=== PATIENT | male | born 1940 | race Caucasian/White ===

== ENCOUNTER 2021-03-20 22:15 | Emergency (ER) | payer MEDICAID, SELFPAY ==
--- NOTE | ~2021-03-20 | CT_ITS ---
EXAMINATION: CT brain wo con INDICATION: Altered mental status COMPARISON: None TECHNIQUE: Standard unenhanced head CT. The dose-length product (DLP) was 275.83 mGy-cm. The mA was a djusted according to patient size. Iterative reconstruction technique was employed. FINDINGS: There is no acute intraparenchymal hemorrhage. No evidence of mass lesion. No evidence of a cute infarction. There is mild periventricular and subcortical hypodensity probably related to small vessel ischemic disease. There is mild prominence of the sulci and ventricles related to cerebral atr ophy. Intracranial calcified cerebral atherosclerosis is noted. There are no extra-axial collections. There is no mass effect or midline shift. The orbits and soft tissues are unremarkable. There is mil d mucosal thickening of the paranasal sinuses. IMPRESSION: 1. No acute intracranial abnormality. 2. Age related findings. Reviewed, dictated and finalized at location A.
--- NOTE | ~2021-03-20 | XR_ITS ---
EXAMINATION: XR chest 1V portable INDICATION: Altered mental status TECHNIQUE: Portable AP chest at 2252 hours. COMPARISON: None available FINDINGS: The lungs are free of acute opacities. There is no pleural effusion or pneumothorax. The he art size is normal. There appears to be a small sliding hiatal hernia. IMPRESSION: 1. No acute cardiopulmonary abnormality. Reviewed, dictated and finalized at location A.
[2021-03-20 22:11] VITALS: BP 110/56; PULSE 108; RESP 13; TEMP 37.2; O2SAT 95
--- NOTE | 2021-03-20 22:47 | ED.GENADULT ---
HPI - General Adult General Chief complaint: Psychiatric Symptoms Stated complaint: psych eval - combative Time Seen by Provider: 03/20/21 22:30 Source: RN notes reviewed History of Present Illness HPI narrative: Patient presents emergency department from [facility] via EMS for psychiatric evaluation. Per the staff the patient was being combative and was having hallucinations. Patient recently was at a geriatric psychiatric facility and had been discharged to the facility 2 days ago patient currently is awake and alert x1 he states that whatever they told you is not true . Patient denies having any pain at this time denies any chest pain shortness of breath abdominal pain nausea vomiting Related Data Home Medications Medication Instructions Recorded Confirmed furosemide [Lasix] 20 mg PO DAILY 03/20/21 lamotrigine [Lamictal] 03/20/21 03/20/21 memantine 10 mg PO QPM 03/20/21 tamsulosin 0.4 mg PO HS 03/20/21 Allergies Allergy/AdvReac Type Severity Reaction Status Date / Time No Known Allergies Allergy Unverified 03/20/21 22:19 Review of Systems Review of Systems: Gen.: Denies fevers or chills Eyes: Denies eye pain or visual change ENT: Denies congestion Respiratory: Denies shortness of breath or cough CV: Denies chest pain or palpitations GI: Denies abdominal pain nausea, emesis or diarrhea Musculoskeletal: Denies back pain or muscle pain Neuro: Denies numbness, tingling, weakness or focal weakness Skin: Denies rash Psych: HPI Except as documented, all other systems reviewed and negative PMFSH Past Medical History Medical History (Updated 03/20/21 @ 22:48 by Srikanth Venegas DO) Dementia Social History Social History (Updated 03/20/21 @ 22:48 by Srikanth Venegas DO) Smoking status: Never smoker Exam Narrative: APPEARANCE: No acute distress, nontoxic, resting in bed EYES: EOMI HEENT: Normocephalic, atraumatic, OMM RESPIRATORY: No respiratory distress Clear to auscultation bilaterally with no rhonchi wheezing or rales. CARDIOVASCULAR: Regular rate and rhythm without murmurs rubs or gallops. ABDOMINAL: Soft, nontender, nondistended, no rebound or guarding MUSCULOSKELETAl: Moves all extremities. No clubbing, cyanosis or edema. NEURO: Awake and alert x 1. Following commands, speech normal, no focal deficits SKIN:: Warm, dry. No rashes lesions or abrasions PSYCHIATRIC: Visual hallucinations in room stating he just saw them put a girl on ice , Course Course Emergency Course: Talk to assisted staff per staff the patient was chasing around staff swinging chairs of the staff the police had to be called out to the assisted to help subdue the patient At this time feel that the patient needs geriatric psych placement. Will have patient evaluated by case management for placement Discussed with Dr. Oseguera for hospitalist service this time would prefer the patient to remain in the emergency department await case management for placement Patient up out of bed numerous attempts to redirect the patient continues to get out of bed cannot be redirected will give Ativan at this time Will be turned over to Dr. Salmeron case management evaluation and placement Vital Signs Vital signs: Vital Signs Temperature 99.0 F 03/20/21 22:11 Pulse Rate 108 H 03/20/21 22:11 Respiratory Rate 13 03/20/21 22:11 Blood Pressure 110/56 L 03/20/21 22:11 Pulse Oximetry 95 03/20/21 22:11 Temperature 99.0 F 03/20/21 22:11 Pulse Rate 94 03/21/21 04:50 Respiratory Rate 16 03/21/21 04:50 Blood Pressure 114/63 03/21/21 04:50 Pulse Oximetry 99 03/21/21 04:50 Medical Decision Making Vital Signs Vital Signs: Vital Signs Temperature 99.0 F 03/20/21 22:11 Pulse Rate 108 H 03/20/21 22:11 Respiratory Rate 13 03/20/21 22:11 Blood Pressure 110/56 L 03/20/21 22:11 Pulse Oximetry 95 03/20/21 22:11 Temperature 99.0 F 03/20/21 22:11 Pulse Rate 94 03/21/21 04:50 Respirato
[2021-03-20 23:12] LABS: Basophils Percent Auto 0.4 % (0.2-1.2); Eosinophils Absolute Auto 0.2 K/mm3 (0-0.3); Eosinophils Percent Auto 2.3 % (0-4.4); Hematocrit 33.8 % (42.0-52.0); Hemoglobin 11.2 g/dL (14.0-18.0); Immature Granulocyte Absolute 0.02 K/mm3 (0.00-0.031); Immature Granulocyte Percent A 0.3 % (0-0.5); Lymphocytes Absolute Auto 0.88 K/mm3 (0.9-3.2); Lymphocytes Percent Auto 11.8 % (18.3-44.2); Mean Corpuscular HGB Conc 33.1 g/dl (32-36); Mean Corpuscular Volume 96.6 fl (80-100); Mean Platelet Volume 9.7 fl (7.4-10.4); Monocytes Absolute Auto 0.7 K/mm3 (0.1-0.6); Monocytes Percent Auto 9.8 % (2.6-8.5); Neutrophils Absolute Auto 5.6 K/mm3 (1.3-6.7); Neutrophils Percent Auto 75.4 % (45.5-73.1); Platelet Count Result 139 k/mm3 (150-375); Red Cell Distribution Width 13.2 % (11.5-14.5); White Blood Count 7.4 K/mm3 (4.5-10.0)
--- NOTE | 2021-03-20 23:13 | PC.NURSE ---
called lab talked to emilia to add Salic Acetamin
[2021-03-20 23:28] LABS: Ethanol < 10 mg/dL (<10)
[2021-03-20 23:32] LABS: Acetaminophen < 10 ug/mL (10-30); Salicylate < 1.0 mg/dL (2-20)
[2021-03-20 23:33] LABS: Alanine Aminotransferase 22 U/L (4-50); Albumin Level 4.5 g/dL (3.5-5.1); Alkaline Phosphatase 59 U/L (38-126); Anion Gap 7 mmol/L (8-16); Aspartate Amino Transferase 37 U/L (17-59); Bilirubin,Total 0.6 mg/dL (0.2-1.3); Blood Urea Nitrogen 26 mg/dL (9-20); Calcium 9.4 mg/dL (8.4-10.2); Carbon Dioxide 29 mmol/L (22-30); Chloride 102 mmol/L (98-107); Estimated CRCL calculation 45 ml/min; Estimated Glomerular Filt Rate 58; Glucose 97 mg/dL (65-110); Potassium 3.8 mmol/L (3.4-5.0); Sodium 138 mmol/L (137-145)
[2021-03-20 23:35] LABS: Prothrombin Time 13.1 Seconds (11.1-14.7)
[2021-03-21 00:33] LABS: Add Urine Microscopic? YES; Appearance Urine Cloudy (Clear); Bilirubin Urine Negative (Negative); Blood Urine Negative (Negative); Color Urine Yellow (Yellow); Glucose Urine UA Negative (Negative); Ketones Urine Negative (Negative); Leukocyte Esterase Ur Negative LEU/UL (Negative); Mucus Urine Few /lpf; Nitrate Urine Negative (Negative); Protein Urine Negative (Negative); RBC Urine 0-2 /hpf (0-2); Specific Grav Ur 1.024 (1.001-1.035); Squamous Epithelial Cell Urine Rare /hpf (Few); Urobilinogen Urine Negative mg/dL (<2.0); WBC Urine 0-3 /hpf
[2021-03-21 00:42] LABS: Barbiturate Screen Urine Negative (Negative); Benzodiazepines Screen Urine Negative (Negative)
[2021-03-21 00:45] LABS: Cannabinoid Screen Urine Negative (Negative); Methadone Screen Urine Negative (Negative); Opiate Screen Urine Negative (Negative); Phencyclidine Screen Urine Negative (Negative)
[2021-03-21 01:01] LABS: Amphetamine Screen Urine Negative (Negative)
--- NOTE | 2021-03-21 01:23 | ECG_ITS ---
Measurements Intervals [place] Rate: 95 P: 54 [place]: 124 QRS: 1 QRSD: 90 T: 46 QT: 347 QTc: 436 Interpretive Statements SINUS RHYTHM BASELINE ARTIFACT- I, II, III, AVR, AVL, AVF, V1-V6 NORMAL ECG Electronically Signed On 03-21-2021 6:07:03 CDT by Jerson Priest D.O.
[2021-03-21 03:18] VITALS: BP 108/55; PULSE 84; RESP 17; O2SAT 98
--- NOTE | 2021-03-21 04:49 | PC.NURSE ---
pt refusing to wear heart monitor leads. pt states STOP THEY ARE GOING TO SHOCK ME! 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
[2021-03-21 04:50] VITALS: BP 114/63; PULSE 94; RESP 16; O2SAT 99
[2021-03-21] MEDS: LORazepam INJ (*CRX) 2 MG/ML VIAL 1 MG IM ×2 (05:22→12:04)
--- NOTE | 2021-03-21 05:26 | PC.NURSE ---
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 redirected pt multiple times and pt refusing to listen. pt threatening to beat up staff and stating to get the hell away from him.
--- NOTE | 2021-03-21 07:15 | PC.NURSE ---
REPORT RECEIVED FROM NELY Hagan RN. CARE ASSUMED. SITTER REMAINS AT BEDSIDE. ROOM DARKENED AND PT IS SLEEPING AT THIS TIME. WILL CONTINUE TO MONITOR.
--- NOTE | 2021-03-21 10:34 | PC.NURSE ---
PT AWAKE AND GETTING OUT OF BED. HAS BEEN WALKED AROUND THE DEPARTMENT TWICE BY THIS RN AND ASSISTED BACK INTO THE BED. PT STATES YOU SOUND LIKE THOSE PUNK ASS KIDS TO THIS RN. PT REDIRECTED TO FACT HE IS IN HOSPITAL AND WE ARE ATTEMPTED TO HELP HIM GET BETTER. SITTER REMAINS AT BEDSIDE FOR PT SAFETY.
--- NOTE | 2021-03-21 11:55 | PCCCNOTE ---
Spoke with Intake at [facility] (patient was discharged from there to days ago). no bed availability at this time but possibly in 24 hrs. Placed patient on the wait list. Involuntary Petition initiated and given to financial compliance officer for completion
[2021-03-21 15:00] VITALS: BP 108/62; PULSE 76; RESP 16; O2SAT 100
--- NOTE | 2021-03-21 15:00 | PC.NURSE ---
PT AWAKE AGAIN AND GETTING OUT OF BED. PT WAS ASSISTED AROUND THE DEPARTMENT WITH THIS RN ACCOMPANYING HIM. PLACED BACK INTO BED, LIGHTS DIMMED AND SITTER REMAINS AT BESIDE FOR PT SAFETY
--- NOTE | 2021-03-21 19:22 | PC.NURSE ---
Assumed care of pt. at this time. Report from Cat. Fabrizio RN
[2021-03-21 22:08] LABS: Cocaine Screen Urine Negative (Negative)
[2021-03-21 22:32] VITALS: BP 126/60; PULSE 75; RESP 14; O2SAT 97
[2021-03-22 01:00] VITALS: BP 116/58; PULSE 92; RESP 14; TEMP 36.4; O2SAT 100
--- NOTE | 2021-03-22 07:27 | PC.NURSE ---
Pt sleeping at this time. Sitter is a bedside.
[2021-03-22 08:08] LABS: EDCOVIDSCREEN Negative (Negative)
[2021-03-22 08:30] VITALS: BP 117/61; PULSE 73; RESP 18; O2SAT 98
--- NOTE | 2021-03-22 08:44 | PC.NURSE ---
Meal tray ordered for pt
--- NOTE | 2021-03-22 09:06 | PCCCNOTE ---
[id number] Spoke with Betty at [facility], no beds available for today and unsure of discharges for tomorrow. Spoke with Maureen at [facility], per Maureen will look at referral for geriatric psych bed. Referral faxed as requested at [phone].- arf
--- NOTE | 2021-03-22 09:33 | PCCCNOTE ---
Phone call received from Maureen that needs confirmation from care home that they will accept back or they provided patient with 30 day notification, requesting rn acute care to contact [facility] and call back to [phone].
--- NOTE | 2021-03-22 09:35 | PCCCNOTE ---
Addendum entered by Deepali Fu RN 03/22/21 11:09: 1109 Director from [facility] came and saw the patient and confirmed acceptance after placement/treatment at geriatric psychiatry facility. Original Note: [id number] Phone call to [facility] at [phone] spoke with Javi Ramirez states that they will accept back after placement/treatment at geriatric psychiatry facility. [facility] notified by phone and fax.
--- NOTE | 2021-03-22 10:38 | PC.NURSE ---
Pt is requesting to talk to his daughter, Trish. There is no contacts in pts chart.
--- NOTE | 2021-03-22 10:38 | PC.NURSE ---
Beth is here to elevate the pt. Informed charged nurse Yola of this. Yola states it is ok to have them come down but to call home care manager rn. admission nurse coordinator here to speak with Beth.
--- NOTE | 2021-03-22 12:20 | PCCCNOTE ---
Inpatient Certificate completed by physician at 1210, Petition for Involuntary Admission completed at 1215. Faxed all to [facility] at [phone] at 1217. Additional Fax to [facility] with rapid covid results, and medicare insurance number.
--- NOTE | 2021-03-22 12:42 | PCCCNOTE ---
Late entry: 03/22/21 at 1111 attempted to reach pt's daughter Trish at [phone], phone number [place] gave [facility] as contact. Machine identified as Yvan who is the pt's nephew, left brief message to return call to care coordination and that the message was for Trish. As 1244 no return call received.
--- NOTE | 2021-03-22 14:22 | PC.NURSE ---
Called to give report on pt. Spoke with Karen and she will have receiving nurse call me back
[2021-03-22 16:42] VITALS: BP 115/65; PULSE 90; RESP 18; O2SAT 100
== END 2021-03-22 16:44 ==
PROVIDERS: Emergency Medicine; General Practice; Emergency Provider Emergency Medicine; PCP Internal Medicine
DX: R44.1 Visual hallucinations (principal); R45.6 Violent behavior; F03.90 Unspecified dementia, unspecified severity, without behavioral disturbance, psychotic disturbance, mood disturbance, and anxiety; Z20.822 Contact with and (suspected) exposure to COVID-19
CPT/HCPCS: 36415; 51701; 70450; 71045; 80053; 80307; 81001; 84443; 85025; 85610; 85730; 87426; 93005; 96372; 99285; C9803; J2060

== ENCOUNTER 2021-04-23 12:19 | Inpatient (IN) | payer MEDICARE, MEDICAID, SELFPAY ==
[2021-04-23] VITALS (8 sets, daily range): BP systolic 95–132; BP diastolic 48–61; PULSE 62–75; RESP 15–22; TEMP 36.5–36.8; O2SAT 96–100
--- NOTE | ~2021-04-23 | XR_ITS ---
EXAMINATION: XR hip LT 1V DATE: 04/25/2021 15:31 INDICATION: Bipolar left hip hemiarthroplasty. Postop. TECHNIQUE: A single view of left hip was obtained. COMPARISON: Left hip radiographs 04/23/2021 FINDINGS: There is a bipolar left hip hemiarthroplasty in near-anatomic alignment. No fracture. Left hip joint space is normal. There is gas in the soft tissues, consistent with recent surgery. Skin sta ples are noted. IMPRESSION: 1. Bipolar left hip hemiarthroplasty in near-anatomic alignment. Reviewed, dictated and finalized at location B. COLORIST
--- NOTE | ~2021-04-23 | CT_ITS ---
EXAMINATION: CT brain wo con DATE: 04/23/2021 17:31 INDICATION: Dementia oriented only to person who presents with fall from bed. Unable to provide relia ble history. TECHNIQUE: Computed tomography (CT) of the head was performed without intravenous contrast. Sagittal and coronal reconstructions were performed. The mA was adjusted according to patient size. Iterative reconstruction technique was employed. The dose-length product was 315.48 mGy-cm. COMPARISON: head CT dated 03/20/2021 FINDINGS: No fracture. No acute intracranial hemorrhage, acute infarction or abnormal extra axial fluid collect ion. There is mild scattered white matter hypoattenuation consistent with chronic small vessel ischem ic disease. Symmetric prominence of the sulci and ventricles consistent with mild age-appropriate dif fuse cerebral volume loss. No mass/mass effect. Mild mucosal thickening in the anterior bilateral eth moid sinuses. The orbits and mastoid air cells are normal. IMPRESSION: 1. No fracture or acute intracranial process. 2. Age-related changes including mild diffuse volume loss and mild scattered white matter hypoattenua tion consistent with chronic small vessel ischemic disease. Reviewed, dictated and finalized at location A. UTIVE VP IMPRESSION: 1. No fracture or acute intracranial process. 2. Age-related changes including mild diffuse volume loss and mild scattered wh ite matter hypoattenuation consistent with chronic small vessel ischemic diseas e.
--- NOTE | ~2021-04-23 | XR_ITS ---
EXAMINATION: XR hip LT 2V w AP pelvis EXAM DATE: 04/23/2021 12:59 INDICATION: Fall, deformity. TECHNIQUE: Left hip frontal, 'frog leg' projections for interpretation. Frontal projection pelvis. There is no prior study for comparison. FINDINGS: There is acute closed posttraumatic left subcapital femoral neck fracture with medial angul ation. There is mild to moderate symmetric bilateral hip primary osteoarthritis. Pelvic ring is intac t. IMPRESSION: 1. Acute left subcapital femoral neck fracture, medial angulation. Reviewed, dictated and finalized at location A. INUING EDUCATION DIRECTOR
--- NOTE | ~2021-04-23 | XR_ITS ---
EXAMINATION: XR chest 1V portable EXAM DATE: 04/23/2021 12:59 INDICATION: Hip fracture, fall. Weakness. TECHNIQUE: Portable AP frontal chest x-ray was obtained. Comparison is made to prior examination from 03/20/2021. FINDINGS: Left lower rib fractures posterolaterally which appear chronic. The lungs are clear. There are no pleural effusions. The cardiomediastinal silhouette is within normal limits. There is no pn eumothorax suspected. There is small to moderate sliding gastroesophageal hiatal hernia. IMPRESSION: 1. No acute cardiopulmonary findings. 2. Small to moderate hiatal hernia. Reviewed, dictated and finalized at location A. IT RISK ANALYTICS MANAGER
--- NOTE | 2021-04-23 12:38 | ECG_ITS ---
Measurements Intervals [place] Rate: 67 P: 66 [place]: 140 QRS: 18 QRSD: 93 T: 52 QT: 414 QTc: 438 Interpretive Statements SINUS RHYTHM BASELINE ARTIFACT- II, III, AVR, AVL, AVF, V2-V3, V5-V6 NORMAL ECG Electronically Signed On 04-23-2021 17:32:37 RAIL CAR DRIVER by Jerson Priest D.O.
--- NOTE | 2021-04-23 13:06 | ED.FALL ---
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 Patient currently with no complaints, alert, ignoring most questions, NAD; states pain in L hip worse with movement, improves with rest. No previous history of L hip fracture or injury per medical record. Related Data Home Medications Medication Instructions Recorded Confirmed benztropine 1 mg PO DAILY 04/23/21 05/02/21 cholecalciferol (vitamin D3) 10 mcg PO DAILY 04/23/21 05/02/21 [Vitamin D3] haloperidol 2 mg PO Q6H PRN 04/23/21 05/02/21 haloperidol 5 mg PO DAILY 04/23/21 05/02/21 lamotrigine 25 mg PO DAILY 04/23/21 05/02/21 lorazepam 1 mg PO Q6H PRN 04/23/21 05/02/21 memantine 5 mg PO Q12H 04/23/21 05/02/21 rivastigmine 9.5 mg TRANSDERMAL DAILY 04/23/21 05/02/21 sertraline 50 mg PO DAILY 04/23/21 05/02/21 tamsulosin 0.4 mg PO HS 04/23/21 05/02/21 Ativan 1 mg PO QID PRN 05/02/21 05/02/21 Allergies Allergy/AdvReac Type Severity Reaction Status Date / Time No Known Allergies Allergy Verified 05/01/21 20:05 Review of Systems Review of Systems: ROS unobtainable: Yes unobtainable due to mental status PMFSH Past Medical History Medical History BPH (benign prostatic hyperplasia) Dementia Depression with anxiety Prostate cancer per daughter Surgical History Surgical History History of appendectomy per daughter History of left hip hemiarthroplasty Family History Family History Unknown Unknown family medical history Social History Social History Social History: Daughter: Trish is Next of Kin , per Trish PPW is pending patient signature. Nephew: Srikanth Ellison (2nd contact per Trish/[facility]) Remaining social history obtained from Trish. 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 Gender identity (if verbalized by the patient): Male Spiritual care concerns: No Exam Narrative: General: alert, afebrile, answering all questions slowly Head: normocephalic, atraumatic Eyes: EOMI bilaterally, anicteric, no injection ENT: moist mucous membranes, oropharynx patent, no rhinorrhea Neck: supple, trachea midline, no JVD Back: no lumbar bony tenderness. paraspinal muscles without spasm EXT: LLE: skin intact, no swelling, tender to L hip; L internal rotaation, decreased ROM; DP 2+moving all other extremities equally Skin: warm, dry, no pallor Neuro: alert, oriented x 1; CN 2-12 grossly intact, no dysarthria Psych: affect appropriate, though content normal Course Course Emergency Course: Spoke with orthopedist, will admit for surgery tomorrow or next day. Medical clearance labs pending; hospitalist informed. Vital Signs Vital signs: Vital Signs Temperature 36.8 C 04/23/21 12:18 Pulse Rate 75 04/23/21 12:18 Respiratory Rate 18 04/23/21 12:18 Pulse Oximetry 99 04/23/21 12:18 Temperature 37.1 C 04/26/21 14:30 Pulse Rate 84 04/26/21 14:30 Respiratory Rate 18 04/26/21 14:30 Blood Pressure 105/53 L 04/26/21 14:30 Pulse Oximetry 97 04/26/21 14:30 MDM - Fall MDM Narrative Medical decision making narrative: L femoral head frac
[2021-04-23] MEDS: fentaNYL CITRATE INJ (*CRX) 100 MCG/2 ML VIAL 25 MCG IV PUSH (13:19)
[2021-04-23 13:30] LABS: Basophils Percent Auto 0.5 % (0.2-1.2); Eosinophils Absolute Auto 0.3 K/mm3 (0-0.3); Eosinophils Percent Auto 4.6 % (0-4.4); Hematocrit 35.8 % (42.0-52.0); Hemoglobin 11.7 g/dL (14.0-18.0); Immature Granulocyte Absolute 0.03 K/mm3 (0.00-0.031); Immature Granulocyte Percent A 0.5 % (0-0.5); Immature Platelet Fraction Pct 3.4 % (0.9-11.2); Mean Corpuscular HGB Conc 32.7 g/dl (32-36); Mean Corpuscular Hemoglobin 31.4 pg (26-34); Mean Platelet Volume 10.7 fl (7.4-10.4); Monocytes Absolute Auto 0.6 K/mm3 (0.1-0.6); Neutrophils Absolute Auto 3.8 K/mm3 (1.3-6.7); Neutrophils Percent Auto 68.4 % (45.5-73.1); Platelet Count Result 137 k/mm3 (150-375); Red Blood Count 3.73 M/mm3 (4.6-6.20); Red Cell Distribution Width 12.8 % (11.5-14.5); White Blood Count 5.6 K/mm3 (4.5-10.0)
[2021-04-23 13:38] LABS: Alanine Aminotransferase 18 U/L (4-50); Albumin Level 4.4 g/dL (3.5-5.1); Alkaline Phosphatase 70 U/L (38-126); Anion Gap 7 mmol/L (8-16); Aspartate Amino Transferase 27 U/L (17-59); Bilirubin,Total 0.6 mg/dL (0.2-1.3); Blood Urea Nitrogen 31 mg/dL (9-20); Calcium 9.5 mg/dL (8.4-10.2); Carbon Dioxide 27 mmol/L (22-30); Chloride 104 mmol/L (98-107); Estimated CRCL calculation 36 ml/min; Estimated Glomerular Filt Rate 49; Glucose 96 mg/dL (65-110); Magnesium 2.2 mg/dL (1.6-2.3); Potassium 4.1 mmol/L (3.4-5.0); Sodium 138 mmol/L (137-145)
[2021-04-23 13:50] LABS: Troponin I < 0.012 ng/mL (0.000-0.034)
[2021-04-23 14:53] LABS: Add Urine Microscopic? YES; Appearance Urine Cloudy (Clear); Bilirubin Urine Negative (Negative); Blood Urine Negative (Negative); Color Urine Yellow (Yellow); Glucose Urine UA Negative (Negative); Ketones Urine Negative (Negative); Leukocyte Esterase Ur Negative LEU/UL (Negative); Nitrate Urine Negative (Negative); Protein Urine Negative (Negative); RBC Urine 0-2 /hpf (0-2); Specific Grav Ur 1.023 (1.001-1.035); Squamous Epithelial Cell Urine Rare /hpf (Few); Urobilinogen Urine Negative mg/dL (<2.0); WBC Urine 0-3 /hpf
--- NOTE | 2021-04-23 15:15 | ADMGEN ---
This patient, Sid Ellison, was admitted to Medical Room 242-01. Patient/family oriented to hospital policies and general routines including ID bracelet, bed and alarms, visiting hours, pain management, procedures, bathroom and other care routines, personal items, smoking policy, room service/diet, and visiting hours. Information on how to activate the Rapid Response Team has been discussed. Patient/Family are encouraged to report perceived risks to care and to ask questions if they do not understand what they are told or what they should do.
--- NOTE | 2021-04-23 15:35 | PM.IMHP ---
H&P: HPI History of Present Illness Date/Time: 04/23/21 15:35 this is an 81-year-old male patient who has a history of dementia with behavioral disturbances who comes from a senior care. Apparently the patient fell from bed to the floor prior to arrival. The patient was unable to bear weight to the left leg. The patient is complaining of some left hip pain. He states that his pain is improved with rest. I do not see any deformities at this time. Hip and pelvis x-ray was read as acute left subcapital femoral neck fracture medial angulation. Chest x-ray was read as no acute cardiopulmonary findings. Small to moderate hiatal hernia. Dr. Chakraborty has been consulted. H&H is 11.7 and 35.8. Platelet count is 137. MPV is 10.7. Creatinine is 1.4. BUN is 31. A Segundo catheter was placed and urine was negative for UTI. The patient was given fentanyl and IV fluids in the emergency room. The patient is being admitted to observation status on 04/23/2021. Chief Complaint: Fall with left hip pain Review of Systems Review of Systems: All systems reviewed & are unremarkable except as noted in HPI and below Constitutional: Constitutional: Reports as per HPI and Reports no additional constitutional complaints Eyes: Eyes: Reports as per HPI and Reports no additional eye complaints ENT: Reports system reviewed and no additional complaints, except as documented and Reports Normal hearing present Cardiovascular: Cardiovascular: Reports no additional cardiovascular complaints Respiratory: Respiratory: Reports no additional respiratory complaints and Reports no additional respiratory complaints Gastrointestinal: Gastrointestinal: Reports as per HPI and Reports no additional gastrointestinal complaints Musculoskeletal: Musculoskeletal: Reports no additional musculoskeletal complaints Integumentary/Breasts: Skin/Breast: Reports system reviewed and no additional complaints, except as docu and Reports as per HPI Neurologic: Reports system reviewed and no additional complaints, except as documented, Reports as per HPI and Reports Normal hearing present Psychiatric: Psychiatric: Reports no additional psychiatric complaints and Reports as per HPI Endocrine: Endocrine: Reports no additional endocrine complaints Hematologic/Lymphatic: Hematologic/Lymphatic: Reports no additional hematologic/lymphatic complaints Allergic/Immunologic: Allergic/Immunologic: Reports no additional allergic/immunologic complaints [facility] Past Medical History Medical History (Updated 04/23/21 @ 15:40 by Angela Ibarra NP) BPH (benign prostatic hyperplasia) Dementia Depression with anxiety Surgical History Surgical History (Updated 04/23/21 @ 15:40 by Angela Ibarra NP) H/O abdominal surgery The patient tells me that he has a history of abdominal surgery however I did not see any scarring. Family History Family History (Updated 04/23/21 @ 15:49 by Angela Ibarra NP) Unknown Unknown family medical history Social History Social History (Updated 04/23/21 @ 15:55 by Angela Ibarra NP) Social History: amado mccormack the nephew is listed as emergency personnel worker, I did attempt to call him at [phone] and was unavailable per phone. The patient told me that he used to smoke however is listed as chart as a nonsmoker. He has a very poor historian. 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 He tells me that he has 1 daughter. He stated he was not aware that his nephew was the durable power offbearer sewer pipe for healthcare. The patient denies any alcohol or illicit drugs. Patient resides in a senior care. The patient is listed as a full code. However I will review his senior care papers and speak with his power offbearer sewer pipe when able. Code status full code Smoking status: Never smoker Spiritual care concerns: No Meds Home Medications and Allergies Home Medications Medication Instructions Recorded Confirmed Type benztropine 11
[2021-04-23 16:30] LABS: Glucose Point of Care 96 mg/dl (65-105)
[2021-04-23] MEDS: SODIUM CHLORIDE 0.9% IV 1,000 ML 100 ML IV CONT (16:40)
[2021-04-23] MEDS: SODIUM CHLORIDE 0.9% IV 1,000 ML 999 ML IV CONT (16:40)
[2021-04-23] MEDS: TAMSULOSIN HCL 0.4 MG CAPSULE PO (20:57)
[2021-04-23] MEDS: MORPHINE SULFATE (*CRX) 2 MG/ML INJ IV PUSH (20:57)
[2021-04-23] MEDS: MEMANTINE 5 MG TABLET PO (20:57)
[2021-04-23] MEDS: LORazepam INJ (*CRX) 2 MG/ML VIAL 1 MG IV PUSH (23:01)
--- NOTE | 2021-04-24 | ECHO_ITS ---
Patient Info Name: Sid Ellison Age: 81 years : 1940 Gender: Male Ht: 73 in Wt: 149 lbs BSA: 1.85 m2 HR: 68 bpm BP: 139 / 52 mmHg Heart Rhythm: Sinus Rhythm Technical Quality: Fair Exam Date: 04/24/2021 11:26 AM Exam Location: [facility] Pulmonary Patient Status: Outpatient Admit Date: 04/23/2021 Staff Ordering Physician: David Vaca Precise Winder: Rowan Russell RDCS Attending Provider: Nara Marquez MD Referring Physician: Lio REYES; Exam Type: CA echo doppler color flow Study Info Indications - PRE SURGICAL - CARDIAC STATUS Complete two-dimensional, color flow and Doppler transthoracic echocardiogram is performed. Summary 1. Complete two-dimensional, color flow and Doppler transthoracic echocardiogram is performed. 2. Normal right and left ventricular systolic function. 3. Modest left atrial enlargement. 4. Mildly calcified mitral valve annulus. Left Ventricle Left ventricular chamber dimension is normal. Left ventricular systolic function is normal, estimated at 65-70%. There is mild concentric increased left ventricular wall thickness. The left ventricular diastolic function is normal. Right Ventricle Right ventricular chamber dimension is normal. Left Atria Left atrial chamber dimension is mildly enlarged. Right Atria Right atrial chamber dimension is normal. Aortic Valve The aortic valve is trileaflet. There is mild aortic valve sclerosis. Pulmonic Valve The pulmonic valve is not well visualized. Mitral Valve The mitral valve has normal leaflets. The mitral valve annulus is mildly calcified. Tricuspid Valve The tricuspid valve leaflets are normal. Pericardium/Pleural The pericardium appears normal. Aorta The aortic root size at the sinus of Valsalva is normal. Left Ventricular Outflow Tract Name Value Normal LVOT 2D LVOT Diameter 2.0 cm LVOT Doppler LVOT Peak Gradient 5 mmHg LVOT Mean Gradient 2 mmHg LVOT VTI 24 cm LVOT VTI/AV VTI Ratio 1.1 LVOT Stroke Volume 77 ml LVOT CO 4.4 l/min LVOT CI 2.4 l/min/m2 Pulmonic Valve Name Value Normal RVOT Doppler RVOT Peak Gradient 2 mmHg PV Doppler PV Peak Gradient 2 mmHg Mitral Valve Name Value Normal MV Doppler MV Decel Castro 331 cm/s2
[2021-04-24] MEDS: MORPHINE SULFATE (*CRX) 2 MG/ML INJ IV PUSH (04:39)
[2021-04-24] MEDS: SODIUM CHLORIDE 0.9% IV 1,000 ML 100 ML IV CONT ×3 (04:39→23:28)
[2021-04-24 05:15] LABS: Basophils Percent Auto 0.5 % (0.2-1.2); Eosinophils Absolute Auto 0.3 K/mm3 (0-0.3); Eosinophils Percent Auto 2.9 % (0-4.4); Hematocrit 34.6 % (42.0-52.0); Hemoglobin 11.3 g/dL (14.0-18.0); Immature Granulocyte Absolute 0.03 K/mm3 (0.00-0.031); Immature Granulocyte Percent A 0.3 % (0-0.5); Immature Platelet Fraction Pct 3.4 % (0.9-11.2); Lymphocytes Absolute Auto 0.75 K/mm3 (0.9-3.2); Lymphocytes Percent Auto 8.7 % (18.3-44.2); Mean Corpuscular HGB Conc 32.7 g/dl (32-36); Mean Corpuscular Hemoglobin 31.3 pg (26-34); Mean Corpuscular Volume 95.8 fl (80-100); Mean Platelet Volume 10.5 fl (7.4-10.4); Monocytes Absolute Auto 0.8 K/mm3 (0.1-0.6); Monocytes Percent Auto 9.4 % (2.6-8.5); Neutrophils Absolute Auto 6.7 K/mm3 (1.3-6.7); Neutrophils Percent Auto 78.2 % (45.5-73.1); Platelet Count Result 118 k/mm3 (150-375); Red Blood Count 3.61 M/mm3 (4.6-6.20); Red Cell Distribution Width 12.6 % (11.5-14.5); White Blood Count 8.6 K/mm3 (4.5-10.0)
[2021-04-24 05:27] LABS: Lactic Acid Reflex 1.1 mmol/L (0.7-2.1)
[2021-04-24 05:31] LABS: Alanine Aminotransferase 16 U/L (4-50); Albumin Level 4.1 g/dL (3.5-5.1); Alkaline Phosphatase 68 U/L (38-126); Anion Gap 4 mmol/L (8-16); Aspartate Amino Transferase 26 U/L (17-59); Blood Urea Nitrogen 23 mg/dL (9-20); CRP 1.7 mg/dL (<1.0); Calcium 9.1 mg/dL (8.4-10.2); Carbon Dioxide 29 mmol/L (22-30); Chloride 102 mmol/L (98-107); Estimated CRCL calculation 46 ml/min; Estimated Glomerular Filt Rate > 60; Glucose 103 mg/dL (65-110); Lactate Dehydrogenase 366 U/L (313-618); Magnesium 1.9 mg/dL (1.6-2.3); Potassium 4.4 mmol/L (3.4-5.0); Sodium 135 mmol/L (137-145)
[2021-04-24 06:00] VITALS: BP 139/52; PULSE 77; RESP 20; TEMP 36.6; O2SAT 99
--- NOTE | 2021-04-24 07:45 | P.PNIM_ITS ---
Progress Note: A&P Assessment and Plan (1) Fracture of femoral neck, left, closed: Qualifiers: Encounter type: initial encounter Qualified Code(s): S72.002A - Fracture of unspecified part of neck of left femur, initial encounter for closed fracture Code(s): S72.002A - Fracture of unspecified part of neck of left femur, initial encounter for closed fracture Status: Acute Assessment and Plan: * Reported fall from bed to floor * Hip xray found Acute left subcapital femoral neck fracture, medial angulation * Dr. Chakraborty was consulted * continue iv fluids * Continue with pain management * Tentatively scheduled for intervention tomorrow with ortho for surgical procedure * Will get echo normal systolic function with EF of 65-70% , EKG shows SR with no ST elevation, labs look good as well * Medically he seems to be stable enough for a surgical procedure, if family agrees * NPO after midnight * SCDs for now (2) Dementia: Code(s): F03.90 - Unspecified dementia without behavioral disturbance Status: Acute Assessment and Plan: * Continue home medications * Patient has behavioral disturbances * sertraline, Namenda, Lamictal, Haldol on normal basis will continue * continue with benztropine, and rivastigmine * Fall precautions, including alarms (3) Depression with anxiety: Code(s): F41.8 - Other specified anxiety disorders Status: Chronic Assessment and Plan: * IV Ativan and sertraline (4) BPH (benign prostatic hyperplasia): Code(s): N40.0 - Benign prostatic hyperplasia without lower urinary tract symptoms Status: Chronic Assessment and Plan: * Continue with tamsulosin * Urinary catheter * Trend output (5) Hypotension: Code(s): I95.9 - Hypotension, unspecified Status: Acute Assessment and Plan: * BP are labile * Lowest reported BP 76/32 * 250ml bolus given * Could be from a mix of pain medications and medications to control dementia * trend BP * No antihypertensives on board at this time Time Spent With Patient Time with patient: Greater than 35 minutes Subjective Date/time seen: 04/24/21 07:45 Interval history: Date/Time: 04/23/21 15:35 This is an 81-year-old male patient who has a history of dementia with behavioral disturbances who comes from a detention. Apparently the patient fell from bed to the floor prior to arrival. The patient was unable to bear weight to the left leg. The patient is complaining of some left hip pain. He states that his pain is improved with rest. I do not see any deformities at this time. Hip and pelvis x-ray was read as acute left subcapital femoral neck fracture medial angulation. Chest x-ray was read as no acute cardiopulmonary findings. Small to moderate hiatal hernia. Dr. Chakraborty has been consulted. H&H is 11.7 and 35.8. Platelet count is 137. MPV is 10.7. Creatinine is 1.4. BUN is 31. A Segundo catheter was placed and urine was negative for UTI. The patient was given fentanyl and IV fluids in the emergency room. Date/Time 04/24/21 9897 Patient stated that his legs hurt and he rates it a 9/10. He said that he is aware that he broke his left hip. He did say that it was weak and tired however he denies chest pain, shortness of breath, sweats, fevers, chills, nausea, vomiting. I did change his diet to NPO since Orthopedics as an outpatient yet. Patient does say that he walks normally. Patient also has sunglasses for visual cor
--- NOTE | 2021-04-24 07:45 | PM.IMPN ---
Progress Note: A&P Assessment and Plan (1) Fracture of femoral neck, left, closed: Qualifiers: Encounter type: initial encounter Qualified Code(s): S72.002A - Fracture of unspecified part of neck of left femur, initial encounter for closed fracture Code(s): S72.002A - Fracture of unspecified part of neck of left femur, initial encounter for closed fracture Status: Acute Assessment and Plan: Reported fall from bed to floor Hip xray found Acute left subcapital femoral neck fracture, medial angulation Dr. Chakraborty was consulted continue iv fluids Continue with pain management Tentatively scheduled for intervention tomorrow with ortho for surgical procedure Will get echo normal systolic function with EF of 65-70% , EKG shows SR with no ST elevation, labs look good as well Medically he seems to be stable enough for a surgical procedure, if family agrees NPO after midnight SCDs for now (2) Dementia: Code(s): F03.90 - Unspecified dementia without behavioral disturbance Status: Acute Assessment and Plan: Continue home medications Patient has behavioral disturbances sertraline, Namenda, Lamictal, Haldol on normal basis will continue continue with benztropine, and rivastigmine Fall precautions, including alarms (3) Depression with anxiety: Code(s): F41.8 - Other specified anxiety disorders Status: Chronic Assessment and Plan: IV Ativan and sertraline (4) BPH (benign prostatic hyperplasia): Code(s): N40.0 - Benign prostatic hyperplasia without lower urinary tract symptoms Status: Chronic Assessment and Plan: Continue with tamsulosin Urinary catheter Trend output (5) Hypotension: Code(s): I95.9 - Hypotension, unspecified Status: Acute Assessment and Plan: BP are labile Lowest reported BP 76/32 250ml bolus given Could be from a mix of pain medications and medications to control dementia trend BP No antihypertensives on board at this time Time Spent With Patient Time with patient: Greater than 35 minutes Subjective Date/time seen: 04/24/21 07:45 Interval history: Date/Time: 04/23/21 15:35 This is an 81-year-old male patient who has a history of dementia with behavioral disturbances who comes from a retirement. Apparently the patient fell from bed to the floor prior to arrival. The patient was unable to bear weight to the left leg. The patient is complaining of some left hip pain. He states that his pain is improved with rest. I do not see any deformities at this time. Hip and pelvis x-ray was read as acute left subcapital femoral neck fracture medial angulation. Chest x-ray was read as no acute cardiopulmonary findings. Small to moderate hiatal hernia. Dr. Chakraborty has been consulted. H&H is 11.7 and 35.8. Platelet count is 137. MPV is 10.7. Creatinine is 1.4. BUN is 31. A Segundo catheter was placed and urine was negative for UTI. The patient was given fentanyl and IV fluids in the emergency room. Date/Time 04/24/21 4018 Patient stated that his legs hurt and he rates it a 9/10. He said that he is aware that he broke his left hip. He did say that it was weak and tired however he denies chest pain, shortness of breath, sweats, fevers, chills, nausea, vomiting. I did change his diet to NPO since Orthopedics as an outpatient yet. Patient does say that he walks normally. Patient also has sunglasses for visual correction when asked patient about his other glasses he does not seem to know what happened to them. At 1st he told me they are broken that he told me something else. His left leg was at an angle under his right leg. I was able to move his leg and he did not show any signs of pain however he does seem a little stiff. His leg does have outter external rotation. Review of Systems Review of Systems: All systems reviewed & are unremarkable e
[2021-04-24] MEDS: MEMANTINE 5 MG TABLET PO ×2 (08:09→20:41)
[2021-04-24] MEDS: lamoTRIgine 25 MG TABLET PO (08:09)
[2021-04-24] MEDS: SERTRALINE HCL 50 MG TABLET PO (08:09)
[2021-04-24] MEDS: BENZTROPINE MESYLATE 1 MG TABLET PO (08:09)
[2021-04-24] MEDS: HALOPERIDOL 5 MG TABLET PO (08:09)
[2021-04-24] MEDS: CHOLECALCIFEROL 400 UNITS TABLET (VIT D) PO (08:09)
[2021-04-24] MEDS: RIVASTIGMINE TARTRATE 9.5 MG PATCH 1 PATCH TRANSDERM (08:10)
--- NOTE | 2021-04-24 09:22 | PM.CNOR ---
Assessment and Plan Assessment and plan (1) Fracture of femoral neck, left, closed: Qualifiers: Encounter type: initial encounter Qualified Code(s): S72.002A - Fracture of unspecified part of neck of left femur, initial encounter for closed fracture Code(s): S72.002A - Fracture of unspecified part of neck of left femur, initial encounter for closed fracture Status: Acute Assessment and Plan: Radiographs of the left hip from the emergency room revealed an acute left subcapital femoral neck fracture, medial angulation. unable to discuss fracture with patient given altered mental status. Contacted David who is his daughter and power of deputy prosecuting attorney. Fracture type, condition, nature, etiology and course of natural history reviewed. Conservative and operative treatment options discussed as well as risks and benefits each at length. Discussed Left Bipolar Hip replacement Risks of surgery including but not limited to neurovascular damage, wound complications, blood clot, pulmonary embolus, stroke, myocardial infarction, anesthetic risks up to and including were reviewed. Continued pain and possible dysfunction were explained. No guarantees were offered. The patient understands and wishes to proceed. The patient's daughter wishes to proceed with surgical intervention. Plan: Left Bipolar Hip Replacement by Dr. Chakraborty Bedmakayla in the interim. NPO at midnight. Obtain consent from POA. Pain control. Ice. Hold anticoagulation. Additional Plan Physical exam, radiographic interpretation and decision for surgical intervention discussed with the Dr. Chakraborty who agrees with plan of care. No further recommendations at this time. History of Present Illness HPI Consult date: 04/24/21 Consult reason: fracture (Left Hip Fracture ) Chief complaint: L Femoral neck fracture Narrative: 81-year-old male admitted status post fall at a detention facility due to inability to bear weight on the left lower extremity. The patient has a significant history of dementia and currently resides in a detention facility in [facility]. Patient is a poor historian. History of present illness obtained from medical record. Past medical and surgical history obtained from power of deputy prosecuting attorney/daughter, Trish. Review of Systems Review of Systems: ROS unobtainable: Yes unobtainable due to mental status (dementia) [facility] Past Medical History Medical History BPH (benign prostatic hyperplasia) Dementia Depression with anxiety Prostate cancer per daughter Surgical History Surgical History History of appendectomy per daughter Family History Family History Unknown Unknown family medical history Social History Social History Social History: Daughter: Trish is Next of Kin , per Trish PPW is pending patient signature. Nephew: Srikanth Ellison (2nd contact per Trish/[facility]) Remaining social history obtained from Trish. 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 Gender identity (if verbalized by the patient): Male Spiritual care concerns: No Meds Home Medications and Allergies Home Medications Medication Instructions Recorded Confirmed Type benztropine 1 mg PO DAILY 04/23/21 04/23/21 History cholecalciferol (vitamin D3) 10 mcg PO DAILY 04/23/21 04/23/21 History [Vitamin D3] haloperidol 2 mg PO Q6H PRN 04/23/21 04/23/21 History haloperidol 5 mg PO DAILY 04/23/21 04/23/21 History lamotrig
[2021-04-24 14:20] VITALS: BP 76/32; PULSE 68; RESP 14; TEMP 36.4; O2SAT 97
[2021-04-24] MEDS: SODIUM CHLORIDE 0.9% IV 250 ML IV CONT (14:38)
[2021-04-24 15:39] VITALS: BP 92/48
[2021-04-24] MEDS: TAMSULOSIN HCL 0.4 MG CAPSULE PO (20:41)
[2021-04-24 22:00] VITALS: BP 101/45; PULSE 74; RESP 18; TEMP 36.7; O2SAT 97
[2021-04-25] VITALS (17 sets, daily range): BP systolic 94–131; BP diastolic 40–54; PULSE 60–80; RESP 10–20; TEMP 36–37.2; O2SAT 95–100; BMI 23.8
[2021-04-25] MEDS: MORPHINE SULFATE (*CRX) 2 MG/ML INJ 1 MG IV PUSH (02:59)
[2021-04-25 05:46] LABS: Basophils Percent Auto 0.4 % (0.2-1.2); Eosinophils Absolute Auto 0.5 K/mm3 (0-0.3); Eosinophils Percent Auto 5.7 % (0-4.4); Hematocrit 31.7 % (42.0-52.0); Hemoglobin 10.5 g/dL (14.0-18.0); Immature Granulocyte Absolute 0.02 K/mm3 (0.00-0.031); Immature Granulocyte Percent A 0.2 % (0-0.5); Immature Platelet Fraction Pct 3.7 % (0.9-11.2); Lymphocytes Absolute Auto 1.02 K/mm3 (0.9-3.2); Lymphocytes Percent Auto 11.1 % (18.3-44.2); Mean Corpuscular HGB Conc 33.1 g/dl (32-36); Mean Corpuscular Hemoglobin 31.5 pg (26-34); Mean Corpuscular Volume 95.2 fl (80-100); Mean Platelet Volume 10.9 fl (7.4-10.4); Monocytes Percent Auto 10.8 % (2.6-8.5); Neutrophils Absolute Auto 6.6 K/mm3 (1.3-6.7); Neutrophils Percent Auto 71.8 % (45.5-73.1); Platelet Count Result 106 k/mm3 (150-375); Red Blood Count 3.33 M/mm3 (4.6-6.20); Red Cell Distribution Width 12.5 % (11.5-14.5); White Blood Count 9.2 K/mm3 (4.5-10.0)
[2021-04-25 06:12] LABS: Alanine Aminotransferase 14 U/L (4-50); Albumin Level 3.6 g/dL (3.5-5.1); Alkaline Phosphatase 61 U/L (38-126); Anion Gap 7 mmol/L (8-16); Aspartate Amino Transferase 28 U/L (17-59); Bilirubin,Total 0.6 mg/dL (0.2-1.3); Blood Urea Nitrogen 18 mg/dL (9-20); Calcium 8.9 mg/dL (8.4-10.2); Carbon Dioxide 25 mmol/L (22-30); Chloride 103 mmol/L (98-107); Estimated CRCL calculation 46 ml/min; Estimated Glomerular Filt Rate > 60; Glucose 96 mg/dL (65-110); Magnesium 1.9 mg/dL (1.6-2.3); Potassium 3.9 mmol/L (3.4-5.0); Sodium 135 mmol/L (137-145)
--- NOTE | 2021-04-25 07:20 | P.PNIM_ITS ---
Progress Note: A&P Assessment and Plan (1) Fracture of femoral neck, left, closed: Qualifiers: Encounter type: initial encounter Qualified Code(s): S72.002A - Fracture of unspecified part of neck of left femur, initial encounter for closed fracture Code(s): S72.002A - Fracture of unspecified part of neck of left femur, initial encounter for closed fracture Status: Acute Assessment and Plan: * Reported fall from bed to floor * Hip xray found Acute left subcapital femoral neck fracture, medial angulation * Dr. Chakraborty was consulted * continue iv fluids * Continue with pain management * Scheduled for intervention today at 1430 * echo normal systolic function with EF of 65-70% , EKG shows SR with no ST elevation, labs look good as well * Medically he seems to be stable enough for a surgical procedure, if family agrees * NPO after midnight * SCDs for now * Ortho to manage post op care (2) Dementia: Code(s): F03.90 - Unspecified dementia without behavioral disturbance Status: Acute Assessment and Plan: * Continue home medications * Patient has behavioral disturbances * No noted issues * sertraline, Namenda, Lamictal, Haldol on normal basis will continue * continue with benztropine, and rivastigmine * Fall precautions, including alarms (3) Depression with anxiety: Code(s): F41.8 - Other specified anxiety disorders Status: Chronic Assessment and Plan: * IV Ativan and sertraline (4) BPH (benign prostatic hyperplasia): Code(s): N40.0 - Benign prostatic hyperplasia without lower urinary tract symptoms Status: Chronic Assessment and Plan: * Continue with tamsulosin * Urinary catheter * Patient appears to be positive by 3L * Trend output (5) Hypotension: Code(s): I95.9 - Hypotension, unspecified Status: Acute Assessment and Plan: * BP 101/45, stable at this time * BP are labile * Lowest reported BP 76/32 * 250ml bolus given * Could be from a mix of pain medications and medications to control dementia * trend BP * No antihypertensives on board at this time Time Spent With Patient Time with patient: Greater than 35 minutes Subjective Date/time seen: 04/25/21 07:20 Interval history: Date/Time: 04/23/21 15:35 This is an 81-year-old male patient who has a history of dementia with behavioral disturbances who comes from a [facility]. Apparently the patient fell from bed to the floor prior to arrival. The patient was unable to bear weight to the left leg. The patient is complaining of some left hip pain. He states that his pain is improved with rest. I do not see any deformities at this time. Hip and pelvis x-ray was read as acute left subcapital femoral neck fracture medial angulation. Chest x-ray was read as no acute cardiopulmonary findings. Small to moderate hiatal hernia. Dr. Chakraborty has been consulted. H&H is 11.7 and 35.8. Platelet count is 137. MPV is 10.7. Creatinine is 1.4. BUN is 31. A Segundo catheter was placed and urine was negative for UTI. The patient was given fentanyl and IV fluids in the emergency room. Date/Time 04/24/21 7986 Patient stated that his legs hurt and he rates it a 9/10. He said that he is aware that he broke his left hip. He did say that it was weak and tired however he denies chest pain, shortness of breath, sweats, fevers, chills, nausea, vomiting. I did change his diet to NPO since Orthopedics as an outpatient yet. Patient
--- NOTE | 2021-04-25 07:20 | PM.IMPN ---
Progress Note: A&P Assessment and Plan (1) Fracture of femoral neck, left, closed: Qualifiers: Encounter type: initial encounter Qualified Code(s): S72.002A - Fracture of unspecified part of neck of left femur, initial encounter for closed fracture Code(s): S72.002A - Fracture of unspecified part of neck of left femur, initial encounter for closed fracture Status: Acute Assessment and Plan: Reported fall from bed to floor Hip xray found Acute left subcapital femoral neck fracture, medial angulation Dr. Chakraborty was consulted continue iv fluids Continue with pain management Scheduled for intervention today at 1430 echo normal systolic function with EF of 65-70% , EKG shows SR with no ST elevation, labs look good as well Medically he seems to be stable enough for a surgical procedure, if family agrees NPO after midnight SCDs for now Ortho to manage post op care (2) Dementia: Code(s): F03.90 - Unspecified dementia without behavioral disturbance Status: Acute Assessment and Plan: Continue home medications Patient has behavioral disturbances No noted issues sertraline, Namenda, Lamictal, Haldol on normal basis will continue continue with benztropine, and rivastigmine Fall precautions, including alarms (3) Depression with anxiety: Code(s): F41.8 - Other specified anxiety disorders Status: Chronic Assessment and Plan: IV Ativan and sertraline (4) BPH (benign prostatic hyperplasia): Code(s): N40.0 - Benign prostatic hyperplasia without lower urinary tract symptoms Status: Chronic Assessment and Plan: Continue with tamsulosin Urinary catheter Patient appears to be positive by 3L Trend output (5) Hypotension: Code(s): I95.9 - Hypotension, unspecified Status: Acute Assessment and Plan: BP 101/45, stable at this time BP are labile Lowest reported BP 76/32 250ml bolus given Could be from a mix of pain medications and medications to control dementia trend BP No antihypertensives on board at this time Time Spent With Patient Time with patient: Greater than 35 minutes Subjective Date/time seen: 04/25/21 07:20 Interval history: Date/Time: 04/23/21 15:35 This is an 81-year-old male patient who has a history of dementia with behavioral disturbances who comes from a assisted. Apparently the patient fell from bed to the floor prior to arrival. The patient was unable to bear weight to the left leg. The patient is complaining of some left hip pain. He states that his pain is improved with rest. I do not see any deformities at this time. Hip and pelvis x-ray was read as acute left subcapital femoral neck fracture medial angulation. Chest x-ray was read as no acute cardiopulmonary findings. Small to moderate hiatal hernia. Dr. Chakraborty has been consulted. H&H is 11.7 and 35.8. Platelet count is 137. MPV is 10.7. Creatinine is 1.4. BUN is 31. A Segundo catheter was placed and urine was negative for UTI. The patient was given fentanyl and IV fluids in the emergency room. Date/Time 04/24/21 2945 Patient stated that his legs hurt and he rates it a 9/10. He said that he is aware that he broke his left hip. He did say that it was weak and tired however he denies chest pain, shortness of breath, sweats, fevers, chills, nausea, vomiting. I did change his diet to NPO since Orthopedics as an outpatient yet. Patient does say that he walks normally. Patient also has sunglasses for visual correction when asked patient about his other glasses he does not seem to know what happened to them. At 1st he told me they are broken that he told me something else. His left leg was at an angle under his right leg. I was able to move his leg and he did not show any signs of pain however he does seem a little stiff. His leg does have outter external rotation. Date/Time se
--- NOTE | 2021-04-25 07:24 | WPDHPUPDATE1 ---
History and Physical Update Update Date/Time: 04/25/21 07:24 History and Physical has been reviewed, including an updated exam of the patient. There are NO changes in the patient's condition. Risks, benefits, and alternatives have been discussed and questions answered. Patient agrees to proceed with procedure.
[2021-04-25] MEDS: SODIUM CHLORIDE 0.9% IV 1,000 ML 100 ML IV CONT (08:35)
[2021-04-25] MEDS: BENZTROPINE MESYLATE 1 MG TABLET PO (08:37)
[2021-04-25] MEDS: MEMANTINE 5 MG TABLET PO (08:37)
[2021-04-25] MEDS: SERTRALINE HCL 50 MG TABLET PO (08:37)
[2021-04-25] MEDS: RIVASTIGMINE TARTRATE 9.5 MG PATCH 1 PATCH TRANSDERM (08:37)
[2021-04-25] MEDS: lamoTRIgine 25 MG TABLET PO (08:37)
[2021-04-25] MEDS: CHOLECALCIFEROL 400 UNITS TABLET (VIT D) PO (08:37)
[2021-04-25] MEDS: HALOPERIDOL 5 MG TABLET PO (08:37)
[2021-04-25] MEDS: LACTATED RINGERS 1,000 ML 30 ML IV CONT ×2 (10:26→13:04)
[2021-04-25] MEDS: TRANEXAMIC ACID 1,000MG/ISO100 1,000 MG/100 ML BAG 200 MG IVPB (10:34)
--- NOTE | 2021-04-25 10:37 | WPDANESEPPF ---
Anes - Initial Pre Proc Eval Procedure: Operation Date: 04/25/21 14:30 Proposed Procedures p Left Bipolar Hip Replacement - Per Chakraborty MD Date/Time: 04/25/21 10:37 Surgeon: Nara Marquez MD Pre Op Diagnosis: L Femoral neck fracture Patient Data Age: 81 Gender: M Height: 1.83 m Weight: 79.8 kg Last Vital Signs Temp 36.6 C 04/25/21 06:00 Pulse 80 04/25/21 06:00 Resp 20 04/25/21 06:00 BP 131/51 L 04/25/21 06:00 Pulse Ox 99 04/25/21 06:00 Allergies Allergy/AdvReac Type Severity Reaction Status Date / Time No Known Allergies Allergy Unverified 03/20/21 22:19 Home Medications Medication Instructions Recorded Confirmed Type benztropine 1 mg PO DAILY 04/23/21 04/23/21 History cholecalciferol (vitamin D3) 10 mcg PO DAILY 04/23/21 04/23/21 History [Vitamin D3] haloperidol 2 mg PO Q6H PRN 04/23/21 04/23/21 History haloperidol 5 mg PO DAILY 04/23/21 04/23/21 History lamotrigine 25 mg PO DAILY 04/23/21 04/23/21 History lorazepam 1 mg PO Q6H PRN 04/23/21 04/23/21 History memantine 5 mg PO Q12H 04/23/21 04/23/21 History rivastigmine 9.5 mg TRANSDERMAL DAILY 04/23/21 04/23/21 History sertraline 50 mg PO DAILY 04/23/21 04/23/21 History tamsulosin 0.4 mg PO HS 04/23/21 04/23/21 History Laboratory Tests 04/25/21 04/25/21 05:16 05:16 WBC 9.2 K/mm3 K/mm3 (4.5-10.0) RBC 3.33 M/mm3 L M/mm3 (4.6-6.20) Hgb 10.5 g/dL L g/dL (14.0-18.0) Hct 31.7 % L % (42.0-52.0) MCV 95.2 fl fl (80-100) MCH 31.5 pg pg (26-34) MCHC 33.1 g/dl g/dl (32-36) RDW 12.5 % % (11.5-14.5) Plt Count 106 k/mm3 L k/mm3 (150-375) MPV 10.9 fl H fl (7.4-10.4) Immature Gran % (Auto) 0.2 % % (0-0.5) Neut % (Auto) 71.8 % % (45.5-73.1) Lymph % (Auto) 11.1 % L % (18.3-44.2) [place] % (Auto) 10.8 % H % (2.6-8.5) Eos % (Auto) 5.7 % H % (0-4.4) Baso % (Auto) 0.4 % % (0.2-1.2) Lymph # (Auto) 1.02 K/mm3 K/mm3 (0.9-3.2) [place] # (Auto) 1.0 K/mm3 H K/mm3 (0.1-0.6) Eos # (Auto) 0.5 K/mm3 H K/mm3 (0-0.3) Baso # (Auto) 0.0 K/mm3 K/mm3 (0.0-0.1) Abs Immat Gran (auto) 0.02 K/mm3 K/mm3 (0.00-0.031) Absolute Neuts (auto) 6.6 K/mm3 K/mm3 (1.3-6.7) Absolute Nucleated RBC 0.0 K/mm3 K/mm3 (0.0-0.012) Nucleated RBC % 0.0 % % (0.0-0.2) % Immature Plt Fraction 3.7 % % (0.9-11.2) Sodium 135 mmol/L L mmol/L (137-145) Potassium 3.9 mmol/L mmol/L (3.4-5.0) Chloride 103 mmol/L mmol/L (98-107) Carbon Dioxide 25 mmol/L mmol/L (22-30) Anion Gap 7 mmol/L L mmol/L (8-16) BUN 18 mg/dL mg/dL (9-20) Creatinine 1.10 mg/dL mg/dL (0.7-1.3) Estim Creat Clear Calc 46 ml/min ml/min Estimated GFR > 60 (59 - ) Glucose 96 mg/dL mg/dL (65-110) Calcium 8.9 mg/dL mg/dL (8.4-10.2) Magnesium 1.9 mg/dL mg/dL (1.6-2.3) Total Bilirubin 0.6 mg/dL mg/dL (0.2-1.3) AST 28 U/L U/L (17-59) ALT 14 U/L U/L (4-50) Alkaline Phosphatase 61 U/L U/L (38-126) Total Protein 6.0 g/dL L g/dL (6.3-8.2) Albumin 3.6 g/dL g/dL (3.5-5.1) Patient hx anesthesia problems: none Family hx anesthesia problems: none Results Review: All pre-operative results and documents have been reviewed as part of the pre-operative evaluation. [facility] Past Medical History Medical History BPH (benign prostatic hyperplasia) Dementia Depression with anxiety Prostate cancer per daughter Surgical History Surgical History History of appendectomy per daughter Family History Family History Unknown Unknown family medical history Social History Social History (Revi
--- NOTE | 2021-04-25 10:38 | PC.NURSE ---
To OR per bed , IV LFA. Report given to Morena .
[2021-04-25] MEDS: fentaNYL CITRATE INJ (*CRX) 100 MCG/2 ML VIAL 25 MCG IV PUSH (10:40)
[2021-04-25] MEDS: ceFAZolin 2 GM/D5W 50 ML 2 GM/50 ML BAG IVPB ×2 (11:17→18:33)
--- NOTE | 2021-04-25 13:45 | W.PM.PROC2 ---
Procedure Note - Detailed Date of Procedure 04/25/21 Pre-op Diagnosis L Femoral neck fracture Post-op Diagnosis same Procedure Performed LEFT HIP HEMIARTHROPLASTY WITH BIPOLAR PROSTHESIS Surgeon Per Chakraborty MD Anesthesia general Description of Procedure THE PATIENT WAS TAKEN TO THE OPERATING ROOM IN STABLE CONDITION. HE WAS PLACED IN THE LATERAL DECUBITUS AND THE LEFT LOWER EXTREMITY WAS PREPPED AND DRAPED IN THE STERILE FASHION. INCISION WAS MADE IN THE POSTERIOR LATERAL SIDE OF THE HIP, DOWN TO THE FASCIA LAYER. THE FASCIA WAS INCISED. THE HIP WAS EXPOSED. THE SHORT EXTERNAL ROTATORS WERE EXPOSED AND THERE WAS A LARGE HEMATOMA. THE CAPSULE WAS INCISED EXPOSING THE FRACTURE. THE FEMORAL HEAD WAS REMOVED. IT MEASURED 54 MM. AN OSTEOTOMY WAS MADE TO THE FEMORAL NECK ABOUT 1 CM PROXIMAL TO THE LESSER TROCHANTER. NEXT A 54 MM ACETABULAR TRIAL WAS PLACED AND IT FIT WELL WITHIN THE ACETABULUM. NEXT THE FEMUR WAS PREPARED WITH INITIAL CANAL FINDER THEN SEQUENTIAL REAMING UNTIL A #9 REAMER AND BROACHING TILL A #9 BROACH FIT WELL IN 15 OF ANTE VERSION. A +0 STANDARD OFFSET NECK BIPOLAR TRIAL IN A 54 MM SHELL WAS PLACED. THE SHUCK TEST WAS EXCELLENT AND THE STABILITY IN FLEXION AND ROTATION WAS EXCELLENT. LEG LENGTHS WERE GROSSLY EQUAL. TRIALS WERE REMOVED. AN ECHO FRACTURE STEM #9 PRESS FIT STEM WAS PLACED WITH A STANDARD OFFSET IN 15 DEG OF ANTEVERSION. A +0 BIPOLAR HEAD NECK TRIAL WAS PLACED AGAIN. THE HIP WAS TRIALED AND THE STABILITY WAS EXCELLENT WERE THE LEG LENGTHS AND THE SHUCK TEST. NEXT A BIPOLAR HEAD NECK +0 IMPLANT WITH A 54 MM COBALT CHROME SHELL WAS PLACED AND TRIALED ONCE AGAIN SHOWING EXCELLENT STABILITY AND GROSSLY EQUAL LEG LENGTHS. THE WOUND WAS IRRIGATED WITH STERILE BETADINE AND WATER FOR 3 MIN. THEN WASHED AGAIN. THE CAPSULE AND THE EXTERNAL ROTATORS WERE APPROXIMATED WITH NUMBER 1 VICRYL. THE FASCIA WITH No 2 QUIL AND THE SUB CUTANEOUS LAYER WITH 2-0 QUIL. REYES WERE PLACED AND STERILE DRESSING WAS APPLIED. PATIENT WAS PLACED BACK ON TO THE SUPINE POSITION AND WAS EXTUBATED. Estimated Blood Loss -200.0 Drains No Pathology none sent Complications No immediate complications Condition stable Disposition PACU
--- NOTE | 2021-04-25 14:38 | PC.NURSE ---
Returned from OR per Bed. Report received from García.
[2021-04-25] MEDS: SODIUM CHLORIDE 0.9% IV 1,000 ML 125 ML IV CONT ×2 (14:43→22:30)
[2021-04-25] MEDS: SENNA/DOCUSATE SODIUM TABLET 2 TAB PO (17:48)
[2021-04-25] MEDS: HEPARIN SODIUM 5,000 UNITS/ML VIAL 5000 UNITS SUB-Q (20:54)
[2021-04-26] MEDS: ceFAZolin 2 GM/D5W 50 ML 2 GM/50 ML BAG IVPB ×2 (03:03→11:37)
[2021-04-26] MEDS: HYDROcodone/acetaminophen (*CRX) 7.5-325 MG TABLET 1 TAB PO (03:04)
[2021-04-26 04:55] VITALS: BP 98/48; PULSE 80; RESP 20; TEMP 37; O2SAT 97
[2021-04-26 05:58] LABS: Basophils Percent Auto 0.2 % (0.2-1.2); Eosinophils Absolute Auto 0.2 K/mm3 (0-0.3); Eosinophils Percent Auto 1.8 % (0-4.4); Hematocrit 27.9 % (42.0-52.0); Hemoglobin 9.2 g/dL (14.0-18.0); Immature Granulocyte Absolute 0.03 K/mm3 (0.00-0.031); Immature Granulocyte Percent A 0.4 % (0-0.5); Immature Platelet Fraction Pct 4.6 % (0.9-11.2); Lymphocytes Absolute Auto 0.74 K/mm3 (0.9-3.2); Lymphocytes Percent Auto 8.9 % (18.3-44.2); Mean Corpuscular Hemoglobin 31.3 pg (26-34); Mean Corpuscular Volume 94.9 fl (80-100); Mean Platelet Volume 11.1 fl (7.4-10.4); Monocytes Absolute Auto 0.9 K/mm3 (0.1-0.6); Monocytes Percent Auto 10.8 % (2.6-8.5); Neutrophils Absolute Auto 6.5 K/mm3 (1.3-6.7); Neutrophils Percent Auto 77.9 % (45.5-73.1); Platelet Count Result 96 k/mm3 (150-375); Red Blood Count 2.94 M/mm3 (4.6-6.20); Red Cell Distribution Width 12.6 % (11.5-14.5); White Blood Count 8.3 K/mm3 (4.5-10.0)
[2021-04-26 06:05] LABS: Alanine Aminotransferase 13 U/L (4-50); Alkaline Phosphatase 53 U/L (38-126); Anion Gap 6 mmol/L (8-16); Aspartate Amino Transferase 30 U/L (17-59); Bilirubin,Total 0.3 mg/dL (0.2-1.3); Blood Urea Nitrogen 17 mg/dL (9-20); Calcium 8.2 mg/dL (8.4-10.2); Carbon Dioxide 23 mmol/L (22-30); Chloride 106 mmol/L (98-107); Estimated CRCL calculation 63 ml/min; Estimated Glomerular Filt Rate > 60; Glucose 105 mg/dL (65-110); Magnesium 1.8 mg/dL (1.6-2.3); Potassium 3.8 mmol/L (3.4-5.0); Sodium 135 mmol/L (137-145)
--- NOTE | 2021-04-26 07:31 | P.PNIM_ITS ---
Progress Note: A&P Assessment and Plan (1) Fracture of femoral neck, left, closed: Qualifiers: Encounter type: initial encounter Qualified Code(s): S72.002A - Fracture of unspecified part of neck of left femur, initial encounter for closed fracture Code(s): S72.002A - Fracture of unspecified part of neck of left femur, initial encounter for closed fracture Status: Acute Assessment and Plan: * Reported fall from bed to floor * Hip xray found Acute left subcapital femoral neck fracture, medial angulation * Dr. Chakraborty was consulted * continue iv fluids, DC'D * Continue with pain management * Intervention performed on 04/25/2021 * echo normal systolic function with EF of 65-70% , EKG shows SR with no ST elevation, labs look good as well * regular diet * SCDs and heparin subQ, changed to eliquis since platelets are low * Ancef x3 bags * bowel maintenance senna, MiraLax scheduled, Mylanta p.r.n. * antiemetic Zofran * Ortho to manage post op care (2) Dementia: Code(s): F03.90 - Unspecified dementia without behavioral disturbance Status: Acute Assessment and Plan: * Continue home medications * Patient has behavioral disturbances * No noted issues * sertraline, Namenda, Lamictal, Haldol on normal basis will continue * continue with benztropine, and rivastigmine * Fall precautions, including alarms (3) Depression with anxiety: Code(s): F41.8 - Other specified anxiety disorders Status: Chronic Assessment and Plan: * IV Ativan and sertraline (4) BPH (benign prostatic hyperplasia): Code(s): N40.0 - Benign prostatic hyperplasia without lower urinary tract symptoms Status: Chronic Assessment and Plan: * Continue with tamsulosin * Urinary catheter * Patient appears to be positive by 3L * Trend output (5) Hypotension: Code(s): I95.9 - Hypotension, unspecified Status: Acute Assessment and Plan: * BP 107/45, stable at this time * BP are labile * Lowest reported BP 76/32 * 250ml bolus given 04/24/2021 * Could be from a mix of pain medications and medications to control dementia * trend BP * No antihypertensives on board at this time Time Spent With Patient Time with patient: Greater than 35 minutes Subjective Date/time seen: 04/26/21 07:31 Interval history: Date/Time: 04/23/21 15:35 This is an 81-year-old male patient who has a history of dementia with behavioral disturbances who comes from a senior living. Apparently the patient fell from bed to the floor prior to arrival. The patient was unable to bear weight to the left leg. The patient is complaining of some left hip pain. He states that his pain is improved with rest. I do not see any deformities at this time. Hip and pelvis x-ray was read as acute left subcapital femoral neck fracture medial angulation. Chest x-ray was read as no acute cardiopulmonary findings. Small to moderate hiatal hernia. Dr. Chakraborty has been consulted. H&H is 11.7 and 35.8. Platelet count is 137. MPV is 10.7. Creatinine is 1.4. BUN is 31. A Segundo catheter was placed and urine was negative for UTI. The patient was given fentanyl and IV fluids in the emergency room. Date/Time 04/24/21 0745 Patient stated that his legs hurt and he rates it a 9/10. He said that he is aware that he broke his left hip. He did say that it was weak and tired however he denies chest pain, shortness of breath, sweats, fevers, chills, nausea, vomiting.
--- NOTE | 2021-04-26 07:31 | PM.IMPN ---
Progress Note: A&P Assessment and Plan (1) Fracture of femoral neck, left, closed: Qualifiers: Encounter type: initial encounter Qualified Code(s): S72.002A - Fracture of unspecified part of neck of left femur, initial encounter for closed fracture Code(s): S72.002A - Fracture of unspecified part of neck of left femur, initial encounter for closed fracture Status: Acute Assessment and Plan: Reported fall from bed to floor Hip xray found Acute left subcapital femoral neck fracture, medial angulation Dr. Chakraborty was consulted continue iv fluids, DC'D Continue with pain management Intervention performed on 04/25/2021 echo normal systolic function with EF of 65-70% , EKG shows SR with no ST elevation, labs look good as well regular diet SCDs and heparin subQ, changed to eliquis since platelets are low Ancef x3 bags bowel maintenance senna, MiraLax scheduled, Mylanta p.r.n. antiemetic Zofran Ortho to manage post op care (2) Dementia: Code(s): F03.90 - Unspecified dementia without behavioral disturbance Status: Acute Assessment and Plan: Continue home medications Patient has behavioral disturbances No noted issues sertraline, Namenda, Lamictal, Haldol on normal basis will continue continue with benztropine, and rivastigmine Fall precautions, including alarms (3) Depression with anxiety: Code(s): F41.8 - Other specified anxiety disorders Status: Chronic Assessment and Plan: IV Ativan and sertraline (4) BPH (benign prostatic hyperplasia): Code(s): N40.0 - Benign prostatic hyperplasia without lower urinary tract symptoms Status: Chronic Assessment and Plan: Continue with tamsulosin Urinary catheter Patient appears to be positive by 3L Trend output (5) Hypotension: Code(s): I95.9 - Hypotension, unspecified Status: Acute Assessment and Plan: BP 107/45, stable at this time BP are labile Lowest reported BP 76/32 250ml bolus given 04/24/2021 Could be from a mix of pain medications and medications to control dementia trend BP No antihypertensives on board at this time Time Spent With Patient Time with patient: Greater than 35 minutes Subjective Date/time seen: 04/26/21 07:31 Interval history: Date/Time: 04/23/21 15:35 This is an 81-year-old male patient who has a history of dementia with behavioral disturbances who comes from a senior living. Apparently the patient fell from bed to the floor prior to arrival. The patient was unable to bear weight to the left leg. The patient is complaining of some left hip pain. He states that his pain is improved with rest. I do not see any deformities at this time. Hip and pelvis x-ray was read as acute left subcapital femoral neck fracture medial angulation. Chest x-ray was read as no acute cardiopulmonary findings. Small to moderate hiatal hernia. Dr. Chakraborty has been consulted. H&H is 11.7 and 35.8. Platelet count is 137. MPV is 10.7. Creatinine is 1.4. BUN is 31. A Segundo catheter was placed and urine was negative for UTI. The patient was given fentanyl and IV fluids in the emergency room. Date/Time 04/24/21 9774 Patient stated that his legs hurt and he rates it a 9/10. He said that he is aware that he broke his left hip. He did say that it was weak and tired however he denies chest pain, shortness of breath, sweats, fevers, chills, nausea, vomiting. I did change his diet to NPO since Orthopedics as an outpatient yet. Patient does say that he walks normally. Patient also has sunglasses for visual correction when asked patient about his other glasses he does not seem to know what happened to them. At 1st he told me they are broken that he told me something else. His left leg was at an angle under his right leg. I was able to move his leg and he did not show any signs of pain however he does seem
[2021-04-26] MEDS: SENNA/DOCUSATE SODIUM TABLET 2 TAB PO ×2 (08:01→16:59)
[2021-04-26] MEDS: polyethylene glycoL 3350 17 GM POWD.PACK PO (08:01)
--- NOTE | 2021-04-26 08:02 | P.PNAN_ITS ---
Anes - Prog Note Post-Op Date/Time: 04/26/21 08:02 Cardiovascular status: normal Respiratory status: normal Airway patency: baseline Mental status: baseline Post-Op hydration status: normal Vital Signs: Last Vital Signs Temp 37.0 C 04/26/21 04:55 Pulse 80 04/26/21 04:55 Resp 20 04/26/21 04:55 BP 98/48 L 04/26/21 04:55 Pulse Ox 97 04/26/21 04:55 Pain Score (VAS): 3 I/O: Intake & Output 04/25/21 04/26/21 04/26/21 23:59 07:59 15:59 Intake Total 1050 240 Output Total 1550 400 Balance -500 -160 Laboratory Tests 04/26/21 05:19 04/26/21 05:19 04/26/21 04/26/21 05:19 05:19 WBC 8.3 RBC 2.94 L Hgb 9.2 L Hct 27.9 L MCV 94.9 MCH 31.3 MCHC 33.0 RDW 12.6 Plt Count 96 L MPV 11.1 H Immature Gran % (Auto) 0.4 Neut % (Auto) 77.9 H Lymph % (Auto) 8.9 L Esmeralda % (Auto) 10.8 H Eos % (Auto) 1.8 Baso % (Auto) 0.2 Lymph # (Auto) 0.74 L Esmeralda # (Auto) 0.9 H Eos # (Auto) 0.2 Baso # (Auto) 0.0 Abs Immat Gran (auto) 0.03 Absolute Neuts (auto) 6.5 Absolute Nucleated RBC 0.0 Nucleated RBC % 0.0 % Immature Plt Fraction 4.6 Sodium 135 L Potassium 3.8 Chloride 106 Carbon Dioxide 23 Anion Gap 6 L BUN 17 Creatinine 0.90 Estim Creat Clear Calc 63 Estimated GFR > 60 Glucose 105 Calcium 8.2 L Magnesium 1.8 Total Bilirubin 0.3 AST 30 ALT 13 Alkaline Phosphatase 53 Total Protein 5.0 L Albumin 3.0 L Post-procedural complaints: none Patient Feedback: Patient satisfied with anesthetic care.
[2021-04-26 10:00] VITALS: BP 107/45; PULSE 87; RESP 16; TEMP 37.2; O2SAT 100
--- NOTE | 2021-04-26 10:00 | P.DS_ITS ---
DS: Admitting Diagnosis Discharge Date Date of service 04/26/2021 at 10:00 a.m. Admitting Diagnosis left fracture of the femoral neck DS: Discharge Diagnosis Discharge Diagnosis (1) Fracture of femoral neck, left, closed: Qualifiers: Encounter type: initial encounter Qualified Code(s): S72.002A - Fracture of unspecified part of neck of left femur, initial encounter for closed fracture Code(s): S72.002A - Fracture of unspecified part of neck of left femur, initial encounter for closed fracture Status: Acute Assessment and Plan: * Reported fall from bed to floor * Hip xray found Acute left subcapital femoral neck fracture, medial angulation * Dr. Chakraborty was consulted * continue iv fluids, DC'D * Continue with pain management * Intervention performed on 04/25/2021 * echo normal systolic function with EF of 65-70% , EKG shows SR with no ST elevation, labs look good as well * regular diet * SCDs and heparin subQ, changed to eliquis since platelets are low * Ancef x3 bags * bowel maintenance senna, MiraLax scheduled, Mylanta p.r.n. * antiemetic Zofran * Ortho to manage post op care (2) Dementia: Code(s): F03.90 - Unspecified dementia without behavioral disturbance Status: Acute Assessment and Plan: * Continue home medications * Patient has behavioral disturbances * No noted issues * sertraline, Namenda, Lamictal, Haldol on normal basis will continue * continue with benztropine, and rivastigmine * Fall precautions, including alarms (3) Depression with anxiety: Code(s): F41.8 - Other specified anxiety disorders Status: Chronic Assessment and Plan: * IV Ativan and sertraline (4) BPH (benign prostatic hyperplasia): Code(s): N40.0 - Benign prostatic hyperplasia without lower urinary tract symptoms Status: Chronic Assessment and Plan: * Continue with tamsulosin * Urinary catheter * Patient appears to be positive by 3L * Trend output (5) Hypotension: Code(s): I95.9 - Hypotension, unspecified Status: Acute Assessment and Plan: * BP 107/45, stable at this time * BP are labile * Lowest reported BP 76/32 * 250ml bolus given 04/24/2021 * Could be from a mix of pain medications and medications to control dementia * trend BP * No antihypertensives on board at this time DS: Summary Hospital Course Hospital Course: patient is an 81-year-old male with a past medical history of dementia and anxiety who comes from detention after falling out of his bed and onto the floor suffering a Left-sided femur fracture. orthopedics was consulted and patient was cleared for surgery. Surgical intervention was performed on 04/25/2021 and patient has been working with PT and OT. Today patient was sitting in the chair eating breakfast and felt great. He does still continues to have pain however it seems well controlled at this time. Patient had an echocardiogram that showed an EF of 60 65%. Blood pressure has been a little labile through admission with the lowest blood pressure reading being 76/32 to 150 mL bolus was given and patient's blood pressure has been stable. Current blood pressure is 101/45. Patient denies chest pain, shortness of breath, nausea, vomiting, diarrhea, constipation, fevers, sweats, chills. Status at Discharge Functional status at discharge: uses cane/walker Overall status at discharge: patient is progressing back to baseline Time Spent with Patient Time att
--- NOTE | 2021-04-26 10:00 | PM.DS ---
DS: Admitting Diagnosis Discharge Date Date of service 04/26/2021 at 10:00 a.m. Admitting Diagnosis left fracture of the femoral neck DS: Discharge Diagnosis Discharge Diagnosis (1) Fracture of femoral neck, left, closed: Qualifiers: Encounter type: initial encounter Qualified Code(s): S72.002A - Fracture of unspecified part of neck of left femur, initial encounter for closed fracture Code(s): S72.002A - Fracture of unspecified part of neck of left femur, initial encounter for closed fracture Status: Acute Assessment and Plan: Reported fall from bed to floor Hip xray found Acute left subcapital femoral neck fracture, medial angulation Dr. Chakraborty was consulted continue iv fluids, DC'D Continue with pain management Intervention performed on 04/25/2021 echo normal systolic function with EF of 65-70% , EKG shows SR with no ST elevation, labs look good as well regular diet SCDs and heparin subQ, changed to eliquis since platelets are low Ancef x3 bags bowel maintenance senna, MiraLax scheduled, Mylanta p.r.n. antiemetic Zofran Ortho to manage post op care (2) Dementia: Code(s): F03.90 - Unspecified dementia without behavioral disturbance Status: Acute Assessment and Plan: Continue home medications Patient has behavioral disturbances No noted issues sertraline, Namenda, Lamictal, Haldol on normal basis will continue continue with benztropine, and rivastigmine Fall precautions, including alarms (3) Depression with anxiety: Code(s): F41.8 - Other specified anxiety disorders Status: Chronic Assessment and Plan: IV Ativan and sertraline (4) BPH (benign prostatic hyperplasia): Code(s): N40.0 - Benign prostatic hyperplasia without lower urinary tract symptoms Status: Chronic Assessment and Plan: Continue with tamsulosin Urinary catheter Patient appears to be positive by 3L Trend output (5) Hypotension: Code(s): I95.9 - Hypotension, unspecified Status: Acute Assessment and Plan: BP 107/45, stable at this time BP are labile Lowest reported BP 76/32 250ml bolus given 04/24/2021 Could be from a mix of pain medications and medications to control dementia trend BP No antihypertensives on board at this time DS: Summary Hospital Course Hospital Course: patient is an 81-year-old male with a past medical history of dementia and anxiety who comes from [facility]-term after falling out of his bed and onto the floor suffering a Left-sided femur fracture. orthopedics was consulted and patient was cleared for surgery. Surgical intervention was performed on 04/25/2021 and patient has been working with PT and OT. Today patient was sitting in the chair eating breakfast and felt great. He does still continues to have pain however it seems well controlled at this time. Patient had an echocardiogram that showed an EF of 60 65%. Blood pressure has been a little labile through admission with the lowest blood pressure reading being 76/32 to 150 mL bolus was given and patient's blood pressure has been stable. Current blood pressure is 101/45. Patient denies chest pain, shortness of breath, nausea, vomiting, diarrhea, constipation, fevers, sweats, chills. Status at Discharge Functional status at discharge: uses cane/walker Overall status at discharge: patient is progressing back to baseline Time Spent with Patient Time attestation: Total time spent providing and/or coordinating discharge services: 48 minutes Time spent: Greater than 30 minutes Exam Const: General: cooperative, no acute distress, well developed, alert, awake and Physically active Nutritional Appearance: thin Orientation/consciousness: oriented to person Limitations: physical limitations (fractured left hip) Other: poor historian HENMT: Head: normal to inspection, No palpable skull fracture pres
--- NOTE | 2021-04-26 12:57 | PM.PNORT ---
Progress Note: A&P Additional Plan POD 1 DOING WELL. PATIENT IS STABLE FROM ORTHO STANDPOINT TO GO TO SNF WHEN STABLE PER MEDICINE. HE WILL F/U IN 2 MONTHS IN ORTHO OFFICE. Subjective Subjective Date/Time Seen: 04/26/21 12:57 POD 1 DOING WELL. HE HAS MINIMAL PAIN. SITTING UP FOR MEALS WITH MINIMAL PAIN. Exam Extrem: Other: VSS AFEBRILE DRESSING DRY NV INTACT NEG HOMANS SIGN CALF SOFT NON TENDER Objective Data Vital Signs Vital Signs: Vital Signs - 24 hr 04/25/21 13:04 04/25/21 13:15 04/25/21 13:30 Temperature 36.4 C L Pulse Rate 79 75 72 Respiratory Rate 10 L 13 12 Blood Pressure 108/47 L 105/47 L 113/48 L Pulse Oximetry 100 100 100 04/25/21 13:45 04/25/21 14:00 04/25/21 14:15 Temperature Pulse Rate 70 72 71 Respiratory Rate 13 12 13 Blood Pressure 114/48 L 114/50 L 107/48 L Pulse Oximetry 100 100 99 04/25/21 14:27 04/25/21 14:40 04/25/21 14:55 Temperature 36.0 C L 36.2 C L Pulse Rate 68 76 74 Respiratory Rate 13 16 16 Blood Pressure 104/49 L 114/48 L 106/49 L Pulse Oximetry 98 96 96 04/25/21 15:20 04/25/21 16:20 04/25/21 20:40 Temperature 36.6 C 36.3 C L 36.6 C Pulse Rate 60 66 78 Respiratory Rate 14 14 18 Blood Pressure 102/46 L 109/47 L Pulse Oximetry 96 96 100 04/25/21 20:54 04/25/21 23:18 04/25/21 23:53 Temperature 36.8 C Pulse Rate 71 Respiratory Rate 18 Blood Pressure 94/40 L 102/52 L Pulse Oximetry 95 100 04/26/21 04:55 04/26/21 10:00 Temperature 37.0 C 37.2 C Pulse Rate 80 87 Respiratory Rate 20 16 Blood Pressure 98/48 L 107/45 L Pulse Oximetry 97 100 Intake/Output Intake/Output: Intake & Output 04/23/21 04/24/21 04/25/21 04/26/21 23:59 23:59 23:59 23:59 Intake Total 1240 4670 2500 290 Output Total 400 1650 2550 400 Balance 840 3020 -50 -110 Meds/Results Medications: Active Medications Generic Name Dose Route Start Last Admin Trade Name Freq PRN Reason Stop Dose Admin Acetaminophen 650 mg 04/25/21 14:29 Acetaminophen 325 Mg Tablet PO Q6H PRN Mild Pain (1-3) or Fever Hydrocodone Bitart/Acetaminophen 1 tab 04/25/21 14:29 04/26/21 03:04 Hydrocodone/Acetaminophen (*Crx) 7.5-325 Mg Tablet PO 1 tab Q3H PRN Administration Pain Rated 4-6 Al Hydrox/Mg Hydrox/Simethicone 30 ml 04/25/21 14:29 Mag Hydrox/Al Hydrox/Simeth 30 Ml Udc PO Q6H PRN Indigestion Benztropine Mesylate 1 mg 04/26/21 12:25 Benztropine Mesylate 1 Mg Tablet PO QAM MARGARET Diazepam 5 mg 04/25/21 14:29 Diazepam (*Crx) 5 Mg Tablet PO Q8H PRN Muscle Spasm Haloperidol 2 mg 04/26/21 12:20 Haloperidol 1 Mg Tablet PO Q6H PRN Agitation Haloperidol 5 mg 04/26/21 12:20 Haloperidol 5 Mg Tablet PO DAILY [facility] Heparin Sodium (Porcine) 5,000 units 04/25/21 21:00 04/26/21 07:25 Heparin Sodium 5,000 Units/Ml Vial SUB-Q Not Given Q12HR [facility] Hydroxyzine Pamoate 50 mg 04/25/21 14:29 Hydroxyzine Pamoate 25 Mg Capsule PO Q4H PRN Itching Lamotrigine 25 mg 04/26/21 12:25 Lamotrigine 25 Mg Tablet PO DAILY [facility] Lorazepam 1 mg 04/25/21 14:29 Lorazepam (*Crx) 1 Mg Tablet PO Q6H PRN Anxiety Memantine 5 mg 04/26/21 12:25 Memantine 5 Mg Tablet PO Q12HR [facility] Morphine Sulfate 3 mg 04/25/21 14:29 Morphine Sulfate (*Crx) 4 Mg/Ml Inj IV PUSH Q3H PRN Pain Rated 7-10 Naloxone HCl 0.1 mg 04/25/21 14:29 Naloxone Hcl 0.4 Mg/Ml Vial IV PUSH Q2M PRN Opiate Reversal Ondansetron HCl 4 mg 04/25/21 14:29 Ondansetron Inj 4 Mg/2 Ml Vial IV PUSH Q4H PRN Nausea And Vomiting Polyethylene Glycol 17 gm 04/26/21 09:00 04/26/21 08:01 Polyethylene Glycol 3350 17 Gm Powd.Pack PO 17 gm QAM MARGARET Administration Rivastigmine 1 patch 04/26/21 12:25 Rivastigmine Tartrate 9.5 Mg Patch TRANSDERM DAILY MARGARET Senna/Docusate Sodium 2 tab 04/25/21 17:00 04/26/21 08:01 Senna/Docusate Sodium Tablet
[2021-04-26] MEDS: ACETAMINOPHEN 325 MG TABLET 650 MG PO (14:17)
[2021-04-26] MEDS: TAMSULOSIN HCL 0.4 MG CAPSULE PO (14:22)
[2021-04-26] MEDS: lamoTRIgine 25 MG TABLET PO (14:22)
[2021-04-26] MEDS: MEMANTINE 5 MG TABLET PO (14:22)
[2021-04-26] MEDS: SERTRALINE HCL 50 MG TABLET PO (14:22)
[2021-04-26] MEDS: BENZTROPINE MESYLATE 1 MG TABLET PO (14:23)
[2021-04-26] MEDS: RIVASTIGMINE TARTRATE 9.5 MG PATCH 1 PATCH TRANSDERM (14:23)
[2021-04-26] MEDS: HALOPERIDOL 5 MG TABLET PO (14:23)
[2021-04-26 14:30] VITALS: BP 105/53; PULSE 84; RESP 18; TEMP 37.1; O2SAT 97
[2021-04-26 14:38] LABS: EDCOVIDSCREEN Negative (Negative)
== END 2021-04-26 17:18 | DRG 522 ==
LOC: ANHED 13:51 → ANH2MED 15:12
PROVIDERS: Nurse Practitioner; Orthopaedic Surgery; Admitting Provider Internal Medicine; Emergency Provider Emergency Medicine; PCP Internal Medicine; Visit Provider Nurse Practitioner
PROC: 0SRS01Z Replacement of Left Hip Joint, Femoral Surface with Metal Synthetic Substitute, Open Approach (ICD-10-PCS; CPT 27125; principal; 2021-04-25 14:30)
DX: S72.012A Unspecified intracapsular fracture of left femur, initial encounter for closed fracture (principal); F03.91 Unspecified dementia, unspecified severity, with behavioral disturbance; Z20.822 Contact with and (suspected) exposure to COVID-19; F41.8 Other specified anxiety disorders; N40.0 Benign prostatic hyperplasia without lower urinary tract symptoms; W06.XXXA Fall from bed, initial encounter; I95.2 Hypotension due to drugs; T40.605A Adverse effect of unspecified narcotics, initial encounter; T50.995A Adverse effect of other drugs, medicaments and biological substances, initial encounter
CPT/HCPCS: 36415; 70450; 71045; 73501; 73502; 80053; 81001; 82728; 82948; 83605; 83615; 83735; 84443; 84484; 85025; 85055; 85730; 86140; 87426; 93005; 93306; 96361; 96365; 96374; 96375; 96376; 97110; 97161; 97166; 99285; A9270; C1776; C9803; G0378; J0131; J0690; J1100; J1644; J2060; J2270; J2405; J2704; J3010; J7030; J7050; J7120

== ENCOUNTER 2021-05-01 19:28 | Inpatient (IN) | payer MEDICARE, MEDICAID, SELFPAY ==
[2021-05-01] VITALS (18 sets, daily range): BP systolic 114–138; BP diastolic 57–69; PULSE 76–94; RESP 13–20; TEMP 36.7; O2SAT 95–100
--- NOTE | ~2021-05-01 | XR_ITS ---
EXAMINATION: XR hip LT 1V DATE: 05/03/2021 09:47 INDICATION: Revision of left hip arthroplasty. TECHNIQUE: AP view of left hip FINDINGS: There is a revision of left bipolar hip arthroplasty in expected position. Subcutaneous ga s with soft tissue swelling are consistent with recent surgery. IMPRESSION: 1. Recent left bipolar hip arthroplasty. Reviewed, dictated and finalized at location B. CTURAL DESIGNER
--- NOTE | ~2021-05-01 | XR_ITS ---
EXAMINATION: XR hip BI 2V w AP pelvis DATE: 05/01/2021 21:19 INDICATION: Left hip pain. TECHNIQUE: An anteroposterior view of the pelvis and 2 views of each hip were obtained. COMPARISON: Pelvis radiograph 04/23/2021, left hip radiograph 04/25/21 FINDINGS: There is a dislocated bipolar left hip hemiarthroplasty with separation of the arthroplasty components. There is a bone fragment overlying left hip joint. There is mild right hip osteoarthriti s. There is mild lumbar spondylosis. The skin julius lateral to left hip. IMPRESSION: 1. Dislocated bipolar left hip hemiarthroplasty with separation of the arthroplasty components. 2. Bone fragment overlying the left hip joint of uncertain origin. 3. Mild right hip osteoarthritis. Reviewed, dictated and finalized at location A. SCHOOL SPORTS COACH IMPRESSION: 1. Dislocated bipolar left hip hemiarthroplasty with separation of the arthropl asty components. 2. Bone fragment overlying the left hip joint of uncertain origin. 3. Mild right hip osteoarthritis.
--- NOTE | ~2021-05-01 | CT_ITS ---
EXAMINATION: CT cervical spine wo con DATE: 05/01/2021 20:18 INDICATION: Neck injury. TECHNIQUE: Computed tomography (CT) of the cervical spine was performed without intravenous contrast. Automated exposure control and iterative reconstruction technique were employed. The dose-length pro duct was 343.30 mGy-cm. COMPARISON: None FINDINGS: There is 2 mm anterolisthesis of C7 on T1. Vertebral body heights are normal. There is cornelius rely decreased disc height at C5-C6 and C6-C7 and mildly decreased disc height at C7-T1 with endplate remodeling. The following disc levels are specifically discussed: C2-C3: There is mild bilateral uncovertebral joint osteoarthritis. There is severe bilateral facet louisa int osteoarthritis. There is mild bilateral neural foraminal stenosis. There is no central canal sten osis. C3-C4: There is severe right and mild left uncovertebral joint osteoarthritis. There is severe right and moderate left facet joint osteoarthritis. There is moderate right and mild left neural foraminal stenosis. There is mild central canal stenosis. C4-C5: There is mild right uncovertebral joint osteoarthritis. There is ankylosis of left uncovertebr al joint with moderate hypertrophy. There is ankylosis of the facet joints with mild right and severe left hypertrophy. There is moderate left neural foraminal stenosis. There is no central canal stenos is. C5-C6: There is severe bilateral uncovertebral joint osteoarthritis. There is moderate right and mild left facet joint osteoarthritis. There is mild bilateral neural foraminal stenosis. There is mild ce ntral canal stenosis. C6-C7: There is severe bilateral uncovertebral joint osteoarthritis. There is severe right and modera te left facet joint osteoarthritis. There is mild bilateral neural foraminal stenosis. There is mild central canal stenosis. C7-T1: There is no uncovertebral joint osteoarthritis. There is severe bilateral facet joint osteoart hritis. There is mild bilateral neural foraminal stenosis. There is no central canal stenosis. IMPRESSION: 1. No fracture. 2. Severe cervical spondylosis. Reviewed, dictated and finalized at location A. ANALYST
--- NOTE | ~2021-05-01 | CT_ITS ---
EXAMINATION: CT brain wo con DATE: 05/01/2021 20:18 INDICATION: Head injury. TECHNIQUE: Computed tomography (CT) of the head was performed without intravenous contrast. The mA wa s adjusted according to patient size. Iterative reconstruction technique was employed. The dose-lengt h product was 315.48 mGy-cm. COMPARISON: Head CT 04/23/2021, 03/20/21 FINDINGS: Increased density in the cerebral spinal fluid anterior to the frontal lobes is likely beam hardening artifact from the skull. There are scattered areas of low attenuation in the cerebral whit e matter, which is within normal limits for the patient's age. There is no intracranial hemorrhage, a cute infarction, or abnormal intracranial mass lesion. The ventricles are normal in size. The orbits are normal. There is mild mucosal thickening in the paranasal sinuses. The mastoid air cells are norm al. IMPRESSION: 1. Normal aging brain. Reviewed, dictated and finalized at location A. GE PUMP OPERATOR IMPRESSION: 1. Normal aging brain.
--- NOTE | ~2021-05-01 | XR_ITS ---
EXAMINATION: XR chest 1V portable DATE: 05/06/2021 14:07 INDICATION: Fever. TECHNIQUE: A single frontal view of the chest was obtained. COMPARISON: Chest single view 04/23/2021 FINDINGS: There are airspace opacities in the mid and lower lung zones with a basilar predominance. N o pleural effusion or pneumothorax. The heart size is normal. IMPRESSION: 1. Airspace opacities in the mid and lower lung zones, consistent with atelectasis versus pneumonia. Reviewed, dictated and finalized at location A. CITING FREIGHT AGENT IMPRESSION: 1. Airspace opacities in the mid and lower lung zones, consistent with atelecta sis versus pneumonia.
--- NOTE | 2021-05-01 19:54 | ECG_ITS ---
Measurements Intervals [employer] Rate: 75 P: 48 LA: 115 QRS: 40 QRSD: 85 T: 31 QT: 407 QTc: 455 Interpretive Statements SINUS RHYTHM WITH SHORT LA INTERVAL BASELINE ARTIFACT- I, II, III, AVR, AVL, AVF, V1-V6 BORDERLINE ECG Electronically Signed On 05-01-2021 20:38:05 [employer] MARK[employer] by Jerson Priest D.O.
[2021-05-01 20:49] LABS: Basophils Percent Auto 0.2 % (0.2-1.2); Eosinophils Absolute Auto 0.1 K/mm3 (0-0.3); Hematocrit 32.2 % (42.0-52.0); Hemoglobin 10.5 g/dL (14.0-18.0); Immature Granulocyte Absolute 0.04 K/mm3 (0.00-0.031); Immature Granulocyte Percent A 0.6 % (0-0.5); Lymphocytes Absolute Auto 0.67 K/mm3 (0.9-3.2); Lymphocytes Percent Auto 10.7 % (18.3-44.2); Mean Corpuscular HGB Conc 32.6 g/dl (32-36); Mean Corpuscular Hemoglobin 30.6 pg (26-34); Mean Corpuscular Volume 93.9 fl (80-100); Mean Platelet Volume 10.2 fl (7.4-10.4); Monocytes Absolute Auto 0.8 K/mm3 (0.1-0.6); Monocytes Percent Auto 12.3 % (2.6-8.5); Neutrophils Absolute Auto 4.7 K/mm3 (1.3-6.7); Neutrophils Percent Auto 75.2 % (45.5-73.1); Platelet Count Result 138 k/mm3 (150-375); Red Blood Count 3.43 M/mm3 (4.6-6.20); White Blood Count 6.2 K/mm3 (4.5-10.0)
[2021-05-01 20:59] LABS: Lactic Acid Reflex 1.5 mmol/L (0.7-2.1)
[2021-05-01 21:01] LABS: Alanine Aminotransferase 74 U/L (4-50); Albumin Level 3.9 g/dL (3.5-5.1); Alkaline Phosphatase 76 U/L (38-126); Anion Gap 10 mmol/L (8-16); Aspartate Amino Transferase 208 U/L (17-59); Bilirubin,Total 0.4 mg/dL (0.2-1.3); Blood Urea Nitrogen 49 mg/dL (9-20); Calcium 9.5 mg/dL (8.4-10.2); Carbon Dioxide 25 mmol/L (22-30); Chloride 99 mmol/L (98-107); Estimated CRCL calculation 26 ml/min; Estimated Glomerular Filt Rate 32; Glucose 107 mg/dL (65-110); Magnesium 2.2 mg/dL (1.6-2.3); Potassium 4.1 mmol/L (3.4-5.0); Sodium 134 mmol/L (137-145)
[2021-05-01 21:12] LABS: Troponin I 0.018 ng/mL (0.000-0.034)
--- NOTE | 2021-05-01 21:41 | ED.GENADULT ---
HPI - General Adult General Chief complaint: Fall Stated complaint: unwitnessed fall Time Seen by Provider: 05/01/21 19:32 History of Present Illness HPI narrative: Patient is a 81-year-old gentleman who presents the emergency department with chief complaint of fall. Patient was just in the hospital after having a left hip fracture and had a repair with hardware placement. Patient had a ground-level fall this evening may have struck his head the patient is unable to provide a good history the patient reports that he has pain in his lower extremities. Related Data Home Medications Medication Instructions Recorded Confirmed benztropine 1 mg PO DAILY 04/23/21 04/23/21 cholecalciferol (vitamin D3) 10 mcg PO DAILY 04/23/21 04/23/21 [Vitamin D3] haloperidol 2 mg PO Q6H PRN 04/23/21 04/23/21 haloperidol 5 mg PO DAILY 04/23/21 04/23/21 lamotrigine 25 mg PO DAILY 04/23/21 04/23/21 lorazepam 1 mg PO Q6H PRN 04/23/21 04/23/21 memantine 5 mg PO Q12H 04/23/21 04/23/21 rivastigmine 9.5 mg TRANSDERMAL DAILY 04/23/21 04/23/21 sertraline 50 mg PO DAILY 04/23/21 04/23/21 tamsulosin 0.4 mg PO HS 04/23/21 04/23/21 Allergies Allergy/AdvReac Type Severity Reaction Status Date / Time No Known Allergies Allergy Verified 05/01/21 20:05 Review of Systems Review of Systems: A 10 system review of systems was completed on the patient and is negative except for what is stated in the HPI. Nursing and ancillary documentation was reviewed. [facility] Past Medical History Medical History BPH (benign prostatic hyperplasia) Dementia Depression with anxiety Prostate cancer per daughter Surgical History Surgical History History of appendectomy per daughter Family History Family History Unknown Unknown family medical history Social History Social History Social History: Daughter: Trish is Next of Kin , per Trish PPW is pending patient signature. Nephew: Srikanth Ellison (2nd contact per Trish/[facility]) Remaining social history obtained from Trish. 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 Gender identity (if verbalized by the patient): Male Spiritual care concerns: No Exam Narrative: GENERAL: Well-appearing, well-nourished, and in no acute distress. HEAD: Normocephalic, atraumatic. EYES: PERRLA and EOMI. ENT: Nares clear, no rhinorrhea or epistaxis. Mucous membranes moist. NECK: Supple. CHEST: Clear to auscultation. No respiratory distress. HEART: Regular rate and rhythm. No murmur heard. Normal peripheral pulses. ABDOMEN: Soft, nontender, nondistended, normal active bowel sounds. EXTREMITIES: Limited range of motion of left hip mild tenderness to palpation in the left hip area. No edema. SKIN: Warm, dry, no rash. NEURO: No focal deficits. Alert and oriented x3. PSYCH: Normal mood and affect. Course Vital Signs Vital signs: Vital Signs Temperature 36.7 C 05/01/21 19:29 Pulse Rate 81 05/01/21 19:29 Respiratory Rate 16 05/01/21 19:29 Blood Pressure 114/57 L 05/01/21 19:29 Pulse Oximetry 99 05/01/21 19:29 Temperature 36.7 C 05/01/21 19:29 Pulse Rate 81 05/01/21 19:29 Respiratory Rate 16 05/01/21 19:29 Blood Pressure 114/57 L 05/01/21 19:29 Pulse Oximetry 99 05/01/21 19:29 Medical Decision Making Vital Signs Vital Signs: Vital Signs Temperature 36.7 C 05/01/21 19:29 Pulse Rate 81 05/01/21 19:29 Respiratory Rate 16 05/01/21 19:29 Blood Pressure 114/57 L 05/01/21 19:29 Pulse Oximetry 99 05/01/21
--- NOTE | 2021-05-01 21:50 | PM.IMHP ---
H&P: HPI History of Present Illness Date/Time: 05/01/21 21:50 Chief Complaint: Left hip pain Narrative: This is an 81-year-old male with past medical history significant for dementia, senior care resident, benign prostatic hyperplasia, recent admission and discharged from the hospital where he was treated for left hip fracture with hardware placement however patient was brought in today from the senior care where he resides at due to fall and unable to bear weight on the left leg it was noted also some deformity on that side, however patient is unable to give any history due to his dementia. Preliminary workup was significant for x-ray of the left hip with dislocation bipolar left hip hemiarthroplasty with separation of the arthroplasty components, a BMP showed a creatinine of 2 BUN 49 AST 200. Patient has been admitted for further evaluation, management and treatment. Review of Systems Review of Systems: ROS unobtainable: Yes unobtainable due to medical condition (Dementia advanced) [facility] Past Medical History Medical History BPH (benign prostatic hyperplasia) Dementia Depression with anxiety Prostate cancer per daughter Surgical History Surgical History History of appendectomy per daughter Family History Family History Unknown Unknown family medical history Social History Social History Social History: Daughter: Trish is Next of Kin , per Trish PPW is pending patient signature. Nephew: Srikanth Ellison (2nd contact per Trish/[facility]) Remaining social history obtained from Trish. 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 Gender identity (if verbalized by the patient): Male Spiritual care concerns: No Meds Home Medications and Allergies Home Medications Medication Instructions Recorded Confirmed Type benztropine 1 mg PO DAILY 04/23/21 04/23/21 History cholecalciferol (vitamin D3) 10 mcg PO DAILY 04/23/21 04/23/21 History [Vitamin D3] haloperidol 2 mg PO Q6H PRN 04/23/21 04/23/21 History haloperidol 5 mg PO DAILY 04/23/21 04/23/21 History lamotrigine 25 mg PO DAILY 04/23/21 04/23/21 History lorazepam 1 mg PO Q6H PRN 04/23/21 04/23/21 History memantine 5 mg PO Q12H 04/23/21 04/23/21 History rivastigmine 9.5 mg TRANSDERMAL DAILY 04/23/21 04/23/21 History sertraline 50 mg PO DAILY 04/23/21 04/23/21 History tamsulosin 0.4 mg PO HS 04/23/21 04/23/21 History aspirin [Aspir-Zehra] 325 mg PO BID #42 tablet 04/26/21 Rx Allergies Allergy/AdvReac Type Severity Reaction Status Date / Time No Known Allergies Allergy Verified 05/01/21 20:05 Vital Signs Vital Signs - 24 hr 05/01/21 19:29 Temperature 98.1 F Pulse Rate 81 Respiratory Rate 16 Blood Pressure 114/57 L Pulse Oximetry 99 Exam Narrative: Patient is laying in [facility] Const: General: comfortable, no acute distress, well developed, alert, awake and other (Well-appearing); No in distress Nutritional Appearance: average body habitus Orientation/consciousness: oriented to person HENMT: Head: normal to inspection, normocephalic and atraumatic Ears: hearing grossly normal bilaterally General nose exam: Normal external nose present Face and sinus: normal facial exam Eyes: General: appearance normal, both eyes and all related structures Alignment and Position: alignment normal Sclera: sclerae normal Pupils: Equal, round and reactive pupils present EOM: EOMs intact bilaterally Neck: Neck: normal visual inspection, full ROM, no lymphadenopathy, supple and no JVD Thyroi
[2021-05-01 21:51] LABS: Add Urine Microscopic? YES; Appearance Urine Cloudy (Clear); Bacteria Urine Trace /hpf; Bilirubin Urine Negative (Negative); Blood Urine 3+ (Negative); Color Urine Amber (Yellow); Glucose Urine UA Negative (Negative); Hyaline Casts Urine 20-29 /lpf; Ketones Urine Negative (Negative); Leukocyte Esterase Ur Negative LEU/UL (Negative); Mucus Urine Moderate /lpf; Nitrate Urine Negative (Negative); Protein Urine 1+ mg/dL (Negative); Specific Grav Ur 1.023 (1.001-1.035); Squamous Epithelial Cell Urine Few /hpf (Few); Urobilinogen Urine Negative mg/dL (<2.0)
[2021-05-01] MEDS: ONDANSETRON INJ 4 MG/2 ML VIAL IV PUSH (22:41)
[2021-05-01] MEDS: SODIUM CHLORIDE 0.9% IV 1,000 ML 125 ML IV CONT (22:41)
[2021-05-01] MEDS: MORPHINE SULFATE (*CRX) 4 MG/ML INJ IV PUSH (22:41)
[2021-05-01 23:55] LABS: Prothrombin Time 13.3 Seconds (11.1-14.7)
[2021-05-02] VITALS: BP 117/52; PULSE 88; RESP 18; TEMP 36.9; O2SAT 100; BMI 24.4
[2021-05-02] MEDS: MORPHINE SULFATE (*CRX) 4 MG/ML INJ IV PUSH ×2 (00:43→06:15)
[2021-05-02 01:33] VITALS: BMI 24.4
--- NOTE | 2021-05-02 05:30 | ADMGEN ---
This patient, Sid Ellison, was admitted to [facility] Surg Room 330-02. Patient/family oriented to hospital policies and general routines including ID bracelet, bed and alarms, visiting hours, pain management, procedures, bathroom and other care routines, personal items, smoking policy, room service/diet, and visiting hours. Information on how to activate the Rapid Response Team has been discussed. Patient/Family are encouraged to report perceived risks to care and to ask questions if they do not understand what they are told or what they should do.
[2021-05-02 05:46] VITALS: BP 100/46; PULSE 96; RESP 20; TEMP 37.1; O2SAT 99
[2021-05-02] MEDS: SODIUM CHLORIDE 0.9% IV 1,000 ML 125 ML IV CONT ×2 (09:34→19:08)
[2021-05-02 10:52] LABS: Anion Gap 9 mmol/L (8-16); Blood Urea Nitrogen 42 mg/dL (9-20); Calcium 8.4 mg/dL (8.4-10.2); Carbon Dioxide 23 mmol/L (22-30); Chloride 108 mmol/L (98-107); Estimated CRCL calculation 39 ml/min; Estimated Glomerular Filt Rate 53; Glucose 99 mg/dL (65-110); Potassium 3.6 mmol/L (3.4-5.0); Sodium 140 mmol/L (137-145)
--- NOTE | 2021-05-02 11:57 | PM.CNOR ---
Assessment and Plan Assessment and plan (1) Dislocation of hip prosthesis: Qualifiers: Encounter type: initial encounter Qualified Code(s): T84.029A - Dislocation of unspecified internal joint prosthesis, initial encounter; Z96.649 - Presence of unspecified artificial hip joint Code(s): T84.029A - Dislocation of unspecified internal joint prosthesis, initial encounter; Z96.649 - Presence of unspecified artificial hip joint Status: Acute Assessment and Plan: History, exam and radiographs reviewed. Radiographs of the left hip reveal dislocated bipolar left hip hemiarthroplasty with separation of the arthroplasty components. patient with advanced dementia. Will discuss the case with patient's power of bundle breaker. If cleared by Medicine team, patient would benefit from revision of left hip and knee arthroplasty. Risks of surgery including but not limited to neurovascular damage, wound complications, blood clot, pulmonary embolus, stroke, myocardial infarction, anesthetic risks up to and including reviewed. Continued pain and possible dysfunction were explained. No guarantees were offered. Plan: Revision Left Hip Hemiarthroplasty pending medical clearance Bedrest in the interim. Pain control, limit narcotics with advanced dementia. Hold anticoagulation. (2) History of left hip hemiarthroplasty: Code(s): Z96.642 - Presence of left artificial hip joint Status: Acute Assessment and Plan: Patient is 1 week status post left hip hemiarthroplasty status post hip fracture. (3) JEANNE (acute kidney injury): Code(s): N17.9 - Acute kidney failure, unspecified Status: Acute Assessment and Plan: patient with acute kidney injury on admission. Creatinine was 2.0 on admission is now 1.3 with repeat BMP this morning. Plan to proceed with surgical intervention pending medical clearance. Additional Plan Case reviewed with attending MD and consulted physician, Dr. Chakraborty. Radiographs reviewed. Agrees with surgical intervention pending medical clearance. History of Present Illness HPI Consult date: 05/02/21 Requesting physician: Elizabeth Landin MD Consult reason: other Chief complaint: Left hip prosthesis dislocation Narrative: 81-year-old male returns [facility] from a halfway facility after a fall. He underwent a left hip hemiarthroplasty with bipolar prosthesis status post hip fracture by Dr. Chakraborty 1 week ago. Per the medical record, the patient had a [facility] at the [facility]. He was transported to the emergency room and radiographs of the left hip revealed a dislocated bipolar left hip hemiarthroplasty with separation of the arthroplasty components. orthopedic surgery consult requested by emergency room physician. Review of Systems Review of Systems: ROS unobtainable: Yes unobtainable due to mental status (dementia) [facility] Past Medical History Medical History BPH (benign prostatic hyperplasia) Dementia Depression with anxiety Prostate cancer per daughter Surgical History Surgical History History of appendectomy per daughter History of left hip hemiarthroplasty Family History Family History Unknown Unknown family medical history Social History Social History Social History: Daughter: Trish is Next of Kin , per Trish PPW is pending patient signature. Nephew: Srikanth Ellison (2nd contact per Trish/[facility]) Remaining social history obtained from Trish. Code status full code per Trish (daughter) Smoking status: Unknown if ever smoked Alcohol intake: unknown Substance use: unknown Substance use type: does not use and unknown Living arrangements: [facility]
--- NOTE | 2021-05-02 12:20 | PM.IMPN ---
Progress Note: A&P Assessment and Plan (1) Dislocation of hip prosthesis: Qualifiers: Encounter type: initial encounter Qualified Code(s): T84.029A - Dislocation of unspecified internal joint prosthesis, initial encounter; Z96.649 - Presence of unspecified artificial hip joint Code(s): T84.029A - Dislocation of unspecified internal joint prosthesis, initial encounter; Z96.649 - Presence of unspecified artificial hip joint Status: Acute Assessment and Plan: Orthopedic is consulted. (2) Fall from ground level: Code(s): W18.30XA - Fall on same level, unspecified, initial encounter Status: Acute Assessment and Plan: Fall precautions (3) BPH (benign prostatic hyperplasia): Code(s): N40.0 - Benign prostatic hyperplasia without lower urinary tract symptoms Status: Chronic Assessment and Plan: Continue tamsulosin (4) Depression with anxiety: Code(s): F41.8 - Other specified anxiety disorders Status: Chronic Assessment and Plan: Continue sertraline. (5) Dementia: Code(s): F03.90 - Unspecified dementia without behavioral disturbance Status: Acute Assessment and Plan: Continue Lamotrigine, rivastigmine, memantine, haloperidol. (6) JEANNE (acute kidney injury): Code(s): N17.9 - Acute kidney failure, unspecified Status: Acute Assessment and Plan: Continue to hydrate with fluids bmp ordered (7) Fracture of femoral neck, left, closed: Qualifiers: Encounter type: initial encounter Qualified Code(s): S72.002A - Fracture of unspecified part of neck of left femur, initial encounter for closed fracture Code(s): S72.002A - Fracture of unspecified part of neck of left femur, initial encounter for closed fracture Status: Acute Assessment and Plan: Patient is status post recent hemiarthroplasty due to fall has dislocated his hip again Subjective Date/time seen: 05/02/21 12:20 Interval history: 81-year-old male with past medical history significant for dementia, detention resident, benign prostatic hyperplasia, recent admission and discharged from the hospital where he was treated for left hip fracture with hardware placement however patient was brought in today from the detention where he resides at due to fall and unable to bear weight on the left leg it was noted also some deformity on that side, however patient is unable to give any history due to his dementia. Preliminary workup was significant for x-ray of the left hip with dislocation bipolar left hip hemiarthroplasty with separation of the arthroplasty components 05/02/2021 Interval history: Orthopedics planning revision of his left hip, for dislocation bipolar left hip hemiarthroplasty with separation of the arthroplasty components Review of Systems Review of Systems: ROS unobtainable: Yes unobtainable due to mental status Exam Const: General: other (elderly man with dementia resting in bed ) HENMT: Head: normal to inspection Resp: Effort & Inspection: no respiratory distress Auscultation: no rhonchi and no wheezes Cardio: Rate: regular rate Rhythm: regular rhythm GI: Inspection: normal to inspection GI Palp: No abdominal tenderness, No Guarding due to palpation present (GI) and No Hepatomegaly present Auscultation: normal bowel sounds Extrem: General: normal to inspection (Recent hip surgery with sutures in situ ) Objective Data Vital Signs Vital Signs: Vital Signs - 24 hr 05/01/21 19:29 05/01/21 19:36 05/01/21 19:45 Temperature 36.7 C Pulse Rate 81 76 77 Respiratory Rate 16 13 Blood Pressure 114/57 L Pulse Oximetry 99 100 05/01/21 19:46 05/01/21 20:00 05/01/21 20:01 Temperature Pulse Rate 79 78 77 Respiratory Rate 19 Blood Pressure 117/62 Pulse Oximetry 95 05/01/21 20:14 05/01/21 20:29 05/01/21 20:30 Temperature Pulse Rate 76 77 81 Respiratory Rate 20 Blood Pressur
[2021-05-02 14:00] VITALS: BP 103/41; PULSE 77; RESP 12; TEMP 37.6; O2SAT 94
--- NOTE | 2021-05-02 15:31 | PC.NURSE ---
On 05/02/21, the student, [ Adore Mayberry], provided care and completed [facility] documentation on this patient. I have reviewed the student's documentation and agree with the findings.
[2021-05-02 21:56] VITALS: BP 118/42; PULSE 75; RESP 16; TEMP 36.6; O2SAT 95
[2021-05-03] VITALS (13 sets, daily range): BP systolic 91–128; BP diastolic 30–54; PULSE 77–114; RESP 14–28; TEMP 36.2–37.3; O2SAT 92–100
[2021-05-03] MEDS: SODIUM CHLORIDE 0.9% IV 1,000 ML 125 ML IV CONT ×2 (04:00→16:45)
[2021-05-03] MEDS: MORPHINE SULFATE (*CRX) 4 MG/ML INJ IV PUSH (06:07)
--- NOTE | 2021-05-03 06:16 | PC.NURSE ---
TRansported to pre op by nurse staff. Rings at bedside.
[2021-05-03] MEDS: LACTATED RINGERS 1,000 ML 30 ML IV CONT ×2 (06:25→09:38)
--- NOTE | 2021-05-03 06:50 | WPDANESEPPF ---
Anes - Initial Pre Proc Eval Procedure: Operation Date: 05/03/21 07:30 Proposed Procedures p Revision Left Hemiarthroplasty - Per Chakraborty MD Date/Time: 05/03/21 06:50 Surgeon: Elizabeth Landin MD Pre Op Diagnosis: Left hip prosthesis dislocation Patient Data Age: 81 Gender: M Height: 1.73 m Weight: 72.9 kg Last Vital Signs Temp 37.3 C 05/03/21 06:21 Pulse 77 05/03/21 06:21 Resp 20 05/03/21 06:21 BP 108/45 L 05/03/21 06:21 Pulse Ox 99 05/03/21 06:21 Allergies Allergy/AdvReac Type Severity Reaction Status Date / Time No Known Allergies Allergy Verified 05/01/21 20:05 Home Medications Medication Instructions Recorded Confirmed Type benztropine 1 mg PO DAILY 04/23/21 05/02/21 History cholecalciferol (vitamin D3) 10 mcg PO DAILY 04/23/21 05/02/21 History [Vitamin D3] haloperidol 2 mg PO Q6H PRN 04/23/21 05/02/21 History haloperidol 5 mg PO DAILY 04/23/21 05/02/21 History lamotrigine 25 mg PO DAILY 04/23/21 05/02/21 History lorazepam 1 mg PO Q6H PRN 04/23/21 05/02/21 History memantine 5 mg PO Q12H 04/23/21 05/02/21 History rivastigmine 9.5 mg TRANSDERMAL DAILY 04/23/21 05/02/21 History sertraline 50 mg PO DAILY 04/23/21 05/02/21 History tamsulosin 0.4 mg PO HS 04/23/21 05/02/21 History aspirin [Aspir-Zehra] 325 mg PO BID #42 tablet 04/26/21 05/02/21 Rx Ativan 1 mg PO QID PRN 05/02/21 05/02/21 History Laboratory Tests 05/02/21 05/03/21 10:21 06:08 Sodium 140 mmol/L mmol/L Pending (137-145) Potassium 3.6 mmol/L mmol/L Pending (3.4-5.0) Chloride 108 mmol/L H mmol/L Pending (98-107) Carbon Dioxide 23 mmol/L mmol/L Pending (22-30) Anion Gap 9 mmol/L mmol/L Pending (8-16) BUN 42 mg/dL H mg/dL Pending (9-20) Creatinine 1.30 mg/dL mg/dL Pending (0.7-1.3) Estim Creat Clear Calc 39 ml/min ml/min Pending Estimated GFR 53 L Pending (59 - ) Glucose 99 mg/dL mg/dL Pending (65-110) Calcium 8.4 mg/dL mg/dL Pending (8.4-10.2) Patient hx anesthesia problems: none Family hx anesthesia problems: none Results Review: All pre-operative results and documents have been reviewed as part of the pre-operative evaluation. [facility] Past Medical History Medical History BPH (benign prostatic hyperplasia) Dementia Depression with anxiety Prostate cancer per daughter Surgical History Surgical History History of appendectomy per daughter History of left hip hemiarthroplasty Family History Family History Unknown Unknown family medical history Social History Social History Social History: Daughter: Trish is Next of Kin , per Trish PPW is pending patient signature. Nephew: Srikanth Ellison (2nd contact per Trish/[facility]) Remaining social history obtained from Trish. 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 Gender identity (if verbalized by the patient): Male Spiritual care concerns: No Anes - Eval Final PreProcedure Day of Procedure 05/03/21 06:50 Patient weight: normal Heart: regular rate and rhythm Lungs: decreased breath sounds Neurological: other (alert) Last oral intake: >/= 8 hours ASA classification: III Emergent: no Anesthetic plan: proceed Anesthesia type and monitoring: general ETT and standard monitoring Results Review: All pre-operative results and documents have been reviewed as part of the pre-operative evaluation. Informed Consent: The patient's an
[2021-05-03 06:57] LABS: Anion Gap 8 mmol/L (8-16); Blood Urea Nitrogen 28 mg/dL (9-20); Calcium 8.5 mg/dL (8.4-10.2); Carbon Dioxide 25 mmol/L (22-30); Chloride 107 mmol/L (98-107); Estimated CRCL calculation 56 ml/min; Estimated Glomerular Filt Rate > 60; Glucose 105 mg/dL (65-110); Potassium 3.5 mmol/L (3.4-5.0); Sodium 140 mmol/L (137-145)
--- NOTE | 2021-05-03 07:11 | WPDHPUPDATE1 ---
History and Physical Update Update Date/Time: 05/03/21 07:11 History and Physical has been reviewed, including an updated exam of the patient. There are NO changes in the patient's condition. Risks, benefits, and alternatives have been discussed and questions answered. Patient agrees to proceed with procedure.
[2021-05-03] MEDS: ceFAZolin 2 GM/D5W 50 ML 2 GM/50 ML BAG IVPB ×3 (07:33→22:55)
[2021-05-03] MEDS: TRANEXAMIC ACID 1,000 MG/10 ML AMPUL 1000 MG IV PUSH (08:42)
[2021-05-03] MEDS: HYDROcodone/acetaminophen (*CRX) 5-325 MG TABLET 1 TAB PO ×3 (11:43→22:52)
--- NOTE | 2021-05-03 12:38 | PM.IMPN ---
Progress Note: A&P Assessment and Plan (1) Dislocation of hip prosthesis: Qualifiers: Encounter type: initial encounter Qualified Code(s): T84.029A - Dislocation of unspecified internal joint prosthesis, initial encounter; Z96.649 - Presence of unspecified artificial hip joint Code(s): T84.029A - Dislocation of unspecified internal joint prosthesis, initial encounter; Z96.649 - Presence of unspecified artificial hip joint Status: Acute Assessment and Plan: Patient is postop day 0 of revision of left hip yoko arthroplasty. Monitor hemoglobin and hematocrit. Continue pain management. (2) Fall from ground level: Code(s): W18.30XA - Fall on same level, unspecified, initial encounter Status: Acute Assessment and Plan: Fall precautions (3) BPH (benign prostatic hyperplasia): Code(s): N40.0 - Benign prostatic hyperplasia without lower urinary tract symptoms Status: Chronic Assessment and Plan: No active obstructive symptoms. Renal function is stable. Creatinine has improved from 2 on admission to 0.9 today. Continue clinical monitoring. Continue tamsulosin (4) Depression with anxiety: Code(s): F41.8 - Other specified anxiety disorders Status: Chronic Assessment and Plan: Continue sertraline. (5) Dementia: Code(s): F03.90 - Unspecified dementia without behavioral disturbance Status: Acute Assessment and Plan: Continue Lamotrigine, rivastigmine, memantine, haloperidol. (6) JEANNE (acute kidney injury): Code(s): N17.9 - Acute kidney failure, unspecified Status: Acute Assessment and Plan: Acute nonoliguric kidney injury. Creatinine is improving from 2 on admission down to 0.9 today. Continue to hydrate with fluids bmp ordered (7) Fracture of femoral neck, left, closed: Qualifiers: Encounter type: initial encounter Qualified Code(s): S72.002A - Fracture of unspecified part of neck of left femur, initial encounter for closed fracture Code(s): S72.002A - Fracture of unspecified part of neck of left femur, initial encounter for closed fracture Status: Acute Assessment and Plan: Patient is status post recent hemiarthroplasty due to fall has dislocated his hip again. PT OT evaluation when deemed appropriate by Orthopedic surgery. Subjective Date/time seen: 05/03/21 12:38 81-year-old male with past medical history significant for dementia, assisted resident, benign prostatic hyperplasia, recent admission and discharged from the hospital where he was treated for left hip fracture with hardware placement however patient was brought in today from the assisted where he resides at due to fall and unable to bear weight on the left leg it was noted also some deformity on that side, however patient is unable to give any history due to his dementia. Preliminary workup was significant for x-ray of the left hip with dislocation bipolar left hip hemiarthroplasty with separation of the arthroplasty components Interval history. Orthopedics performed revision of his left hip, for dislocation bipolar left hip hemiarthroplasty with separation of the arthroplasty components. Operative notes for review. Hematoma was drained from the hip. There were no signs of infection, cloudy fluid, collection or abscess. The dissociated piece of implant was removed. The wound was irrigated multiple times. Estimated blood loss 200 cc. S: Patient is examined at the bedside. He remains lethargic postop. He awakes with verbal stimulation. Denies any active complaints. Interval history: 81-year-old male with past medical history significant for dementia, assisted resident, benign prostatic hyperplasia, recent admission and discharged from the hospital where he was treated for left hip fracture with hardware placement however patient was brought in today from the assisted where he resides at due to fall and unable t
--- NOTE | 2021-05-03 13:33 | W.PM.PROC2 ---
Procedure Note - Detailed Date of Procedure 05/03/21 Pre-op Diagnosis LEFT BIPOLAR ARTHROPLASTY MECHANICAL FAILURE WITH DISLOCATION Post-op Diagnosis same Procedure Performed REVISION OF HEMIARTHROPLASTY LEFT HIP Surgeon Per Chakraborty MD Anesthesia general Description of Procedure THE PATIENT WAS TAKEN TO THE OR IN STABLE CONDITION. GENERAL ANESTHESIA WAS INDUCED. AN INCISION WAS MADE OVER THE ORIGINAL INCISION ON THE LEFT HIP. THE INCISION CONTINUED THROUGH THE SUBCUTANEOUS TISSUES UNTIL THE FASCIA WAS INCISED. HEMATOMA WAS DRAINING FROM THE HIP JOINT. THERE WAS NO SIGN OF INFECTION. THERE WAS NO CLOUDY FLUID OR COLLECTION OF ABSCESS. NEXT THE DISSOCIATED PIECE OF BIPOLAR IMPLANT WAS REMOVED. THE STEM WAS IDENTIFIED AND IT WAS UIN GOOD POSITION. THE WOUND WAS IRRIGATED MULTIPLE TIMES. A 53 TRIAL HEAD AND +0 NECK WAS USED WHICH FIT WELL AND THE IMPLANT WAS VERY STABLE. THE LEG LENGTHS WERE GROSSLY EQUAL WELL. THE BIPOLAR HEAD AND SHELL WERE THEN ASSEMBLED ON THE BACK TABLE. ONCE THEY WERE ASSEMBLED THE IMPLANTS WERE PLACED ON THE TRUNION OF THE STEM AND AND TAPPED DOWN WELL. THE LEFT HIP WAS TAKEN FOR A ROM AND THE HIP WAS VERY STABLE. THE PATIENTS WOUNDS WERE WASHED. THE SHORT EXTERNAL ROTATORS WERE REPAIRED WITH N) 1 VICRYL. No 2 QUIL WAS USED TO APPROXIMATE THE FASCIA. THE SUBCUTANEOUS LAYER WAS APPROXIMATE WITH 2-0 VICRYL. A STERILE DRESSING WAS APPLIED. HE WAS EXTUBATED AND SENT TO RECOVERY ROOM Estimated Blood Loss -200.0 Urine Output 400 Drains Yes Pathology yes Complications No immediate complications Condition stable Disposition PACU
--- NOTE | 2021-05-03 15:24 | PC.NURSE ---
On 05/03/21, the student, Kate Jameson, provided care and completed [facility] documentation on this patient. I have reviewed the student's documentation and agree with the findings.
[2021-05-03] MEDS: ASPIRIN 325 MG ENTERIC TABLET PO (16:46)
[2021-05-03 20:45] LABS: Hematocrit 25.3 % (42.0-52.0); Hemoglobin 8.1 g/dL (14.0-18.0)
[2021-05-03 20:57] LABS: Anion Gap 5 mmol/L (8-16); Blood Urea Nitrogen 23 mg/dL (9-20); Calcium 7.7 mg/dL (8.4-10.2); Carbon Dioxide 22 mmol/L (22-30); Chloride 107 mmol/L (98-107); Estimated CRCL calculation 56 ml/min; Estimated Glomerular Filt Rate > 60; Glucose 143 mg/dL (65-110); Potassium 3.7 mmol/L (3.4-5.0); Sodium 134 mmol/L (137-145)
[2021-05-03] MEDS: FAMOTIDINE 20 MG TABLET PO (21:11)
[2021-05-03] MEDS: MEMANTINE 5 MG TABLET PO (21:11)
[2021-05-03] MEDS: TAMSULOSIN HCL 0.4 MG CAPSULE PO (21:11)
[2021-05-03] MEDS: LORazepam (*CRX) 1 MG TABLET PO (23:36)
[2021-05-04 00:31] VITALS: BP 102/43; PULSE 81; RESP 20; TEMP 36.5; O2SAT 98
[2021-05-04] MEDS: SODIUM CHLORIDE 0.9% IV 1,000 ML 125 ML IV CONT ×3 (02:00→20:48)
[2021-05-04 04:31] VITALS: BP 113/41; PULSE 84; RESP 18; TEMP 36.7; O2SAT 97
[2021-05-04] MEDS: HYDROcodone/acetaminophen (*CRX) 5-325 MG TABLET 1 TAB PO ×3 (05:58→20:56)
[2021-05-04 07:31] LABS: Basophils Percent Auto 0.3 % (0.2-1.2); Eosinophils Absolute Auto 0.1 K/mm3 (0-0.3); Eosinophils Percent Auto 0.9 % (0-4.4); Hemoglobin 7.9 g/dL (14.0-18.0); Immature Granulocyte Absolute 0.08 K/mm3 (0.00-0.031); Lymphocytes Absolute Auto 0.66 K/mm3 (0.9-3.2); Lymphocytes Percent Auto 8.5 % (18.3-44.2); Mean Corpuscular HGB Conc 31.6 g/dl (32-36); Mean Corpuscular Hemoglobin 30.7 pg (26-34); Mean Corpuscular Volume 97.3 fl (80-100); Mean Platelet Volume 10.3 fl (7.4-10.4); Monocytes Absolute Auto 0.6 K/mm3 (0.1-0.6); Monocytes Percent Auto 7.5 % (2.6-8.5); Neutrophils Absolute Auto 6.4 K/mm3 (1.3-6.7); Neutrophils Percent Auto 81.8 % (45.5-73.1); Platelet Count Result 126 k/mm3 (150-375); Red Blood Count 2.57 M/mm3 (4.6-6.20); Red Cell Distribution Width 13.2 % (11.5-14.5); White Blood Count 7.8 K/mm3 (4.5-10.0)
[2021-05-04 07:56] LABS: Anion Gap 5 mmol/L (8-16); Blood Urea Nitrogen 19 mg/dL (9-20); Calcium 7.7 mg/dL (8.4-10.2); Carbon Dioxide 23 mmol/L (22-30); Chloride 106 mmol/L (98-107); Estimated CRCL calculation 62 ml/min; Estimated Glomerular Filt Rate > 60; Glucose 103 mg/dL (65-110); Potassium 3.5 mmol/L (3.4-5.0); Sodium 134 mmol/L (137-145)
[2021-05-04] MEDS: ceFAZolin 2 GM/D5W 50 ML 2 GM/50 ML BAG IVPB (08:51)
[2021-05-04] MEDS: CHOLECALCIFEROL 400 UNITS TABLET (VIT D) PO (08:51)
[2021-05-04] MEDS: SERTRALINE HCL 50 MG TABLET PO (08:51)
[2021-05-04] MEDS: polyethylene glycoL 3350 17 GM POWD.PACK PO (08:51)
[2021-05-04] MEDS: lamoTRIgine 25 MG TABLET PO (08:51)
[2021-05-04] MEDS: HALOPERIDOL 5 MG TABLET PO (08:51)
[2021-05-04] MEDS: BENZTROPINE MESYLATE 1 MG TABLET PO (08:51)
[2021-05-04] MEDS: SENNA/DOCUSATE SODIUM TABLET 2 TAB PO ×2 (08:51→17:42)
[2021-05-04] MEDS: MEMANTINE 5 MG TABLET PO ×2 (08:51→20:56)
[2021-05-04] MEDS: FAMOTIDINE 20 MG TABLET PO ×2 (08:51→20:56)
[2021-05-04] MEDS: ASPIRIN 325 MG ENTERIC TABLET PO ×2 (08:51→17:42)
[2021-05-04] MEDS: RIVASTIGMINE TARTRATE 9.5 MG PATCH 1 PATCH TRANSDERM (08:52)
--- NOTE | 2021-05-04 09:39 | PM.IMPN ---
Progress Note: A&P Assessment and Plan (1) Dislocation of hip prosthesis: Qualifiers: Encounter type: initial encounter Qualified Code(s): T84.029A - Dislocation of unspecified internal joint prosthesis, initial encounter; Z96.649 - Presence of unspecified artificial hip joint Code(s): T84.029A - Dislocation of unspecified internal joint prosthesis, initial encounter; Z96.649 - Presence of unspecified artificial hip joint Status: Acute Assessment and Plan: Patient is postop day 1 of revision of left hip yoko arthroplasty. Monitor hemoglobin and hematocrit. Continue pain management. (2) Fall from ground level: Code(s): W18.30XA - Fall on same level, unspecified, initial encounter Status: Acute Assessment and Plan: Fall precautions (3) BPH (benign prostatic hyperplasia): Code(s): N40.0 - Benign prostatic hyperplasia without lower urinary tract symptoms Status: Chronic Assessment and Plan: No active obstructive symptoms. Renal function is stable. Creatinine has improved from 2 on admission to 0.8 today. Continue clinical monitoring. Continue tamsulosin (4) Depression with anxiety: Code(s): F41.8 - Other specified anxiety disorders Status: Chronic Assessment and Plan: Continue sertraline. (5) Dementia: Code(s): F03.90 - Unspecified dementia without behavioral disturbance Status: Acute Assessment and Plan: Continue Lamotrigine, rivastigmine, memantine, haloperidol. (6) JEANNE (acute kidney injury): Code(s): N17.9 - Acute kidney failure, unspecified Status: Acute Assessment and Plan: Acute nonoliguric kidney injury. Creatinine is improving from 2 on admission down to 0.9 today. Continue to hydrate with fluids bmp ordered (7) Fracture of femoral neck, left, closed: Qualifiers: Encounter type: initial encounter Qualified Code(s): S72.002A - Fracture of unspecified part of neck of left femur, initial encounter for closed fracture Code(s): S72.002A - Fracture of unspecified part of neck of left femur, initial encounter for closed fracture Status: Acute Assessment and Plan: Patient is status post recent hemiarthroplasty due to fall has dislocated his hip again. PT OT evaluation when deemed appropriate by Orthopedic surgery. Subjective Date/time seen: 05/04/21 09:39 S: Patient is examined at the bedside. He is awake, alert and only ureter few words. Did not have any specific complaint. He did not seem to be in any acute distress. Interval history: 81-year-old gentleman with past medical history significant for dementia, care home resident, benign prostatic hyperplasia, recent admission and discharged from the hospital where he was treated for left hip fracture with hardware placement admitted from the care home where he resides at due to fall and inability to bear weight on the left leg it was noted also some deformity on that side; patient is unable to give any history due to his dementia. Preliminary workup was significant for x-ray of the left hip with dislocation bipolar left hip hemiarthroplasty with separation of the arthroplasty components. on 05/03/2021, the patient underwent revision of his left hip, for dislocation bipolar left hip hemiarthroplasty with separation of the arthroplasty components Review of Systems Review of Systems: ROS unobtainable: Yes unobtainable due to medical condition (Dementia advanced) and unobtainable due to mental status Exam Narrative: Patient is laying in bed in no acute distress. Const: General: comfortable, no acute distress, well developed, alert, awake and other (elderly man with dementia resting in bed ) Nutritional Appearance: average body habitus Orientation/consciousness: oriented to person HENMT: Head: normal to inspection, normocephalic and atraumatic Ears: hearing grossly normal bilaterally General nose exam: Normal external
--- NOTE | 2021-05-04 13:06 | PM.PNORT ---
Progress Note: A&P Assessment and Plan (1) Dislocation of hip prosthesis: Qualifiers: Encounter type: initial encounter Qualified Code(s): T84.029A - Dislocation of unspecified internal joint prosthesis, initial encounter; Z96.649 - Presence of unspecified artificial hip joint Code(s): T84.029A - Dislocation of unspecified internal joint prosthesis, initial encounter; Z96.649 - Presence of unspecified artificial hip joint Status: Acute Assessment and Plan: POD #1: REVISION OF HEMIARTHROPLASTY LEFT HIP Continue PT/OT. WBAT. Walker. HIGH FALL RISK. Continue pain control. Ice Lateral Hip. Monitor dressing. Change prior to discharge. Resume DVT prophylaxis. SCDs. Incentive spirometry. Dispo: Return to SNF when medically cleared. (2) History of left hip hemiarthroplasty: Code(s): Z96.642 - Presence of left artificial hip joint Status: Acute (3) Fracture of femoral neck, left, closed: Qualifiers: Encounter type: initial encounter Qualified Code(s): S72.002A - Fracture of unspecified part of neck of left femur, initial encounter for closed fracture Code(s): S72.002A - Fracture of unspecified part of neck of left femur, initial encounter for closed fracture Status: Acute Subjective Subjective Date/Time Seen: 05/04/21 0900 Post Op day: 1 Interval history: POD #1: REVISION OF HEMIARTHROPLASTY LEFT HIP No new complaints today. Sitting up in bed eating breakfast assisted by clinical tech. Appears comfortable. Review of Systems Review of Systems: ROS unobtainable: Yes unobtainable due to mental status Exam Const: General: comfortable and no acute distress Resp: Effort & Inspection: normal respiratory effort Cardio: Rate: regular rate Rhythm: regular rhythm GI: Inspection: non-distended GI Palp: Yes Soft to palpation and No Tenderness to palpation present (GI) Skin: Wounds: wounds noted (Lateral Hip ) Neuro: General: No gait normal Cognition (Neuro): abnormal cognition (dementia ) Speech: normal speech Motor exam (neuro): strength not 5/5 throughout and Abnormal motor strength present (b/l LE ) Extrem: Left lower extremity: hip/thigh Details: tenderness Location: of the hip Location: laterally, swelling Location: of the hip, abnormal ROM (limited due to recent revision arthroplasty ) and ecchymosis (lateral hip ); no crepitus, knee Details: normal to inspection and normal ROM; no tenderness and no swelling, lower leg Details: normal to inspection; no tenderness, ankle Details: normal to inspection and normal ROM and foot Details: normal capillary refill and vascular exam Details: dorsalis pedis pulse present Objective Data Vital Signs Vital Signs: Vital Signs - 24 hr 05/03/21 14:27 05/03/21 20:31 05/04/21 00:31 Temperature 37.3 C 36.9 C 36.5 C Pulse Rate 95 99 81 Respiratory Rate 28 H 16 20 Blood Pressure 117/44 L 127/46 L 102/43 L Pulse Oximetry 97 96 98 05/04/21 04:31 Temperature 36.7 C Pulse Rate 84 Respiratory Rate 18 Blood Pressure 113/41 L Pulse Oximetry 97 Intake/Output Intake/Output: Intake & Output 05/01/21 05/02/21 05/03/21 05/04/21 23:59 23:59 23:59 23:59 Intake Total 1000 1290 3430 2700 Output Total 1750 1000 Balance 1000 1290 1680 1700 Meds/Results Medications: Active Medications Generic Name Dose Route Start Last Admin Trade Name Freq PRN Reason Stop Dose Admin Acetaminophen 650 mg 05/03/21 10:46 Acetaminophen 325 Mg Tablet PO Q6H PRN Mild Pain (1-3) or Fever Hydrocodone Bitart/Acetaminophen 1 tab 05/03/21 10:46 05/04/21 05:58 Hydrocodone/Acetaminophen (*Crx) 5-325 Mg Tablet PO 1 tab Q3H PRN Administration Pain Rated 4-6 Aspirin 325 mg 05/03/21 17:00 05/04/21 08:51 Aspirin 325 Mg Enteric Tablet PO 325 mg BID MARGARET Administration Benztropine Mesylate 1 mg 05/04/21 09:00 05/04/21 08:51 Benztropine Mesylate 1 Mg Tablet PO 1 mg DAILY MARGARET Admin
--- NOTE | 2021-05-04 13:46 | WPDANESPN ---
Anes - Prog Note Post-Op Date/Time: 05/04/21 13:46 Cardiovascular status: normal Respiratory status: normal Airway patency: baseline Mental status: baseline Post-Op hydration status: normal Vital Signs: Last Vital Signs Temp 98.0 F 05/04/21 04:31 Pulse 84 05/04/21 04:31 Resp 18 05/04/21 04:31 BP 113/41 L 05/04/21 04:31 Pulse Ox 97 05/04/21 04:31 Pain Score (VAS): 3 I/O: Intake & Output 05/03/21 05/04/21 05/04/21 23:59 07:59 15:59 Intake Total 720 1500 1250 Output Total 600 1000 Balance 966 920 7861 Laboratory Tests 05/04/21 06:34 05/04/21 06:34 05/03/21 05/03/21 05/04/21 20:37 20:37 06:34 WBC 7.8 RBC 2.57 L Hgb 8.1 L 7.9 L Hct 25.3 L 25.0 L MCV 97.3 MCH 30.7 MCHC 31.6 L RDW 13.2 Plt Count 126 L MPV 10.3 Immature Gran % (Auto) 1.0 H Neut % (Auto) 81.8 H Lymph % (Auto) 8.5 L [place] % (Auto) 7.5 Eos % (Auto) 0.9 Baso % (Auto) 0.3 Lymph # (Auto) 0.66 L [place] # (Auto) 0.6 Eos # (Auto) 0.1 Baso # (Auto) 0.0 Abs Immat Gran (auto) 0.08 H Absolute Neuts (auto) 6.4 Absolute Nucleated RBC 0.0 Nucleated RBC % 0.0 Sodium 134 L Potassium 3.7 Chloride 107 Carbon Dioxide 22 Anion Gap 5 L BUN 23 H Creatinine 0.90 Estim Creat Clear Calc 56 Estimated GFR > 60 Glucose 143 H Calcium 7.7 L 05/04/21 06:34 WBC RBC Hgb Hct MCV MCH MCHC RDW Plt Count MPV Immature Gran % (Auto) Neut % (Auto) Lymph % (Auto) [place] % (Auto) Eos % (Auto) Baso % (Auto) Lymph # (Auto) [place] # (Auto) Eos # (Auto) Baso # (Auto) Abs Immat Gran (auto) Absolute Neuts (auto) Absolute Nucleated RBC Nucleated RBC % Sodium 134 L Potassium 3.5 Chloride 106 Carbon Dioxide 23 Anion Gap 5 L BUN 19 Creatinine 0.80 Estim Creat Clear Calc 62 Estimated GFR > 60 Glucose 103 Calcium 7.7 L Post-procedural complaints: none Patient Feedback: Patient satisfied with anesthetic care.
[2021-05-04 14:00] VITALS: BP 116/68; PULSE 82; RESP 20; TEMP 37.2; O2SAT 97
[2021-05-04] MEDS: TAMSULOSIN HCL 0.4 MG CAPSULE PO (20:56)
[2021-05-04 22:00] VITALS: BP 112/63; PULSE 75; RESP 18; TEMP 36.2; O2SAT 96
[2021-05-05 02:00] VITALS: BP 108/62; PULSE 77; RESP 18; TEMP 36.6; O2SAT 96
[2021-05-05] MEDS: SODIUM CHLORIDE 0.9% IV 1,000 ML 125 ML IV CONT ×3 (05:03→20:44)
[2021-05-05] MEDS: HYDROcodone/acetaminophen (*CRX) 5-325 MG TABLET 1 TAB PO ×3 (05:04→20:40)
[2021-05-05 06:00] VITALS: BP 108/61; PULSE 74; RESP 18; TEMP 36.6; O2SAT 95
[2021-05-05] MEDS: ACETAMINOPHEN 325 MG TABLET 650 MG PO (07:58)
[2021-05-05] MEDS: polyethylene glycoL 3350 17 GM POWD.PACK PO (08:00)
[2021-05-05] MEDS: FAMOTIDINE 20 MG TABLET PO ×2 (08:00→20:43)
[2021-05-05] MEDS: HALOPERIDOL 5 MG TABLET PO (08:00)
[2021-05-05] MEDS: lamoTRIgine 25 MG TABLET PO (08:00)
[2021-05-05] MEDS: RIVASTIGMINE TARTRATE 9.5 MG PATCH 1 PATCH TRANSDERM (08:00)
[2021-05-05] MEDS: ASPIRIN 325 MG ENTERIC TABLET PO ×2 (08:00→15:57)
[2021-05-05] MEDS: SERTRALINE HCL 50 MG TABLET PO (08:00)
[2021-05-05] MEDS: BENZTROPINE MESYLATE 1 MG TABLET PO (08:00)
[2021-05-05] MEDS: SENNA/DOCUSATE SODIUM TABLET 2 TAB PO ×2 (08:00→15:57)
[2021-05-05] MEDS: MEMANTINE 5 MG TABLET PO ×2 (08:00→20:43)
[2021-05-05] MEDS: CHOLECALCIFEROL 400 UNITS TABLET (VIT D) PO (08:00)
[2021-05-05 08:19] VITALS: BP 113/44; PULSE 99; RESP 22; TEMP 37.6; O2SAT 94
[2021-05-05 14:00] VITALS: BP 97/41; PULSE 82; RESP 20; TEMP 36.4; O2SAT 97
--- NOTE | 2021-05-05 15:21 | PCOTNOTE ---
On 05/05/21, the student, [ Brii ALMONTE], provided care and completed [facility] documentation on this patient. I have reviewed the student's documentation and agree with the findings.
--- NOTE | 2021-05-05 17:41 | PM.IMPN ---
Progress Note: A&P Assessment and Plan (1) Dislocation of hip prosthesis: Qualifiers: Encounter type: initial encounter Qualified Code(s): T84.029A - Dislocation of unspecified internal joint prosthesis, initial encounter; Z96.649 - Presence of unspecified artificial hip joint Code(s): T84.029A - Dislocation of unspecified internal joint prosthesis, initial encounter; Z96.649 - Presence of unspecified artificial hip joint Status: Acute Assessment and Plan: Patient is postop day 2 of revision of left hip yoko arthroplasty. Monitor hemoglobin and hematocrit. Continue pain management. (2) Fall from ground level: Code(s): W18.30XA - Fall on same level, unspecified, initial encounter Status: Acute Assessment and Plan: Continue fall precautions. (3) BPH (benign prostatic hyperplasia): Code(s): N40.0 - Benign prostatic hyperplasia without lower urinary tract symptoms Status: Chronic Assessment and Plan: No active obstructive symptoms. Renal function is stable. Creatinine has improved from 2 on admission to 0.8 today. Continue clinical monitoring. Continue tamsulosin (4) Depression with anxiety: Code(s): F41.8 - Other specified anxiety disorders Status: Chronic Assessment and Plan: Continue sertraline. (5) Dementia: Code(s): F03.90 - Unspecified dementia without behavioral disturbance Status: Acute Assessment and Plan: Continue Lamotrigine, rivastigmine, memantine, haloperidol. (6) JEANNE (acute kidney injury): Code(s): N17.9 - Acute kidney failure, unspecified Status: Acute Assessment and Plan: Recovering acute nonoliguric kidney injury. Creatinine is improving from 2 on admission down to 0.9 today. Continue to hydrate with fluids bmp ordered (7) Fracture of femoral neck, left, closed: Qualifiers: Encounter type: initial encounter Qualified Code(s): S72.002A - Fracture of unspecified part of neck of left femur, initial encounter for closed fracture Code(s): S72.002A - Fracture of unspecified part of neck of left femur, initial encounter for closed fracture Status: Acute Assessment and Plan: Patient is status post recent hemiarthroplasty due to fall has dislocated his hip again. PT OT evaluation when deemed appropriate by Orthopedic surgery. Subjective Date/time seen: 05/05/21 11:41 S: Patient examined at the bedside. He is sleepy and comfortable. He denies any complaint. Today is postop day 2 revision of hemiarthroplasty left hip. Interval history: 81-year-old gentleman with past medical history significant for dementia, pen[facility]iary resident, benign prostatic hyperplasia, recent admission and discharged from the hospital where he was treated for left hip fracture with hardware placement; [facility] due to [facility] and inability to bear weight on the left leg it was noted also some deformity on that side; patient is unable to give any history due to his dementia. Preliminary workup was significant for x-ray of the left hip with dislocation bipolar left hip hemiarthroplasty with separation of the arthroplasty components. On 05/03/2021, the patient underwent revision of his left hip, for dislocation bipolar left hip hemiarthroplasty with separation of the arthroplasty components Review of Systems Review of Systems: ROS unobtainable: Yes unobtainable due to medical condition (Dementia advanced) and unobtainable due to mental status Exam Narrative: Patient is laying in bed in no acute distress. Const: General: comfortable, no acute distress, well developed, alert, awake and other (elderly man with dementia resting in bed ) Nutritional Appearance: average body habitus Orientation/consciousness: oriented to person HENMT: Head: normal to inspection, normocephalic and atraumatic Ears: hearing grossly normal bilaterally General nose exam: Normal e
--- NOTE | 2021-05-05 17:50 | PM.DS ---
DS: Admitting Diagnosis Discharge Date 05/06/2021 Admitting Diagnosis Fall. Dislocation of unspecified internal joint prosthesis, initial encounter. DS: Discharge Diagnosis Discharge Diagnosis (1) Dislocation of hip prosthesis: Qualifiers: Encounter type: initial encounter Qualified Code(s): T84.029A - Dislocation of unspecified internal joint prosthesis, initial encounter; Z96.649 - Presence of unspecified artificial hip joint Code(s): T84.029A - Dislocation of unspecified internal joint prosthesis, initial encounter; Z96.649 - Presence of unspecified artificial hip joint Status: Acute Assessment and Plan: Patient is postop day 2 of revision of left hip yoko arthroplasty. Monitor hemoglobin and hematocrit. Continue pain management. (2) Fall from ground level: Code(s): W18.30XA - Fall on same level, unspecified, initial encounter Status: Acute Assessment and Plan: Continue fall precautions. (3) BPH (benign prostatic hyperplasia): Code(s): N40.0 - Benign prostatic hyperplasia without lower urinary tract symptoms Status: Chronic Assessment and Plan: No active obstructive symptoms. Renal function is stable. Creatinine has improved from 2 on admission to 0.8 today. Continue clinical monitoring. Continue tamsulosin (4) Depression with anxiety: Code(s): F41.8 - Other specified anxiety disorders Status: Chronic Assessment and Plan: Continue sertraline. (5) Dementia: Code(s): F03.90 - Unspecified dementia without behavioral disturbance Status: Acute Assessment and Plan: Continue Lamotrigine, rivastigmine, memantine, haloperidol. (6) JEANNE (acute kidney injury): Code(s): N17.9 - Acute kidney failure, unspecified Status: Acute Assessment and Plan: Recovering acute nonoliguric kidney injury. Creatinine is improving from 2 on admission down to 0.9 today. Continue to hydrate with fluids bmp ordered (7) Fracture of femoral neck, left, closed: Qualifiers: Encounter type: initial encounter Qualified Code(s): S72.002A - Fracture of unspecified part of neck of left femur, initial encounter for closed fracture Code(s): S72.002A - Fracture of unspecified part of neck of left femur, initial encounter for closed fracture Status: Acute Assessment and Plan: Patient is status post recent hemiarthroplasty due to fall has dislocated his hip again. PT OT evaluation when deemed appropriate by Orthopedic surgery. (8) COVID: Code(s): U07.1 - COVID-19 Status: Acute DS: Summary Hospital Course Reason for hospitalization: Left hip pain. Hospital Course: Please refer to admission H&P. Briefly, this is an 81-year-old male with past medical history significant for dementia, [facility] resident, benign prostatic hyperplasia, recent admission and discharged from the hospital where he was treated for left hip fracture with hardware placement however patient [facility] due to fall and unable to bear weight on the left leg it was noted also some deformity on that side, however patient is unable to give any history due to his dementia. Preliminary workup was significant for x-ray of the left hip with dislocation bipolar left hip hemiarthroplasty with separation of the arthroplasty components, a BMP showed a creatinine of 2 BUN 49 AST 200. Patient has been admitted for further evaluation, management and treatment. Patient underwent left bipolar arthroplasty of the left hip on 05/03/2021. Procedure was uneventful. Patient was taken back to the floor in stable condition. He experience a drop of his hemoglobin from 10.5 on admission down to 7.9 than 6.9. There was documented estimated blood loss of 200 cc during the intervention. Patient was transfused with 2 units of blood with improvement of his hemoglobin 10 on May 07. He experienced a mild
[2021-05-05] MEDS: TAMSULOSIN HCL 0.4 MG CAPSULE PO (20:43)
[2021-05-05 22:00] VITALS: BP 113/49; PULSE 90; RESP 18; TEMP 37.8; O2SAT 95
[2021-05-06] VITALS (8 sets, daily range): BP systolic 95–119; BP diastolic 45–54; PULSE 68–88; RESP 16–20; TEMP 36.6–36.8; O2SAT 93–99
[2021-05-06] MEDS: LORazepam (*CRX) 1 MG TABLET PO ×3 (00:03→16:12)
[2021-05-06] MEDS: HYDROcodone/acetaminophen (*CRX) 5-325 MG TABLET 1 TAB PO ×2 (05:23→21:44)
[2021-05-06] MEDS: SODIUM CHLORIDE 0.9% IV 1,000 ML 125 ML IV CONT (05:25)
[2021-05-06] MEDS: SENNA/DOCUSATE SODIUM TABLET 2 TAB PO ×2 (09:01→17:49)
[2021-05-06] MEDS: MEMANTINE 5 MG TABLET PO ×2 (09:02→21:44)
[2021-05-06] MEDS: BENZTROPINE MESYLATE 1 MG TABLET PO (09:02)
[2021-05-06] MEDS: polyethylene glycoL 3350 17 GM POWD.PACK PO (09:02)
[2021-05-06] MEDS: ASPIRIN 325 MG ENTERIC TABLET PO ×2 (09:02→17:49)
[2021-05-06] MEDS: FAMOTIDINE 20 MG TABLET PO ×2 (09:02→21:44)
[2021-05-06] MEDS: lamoTRIgine 25 MG TABLET PO (09:02)
[2021-05-06] MEDS: CHOLECALCIFEROL 400 UNITS TABLET (VIT D) PO (09:02)
[2021-05-06] MEDS: SERTRALINE HCL 50 MG TABLET PO (09:02)
[2021-05-06] MEDS: HALOPERIDOL 5 MG TABLET PO (09:02)
[2021-05-06] MEDS: RIVASTIGMINE TARTRATE 9.5 MG PATCH 1 PATCH TRANSDERM (09:03)
--- NOTE | 2021-05-06 12:46 | PM.IMPN ---
Progress Note: A&P Assessment and Plan (1) Dislocation of hip prosthesis: Qualifiers: Encounter type: initial encounter Qualified Code(s): T84.029A - Dislocation of unspecified internal joint prosthesis, initial encounter; Z96.649 - Presence of unspecified artificial hip joint Code(s): T84.029A - Dislocation of unspecified internal joint prosthesis, initial encounter; Z96.649 - Presence of unspecified artificial hip joint Status: Acute Assessment and Plan: Patient is postop day 3 of revision of left hip yoko arthroplasty. Monitor hemoglobin and hematocrit. Continue pain management. (2) Fall from ground level: Code(s): W18.30XA - Fall on same level, unspecified, initial encounter Status: Acute Assessment and Plan: Continue fall precautions. (3) BPH (benign prostatic hyperplasia): Code(s): N40.0 - Benign prostatic hyperplasia without lower urinary tract symptoms Status: Chronic Assessment and Plan: No active obstructive symptoms. Renal function is stable. Creatinine has improved from 2 on admission to 0.8 with resolution Continue clinical monitoring. Continue tamsulosin (4) Depression with anxiety: Code(s): F41.8 - Other specified anxiety disorders Status: Chronic Assessment and Plan: Continue sertraline. (5) Dementia: Code(s): F03.90 - Unspecified dementia without behavioral disturbance Status: Acute Assessment and Plan: Continue Lamotrigine, rivastigmine, memantine, haloperidol. (6) JEANNE (acute kidney injury): Code(s): N17.9 - Acute kidney failure, unspecified Status: Acute Assessment and Plan: Recovering acute nonoliguric kidney injury. Creatinine is improving from 2 on admission down to 0.9 today. Continue to hydrate with fluids bmp ordered (7) Fracture of femoral neck, left, closed: Qualifiers: Encounter type: initial encounter Qualified Code(s): S72.002A - Fracture of unspecified part of neck of left femur, initial encounter for closed fracture Code(s): S72.002A - Fracture of unspecified part of neck of left femur, initial encounter for closed fracture Status: Acute Assessment and Plan: Patient is status post recent hemiarthroplasty due to fall has dislocated his hip again. PT OT evaluation when deemed appropriate by Orthopedic surgery. (8) Postoperative anemia: Code(s): D64.9 - Anemia, unspecified Status: Acute Assessment and Plan: H&H 6.9 today will transfuse 1 unit of PRBC (9) Elevated liver enzymes: Code(s): R74.8 - Abnormal levels of other serum enzymes Status: Acute Assessment and Plan: Unclear etiology will recheck and monitor (10) Altered mental status: Code(s): R41.82 - Altered mental status, unspecified Status: Acute Assessment and Plan: He is currently somnolent but follows some commands [place] know his baseline status will monitor for now Subjective Date/time seen: 05/06/21 12:46 Interval history: 81-year-old gentleman with past medical history significant for dementia, [facility] resident, benign prostatic hyperplasia, recent admission and discharged from the hospital where he was treated for left hip fracture with hardware placement; [facility] due to fall and inability to bear weight on the left leg it was noted also some deformity on that side; patient is unable to give any history due to his dementia. Preliminary workup was significant for x-ray of the left hip with dislocation bipolar left hip hemiarthroplasty with separation of the arthroplasty components. On 05/03/2021, the patient underwent revision of his left hip, for dislocation bipolar left hip hemiarthroplasty with separation of the arthroplasty components 05/06/2021: Noted to have a spike of fever of 100.1 last night. Afebrile this morning vital stable. Patient somnolent follow some comm
[2021-05-06 13:11] LABS: Hematocrit 21.1 % (42.0-52.0); Mean Corpuscular HGB Conc 32.7 g/dl (32-36); Mean Corpuscular Hemoglobin 30.8 pg (26-34); Mean Corpuscular Volume 94.2 fl (80-100); Platelet Count Result 188 k/mm3 (150-375); Red Blood Count 2.24 M/mm3 (4.6-6.20); Red Cell Distribution Width 13.2 % (11.5-14.5); White Blood Count 7.6 K/mm3 (4.5-10.0)
[2021-05-06 13:16] LABS: Hemoglobin 6.9 g/dL (14.0-18.0)
[2021-05-06 13:22] LABS: Alanine Aminotransferase 115 U/L (4-50); Albumin Level 2.2 g/dL (3.5-5.1); Alkaline Phosphatase 84 U/L (38-126); Anion Gap 5 mmol/L (8-16); Aspartate Amino Transferase 304 U/L (17-59); Bilirubin,Total 0.5 mg/dL (0.2-1.3); Blood Urea Nitrogen 18 mg/dL (9-20); Calcium 7.6 mg/dL (8.4-10.2); Carbon Dioxide 21 mmol/L (22-30); Chloride 111 mmol/L (98-107); Estimated CRCL calculation 70 ml/min; Estimated Glomerular Filt Rate > 60; Glucose 91 mg/dL (65-110); Potassium 2.9 mmol/L (3.4-5.0); Sodium 137 mmol/L (137-145)
--- NOTE | 2021-05-06 13:27 | PM.PNORT ---
Progress Note: A&P Additional Plan pod 3 with decreased hgb this am. TRANSFUSE 1 UNIT PRBCs. Subjective Subjective Date/Time Seen: 05/06/21 13:27 POD 3 WITH SOME IMPROVEMENT. PAIN WELL CONTROLLED. NO CALF PAIN. LOW HGB THIS AM Exam Extrem: Other: VSS STABLE AFEBRILE DRESSING DRY NV INTACT CALF SOF, THIGH SOFT NON TENDER NEG HOMANS SIGN Objective Data Vital Signs Vital Signs: Vital Signs - 24 hr 05/05/21 14:00 05/05/21 22:00 05/06/21 06:00 Temperature 36.4 C L 37.8 C H 36.6 C Pulse Rate 82 90 77 Respiratory Rate 20 18 18 Blood Pressure 97/41 L 113/49 L 114/48 L Pulse Oximetry 97 95 98 Intake/Output Intake/Output: Intake & Output 05/03/21 05/04/21 05/05/21 05/06/21 23:59 23:59 23:59 23:59 Intake Total 3430 4000 3830 1170 Output Total 1750 1600 1000 300 Balance 1680 2400 2830 870 Meds/Results Medications: Active Medications Generic Name Dose Route Start Last Admin Trade Name Freq PRN Reason Stop Dose Admin Acetaminophen 650 mg 05/03/21 10:46 05/05/21 07:58 Acetaminophen 325 Mg Tablet PO 650 mg Q6H PRN Administration Mild Pain (1-3) or Fever Hydrocodone Bitart/Acetaminophen 1 tab 05/03/21 10:46 05/06/21 05:23 Hydrocodone/Acetaminophen (*Crx) 5-325 Mg Tablet PO 1 tab Q3H PRN Administration Pain Rated 4-6 Aspirin 325 mg 05/03/21 17:00 05/06/21 09:02 Aspirin 325 Mg Enteric Tablet PO 325 mg BID MARGARET Administration Benztropine Mesylate 1 mg 05/04/21 09:00 05/06/21 09:02 Benztropine Mesylate 1 Mg Tablet PO 1 mg DAILY MARGARET Administration Famotidine 20 mg 05/03/21 21:00 05/06/21 09:02 Famotidine 20 Mg Tablet PO 20 mg Q12HR MARGARET Administration Haloperidol 2 mg 05/03/21 11:02 Haloperidol 1 Mg Tablet PO Q6H PRN Agitation Haloperidol 5 mg 05/04/21 09:00 05/06/21 09:02 Haloperidol 5 Mg Tablet PO 5 mg DAILY MARGARET Administration Sodium Chloride 1,000 mls @ 125 mls/hr 05/01/21 21:45 05/06/21 05:25 Normal Saline Iv IV CONT 125 mls/hr .Q8H MARGARET Administration Sodium Chloride 250 mls @ 30 mls/hr 05/06/21 13:21 Normal Saline Iv IV CONT 05/06/21 21:40 .Q8H20M STA Lamotrigine 25 mg 05/04/21 09:00 05/06/21 09:02 Lamotrigine 25 Mg Tablet PO 25 mg DAILY MARGARET Administration Lorazepam 1 mg 05/03/21 11:01 05/06/21 06:12 Lorazepam (*Crx) 1 Mg Tablet PO 1 mg QID PRN Administration Anxiety Magnesium Hydroxide 30 ml 05/03/21 10:46 Magnesium Hydroxide Susp 30 Ml Udc PO BID PRN Constipation Memantine 5 mg 05/03/21 21:00 05/06/21 09:02 Memantine 5 Mg Tablet PO 5 mg Q12HR MARGARET Administration Morphine Sulfate 3 mg 05/03/21 10:46 Morphine Sulfate (*Crx) 4 Mg/Ml Inj IV PUSH Q3H PRN Pain Rated 7-10 Naloxone HCl 0.1 mg 05/03/21 10:46 Naloxone Hcl 0.4 Mg/Ml Vial IV PUSH Q2M PRN Opiate Reversal Ondansetron HCl 4 mg 05/01/21 21:45 05/01/21 22:41 Ondansetron Inj 4 Mg/2 Ml Vial IV PUSH 4 mg Q4H PRN Administration Nausea Polyethylene Glycol 17 gm 05/04/21 09:00 05/06/21 09:02 Polyethylene Glycol 3350 17 Gm Powd.Pack PO 17 gm QAM MARGARET Administration Rivastigmine 1 patch 05/04/21 09:00 05/06/21 09:03 Rivastigmine Tartrate 9.5 Mg Patch TRANSDERM 1 patch DAILY MARGARET Administration Senna/Docusate Sodium 2 tab 05/03/21 17:00 05/06/21 09:01 Senna/Docusate Sodium Tablet PO 2 tab BID MARGARET Administration Sertraline HCl 50 mg 05/04/21 09:00 05/06/21 09:02 Sertraline Hcl 50 Mg Tablet PO 50 mg DAILY MARGARET Administration Tamsulosin HCl 0.4 mg 05/03/21 21:00 05/05/21 20:43 Tamsulosin Hcl 0.4 Mg Capsule PO 0.4 mg HS MARGARET Administration Vitamin D 400 units 05/04/21 09:00 05/06/21 09:02 Cholecalciferol 400 Units Tablet (Vit D) PO 400 units DAILY MARGARET Administration Radiology Results: ITS Impressions Head CT 05/01/21 20:20 IMPRESSION: 1. Normal aging brain. Cerv
--- NOTE | 2021-05-06 13:35 | PCOTNOTE ---
On 05/06/21, the student, Brii Carias, provided care and completed [facility] documentation on this patient. I have reviewed the student's documentation and agree with the findings.
--- NOTE | 2021-05-06 14:31 | PCPTNOTE ---
Attempted to see patient at 1420 for Physical Therapy session. Patient keeps his eyes closed and is yelling out and very confused. Patient agreed to LE exercises, however is unable to follow directions to participate at this time. RN notified.
[2021-05-06] MEDS: POTASSIUM CHLORIDE 20 MEQ TABLET 40 MEQ PO (16:12)
[2021-05-06] MEDS: SODIUM CHLORIDE 0.9% IV 250 ML 30 ML IV CONT (18:30)
[2021-05-06] MEDS: TAMSULOSIN HCL 0.4 MG CAPSULE PO (21:44)
[2021-05-06 23:53] LABS: Add Urine Microscopic? YES; Appearance Urine Clear (Clear); Bilirubin Urine Negative (Negative); Blood Urine 2+ (Negative); Color Urine Yellow (Yellow); Glucose Urine UA Negative (Negative); Ketones Urine Negative (Negative); Leukocyte Esterase Ur Negative LEU/UL (NEGATIVE); Mucus Urine Rare /lpf; Nitrate Urine Negative (Negative); Protein Urine 1+ mg/dL (Negative); Specific Grav Ur 1.024 (1.001-1.035); Urobilinogen Urine Negative mg/dL (<2.0); WBC Urine 0-3 /hpf (0-3)
[2021-05-07] VITALS (7 sets, daily range): BP systolic 117–135; BP diastolic 44–58; PULSE 64–90; RESP 14–18; TEMP 36.5–36.8; O2SAT 92–100
[2021-05-07] MEDS: LORazepam (*CRX) 1 MG TABLET PO ×2 (05:02→16:27)
[2021-05-07 07:27] LABS: Alanine Aminotransferase 142 U/L (4-50); Albumin Level 2.5 g/dL (3.5-5.1); Alkaline Phosphatase 97 U/L (38-126); Anion Gap 6 mmol/L (8-16); Aspartate Amino Transferase 318 U/L (17-59); Blood Urea Nitrogen 17 mg/dL (9-20); Calcium 7.9 mg/dL (8.4-10.2); Carbon Dioxide 23 mmol/L (22-30); Chloride 110 mmol/L (98-107); Estimated CRCL calculation 70 ml/min; Estimated Glomerular Filt Rate > 60; Glucose 90 mg/dL (65-110); Potassium 3.3 mmol/L (3.4-5.0); Sodium 139 mmol/L (137-145)
[2021-05-07 07:55] LABS: Basophils Percent Auto 0.4 % (0.2-1.2); Eosinophils Absolute Auto 0.3 K/mm3 (0-0.3); Eosinophils Percent Auto 3.1 % (0-4.4); Hematocrit 30.1 % (42.0-52.0); Immature Granulocyte Absolute 0.07 K/mm3 (0.00-0.031); Immature Granulocyte Percent A 0.8 % (0-0.5); Lymphocytes Percent Auto 9.6 % (18.3-44.2); Mean Corpuscular HGB Conc 33.2 g/dl (32-36); Mean Corpuscular Hemoglobin 30.3 pg (26-34); Mean Corpuscular Volume 91.2 fl (80-100); Mean Platelet Volume 9.8 fl (7.4-10.4); Monocytes Absolute Auto 0.6 K/mm3 (0.1-0.6); Neutrophils Absolute Auto 6.6 K/mm3 (1.3-6.7); Neutrophils Percent Auto 79.1 % (45.5-73.1); Platelet Count Result 244 k/mm3 (150-375); Red Cell Distribution Width 14.4 % (11.5-14.5); White Blood Count 8.3 K/mm3 (4.5-10.0)
[2021-05-07] MEDS: RIVASTIGMINE TARTRATE 9.5 MG PATCH 1 PATCH TRANSDERM (09:01)
[2021-05-07] MEDS: HALOPERIDOL 5 MG TABLET PO (09:02)
[2021-05-07] MEDS: SENNA/DOCUSATE SODIUM TABLET 2 TAB PO ×2 (09:02→16:28)
[2021-05-07] MEDS: CHOLECALCIFEROL 400 UNITS TABLET (VIT D) PO (09:02)
[2021-05-07] MEDS: SERTRALINE HCL 50 MG TABLET PO (09:02)
[2021-05-07] MEDS: MEMANTINE 5 MG TABLET PO ×2 (09:02→20:22)
[2021-05-07] MEDS: BENZTROPINE MESYLATE 1 MG TABLET PO (09:02)
[2021-05-07] MEDS: FAMOTIDINE 20 MG TABLET PO ×2 (09:02→20:24)
[2021-05-07] MEDS: polyethylene glycoL 3350 17 GM POWD.PACK PO (09:02)
[2021-05-07] MEDS: HALOPERIDOL 1 MG TABLET 2 MG PO (09:02)
[2021-05-07] MEDS: ASPIRIN 325 MG ENTERIC TABLET PO ×2 (09:02→16:28)
[2021-05-07] MEDS: lamoTRIgine 25 MG TABLET PO (09:02)
--- NOTE | 2021-05-07 11:00 | PM.IMPN ---
Progress Note: A&P Assessment and Plan (1) Dislocation of hip prosthesis: Qualifiers: Encounter type: initial encounter Qualified Code(s): T84.029A - Dislocation of unspecified internal joint prosthesis, initial encounter; Z96.649 - Presence of unspecified artificial hip joint Code(s): T84.029A - Dislocation of unspecified internal joint prosthesis, initial encounter; Z96.649 - Presence of unspecified artificial hip joint Status: Acute Assessment and Plan: Patient is postop day 4 of revision of left hip yoko arthroplasty. Monitor hemoglobin and hematocrit. Continue pain management. (2) Fall from ground level: Code(s): W18.30XA - Fall on same level, unspecified, initial encounter Status: Acute Assessment and Plan: Continue fall precautions. (3) BPH (benign prostatic hyperplasia): Code(s): N40.0 - Benign prostatic hyperplasia without lower urinary tract symptoms Status: Chronic Assessment and Plan: No active obstructive symptoms. Renal function is stable. Creatinine has improved from 2 on admission to 0.8 with resolution Continue clinical monitoring. Continue tamsulosin (4) Depression with anxiety: Code(s): F41.8 - Other specified anxiety disorders Status: Chronic Assessment and Plan: Continue sertraline. (5) Dementia: Code(s): F03.90 - Unspecified dementia without behavioral disturbance Status: Acute Assessment and Plan: Continue Lamotrigine, rivastigmine, memantine, haloperidol. (6) JEANNE (acute kidney injury): Code(s): N17.9 - Acute kidney failure, unspecified Status: Acute Assessment and Plan: Recovering acute nonoliguric kidney injury. Creatinine is improving from 2 on admission down to 0.8 today. Continue to hydrate with fluids bmp ordered (7) Fracture of femoral neck, left, closed: Qualifiers: Encounter type: initial encounter Qualified Code(s): S72.002A - Fracture of unspecified part of neck of left femur, initial encounter for closed fracture Code(s): S72.002A - Fracture of unspecified part of neck of left femur, initial encounter for closed fracture Status: Acute Assessment and Plan: Patient is status post recent hemiarthroplasty due to fall has dislocated his hip again. PT OT evaluation when deemed appropriate by Orthopedic surgery. (8) Postoperative anemia: Code(s): D64.9 - Anemia, unspecified Status: Acute Assessment and Plan: H&H 6.9 yesterday; improved after transfusion of 1 unit of PRBC to 10. (9) Elevated liver enzymes: Code(s): R74.8 - Abnormal levels of other serum enzymes Status: Acute Assessment and Plan: Unclear etiology will recheck and monitor (10) Altered mental status: Code(s): R41.82 - Altered mental status, unspecified Status: Acute Assessment and Plan: He is currently somnolent but follows some commands [place] know his baseline status will monitor for now. Maintain fall precautions. (11) Fever: Code(s): R50.9 - Fever, unspecified Status: Acute Assessment and Plan: Likely secondary to atelectasis. Encourage incentive spirometry. Urinalysis is did not reveal any pyuria. No recrudescence of fever overnight. Continue to monitor. Subjective Date/time seen: 05/07/21 11:00 S: Patient examined at the bedside he is stable and afebrile. No events overnight. Patient is confused. Interval history: 81-year-old gentleman with past medical history significant for dementia, [facility] resident, benign prostatic hyperplasia, recent admission and discharged from the hospital where he was treated for left hip fracture with hardware placement; [facility] from the [facility] where [facility] resides at due to fall and inability to bear weight on the left leg it was noted also some deformity on that side; patient is unable to give any history due to his dementia. Preliminary workup
--- NOTE | 2021-05-07 13:04 | PM.IMPN ---
Progress Note: A&P Assessment and Plan (1) Dislocation of hip prosthesis: Qualifiers: Encounter type: initial encounter Qualified Code(s): T84.029A - Dislocation of unspecified internal joint prosthesis, initial encounter; Z96.649 - Presence of unspecified artificial hip joint Code(s): T84.029A - Dislocation of unspecified internal joint prosthesis, initial encounter; Z96.649 - Presence of unspecified artificial hip joint Status: Acute Assessment and Plan: Patient is postop day 3 of revision of left hip yoko arthroplasty. Monitor hemoglobin and hematocrit. Continue pain management. (2) Fall from ground level: Code(s): W18.30XA - Fall on same level, unspecified, initial encounter Status: Acute Assessment and Plan: Continue fall precautions. (3) BPH (benign prostatic hyperplasia): Code(s): N40.0 - Benign prostatic hyperplasia without lower urinary tract symptoms Status: Chronic Assessment and Plan: No active obstructive symptoms. Renal function is stable. Creatinine has improved from 2 on admission to 0.8 with resolution Continue clinical monitoring. Continue tamsulosin (4) Depression with anxiety: Code(s): F41.8 - Other specified anxiety disorders Status: Chronic Assessment and Plan: Continue sertraline. (5) Dementia: Code(s): F03.90 - Unspecified dementia without behavioral disturbance Status: Acute Assessment and Plan: Continue Lamotrigine, rivastigmine, memantine, haloperidol. (6) JEANNE (acute kidney injury): Code(s): N17.9 - Acute kidney failure, unspecified Status: Acute Assessment and Plan: Recovering acute nonoliguric kidney injury. Creatinine is improving from 2 on admission down to 0.9 today. Continue to hydrate with fluids bmp ordered (7) Fracture of femoral neck, left, closed: Qualifiers: Encounter type: initial encounter Qualified Code(s): S72.002A - Fracture of unspecified part of neck of left femur, initial encounter for closed fracture Code(s): S72.002A - Fracture of unspecified part of neck of left femur, initial encounter for closed fracture Status: Acute Assessment and Plan: Patient is status post recent hemiarthroplasty due to fall has dislocated his hip again. PT OT evaluation when deemed appropriate by Orthopedic surgery. (8) Postoperative anemia: Code(s): D64.9 - Anemia, unspecified Status: Acute Assessment and Plan: H&H 6.9 today will transfuse 1 unit of PRBC (9) Elevated liver enzymes: Code(s): R74.8 - Abnormal levels of other serum enzymes Status: Acute Assessment and Plan: Unclear etiology will recheck and monitor (10) Altered mental status: Code(s): R41.82 - Altered mental status, unspecified Status: Acute Assessment and Plan: He is currently somnolent but follows some commands [place] know his baseline status will monitor for now (11) Fever: Code(s): R50.9 - Fever, unspecified Status: Acute Assessment and Plan: Likely secondary to atelectasis. Encourage incentive spirometry. Urinalysis is did not reveal any pyuria. No recrudescence of fever overnight. Continue to monitor. Subjective Date/time seen: 05/07/21 13:00 S: Patient examined at the bedside he is stable and afebrile. No events overnight. Patient is confused. Interval history: 81-year-old gentleman with past medical history significant for dementia, [facility] resident, benign prostatic hyperplasia, recent admission and discharged from the hospital where he was treated for left hip fracture with hardware placement; [facility] due to fall and inability to bear weight on the left leg it was noted also some deformity on that side; patient is unable to give any history due to his dementia. Preliminary workup was significant for x-ray of the left hip with dislocatio
[2021-05-07] MEDS: TAMSULOSIN HCL 0.4 MG CAPSULE PO (20:23)
[2021-05-08] MEDS: HALOPERIDOL 1 MG TABLET 2 MG PO (05:13)
[2021-05-08 06:34] VITALS: BP 111/55; PULSE 85; RESP 18; TEMP 36.3; O2SAT 98
[2021-05-08] MEDS: MEMANTINE 5 MG TABLET PO (08:20)
[2021-05-08] MEDS: ASPIRIN 325 MG ENTERIC TABLET PO (08:20)
[2021-05-08] MEDS: SERTRALINE HCL 50 MG TABLET PO (08:20)
[2021-05-08] MEDS: BENZTROPINE MESYLATE 1 MG TABLET PO (08:20)
[2021-05-08] MEDS: polyethylene glycoL 3350 17 GM POWD.PACK PO (08:20)
[2021-05-08] MEDS: SENNA/DOCUSATE SODIUM TABLET 2 TAB PO (08:20)
[2021-05-08] MEDS: CHOLECALCIFEROL 400 UNITS TABLET (VIT D) PO (08:20)
[2021-05-08] MEDS: FAMOTIDINE 20 MG TABLET PO (08:20)
[2021-05-08] MEDS: lamoTRIgine 25 MG TABLET PO (08:20)
[2021-05-08] MEDS: RIVASTIGMINE TARTRATE 9.5 MG PATCH 1 PATCH TRANSDERM (08:20)
[2021-05-08] MEDS: HALOPERIDOL 5 MG TABLET PO (08:21)
[2021-05-08] MEDS: HYDROcodone/acetaminophen (*CRX) 5-325 MG TABLET 1 TAB PO (08:23)
[2021-05-08 09:38] LABS: EDCOVIDSCREEN Positive (Negative)
--- NOTE | 2021-05-08 11:24 | P.CDI_ITS ---
CDI Query Clarification Request -On admission, H&H 10.5/32.2 12/2 H&H 7.9/25.0 12/4 H&H 6.9/21.1 -Documented EBL during OR was 200cc -Two units of blood were transfused. 12/5 H&H 10.0/30.1 -Postoperative anemia has been documented. Please further specify type/cause and acuity of anemia: * Acute blood loss anemia * Acute anemia of other cause * Acute on chronic blood loss anemia * Acute on chronic anemia of other cause * Chronic anemia of other cause * Unable to determine <Neena Wood RN - Last Filed: 05/08/21 11:29> Clarified Diagnosis (1) Postoperative anemia: Code(s): D64.9 - Anemia, unspecified <Neena Wood RN - Last Filed: 05/08/21 11:29> Status: Acute <Neena Wood RN - Last Filed: 05/08/21 11:29> Assessment and Plan: On admission moderate anemia with H and H 10.5/32.2. EBL in OR 200ccs H and H drop to 6.9/21.1; this is postoperative anemia, secondary to acute blood loss. Acute on chronic anemia. 2 units PRBC were administered. <Nara Marquez MD - Last Filed: 05/09/21 11:50>
[2021-05-08 12:27] VITALS: BP 114/55; PULSE 68; RESP 21; TEMP 36.4; O2SAT 100
--- NOTE | 2021-05-08 12:53 | PM.IMPN ---
Progress Note: A&P Assessment and Plan (1) Dislocation of hip prosthesis: Qualifiers: Encounter type: initial encounter Qualified Code(s): T84.029A - Dislocation of unspecified internal joint prosthesis, initial encounter; Z96.649 - Presence of unspecified artificial hip joint Code(s): T84.029A - Dislocation of unspecified internal joint prosthesis, initial encounter; Z96.649 - Presence of unspecified artificial hip joint Status: Acute Assessment and Plan: Patient is postop day 4 of revision of left hip yoko arthroplasty. Monitor hemoglobin and hematocrit. Continue pain management. (2) Fall from ground level: Code(s): W18.30XA - Fall on same level, unspecified, initial encounter Status: Acute Assessment and Plan: Continue fall precautions. (3) BPH (benign prostatic hyperplasia): Code(s): N40.0 - Benign prostatic hyperplasia without lower urinary tract symptoms Status: Chronic Assessment and Plan: No active obstructive symptoms. Renal function is stable. Creatinine has improved from 2 on admission to 0.8 with resolution Continue clinical monitoring. Continue tamsulosin (4) Depression with anxiety: Code(s): F41.8 - Other specified anxiety disorders Status: Chronic Assessment and Plan: Continue sertraline. (5) Dementia: Code(s): F03.90 - Unspecified dementia without behavioral disturbance Status: Acute Assessment and Plan: Continue Lamotrigine, rivastigmine, memantine, haloperidol. (6) JEANNE (acute kidney injury): Code(s): N17.9 - Acute kidney failure, unspecified Status: Acute Assessment and Plan: Recovering acute nonoliguric kidney injury. Creatinine is improving from 2 on admission down to 0.7 today. Continue to hydrate with fluids bmp ordered (7) Fracture of femoral neck, left, closed: Qualifiers: Encounter type: initial encounter Qualified Code(s): S72.002A - Fracture of unspecified part of neck of left femur, initial encounter for closed fracture Code(s): S72.002A - Fracture of unspecified part of neck of left femur, initial encounter for closed fracture Status: Acute Assessment and Plan: Patient is status post recent hemiarthroplasty due to fall has dislocated his hip again. PT OT evaluation when deemed appropriate by Orthopedic surgery. (8) Postoperative anemia: Code(s): D64.9 - Anemia, unspecified Status: Acute Assessment and Plan: H&H 6.9 on 05/06; improved after transfusion of 1 unit of PRBC to 10 on 05/07/2021. (9) Elevated liver enzymes: Code(s): R74.8 - Abnormal levels of other serum enzymes Status: Acute Assessment and Plan: Unclear etiology will recheck and monitor (10) Altered mental status: Code(s): R41.82 - Altered mental status, unspecified Status: Acute Assessment and Plan: He is currently somnolent but follows some commands [place] know his baseline status will monitor for now. Maintain fall precautions. (11) Fever: Code(s): R50.9 - Fever, unspecified Status: Acute Assessment and Plan: Likely secondary to atelectasis. Chest x-ray suggest addict atelectasis versus pneumonia. Patient was started on Zosyn. Encourage incentive spirometry. Urinalysis is did not reveal any pyuria. No recrudescence of fever overnight. Patient will be discharged on Augmentin 875 mg p.o. twice daily for 5 days. Subjective Date/time seen: 05/08/21 12:53 S:Patient was examined at the bedside. There were no events overnight. He stable and afebrile. He denies any complaints. Interval history: 81-year-old gentleman with past medical history significant for dementia, [facility] resident, benign prostatic hyperplasia, recent admission and discharged from the hospital where he was treated for left hip fracture with hardware placement; [facility] due to fall
== END 2021-05-08 15:00 | DRG 466 ==
LOC: ANHED 21:45 → ANH3MEDSUR 23:16
PROVIDERS: Family Medicine; Internal Medicine; Orthopaedic Surgery; Admitting Provider Internal Medicine; Emergency Provider Emergency Medicine; PCP Internal Medicine; Visit Provider Internal Medicine
PROC: 0SWB0JZ Revision of Synthetic Substitute in Left Hip Joint, Open Approach (ICD-10-PCS; CPT 27125; principal; 2021-05-03 07:30)
DX: T84.021A Dislocation of internal left hip prosthesis, initial encounter (principal); U07.1 COVID-19; N17.9 Acute kidney failure, unspecified; D62 Acute posthemorrhagic anemia; J98.11 Atelectasis; J95.89 Other postprocedural complications and disorders of respiratory system, not elsewhere classified; Z20.822 Contact with and (suspected) exposure to COVID-19; W18.30XA Fall on same level, unspecified, initial encounter; N40.0 Benign prostatic hyperplasia without lower urinary tract symptoms; F41.8 Other specified anxiety disorders; F03.90 Unspecified dementia, unspecified severity, without behavioral disturbance, psychotic disturbance, mood disturbance, and anxiety; R74.8 Abnormal levels of other serum enzymes; Z85.46 Personal history of malignant neoplasm of prostate; Z90.49 Acquired absence of other specified parts of digestive tract
CPT/HCPCS: 36415; 36430; 70450; 71045; 72125; 73501; 73521; 80048; 80053; 81001; 83605; 83735; 84484; 85014; 85018; 85025; 85027; 85610; 85730; 86850; 86900; 86901; 86920; 87426; 93005; 96361; 96374; 96375; 96376; 97110; 97161; 97165; 97530; 97535; 99285; A9270; C9803; G0378; J0131; J0330; J0690; J2270; J2405; J2543; J2704; J3370; J7030; J7050; J7120; P9016

== ENCOUNTER 2021-05-11 12:02 | Emergency (ER) | payer MEDICAID, SELFPAY ==
--- NOTE | ~2021-05-11 | XR_ITS ---
EXAMINATION: XR pelvis 1-2V, XR hip LT min 2V DATE: 05/11/2021 12:47 INDICATION: Follow-up left hip dislocation TECHNIQUE: 1. An anteroposterior view of the pelvis was obtained. 2. Anteroposterior and frog-leg lateral views of the left hip were obtained. COMPARISON: 05/01/2021 and 05/03/2021 FINDINGS: Again seen is a noncemented bipolar type left hip hemiarthroplasty which remains in near-anatomic ali gnment with the femoral head component is normally centered at the left acetabulum. There is been rex e resorption of a residual small bone fragment previously noted along the medial side of the calcar. No new fractures identified. Skin julius overlie the left hip. Mild osteoarthritis at the right hip. IMPRESSION: 1. Noncemented left total hip arthroplasty remains in expected position in near-anatomic alignment. N o acute osseous abnormality. Reviewed, dictated and finalized at location B. E SYRUP MAKER IMPRESSION: 1. Noncemented left total hip arthroplasty remains in expected position in near -anatomic alignment. No acute osseous abnormality.
--- NOTE | ~2021-05-11 | XR_ITS ---
EXAMINATION: XR femur LT min 2V DATE: 05/11/2021 13:32 INDICATION: Fall post recent revision of a previously dislocated left hip hemiarthroplasty. TECHNIQUE: AP and lateral views of the femur were obtained on overlapping proximal and distal images. COMPARISON: Radiograph dated 05/21/2021, 05/03/2021 and 05/01/2021 FINDINGS: Again seen is a noncemented left hip hemiarthroplasty which is in near-anatomic alignment with the fe moral head component centered within the left acetabulum. Normal alignment and joint space at the lef t knee. No fracture. No left knee joint effusion. Skin julius overlying the left hip. IMPRESSION: 1. Left hip hemiarthroplasty in near-anatomic alignment. No acute osseous abnormality. Reviewed, dictated and finalized at location B. UREMENT COORDINATOR IMPRESSION: 1. Left hip hemiarthroplasty in near-anatomic alignment. No acute osseous abnor mality.
[2021-05-11 12:02] VITALS: BP 114/51; PULSE 80; RESP 20; TEMP 36.3; O2SAT 97
--- NOTE | 2021-05-11 14:45 | ED.FALL ---
HPI - Fall General Chief Complaint: Fall Stated Complaint: fall Time Seen by Provider: 05/11/21 12:03 Source: EMS Mode of arrival: EMS Limitations: clinical condition and dementia History of Present Illness HPI Narrative: 81-year-old male Here recently with a hip replacement and then required reoperation for a dislocation of the prosthesis Fell out of his wheelchair at the SNF today with some hip pain No other injuries Patient is a poor historian, does not really remember what happened Related Data Home Medications Medication Instructions Recorded Confirmed benztropine 1 mg PO DAILY 04/23/21 05/02/21 cholecalciferol (vitamin D3) 10 mcg PO DAILY 04/23/21 05/02/21 [Vitamin D3] haloperidol 2 mg PO Q6H PRN 04/23/21 05/02/21 haloperidol 5 mg PO DAILY 04/23/21 05/02/21 lamotrigine 25 mg PO DAILY 04/23/21 05/02/21 lorazepam 1 mg PO Q6H PRN 04/23/21 05/02/21 memantine 5 mg PO Q12H 04/23/21 05/02/21 rivastigmine 9.5 mg TRANSDERMAL DAILY 04/23/21 05/02/21 sertraline 50 mg PO DAILY 04/23/21 05/02/21 tamsulosin 0.4 mg PO HS 04/23/21 05/02/21 Ativan 1 mg PO QID PRN 05/02/21 05/02/21 Allergies Allergy/AdvReac Type Severity Reaction Status Date / Time No Known Allergies Allergy Verified 05/01/21 20:05 Review of Systems Review of Systems: ROS unobtainable: Yes unobtainable due to medical condition and unobtainable due to mental status Cardiovascular: Cardiovascular: Denies chest pain Respiratory: Respiratory: Denies dyspnea Gastrointestinal: Gastrointestinal: Denies abdominal pain [facility] Past Medical History Medical History BPH (benign prostatic hyperplasia) Dementia Depression with anxiety Prostate cancer per daughter Surgical History Surgical History History of appendectomy per daughter History of left hip hemiarthroplasty Family History Family History Unknown Unknown family medical history Social History Social History Social History: Daughter: Trish is Next of Kin , per Trish PPW is pending patient signature. Nephew: Srikanth Ellison (2nd contact per Trish/[facility]) Remaining social history obtained from Trish. 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 Gender identity (if verbalized by the patient): Male Spiritual care concerns: No Exam Const: General: cooperative, no acute distress and ill appearing Other: Frail, elderly HENMT: Head: normal to inspection, normocephalic, atraumatic, no contusions, no hematomas and no lacerations Ears: external ears normal General nose exam: no epistaxis Eyes: Conjunctivae: conjunctivae normal EOM: EOMs intact bilaterally Neck: Neck: normal visual inspection, supple and no JVD Resp: Effort & Inspection: normal respiratory effort and not labored Auscultation: other (BS =) GI: GI Palp: Yes Soft to palpation, No Tenderness to palpation present (GI) and No Guarding due to palpation present (GI) Skin: General skin exam: normal color and no rashes or lesions noted Neuro: General: moves all extremities Speech: normal speech Extrem: Other: Left hip was being held and kind of an unusual position but easily able to replace it to neutral and there is no shortening or deformity Course Vital Signs Vital signs: Vital Signs Temperature 36.3 C L 05/11/21 12:02 Pulse Rate 80 05/11/21 12:02 Respiratory Rate 20 05/11/21 12:02 Blood Pressure 114/51 L 05/11/21 12:02 Pulse Oximetry 97 05/11/21 12:02 Temperature 36.3 C L 05/11/21 12:02 Pulse Rate 80 05/11/21 12:02 Respiratory R
--- NOTE | 2021-05-11 15:12 | PC.NURSE ---
attempted to call report to [facility] and was left on hold for 15 min. javier called for transport with 20 min eta
[2021-05-11 15:14] VITALS: BP 122/78; PULSE 78; RESP 18; O2SAT 99
--- NOTE | 2021-05-11 16:42 | PC.NURSE ---
report called to [facility]
[2021-05-11 17:25] VITALS: BP 118/60; PULSE 80; RESP 16; O2SAT 99
== END 2021-05-11 17:26 ==
PROVIDERS: Emergency Provider Emergency Medicine; PCP Internal Medicine
DX: S70.02XA Contusion of left hip, initial encounter (principal); Z85.46 Personal history of malignant neoplasm of prostate; F03.90 Unspecified dementia, unspecified severity, without behavioral disturbance, psychotic disturbance, mood disturbance, and anxiety; N40.0 Benign prostatic hyperplasia without lower urinary tract symptoms; F41.8 Other specified anxiety disorders; Z96.642 Presence of left artificial hip joint; W05.0XXA Fall from non-moving wheelchair, initial encounter
CPT/HCPCS: 72170; 73502; 73552; 99283

== ENCOUNTER 2021-05-15 11:11 | Inpatient (IN) | payer MEDICARE, MEDICAID, SELFPAY ==
[2021-05-15] VITALS (44 sets, daily range): BP systolic 86–127; BP diastolic 48–95; PULSE 87–118; RESP 16–32; TEMP 36.1–37.4; O2SAT 91–100; BMI 22.1
--- NOTE | ~2021-05-15 | XR_ITS ---
XR hip LT 2V w AP pelvis 05/25/2021 11:15 Indication: Deformity of the left hip Procedure: 2 views left hip Comparison: Comparison to multiple prior studies sequentially, with oldest reviewed study dated 02/2021. Findings: There is a left bipolar hemiarthroplasty with dislocation of the prosthetic device superior ly and posteriorly. There are small ossific densities adjacent to the acetabulum, consistent with sma ll fracture fragments. Pelvic rings are intact. Sacral foramen are symmetric. Mild osteoarthritis of the right hip. Impression: 1: Dislocated left hip hemiarthroplasty. Reviewed, dictated and finalized at location A. SAW MARKER Impression: 1: Dislocated left hip hemiarthroplasty.
--- NOTE | ~2021-05-15 | US_ITS ---
EXAMINATION: US abdomen limited DATE: 05/20/2021 10:08 INDICATION: Abnormal liver function tests. TECHNIQUE: Multiple grayscale and Doppler ultrasound images of the abdomen were obtained. COMPARISON: None FINDINGS: The pancreas is obscured by bowel gas. The liver is normal without focal lesion. No liver s urface nodularity. The gallbladder is normal in size and contains sludge. No visible gallstones. Gall bladder wall thickening is noted. There was no sonographic Lal sign. The common duct is normal and measures 3 mm. IMPRESSION: 1. Gallbladder sludge. Gallbladder wall thickening may be secondary to interstitial edema, chronic li alma disease, or chronic cholecystitis. Reviewed, dictated and finalized at location A. RAFT ASSEMBLER IMPRESSION: 1. Gallbladder sludge. Gallbladder wall thickening may be secondary to intersti tial edema, chronic liver disease, or chronic cholecystitis.
--- NOTE | ~2021-05-15 | XR_ITS ---
EXAMINATION: XR pelvis 1-2V DATE: 05/15/2021 12:42 INDICATION: Left hip pain. Fall. TECHNIQUE: An anteroposterior view of the pelvis was obtained. COMPARISON: Pelvis radiograph 05/11/2021 FINDINGS: There is lateral and proximal dislocation of the left hip hemiarthroplasty with respect to the acetabulum. There are small slivers of bone overlying the hip joint. There is mild osteoarthritis of right hip. There is mild lumbar spondylosis. The skin julius are noted. IMPRESSION: 1. Dislocated left hip hemiarthroplasty. 2. Small slivers of bone overlying the left hip joint, which may be fracture fragments. 3. Mild right hip osteoarthritis. Reviewed, dictated and finalized at location A. ING MATCHER AND ASSEMBLER IMPRESSION: 1. Dislocated left hip hemiarthroplasty. 2. Small slivers of bone overlying the left hip joint, which may be fracture fr agments. 3. Mild right hip osteoarthritis.
--- NOTE | ~2021-05-15 | XR_ITS ---
EXAMINATION: XR chest 1V portable EXAM DATE: 05/17/2021 11:26 INDICATION: Shortness of breath. COVID pneumonia. TECHNIQUE: Portable AP frontal chest x-ray was obtained. Comparison is made to prior examination from 05/15/2021, 05/06. FINDINGS: Small to moderate amount of bilateral ill-defined airspace disease, pneumonia and/or edema. No pneumothorax or pleural effusion. Cardiomediastinal silhouette is normal. Thoracic diffuse idiopa thic skeletal hyperostosis. Compared to yesterday, difficult to appreciate any significant change. Airspace disease does appear i mproved compared to 05/06. IMPRESSION: Small to moderate amount of acute airspace disease. Reviewed, dictated and finalized at location B. GN CENTER CONSULTANT
--- NOTE | ~2021-05-15 | XR_ITS ---
XR hip LT min 2V DATE: 05/25/2021 14:21 INDICATION: Dislocated left hip TECHNIQUE: AP and crosstable lateral views COMPARISON: 05/25/2021 pelvis and left hip FINDINGS: There is interval reduction of the posterolateral superior dislocation of the left bipolar hip prosthesis, which is now normally seated in the acetabular fossa. Small acetabular fracture fragments noted on the prereduction radiographic examination are obscured b y the reduced prosthesis. IMPRESSION: Reduction of posterior superior dislocation of left hip Reviewed, dictated and finalized at location B. IAL NEEDS LIBRARIAN
--- NOTE | ~2021-05-15 | CT_ITS ---
EXAMINATION: CT chest abdomen pelvis w con DATE: 05/20/2021 17:59 FAMILY DEVELOPMENT EXTENSION SPECIALIST INDICATION: TECHNIQUE: Computed tomography (CT) of the chest, abdomen, and pelvis was performed with 100 cc Omnip aque 350 intravenous contrast. The dose-length product was 1055.38 mGy-cm. Automated exposure control and iterative reconstruction technique were employed. COMPARISON: X-ray dated 05/17/2021 FINDINGS: CHEST CT: There is saddle pulmonary embolus of the pulmonary arteries with extension of pulmonary embolism into the lower lobe and upper lobe segmental and subsegmental pulmonary arteries. Small pleural effusions . Heart size normal. No thoracic lymphadenopathy. Moderate size hiatal hernia. No pneumothorax. There is dependent atelectasis. There is left lower lobe airspace consolidation peripherally which may rep resent superimposed pneumonia or pulmonary infarction. There is atherosclerosis of the aorta and natalee nary arteries. ABDOMEN/PELVIS CT: The liver, adrenal glands and kidneys are unremarkable. There are calcified granulomas in the spleen. There is a low-density lesion in the spleen superiorly, most likely benign cysts. Gallbladder is pre sent. There is atherosclerosis of the aorta without evidence for aneurysm. No lymphadenopathy. There is moderate fluid throughout the small bowel and colon which is mildly distended. No definite obstruc tion. There is a left hip arthroplasty which is dislocated superiorly. Mild thoracic and lumbar spond ylosis. There is perirectal fluid in the presacral space, nonspecific. IMPRESSION: 1. Pulmonary embolism of the main pulmonary artery, right and left pulmonary arteries and segmental a nd subsegmental pulmonary arteries bilaterally, large thrombus burden. 2: Left lower lobe airspace disease peripherally which may represent pneumonia or pulmonary infarctio n. 3: Small pleural effusions with dependent atelectasis. 4.: Superiorly dislocated left hip arthroplasty. Dr. Gonzalez discussed with the patient's nurse on third medical floor, [place], at 05/20/2021 18:01 FAMILY DEVELOPMENT EXTENSION SPECIALIST. Reviewed, dictated and finalized at location A. LY DEVELOPMENT EXTENSION SPECIALIST IMPRESSION: 1. Pulmonary embolism of the main pulmonary artery, right and left pulmonary ar teries and segmental and subsegmental pulmonary arteries bilaterally, large thr ombus burden. 2: Left lower lobe airspace disease peripherally which may represent pneumonia or pulmonary infarction. 3: Small pleural effusions with dependent atelectasis. 4.: Superiorly dislocated left hip arthroplasty. Dr. Gonzalez discussed with the patient's nurse on third medical floor, [place], at 05/20/2021 18:01 FAMILY DEVELOPMENT EXTENSION SPECIALIST.
--- NOTE | ~2021-05-15 | XR_ITS ---
EXAMINATION: XR chest 1V portable DATE: 05/25/2021 17:18 INDICATION: Hypoxia TECHNIQUE: frontal view of the chest was obtained. COMPARISON: Chest CT dated 05/20/2021 FINDINGS: Persistent opacities in the bilateral lower lung zones consistent with small bilateral posteriorly la yering pleural effusions with associated lung disease the appearance of which on prior CT suggesting comminution both atelectasis and pulmonary infarct although pneumonia not excludable. No pneumothorax . The cardiomediastinal silhouette is normal. IMPRESSION: 1. Small bilateral pleural effusions. 2. Persistent opacities in bilateral lower lung zones most likely combination of atelectasis and pulm onary infarcts as seen on prior CT although differential includes pneumonia. Reviewed, dictated and finalized at location . CTIVE CIGARETTE SLITTER IMPRESSION: 1. Small bilateral pleural effusions. 2. Persistent opacities in bilateral lower lung zones most likely combination o f atelectasis and pulmonary infarcts as seen on prior CT although differential includes pneumonia.
--- NOTE | ~2021-05-15 | XR_ITS ---
EXAMINATION: XR chest 1V portable DATE: 05/16/2021 07:21 INDICATION: COVID TECHNIQUE: frontal view of the chest was obtained. COMPARISON: Chest radiograph dated 05/06/2021 FINDINGS: Interval decrease in now mild opacities in the bilateral lower lung zones. No pulmonary edema, pleura l effusion or pneumothorax. Heart size is normal. Suggestion of a possible small hiatal hernia. IMPRESSION: 1. Decreased now mild opacities at the bilateral lower lung zones which could represent improving ate lectasis or pneumonia. 2. Possible small hiatal hernia. Reviewed, dictated and finalized at location A. YTICAL ENGINEER IMPRESSION: 1. Decreased now mild opacities at the bilateral lower lung zones which could r epresent improving atelectasis or pneumonia. 2. Possible small hiatal hernia.
--- NOTE | ~2021-05-15 | XR_ITS ---
EXAMINATION: XR hip LT 1V DATE: 05/15/2021 13:22 INDICATION: Postoperative evaluation following reduction of a previously dislocated left hip hemiarth roplasty. TECHNIQUE: Anteroposterior view of the left hip was obtained. COMPARISON: 05/15/2021 at 12:35 PM FINDINGS: The femoral head of a bipolar type left hip hemiarthroplasty appears appropriately centered over the left acetabulum suggesting successful reduction. Orthogonal crosstable lateral projection would be he lpful for definitive confirmation. No fracture. Skin julius lateral to the left hip. IMPRESSION: 1. Appearance consistent with successful reduction of a bipolar type left hip although an orthogonal lateral projection would be required for definitive determination. Reviewed, dictated and finalized at location [facility] IMPRESSION: 1. Appearance consistent with successful reduction of a bipolar type left hip a lthough an orthogonal lateral projection would be required for definitive deter mination.
[2021-05-15 11:52] LABS: Basophils Percent Auto 0.3 % (0.2-1.2); Eosinophils Absolute Auto 0.2 K/mm3 (0-0.3); Eosinophils Percent Auto 1.8 % (0-4.4); Hematocrit 28.9 % (42.0-52.0); Hemoglobin 9.2 g/dL (14.0-18.0); Lymphocytes Absolute Auto 0.98 K/mm3 (0.9-3.2); Lymphocytes Percent Auto 9.6 % (18.3-44.2); Mean Corpuscular HGB Conc 31.8 g/dl (32-36); Mean Corpuscular Hemoglobin 29.6 pg (26-34); Mean Corpuscular Volume 92.9 fl (80-100); Mean Platelet Volume 9.1 fl (7.4-10.4); Monocytes Absolute Auto 1.1 K/mm3 (0.1-0.6); Neutrophils Absolute Auto 7.8 K/mm3 (1.3-6.7); Neutrophils Percent Auto 76.3 % (45.5-73.1); Platelet Count Result 293 k/mm3 (150-375); Red Blood Count 3.11 M/mm3 (4.6-6.20); Red Cell Distribution Width 13.5 % (11.5-14.5); White Blood Count 10.2 K/mm3 (4.5-10.0)
[2021-05-15 12:15] LABS: INR 1.3; Prothrombin Time 16.2 Seconds (11.1-14.7)
--- NOTE | 2021-05-15 12:57 | PC.NURSE ---
Moved pt to room 8, no acute distress at this time, Fidelina Saldana no further questions or concerns
[2021-05-15] MEDS: KETAMINE HCL (*CRX) 500 MG/10 ML VIAL (13:06)
[2021-05-15] MEDS: SODIUM CHLORIDE 0.9% IV 1,000 ML 999 ML (13:06)
[2021-05-15] MEDS: PROPOFOL IV EMULSION 200 MG/20 ML VIAL (13:07)
--- NOTE | 2021-05-15 13:35 | PC.NURSE ---
1306: Dr. Cuellar admin 37.5 mg of Ketamine 1307: Dr. Cuellar admin [address] Cheema in room as well
--- NOTE | 2021-05-15 13:36 | PC.NURSE ---
1309: Pt becoming restless, Dr. Cuellar admin 12.5 mg of ketamine and 10 mg of Propofol
--- NOTE | 2021-05-15 13:40 | PC.NURSE ---
1311: Hip back in place, order for portable x ray placed
--- NOTE | 2021-05-15 15:00 | ED.WOUNDLAC ---
HPI - Wound/Laceration General Chief Complaint: Wound/Laceration Stated Complaint: bleed from incision, hypotensive, covid positive Time Seen by Provider: 05/15/21 11:25 Source: patient Mode of arrival: EMS Limitations: clinical condition and dementia History of Present Illness HPI narrative: 81-year-old male Sent from group home with sketchy documentation of the reason for his visit as well as inability to provide an accurate history himself He is said, apparently, to have some oozing from his hip wound He recently had a a hip procedure and a reexploration for subsequent dislocation of the prosthesis The leg looks deformed, however I have seen him before and his leg looked deformed then as well but was not dislocated at that time several days ago We do not have any reliable history of a fall or injury When he was in the hospital 10 days ago he had a fever and a couple of days after that they thought to send a Covid which ultimately came back positive Related Data Home Medications Medication Instructions Recorded Confirmed benztropine 1 mg PO DAILY 04/23/21 05/02/21 cholecalciferol (vitamin D3) 10 mcg PO DAILY 04/23/21 05/02/21 [Vitamin D3] haloperidol 2 mg PO Q6H PRN 04/23/21 05/02/21 haloperidol 5 mg PO DAILY 04/23/21 05/02/21 lamotrigine 25 mg PO DAILY 04/23/21 05/02/21 lorazepam 1 mg PO Q6H PRN 04/23/21 05/02/21 memantine 5 mg PO Q12H 04/23/21 05/02/21 rivastigmine 9.5 mg TRANSDERMAL DAILY 04/23/21 05/02/21 sertraline 50 mg PO DAILY 04/23/21 05/02/21 tamsulosin 0.4 mg PO HS 04/23/21 05/02/21 Ativan 1 mg PO QID PRN 05/02/21 05/02/21 Allergies Allergy/AdvReac Type Severity Reaction Status Date / Time No Known Allergies Allergy Verified 05/01/21 20:05 Review of Systems Review of Systems: ROS unobtainable: Yes unobtainable due to medical condition and unobtainable due to mental status Gastrointestinal: Gastrointestinal: Denies vomiting Musculoskeletal: Musculoskeletal: Reports joint swelling PMFSH Past Medical History Medical History BPH (benign prostatic hyperplasia) Dementia Depression with anxiety Prostate cancer per daughter Surgical History Surgical History History of appendectomy per daughter History of left hip hemiarthroplasty Family History Family History Unknown Unknown family medical history Social History Social History Social History: Daughter: Trish is Next of Kin , per Trish PPW is pending patient signature. Nephew: Srikanth Ellison (2nd contact per Trish/[facility]) Remaining social history obtained from Trish. 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 Gender identity (if verbalized by the patient): Male Spiritual care concerns: No Exam Const: General: cooperative and ill appearing Nutritional Appearance: thin Orientation/consciousness: confusion Limitations: altered mental status Other: Frail, elderly HENMT: Head: normal to inspection, normocephalic, atraumatic, no contusions and no hematomas Ears: external ears normal General nose exam: no epistaxis Eyes: Conjunctivae: conjunctivae normal EOM: EOMs intact bilaterally Neck: Neck: normal visual inspection, supple and no JVD Resp: Effort & Inspection: normal respiratory effort and not labored Auscultation: no rales, no rhonchi, no wheezes and other (BS =) Cardio: Rate: regular rate Rhythm: regular rhythm Heart sounds: no murmurs GI: GI Palp: Yes Soft to palpation and No Tenderness to palpation present (GI) Skin: General skin exam: no rashes or l
--- NOTE | 2021-05-15 18:00 | PM.IMHP ---
H&P: HPI History of Present Illness Date/Time: 05/15/21 18:00 Chief Complaint: Found on ground. Narrative: This is an 81-year-old male with dementia presented to the emergency department earlier today from [facility] for evaluation after he was found lying on the floor. He has severe dimension is unable to provide an accurate history and as such majority of the following is obtained via a review of his electronic medical records. He has had several admissions in the last month and he was initially admitted on 04/23/2021 with a hip fracture sustained when he fell out of bed. The hip was repaired and he was discharged back to the correction on the . He was readmitted on 05/01/2021 after another fall and at that time he dislocated the hip and he had to be taken back to the OR for revision. He had only been back at [facility] for a few days when he again had a fall and was seen emergency department on 05/11/2021 though imaging was unremarkable and he was discharged back. Reportedly he was once again found down on the ground and there was noted to be blood coming from his incision site. His blood pressure was 84/44 on arrival to the emergency department but has since improved with IV fluids. Once again he was found to have a left hip dislocation which has been reduced and he is resting comfortably however at the time my evaluation he is hallucinating about women being in the room and trying to escape and he was unaware that he was in the hospital. When I brought this to his attention he did not understand what contacts he would of been brought to the hospital. He has no specific complaints. Of note, the patient tested positive for COVID-19 at his facility though he does not really seem to have any symptoms Review of Systems Review of Systems: A review of systems was attempted but is very limited as he did not answer majority of my questions. He did deny having pain, however. [facility] Past Medical History Medical History (Updated 05/15/21 @ 22:03 by Zahira Stockton PA-C) BPH (benign prostatic hyperplasia) Dementia Depression with anxiety Prostate cancer per daughter Surgical History Surgical History (Updated 05/15/21 @ 21:48 by Zahira Stockton PA-C) History of appendectomy per daughter History of left hip hemiarthroplasty With revision after fall and dislocation. Family History Family History Unknown Unknown family medical history Social History Social History Social History: Daughter: Trish is Next of Kin , per Trish PPW is pending patient signature. Nephew: Srikanth Ellison (2nd contact per Trish/[facility]) Remaining social history obtained from Trish. 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 Gender identity (if verbalized by the patient): Male Spiritual care concerns: No Meds Home Medications and Allergies Home Medications Medication Instructions Recorded Confirmed Type benztropine 1 mg PO DAILY 04/23/21 05/15/21 History cholecalciferol (vitamin D3) 10 mcg PO DAILY 04/23/21 05/15/21 History [Vitamin D3] haloperidol 2 mg PO Q6H PRN 04/23/21 05/15/21 History haloperidol 5 mg PO DAILY 04/23/21 05/15/21 History lamotrigine 25 mg PO DAILY 04/23/21 05/15/21 History lorazepam 1 mg PO Q6H PRN 04/23/21 05/15/21 History memantine 5 mg PO Q12H 04/23/21 05/15/21 History rivastigmine 9.5 mg TRANSDERMAL DAILY 04/23/21 05/15/21 History sertraline 50 mg PO DAILY 04/23/21 05/15/21 History tamsulosin 0.4 mg PO HS 04/23/21 05/15/21 History aspirin [Aspir-Zehra] 325 mg PO BID #42 tablet 04/26/21 05/15/21 Rx acetaminophen [Mapap 650 mg PO Q6H PRN #30 tablet 05/05/21 05/15/21 Rx (acet
--- NOTE | 2021-05-15 18:38 | PC.NURSE ---
This patient, Sid Ellison, was admitted to 3 [facility] Surg Room 329-01 on 05/15/21 @ 9504. Patient/family oriented to hospital policies and general routines including ID bracelet, bed and alarms, visiting hours, pain management, procedures, bathroom and other care routines, personal items, smoking policy, room service/diet, and visiting hours. Information on how to activate the Rapid Response Team has been discussed. Patient/Family are encouraged to report perceived risks to care and to ask questions if they do not understand what they are told or what they should do.
[2021-05-15 22:41] LABS: Hemoglobin 9.1 g/dL (14.0-18.0); Mean Corpuscular HGB Conc 31.4 g/dl (32-36); Mean Corpuscular Hemoglobin 29.1 pg (26-34); Mean Corpuscular Volume 92.7 fl (80-100); Mean Platelet Volume 9.9 fl (7.4-10.4); Platelet Count Result 272 k/mm3 (150-375); Red Blood Count 3.13 M/mm3 (4.6-6.20); Red Cell Distribution Width 13.7 % (11.5-14.5); White Blood Count 10.1 K/mm3 (4.5-10.0)
[2021-05-15 22:58] LABS: Alanine Aminotransferase 54 U/L (4-50); Albumin Level 2.8 g/dL (3.5-5.1); Alkaline Phosphatase 113 U/L (38-126); Anion Gap 10 mmol/L (8-16); Aspartate Amino Transferase 61 U/L (17-59); Bilirubin,Total 0.7 mg/dL (0.2-1.3); Blood Urea Nitrogen 25 mg/dL (9-20); Calcium 8.5 mg/dL (8.4-10.2); Carbon Dioxide 21 mmol/L (22-30); Chloride 109 mmol/L (98-107); Estimated CRCL calculation 50 ml/min; Estimated Glomerular Filt Rate > 60; Glucose 114 mg/dL (65-110); Potassium 3.8 mmol/L (3.4-5.0); Sodium 140 mmol/L (137-145)
[2021-05-15] MEDS: TAMSULOSIN HCL 0.4 MG CAPSULE PO (23:46)
[2021-05-15] MEDS: LORazepam (*CRX) 1 MG TABLET PO (23:46)
[2021-05-16] VITALS (8 sets, daily range): BP systolic 96–130; BP diastolic 50–65; PULSE 94–118; RESP 18–24; TEMP 36.4–37.3; O2SAT 92–99
--- NOTE | 2021-05-16 07:32 | PCOTNOTE ---
Unable to complete OT evaluation at this time, awaiting ortho consult.
[2021-05-16] MEDS: CHOLECALCIFEROL 400 UNITS TABLET (VIT D) PO (09:24)
[2021-05-16] MEDS: SERTRALINE HCL 50 MG TABLET PO (09:24)
[2021-05-16] MEDS: HALOPERIDOL 5 MG TABLET PO (09:24)
[2021-05-16] MEDS: MEMANTINE 5 MG TABLET PO ×2 (09:24→21:33)
[2021-05-16] MEDS: lamoTRIgine 25 MG TABLET PO (09:24)
[2021-05-16] MEDS: RIVASTIGMINE TARTRATE 9.5 MG PATCH 1 PATCH TRANSDERM (09:24)
[2021-05-16] MEDS: SENNA/DOCUSATE SODIUM TABLET 2 TAB PO ×2 (09:24→17:03)
[2021-05-16] MEDS: ASPIRIN 325 MG ENTERIC TABLET PO ×2 (09:24→17:03)
[2021-05-16] MEDS: BENZTROPINE MESYLATE 1 MG TABLET PO (09:24)
--- NOTE | 2021-05-16 11:00 | PM.IMPN ---
Progress Note: A&P Assessment and Plan (1) Fall: Code(s): W19.XXXA - Unspecified fall, initial encounter Status: Acute Assessment and Plan: Patient had an unwitnessed fall again today in which she dislocated his left hip prosthesis. Initiate fall precautions. I am not certain what it is that we can do to prevent him from having falls as this is obviously going to be a recurrent problem. Care coordinators consulted. PT OT eval Fall precaution (2) Recurrent dislocation, left hip: Code(s): M24.452 - Recurrent dislocation, left hip Status: Acute Assessment and Plan: Successfully reduced. Dr. Chakraborty consulted. Concern for fracture on the x-ray (3) Transient hypotension: Code(s): I95.9 - Hypotension, unspecified Status: Acute Assessment and Plan: Most likely related to dehydration IV fluid (4) Anemia: Code(s): D64.9 - Anemia, unspecified Status: Acute Assessment and Plan: Hemoglobin and hematocrit are stable and will be monitored. Workup as outpatient (5) Dementia: Code(s): F03.90 - Unspecified dementia without behavioral disturbance Status: Acute Assessment and Plan: Continue home medication including memantine, lamotrigine, haloperidol, rivastigmine, and lorazepam. (6) COVID: Code(s): U07.1 - COVID-19 Status: Acute Assessment and Plan: Reportedly tested positive at outside facility. Records requested. Patient has been placed in isolation. Seems asymptomatic. Check ferritin and CRP (7) Acute metabolic encephalopathy: Code(s): G93.41 - Metabolic encephalopathy Status: Acute Assessment and Plan: Most likely multifactorial related to polypharmacy and dehydration and fall continue to monitor fall precaution improved Anticipate probable discharge in a.m. Subjective Date/time seen: 05/16/21 11:00 Interval history: Patient seen and examined Patient feels better today Hallucination has improved Status post fall and dislocated hip status post reduction Dehydration status post IV fluid Patient denies fever headache chest pain shortness of breath I am seeing the patient for fall Exam Narrative: Intermittent hallucination Chest no wheeze crackles Abdomen nontender nondistended CVS S1 + S2 Lower extremity edema Objective Data Vital Signs Vital Signs: Vital Signs - 24 hr 05/15/21 11:20 05/15/21 11:31 05/15/21 11:32 Temperature 97 F L Pulse Rate 91 92 Pulse Rate [Monitor] Respiratory Rate 19 Blood Pressure 115/78 115/48 L Blood Pressure [Right Arm] Pulse Oximetry 100 99 99 05/15/21 11:45 05/15/21 11:46 05/15/21 12:00 Temperature Pulse Rate 94 95 Pulse Rate [Monitor] Respiratory Rate 24 H 18 21 H Blood Pressure 121/59 L Blood Pressure [Right Arm] Pulse Oximetry 97 05/15/21 12:01 05/15/21 12:15 05/15/21 12:16 Temperature Pulse Rate 91 92 Pulse Rate [Monitor] Respiratory Rate 25 H 24 H 21 H Blood Pressure 127/75 113/60 Blood Pressure [Right Arm] Pulse Oximetry 97 96 05/15/21 12:30 05/15/21 12:31 05/15/21 12:45 Temperature Pulse Rate 96 90 Pulse Rate [Monitor] Respiratory Rate 22 H 18 27 H Blood Pressure 106/56 L Blood Pressure [Right Arm] Pulse Oximetry 94 05/15/21 12:46 05/15/21 12:52 05/15/21 12:56 Temperature Pulse Rate 104 H 95 Pulse Rate [Monitor] Respiratory Rate 23 H 23 H Blood Pressure 119/71 126/95 H Blood Pressure [Right Arm] Pulse Oximetry 91 05/15/21 13:00 05/15/21 13:05 05/15/21 13:06 Temperature Pulse Rate 87 Pulse Rate [Monitor] 88 93 Respiratory Rate 17 21 H 26 H Blood Pressure Blood Pressure [Right Arm] 126/95 H 123/60 Pulse Oximetry 100 95 97 05/15/21 13:11 05/15/21 13:16 05/15/21 13:19 Temperature Pulse Rate 90 Pulse Rate [Monitor] 94 89 Respiratory Rate 32 H 23 H 21 H Blood Pressure 95/53 L Blood Pressure
[2021-05-16 11:51] LABS: Alanine Aminotransferase 53 U/L (4-50); Albumin Level 2.6 g/dL (3.5-5.1); Alkaline Phosphatase 106 U/L (38-126); Anion Gap 4 mmol/L (8-16); Aspartate Amino Transferase 59 U/L (17-59); Basophils Absolute Auto 0.1 K/mm3 (0.0-0.1); Basophils Percent Auto 0.7 % (0.2-1.2); Bilirubin,Total 0.5 mg/dL (0.2-1.3); Blood Urea Nitrogen 22 mg/dL (9-20); Calcium 8.6 mg/dL (8.4-10.2); Carbon Dioxide 26 mmol/L (22-30); Chloride 107 mmol/L (98-107); Eosinophils Absolute Auto 0.1 K/mm3 (0-0.3); Eosinophils Percent Auto 1.1 % (0-4.4); Estimated CRCL calculation 54 ml/min; Estimated Glomerular Filt Rate > 60; Glucose 108 mg/dL (65-110); Hematocrit 26.6 % (42.0-52.0); Hemoglobin 8.5 g/dL (14.0-18.0); Immature Granulocyte Absolute 0.09 K/mm3 (0.00-0.031); Immature Granulocyte Percent A 0.9 % (0-0.5); Lymphocytes Absolute Auto 0.99 K/mm3 (0.9-3.2); Lymphocytes Percent Auto 10.3 % (18.3-44.2); Mean Corpuscular Hemoglobin 29.2 pg (26-34); Mean Corpuscular Volume 91.4 fl (80-100); Mean Platelet Volume 9.6 fl (7.4-10.4); Monocytes Absolute Auto 1.1 K/mm3 (0.1-0.6); Monocytes Percent Auto 11.6 % (2.6-8.5); Neutrophils Absolute Auto 7.2 K/mm3 (1.3-6.7); Neutrophils Percent Auto 75.4 % (45.5-73.1); Platelet Count Result 233 k/mm3 (150-375); Potassium 3.9 mmol/L (3.4-5.0); Red Blood Count 2.91 M/mm3 (4.6-6.20); Red Cell Distribution Width 13.9 % (11.5-14.5); Sodium 137 mmol/L (137-145); White Blood Count 9.6 K/mm3 (4.5-10.0)
[2021-05-16 12:12] LABS: CRP 15.8 mg/dL (<1.0)
--- NOTE | 2021-05-16 14:11 | PM.CNOR ---
Assessment and Plan Additional Plan LEFT HIP BIPOLAR RECURRENT DISLOCATION FROM A FALL. THE PATIENT WAS SEDATED AND THE LEFT HIP WAS REDUCED. POSTOP XRAYS SHOW NO FRACTURE OR DISLOCATION. WE WILL CONTINUE TO MONITOR THE PATIENTS PROGRESS. HE WILL NEED 24/7 SUPERVISION ONCE HE RETURNS TO THE [facility] SO HE DOES NOT GET OUT OF BED AND TRY TO WALK BY HIMSELF. HE MAY GO ON TO A GIRDLESTONE PROCEDURE IF HE CONTINUES TO FALL AND DISLOCATE HIS HIP. WE WILL CONTINUE TO OBSERVE THE PATIENT WHILE HE IS ADMITTED. History of Present Illness HPI Consult date: 05/16/21 Consult reason: joint pain Chief complaint: Recurrent left hip dislocation Narrative: DL WAS SEEN IN THE ED DUE TO ABNORMAL INSPECTION OF HIS LEFT HIP AND WOUND. HE APPEARED TO HAVE A DRAINING HEMATOMA AND HIS LEG LOOKED DEFORMED. HE WAS FOUND TO HAVE A RECURRENT LEFT HIP DISLOCATION AFTER A FALL AT THE [place]. THIS IS THE 3RD POSTOPERATIVE FALL SINCE HIS ORIGINAL SURGERY. Review of Systems Review of Systems: ROS unobtainable: Yes unobtainable due to mental status PMFSH Past Medical History Medical History BPH (benign prostatic hyperplasia) Dementia Depression with anxiety Prostate cancer per daughter Surgical History Surgical History History of appendectomy per daughter History of left hip hemiarthroplasty With revision after fall and dislocation. Family History Family History Unknown Unknown family medical history Social History Social History Social History: Daughter: Trish is Next of Kin , per Trish PPW is pending patient signature. Nephew: Srikanth Ellison (2nd contact per Trish/[facility]) Remaining social history obtained from Trish. 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 Gender identity (if verbalized by the patient): Male Spiritual care concerns: No Meds Home Medications and Allergies Home Medications Medication Instructions Recorded Confirmed Type benztropine 1 mg PO DAILY 04/23/21 05/15/21 History cholecalciferol (vitamin D3) 10 mcg PO DAILY 04/23/21 05/15/21 History [Vitamin D3] haloperidol 2 mg PO Q6H PRN 04/23/21 05/15/21 History haloperidol 5 mg PO DAILY 04/23/21 05/15/21 History lamotrigine 25 mg PO DAILY 04/23/21 05/15/21 History lorazepam 1 mg PO Q6H PRN 04/23/21 05/15/21 History memantine 5 mg PO Q12H 04/23/21 05/15/21 History rivastigmine 9.5 mg TRANSDERMAL DAILY 04/23/21 05/15/21 History sertraline 50 mg PO DAILY 04/23/21 05/15/21 History tamsulosin 0.4 mg PO HS 04/23/21 05/15/21 History aspirin [Aspir-Zehra] 325 mg PO BID #42 tablet 04/26/21 05/15/21 Rx acetaminophen [Mapap 650 mg PO Q6H PRN #30 tablet 05/05/21 05/15/21 Rx (acetaminophen)] sennosides-docusate sodium 2 tab PO BID #60 tablet 05/05/21 05/15/21 Rx [Senokot-S] hydrocodone-acetaminophen 1 tablet PO Q4H PRN #12 tablet 05/09/21 05/15/21 Rx lorazepam 1 mg PO HS 05/15/21 05/15/21 History Allergies Allergy/AdvReac Type Severity Reaction Status Date / Time No Known Allergies Allergy Verified 05/15/21 18:47 Vital Signs Vital Signs - 24 hr 05/15/21 14:15 05/15/21 14:16 05/15/21 14:20 Temperature Pulse Rate Respiratory Rate 26 H 24 H 24 H Blood Pressure 90/66 L 111/61 Pulse Oximetry 92 05/15/21 16:41 05/15/21 18:18 05/15/21 22:00 Temperature 37.4 C 36.8 C Pulse Rate 118 H 101 H 117 H Respiratory Rate 22 H 19 16 Blood Pressure 106/66 111/59 L 102/54 L Pulse Oximetry 94 93 94 05/16/21 02:00 05/16/21 06:00 05/16/21 08:00 Temperature 36.5 C 36.4 C 37.2 C Pulse Rat
[2021-05-16] MEDS: ACETAMINOPHEN 325 MG TABLET 650 MG PO (15:46)
[2021-05-16] MEDS: TAMSULOSIN HCL 0.4 MG CAPSULE PO (21:33)
[2021-05-16] MEDS: LORazepam (*CRX) 1 MG TABLET PO (21:33)
[2021-05-17] VITALS: BP 107/60; PULSE 88; RESP 16; TEMP 36.7; O2SAT 99
--- NOTE | 2021-05-17 02:52 | ADMGEN ---
This patient, Sid Ellison, was admitted to 3 [facility] Surg Room 329-01. Patient/family oriented to hospital policies and general routines including ID bracelet, bed and alarms, visiting hours, pain management, procedures, bathroom and other care routines, personal items, smoking policy, room service/diet, and visiting hours. Information on how to activate the Rapid Response Team has been discussed. Patient/Family are encouraged to report perceived risks to care and to ask questions if they do not understand what they are told or what they should do.
[2021-05-17 04:00] VITALS: BP 110/68; PULSE 82; RESP 18; TEMP 36.8; O2SAT 97
[2021-05-17] MEDS: ACETAMINOPHEN 325 MG TABLET 650 MG PO (06:04)
[2021-05-17] MEDS: LORazepam (*CRX) 1 MG TABLET PO (06:11)
[2021-05-17] MEDS: ASPIRIN 325 MG ENTERIC TABLET PO ×2 (07:48→15:54)
[2021-05-17] MEDS: SERTRALINE HCL 50 MG TABLET PO (07:48)
[2021-05-17] MEDS: MEMANTINE 5 MG TABLET PO ×2 (07:48→21:41)
[2021-05-17] MEDS: CHOLECALCIFEROL 400 UNITS TABLET (VIT D) PO (07:50)
[2021-05-17] MEDS: SENNA/DOCUSATE SODIUM TABLET 2 TAB PO (07:50)
[2021-05-17] MEDS: lamoTRIgine 25 MG TABLET PO (07:50)
[2021-05-17] MEDS: HALOPERIDOL 5 MG TABLET PO (07:50)
[2021-05-17] MEDS: BENZTROPINE MESYLATE 1 MG TABLET PO (07:50)
[2021-05-17] MEDS: RIVASTIGMINE TARTRATE 9.5 MG PATCH 1 PATCH TRANSDERM (07:51)
[2021-05-17 07:57] LABS: Basophils Percent Auto 0.5 % (0.2-1.2); Eosinophils Absolute Auto 0.2 K/mm3 (0-0.3); Eosinophils Percent Auto 2.2 % (0-4.4); Hematocrit 25.9 % (42.0-52.0); Hemoglobin 8.1 g/dL (14.0-18.0); Immature Granulocyte Absolute 0.07 K/mm3 (0.00-0.031); Immature Granulocyte Percent A 0.8 % (0-0.5); Lymphocytes Absolute Auto 0.76 K/mm3 (0.9-3.2); Mean Corpuscular HGB Conc 31.3 g/dl (32-36); Mean Corpuscular Hemoglobin 28.7 pg (26-34); Mean Corpuscular Volume 91.8 fl (80-100); Monocytes Absolute Auto 0.9 K/mm3 (0.1-0.6); Monocytes Percent Auto 10.4 % (2.6-8.5); Neutrophils Absolute Auto 6.5 K/mm3 (1.3-6.7); Neutrophils Percent Auto 77.1 % (45.5-73.1); Platelet Count Result 211 k/mm3 (150-375); Red Blood Count 2.82 M/mm3 (4.6-6.20); Red Cell Distribution Width 13.8 % (11.5-14.5); White Blood Count 8.5 K/mm3 (4.5-10.0)
[2021-05-17 08:00] VITALS: BP 108/85; PULSE 83; RESP 16; TEMP 36.4; O2SAT 97
--- NOTE | 2021-05-17 08:03 | PCOTNOTE ---
Awaiting WB orders to be entered in order to complete OT evaluation. Will follow.
[2021-05-17 08:07] LABS: Alanine Aminotransferase 51 U/L (4-50); Albumin Level 2.5 g/dL (3.5-5.1); Alkaline Phosphatase 103 U/L (38-126); Anion Gap 5 mmol/L (8-16); Aspartate Amino Transferase 62 U/L (17-59); Bilirubin,Total 0.5 mg/dL (0.2-1.3); Blood Urea Nitrogen 21 mg/dL (9-20); Calcium 8.2 mg/dL (8.4-10.2); Carbon Dioxide 27 mmol/L (22-30); Chloride 108 mmol/L (98-107); Estimated CRCL calculation 60 ml/min; Estimated Glomerular Filt Rate > 60; Glucose 107 mg/dL (65-110); Potassium 3.4 mmol/L (3.4-5.0); Sodium 140 mmol/L (137-145)
--- NOTE | 2021-05-17 10:48 | PM.IMPN ---
Progress Note: A&P Assessment and Plan (1) Fall: Code(s): W19.XXXA - Unspecified fall, initial encounter Status: Acute Assessment and Plan: Patient had an unwitnessed fall again today in which she dislocated his left hip prosthesis. Initiate fall precautions. I am not certain what it is that we can do to prevent him from having falls as this is obviously going to be a recurrent problem. Care coordinators consulted. PT OT eval Fall precaution (2) Recurrent dislocation, left hip: Code(s): M24.452 - Recurrent dislocation, left hip Status: Acute Assessment and Plan: Successfully reduced. Dr. Chakraborty consulted. Concern for fracture on the x-ray orthoepedic recs appreciated has bleeding from the wound site (3) Transient hypotension: Code(s): I95.9 - Hypotension, unspecified Status: Acute Assessment and Plan: Most likely related to dehydration IV fluid (4) Anemia: Code(s): D64.9 - Anemia, unspecified Status: Acute Assessment and Plan: Hemoglobin and hematocrit are stable and will be monitored. Workup as outpatient (5) Dementia: Code(s): F03.90 - Unspecified dementia without behavioral disturbance Status: Acute Assessment and Plan: Continue home medication including memantine, lamotrigine, haloperidol, rivastigmine, and lorazepam. (6) COVID: Code(s): U07.1 - COVID-19 Status: Acute Assessment and Plan: Reportedly tested positive at outside facility. Patient has been placed in isolation. Seems asymptomatic. follow ferritin and CRP repeat chest x-ray today (7) Acute metabolic encephalopathy: Code(s): G93.41 - Metabolic encephalopathy Status: Acute Assessment and Plan: Most likely multifactorial related to polypharmacy and dehydration and fall continue to monitor fall precaution improved Worsening today patient is on Ativan Concern for aspiration pneumonia started empiric IV antibiotic swallow evaluation . Pending infectious screen UA chest x-ray DC Ativan monitor closely for withdrawal Subjective Date/time seen: 05/17/21 10:48 Interval history: Patient seen and examined Patient is mostly lethargic today According to the nurse patient has episodes of aspiration Ordered swallow eval Ordered infectious screen Ordered IV antibiotic I am seeing the patient for fall Exam Narrative: lethargic Chest positive crackles Abdomen nontender nondistended CVS S1 + S2 Lower extremity edema Objective Data Vital Signs Vital Signs: Vital Signs - 24 hr 12/14/21 12:00 05/16/21 15:46 05/16/21 16:00 Temperature 98.2 F 99.1 F 99.1 F Pulse Rate 97 118 H Respiratory Rate 24 H 20 Blood Pressure 111/65 130/54 L Pulse Oximetry 94 92 05/16/21 16:46 05/16/21 20:00 05/17/21 00:00 Temperature 97.6 F 98.9 F 98.1 F Pulse Rate 94 88 Respiratory Rate 18 16 Blood Pressure 96/55 L 107/60 Pulse Oximetry 95 99 05/17/21 04:00 05/17/21 08:00 Temperature 98.3 F 97.6 F Pulse Rate 82 83 Respiratory Rate 18 16 Blood Pressure 110/68 108/85 Pulse Oximetry 97 97 Intake/Output Intake/Output: Intake & Output 05/14/21 05/15/21 05/16/21 05/17/21 23:59 23:59 23:59 23:59 Intake Total 1000 610 180 Balance 1000 610 180 Meds/Results Medications: Active Medications Generic Name Dose Route Start Last Admin Trade Name Freq PRN Reason Stop Dose Admin Acetaminophen 650 mg 05/15/21 22:07 05/17/21 06:04 Acetaminophen 325 Mg Tablet PO 650 mg Q6H PRN Administration Mild Pain (1-3) Or Fever Aspirin 325 mg 05/16/21 09:00 05/17/21 07:48 Aspirin 325 Mg Enteric Tablet PO 05/17/21 17:01 325 mg BID MARGARET Administration Benztropine Mesylate 1 mg 05/16/21 09:00 05/17/21 07:50 Benztropine Mesylate 1 Mg Tablet PO 1 mg DAILY MARGARET Administration Haloperidol 2 mg 05/15/21 23:00 Haloperidol 1 Mg Tablet PO Q6H PRN Agitation Haloper
[2021-05-17 11:28] LABS: Add Urine Microscopic? YES; Appearance Urine Clear (Clear); Bacteria Urine Trace /hpf; Bilirubin Urine Negative (Negative); Blood Urine Negative (Negative); Calcium Oxalate Crystals Urine Present /hpf; Color Urine Amber (Yellow); Glucose Urine UA Negative (Negative); Ketones Urine Trace mg/dL (Negative); Leukocyte Esterase Ur Negative LEU/UL (Negative); Mucus Urine Heavy /lpf; Nitrate Urine Negative (Negative); Protein Urine 1+ mg/dL (Negative); Squamous Epithelial Cell Urine Rare /hpf (Few); WBC Urine 0-3 /hpf
[2021-05-17 11:36] LABS: Specific Grav Ur 1.033 (1.001-1.035)
[2021-05-17 12:00] VITALS: BP 96/47; PULSE 87; RESP 16; TEMP 36.4; O2SAT 100
--- NOTE | 2021-05-17 12:29 | PC.NURSE ---
PT b/p soft 96/48, poor appeite and drinking, requesting IV fluids for pt. Called provider Mark christensen, awaiting call back.
--- NOTE | 2021-05-17 12:33 | PCSTNOTE ---
Please refer to the Bedside Swallow Evaluation in the EMR. Please note, silent aspiration cannot be ruled out at bedside.
--- NOTE | 2021-05-17 12:53 | PCPTNOTE ---
Awaiting WB orders to be entered in order to complete PT evaluation. Will follow.
[2021-05-17] MEDS: cefTRIAXone 2 GM in SODIUM CHLORIDE 0.9% IV 100 ML 200 ML IVPB (13:21)
[2021-05-17] MEDS: SODIUM CHLORIDE 0.9% IV 500 ML IV CONT (13:22)
[2021-05-17] MEDS: SODIUM CHLORIDE 0.9% IV 1,000 ML 75 ML IV CONT (13:22)
[2021-05-17 15:31] VITALS: BMI 22.1
[2021-05-17] MEDS: HALOPERIDOL 1 MG TABLET 2 MG PO ×2 (15:53→22:20)
[2021-05-17 16:00] VITALS: BP 114/50; PULSE 103; RESP 14; TEMP 37.3; O2SAT 95
[2021-05-17 20:00] VITALS: BP 108/57; PULSE 104; RESP 18; TEMP 37.1; O2SAT 94
[2021-05-17] MEDS: TAMSULOSIN HCL 0.4 MG CAPSULE PO (21:42)
[2021-05-17] MEDS: LORazepam (*CRX) 0.5 MG TABLET PO (21:43)
[2021-05-18 04:00] VITALS: BP 110/63; PULSE 100; RESP 18; TEMP 37.2; O2SAT 95
[2021-05-18] MEDS: SODIUM CHLORIDE 0.9% IV 1,000 ML 75 ML IV CONT ×2 (05:40→21:32)
[2021-05-18 07:11] LABS: Basophils Absolute Auto 0.1 K/mm3 (0.0-0.1); Basophils Percent Auto 0.5 % (0.2-1.2); Eosinophils Absolute Auto 0.1 K/mm3 (0-0.3); Eosinophils Percent Auto 0.5 % (0-4.4); Hematocrit 26.9 % (42.0-52.0); Hemoglobin 8.5 g/dL (14.0-18.0); Immature Granulocyte Absolute 0.06 K/mm3 (0.00-0.031); Immature Granulocyte Percent A 0.6 % (0-0.5); Lymphocytes Absolute Auto 0.67 K/mm3 (0.9-3.2); Lymphocytes Percent Auto 6.3 % (18.3-44.2); Mean Corpuscular HGB Conc 31.6 g/dl (32-36); Mean Corpuscular Hemoglobin 29.2 pg (26-34); Mean Corpuscular Volume 92.4 fl (80-100); Mean Platelet Volume 10.4 fl (7.4-10.4); Monocytes Percent Auto 9.2 % (2.6-8.5); Neutrophils Absolute Auto 8.8 K/mm3 (1.3-6.7); Neutrophils Percent Auto 82.9 % (45.5-73.1); Platelet Count Result 204 k/mm3 (150-375); Red Blood Count 2.91 M/mm3 (4.6-6.20); Red Cell Distribution Width 13.6 % (11.5-14.5); White Blood Count 10.6 K/mm3 (4.5-10.0)
[2021-05-18 07:27] LABS: Alanine Aminotransferase 47 U/L (4-50); Albumin Level 2.7 g/dL (3.5-5.1); Alkaline Phosphatase 120 U/L (38-126); Anion Gap 11 mmol/L (8-16); Aspartate Amino Transferase 57 U/L (17-59); Bilirubin,Total 0.6 mg/dL (0.2-1.3); Blood Urea Nitrogen 19 mg/dL (9-20); Calcium 8.2 mg/dL (8.4-10.2); Carbon Dioxide 22 mmol/L (22-30); Chloride 107 mmol/L (98-107); Estimated CRCL calculation 60 ml/min; Estimated Glomerular Filt Rate > 60; Glucose 100 mg/dL (65-110); Potassium 3.7 mmol/L (3.4-5.0); Sodium 140 mmol/L (137-145)
[2021-05-18 08:00] VITALS: BP 107/59; PULSE 104; RESP 14; TEMP 37.4; O2SAT 93
[2021-05-18 09:30] VITALS: BMI 10.0
[2021-05-18] MEDS: CHOLECALCIFEROL 400 UNITS TABLET (VIT D) PO (10:42)
[2021-05-18] MEDS: MEMANTINE 5 MG TABLET PO ×2 (10:42→21:33)
[2021-05-18] MEDS: BENZTROPINE MESYLATE 1 MG TABLET PO (10:42)
[2021-05-18] MEDS: SENNA/DOCUSATE SODIUM TABLET 2 TAB PO ×2 (10:43→16:18)
[2021-05-18] MEDS: lamoTRIgine 25 MG TABLET PO (10:43)
[2021-05-18] MEDS: RIVASTIGMINE TARTRATE 9.5 MG PATCH 1 PATCH TRANSDERM (10:43)
[2021-05-18] MEDS: SERTRALINE HCL 50 MG TABLET PO (10:43)
[2021-05-18] MEDS: HALOPERIDOL 5 MG TABLET PO (10:43)
[2021-05-18] MEDS: cefTRIAXone 2 GM in SODIUM CHLORIDE 0.9% IV 100 ML 200 ML IVPB (10:56)
[2021-05-18 12:00] VITALS: BP 104/50; PULSE 101; RESP 14; TEMP 37.1; O2SAT 98
--- NOTE | 2021-05-18 12:08 | PM.PNORT ---
Progress Note: A&P Assessment and Plan (1) Dislocation of hip prosthesis: Qualifiers: Encounter type: initial encounter Qualified Code(s): T84.029A - Dislocation of unspecified internal joint prosthesis, initial encounter; Z96.649 - Presence of unspecified artificial hip joint Code(s): T84.029A - Dislocation of unspecified internal joint prosthesis, initial encounter; Z96.649 - Presence of unspecified artificial hip joint Status: Acute Assessment and Plan: Patient is now s/p 2 dislocations of the left hip bipolar which was performed due to fracture. The second dislocation was reduced by Dr. Chakraborty in the emergency room. Patient is an extremely high fall risk. He may be WBAT with assistive device and PT/OT only. Bed alarm. Patient is now 2 weeks s/p first revision with open incision of the left lateral hip. Quimby to be removed from the hip at this time. Nursing notified. Patient to begin daily dressing changes with transfer/cover dry. Continue PT/OT. WBAT. FALL RISK. Daily Dressing Changes. SCDs. Incentive Spirometry. Additional Plan Reviewed case, incisional drainage and assessment with MD, Dr. Chakraborty. Agrees with staple removal. Subjective Subjective Date/Time Seen: 05/18/21 12:08 Interval history: POD #15: Revision of left hip bipolar s/p dislocation Patient is now 2 days s/p relocation of 2nd dislocation. No surgical intervention required for 2nd reduction. No complaints. Complains of being thirsty at time of exam. Assisted with drink. Otherwise, comfortable. Review of Systems Review of Systems: ROS unobtainable: Yes unobtainable due to mental status Exam Const: General: comfortable and no acute distress Resp: Effort & Inspection: normal respiratory effort Cardio: Rate: regular rate Rhythm: regular rhythm GI: Inspection: non-distended GI Palp: Yes Soft to palpation and No Tenderness to palpation present (GI) Neuro: Cognition (Neuro): abnormal cognition (dementia ) Extrem: Left lower extremity: hip/thigh Details: tenderness Location: of the hip Location: laterally, swelling Location: of the hip (lateral ) and of the proximal upper leg (lateral ) and abnormal ROM (limited ), knee Details: normal to inspection; no tenderness and no swelling, lower leg Details: normal to inspection, ankle Details: normal to inspection and normal ROM and foot Details: normal capillary refill, toes with normal ROM and vascular exam Details: dorsalis pedis pulse present Other: Incision over the lateral aspect of the left hip approximated with sutures. One area in the mid portion of the incision with small amount of serosanguineous drainage. No purulence noted. Clotted hematoma noted on the dressing. Surrounding tissue soft. Objective Data Vital Signs Vital Signs: Vital Signs - 24 hr 05/17/21 16:00 05/17/21 20:00 05/18/21 04:00 Temperature 37.3 C 37.1 C 37.2 C Pulse Rate 103 H 104 H 100 Respiratory Rate 14 18 18 Blood Pressure 114/50 L 108/57 L 110/63 Pulse Oximetry 95 94 95 05/18/21 08:00 Temperature 37.4 C Pulse Rate 104 H Respiratory Rate 14 Blood Pressure 107/59 L Pulse Oximetry 93 Intake/Output Intake/Output: Intake & Output 05/15/21 05/16/21 05/17/21 05/18/21 23:59 23:59 23:59 23:59 Intake Total 1000 401 832 6980 Balance 1000 637 493 0356 Meds/Results Medications: Active Medications Generic Name Dose Route Start Last Admin Trade Name Freq PRN Reason Stop Dose Admin Acetaminophen 650 mg 05/15/21 22:07 05/17/21 06:04 Acetaminophen 325 Mg Tablet PO 650 mg Q6H PRN Administration Mild Pain (1-3) Or Fever Benztropine Mesylate 1 mg 05/16/21 09:00 05/18/21 10:42 Benztropine Mesylate 1 Mg Tablet PO 1 mg DAILY MARGARET Administration Haloperidol 2 mg 05/15/21 23:00 05/17/21 22:20 Haloperidol 1 Mg Tablet PO 2 mg Q6H PRN Administration Agitation Haloperidol 5 mg 05/16/21 09:00 05/18/21 10:43 Haloperidol 5 Mg Tablet PO 5
--- NOTE | 2021-05-18 14:46 | PM.IMPN ---
Progress Note: A&P Assessment and Plan (1) Fall: Code(s): W19.XXXA - Unspecified fall, initial encounter Status: Acute Assessment and Plan: Patient had an unwitnessed fall again today in which she dislocated his left hip prosthesis. Pt seen by orthopedics, pt to continue on PT/OT (2) Recurrent dislocation, left hip: Code(s): M24.452 - Recurrent dislocation, left hip Status: Acute Assessment and Plan: Successfully reduced. Dr. Chakraborty consulted. (3) Transient hypotension: Code(s): I95.9 - Hypotension, unspecified Status: Acute Assessment and Plan: Most likely related to dehydration IV fluid (4) Anemia: Code(s): D64.9 - Anemia, unspecified Status: Acute Assessment and Plan: Hemoglobin and hematocrit are stable and will be monitored. Workup as outpatient (5) Dementia: Code(s): F03.90 - Unspecified dementia without behavioral disturbance Status: Acute Assessment and Plan: Continue home medication including memantine, lamotrigine, haloperidol, rivastigmine, and lorazepam. (6) COVID: Code(s): U07.1 - COVID-19 Status: Acute Assessment and Plan: Reportedly tested positive at outside facility. Patient has been placed in isolation. Seems asymptomatic. not needing any oxyen (7) Acute metabolic encephalopathy: Code(s): G93.41 - Metabolic encephalopathy Status: Acute Assessment and Plan: Most likely multifactorial related to polypharmacy and dehydration and fall continue to monitor fall precaution improved Waxes and wanes Subjective Date/time seen: 05/18/21 14:46 Interval history: 81-year-old male with dementia presented to the emergency department earlier today from [facility] for evaluation after he was found lying on the floor. pt seen by orthopedics Pt had recurrent hip dislocation. Successfully reduced by orthopedics. Pt here for covid not on oxygen but his Bp is slightly low and heart rate is up. Review of Systems Review of Systems: All systems reviewed & are unremarkable except as noted in HPI and below Exam Narrative: Pt is tired Chest BL crackles Abdomen nontender nondistended CVS S1 + S2 Lower extremity edema with brace Objective Data Vital Signs Vital Signs: Vital Signs - 24 hr 05/17/21 16:00 05/17/21 20:00 05/18/21 04:00 Temperature 37.3 C 37.1 C 37.2 C Pulse Rate 103 H 104 H 100 Respiratory Rate 14 18 18 Blood Pressure 114/50 L 108/57 L 110/63 Pulse Oximetry 95 94 95 05/18/21 08:00 05/18/21 12:00 Temperature 37.4 C 37.1 C Pulse Rate 104 H 101 H Respiratory Rate 14 14 Blood Pressure 107/59 L 104/50 L Pulse Oximetry 93 98 Intake/Output Intake/Output: Intake & Output 05/15/21 05/16/21 05/17/21 05/18/21 23:59 23:59 23:59 23:59 Intake Total 1000 020 880 2579 Balance 1000 069 084 6227 Meds/Results Medications: Active Medications Generic Name Dose Route Start Last Admin Trade Name Freq PRN Reason Stop Dose Admin Acetaminophen 650 mg 05/15/21 22:07 05/17/21 06:04 Acetaminophen 325 Mg Tablet PO 650 mg Q6H PRN Administration Mild Pain (1-3) Or Fever Benztropine Mesylate 1 mg 05/16/21 09:00 05/18/21 10:42 Benztropine Mesylate 1 Mg Tablet PO 1 mg DAILY MARGARET Administration Haloperidol 2 mg 05/15/21 23:00 05/17/21 22:20 Haloperidol 1 Mg Tablet PO 2 mg Q6H PRN Administration Agitation Haloperidol 5 mg 05/16/21 09:00 05/18/21 10:43 Haloperidol 5 Mg Tablet PO 5 mg DAILY MARGARET Administration Ceftriaxone Sodium 2 gm/ 100 mls @ 200 mls/hr 05/17/21 10:45 05/18/21 11:26 Sodium Chloride IVPB Infused QAM MARGARET Infusion Sodium Chloride 1,000 mls @ 75 mls/hr 05/17/21 12:55 05/18/21 05:40 Normal Saline Iv IV CONT 75 mls/hr .[id number] MARGARET Administration Lamotrigine 25 mg 05/16/21 09:00 05/18/21 10:43 Lamotrigine 25 Mg Tablet PO 25 mg DAILY MARGARET Administ
[2021-05-18 16:00] VITALS: BP 112/53; PULSE 103; RESP 17; TEMP 36.9; O2SAT 95
[2021-05-18] MEDS: LORazepam (*CRX) 0.5 MG TABLET PO (16:18)
[2021-05-18] MEDS: MAGNES & ALUM HYD/SIMETH/DIPHENHYD/LIDOCAINE 119 ML MOUTHWASH BY MOUTH ×2 (16:18→21:32)
[2021-05-18 20:00] VITALS: BP 106/67; PULSE 120; RESP 17; TEMP 36.6; O2SAT 90
[2021-05-18] MEDS: TAMSULOSIN HCL 0.4 MG CAPSULE PO (21:33)
[2021-05-18 23:08] VITALS: BP 125/46; PULSE 97; RESP 17; TEMP 37.2; O2SAT 95
[2021-05-19] VITALS (7 sets, daily range): BP systolic 86–154; BP diastolic 52–75; PULSE 88–183; RESP 14–22; TEMP 36.7–38.1; O2SAT 93–98
[2021-05-19] MEDS: MAGNES & ALUM HYD/SIMETH/DIPHENHYD/LIDOCAINE 119 ML MOUTHWASH BY MOUTH ×6 (01:12→21:23)
[2021-05-19 07:48] LABS: Basophils Percent Auto 0.5 % (0.2-1.2); Eosinophils Absolute Auto 0.1 K/mm3 (0-0.3); Eosinophils Percent Auto 0.9 % (0-4.4); Hematocrit 25.5 % (42.0-52.0); Hemoglobin 7.8 g/dL (14.0-18.0); Immature Granulocyte Percent A 1.1 % (0-0.5); Lymphocytes Absolute Auto 0.94 K/mm3 (0.9-3.2); Lymphocytes Percent Auto 10.7 % (18.3-44.2); Mean Corpuscular HGB Conc 30.6 g/dl (32-36); Mean Corpuscular Volume 94.8 fl (80-100); Mean Platelet Volume 10.7 fl (7.4-10.4); Monocytes Absolute Auto 1.1 K/mm3 (0.1-0.6); Monocytes Percent Auto 12.7 % (2.6-8.5); Neutrophils Absolute Auto 6.5 K/mm3 (1.3-6.7); Neutrophils Percent Auto 74.1 % (45.5-73.1); Platelet Count Result 163 k/mm3 (150-375); Red Blood Count 2.69 M/mm3 (4.6-6.20); Red Cell Distribution Width 14.1 % (11.5-14.5); White Blood Count 8.8 K/mm3 (4.5-10.0)
[2021-05-19 07:57] LABS: Alanine Aminotransferase 49 U/L (4-50); Albumin Level 2.4 g/dL (3.5-5.1); Alkaline Phosphatase 123 U/L (38-126); Anion Gap 7 mmol/L (8-16); Aspartate Amino Transferase 64 U/L (17-59); Bilirubin,Total 0.5 mg/dL (0.2-1.3); Blood Urea Nitrogen 18 mg/dL (9-20); Carbon Dioxide 22 mmol/L (22-30); Chloride 110 mmol/L (98-107); Estimated CRCL calculation 67 ml/min; Estimated Glomerular Filt Rate > 60; Glucose 105 mg/dL (65-110); Potassium 3.6 mmol/L (3.4-5.0); Sodium 139 mmol/L (137-145)
[2021-05-19] MEDS: cefTRIAXone 2 GM in SODIUM CHLORIDE 0.9% IV 100 ML 200 ML IVPB (09:05)
[2021-05-19] MEDS: HALOPERIDOL 5 MG TABLET PO (09:06)
[2021-05-19] MEDS: lamoTRIgine 25 MG TABLET PO (09:06)
[2021-05-19] MEDS: BENZTROPINE MESYLATE 1 MG TABLET PO (09:06)
[2021-05-19] MEDS: SERTRALINE HCL 50 MG TABLET PO (09:06)
[2021-05-19] MEDS: MEMANTINE 5 MG TABLET PO ×2 (09:06→21:22)
[2021-05-19] MEDS: HALOPERIDOL 1 MG TABLET 2 MG PO ×2 (09:06→18:16)
[2021-05-19] MEDS: CHOLECALCIFEROL 400 UNITS TABLET (VIT D) PO (09:06)
[2021-05-19] MEDS: RIVASTIGMINE TARTRATE 9.5 MG PATCH 1 PATCH TRANSDERM (09:06)
[2021-05-19] MEDS: SENNA/DOCUSATE SODIUM TABLET 2 TAB PO (09:06)
[2021-05-19] MEDS: SODIUM CHLORIDE 0.9% IV 1,000 ML 75 ML IV CONT (09:08)
--- NOTE | 2021-05-19 10:08 | ECG_ITS ---
Measurements Intervals [place] Rate: 169 P: IA: 0 QRS: 46 QRSD: 93 T: 5 QT: 275 QTc: 462 Interpretive Statements ATRIAL FIBRILLATION WITH RAPID VENTRICULAR RESPONSE RIGHT BUNDLE BRANCH BLOCK NONSPECIFIC ST & T-WAVE ABNORMALITY- ANTEROLAT/INF LEADS BASELINE WANDER- I, II, AVR, AVF, V3-V6 ABNORMAL ECG Electronically Signed On 05-19-2021 12:16:02 [facility] [employer] by Jerson Priest D.O.
[2021-05-19 10:37] LABS: Basophils Percent Auto 0.4 % (0.2-1.2); Eosinophils Absolute Auto 0.1 K/mm3 (0-0.3); Eosinophils Percent Auto 0.9 % (0-4.4); Hematocrit 28.5 % (42.0-52.0); Hemoglobin 8.8 g/dL (14.0-18.0); Immature Granulocyte Absolute 0.09 K/mm3 (0.00-0.031); Immature Granulocyte Percent A 0.9 % (0-0.5); Lymphocytes Percent Auto 11.5 % (18.3-44.2); Mean Corpuscular HGB Conc 30.9 g/dl (32-36); Mean Corpuscular Hemoglobin 29.2 pg (26-34); Mean Corpuscular Volume 94.7 fl (80-100); Mean Platelet Volume 10.5 fl (7.4-10.4); Monocytes Absolute Auto 0.9 K/mm3 (0.1-0.6); Monocytes Percent Auto 8.8 % (2.6-8.5); Neutrophils Absolute Auto 8.1 K/mm3 (1.3-6.7); Neutrophils Percent Auto 77.5 % (45.5-73.1); Platelet Count Result 182 k/mm3 (150-375); Red Blood Count 3.01 M/mm3 (4.6-6.20); White Blood Count 10.5 K/mm3 (4.5-10.0)
[2021-05-19 10:51] LABS: Alanine Aminotransferase 53 U/L (4-50); Albumin Level 2.9 g/dL (3.5-5.1); Alkaline Phosphatase 144 U/L (38-126); Anion Gap 8 mmol/L (8-16); Aspartate Amino Transferase 76 U/L (17-59); Bilirubin,Total 0.5 mg/dL (0.2-1.3); Blood Urea Nitrogen 17 mg/dL (9-20); Calcium 8.3 mg/dL (8.4-10.2); Carbon Dioxide 23 mmol/L (22-30); Chloride 106 mmol/L (98-107); Estimated CRCL calculation 60 ml/min; Estimated Glomerular Filt Rate > 60; Glucose 106 mg/dL (65-110); Potassium 3.4 mmol/L (3.4-5.0); Sodium 137 mmol/L (137-145)
[2021-05-19 11:05] LABS: Troponin I 0.115 ng/mL (0.000-0.034)
--- NOTE | 2021-05-19 12:29 | PCOTNOTE ---
On 05/19/21, the student, Brii ALMONTE, provided care and completed [facility] documentation on this patient. I have reviewed the student's documentation and agree with the findings.
[2021-05-19] MEDS: LORazepam (*CRX) 0.5 MG TABLET PO ×2 (12:32→23:52)
--- NOTE | 2021-05-19 13:11 | PCNFU ---
Nutrition Follow-Up Complete: Inadequate oral intake related to COVID and wounds as evidenced by reported average intake of 25% and left heel pressure ulcer Goal:Meet nutritional needs Pt moderately progressing towards goal. Pt current nutrition is heart healthy diet and dietary supplement. Last recorded weight is 74 kg. Bowel Motility: +BM 05/18 Labs Reviewed: hgb 8.8, hct 25.8, alb 2.9, Ca 8.3, AST 76, ALT 53, ALP 144, ferritin 424 Meds Noted: senokot, vitamin D Skin: left heel pressure ulcer Additional Notes: Unable to visit with pt due to following covid precautions. Per EMR, pt is on a heart healthy diet and dietary supplement of ensure compact BID providing an additional 220kcal and 9g of protein. Per EMR, reported intake is 10% x3, 25%, and 5%. RDN added orders to increase ensure compact from BID to TID to provide additional kcal and protein to aid in wound healing. Will continue to follow. Monitor labs, wt, medications, and intake every 3 days
[2021-05-19 13:24] LABS: Troponin I 0.129 ng/mL (0.000-0.034)
[2021-05-19] MEDS: METOPROLOL TARTRATE INJ 5 MG/5 ML VIAL IV PUSH (13:28)
[2021-05-19 13:39] LABS: Creatine Kinase 100 U/L (55-170)
--- NOTE | 2021-05-19 13:48 | PM.CNCAR ---
Assessment and Plan Assessment and plan (1) Atrial fibrillation with RVR: Code(s): I48.91 - Unspecified atrial fibrillation Status: Acute Assessment and Plan: New onset AFib with RVR initially symptomatic the patient resting comfortably without complaints of chest pain. Heart rate control strategy. Patient is not a candidate for systemic anticoagulation due to multiple recurrent falls and underlying dementia. Since aspirin 325 mg daily most reasonable at this time. Give IV metoprolol 5 mg x 1 start oral metoprolol 25 mg p.o. q.8 hours. If heart rate not well controlled IV diltiazem and or IV amiodarone for heart rate control reasonable. Continue telemetry. As he is not a candidate for systemic anticoagulation he is not a good candidate for cardioversion. (2) Elevated troponin: Code(s): R77.8 - Other specified abnormalities of plasma proteins Status: Acute Assessment and Plan: Mild troponin elevation obtained at the time of acute onset of AFib with RVR with associated complaints of chest pain. As such, troponin elevation is not secondary to this episode as the contribution to rise in troponin would have predated by several hours this event. Check CK level as patient was found down with a history of multiple falls. Renal function stable. Patient has not been significantly hypotensive. While he may have underlying CAD with demand ischemia in setting of AFib with RVR patient is not a candidate for invasive workup given his dementia. Trend serial troponins although this appears to be more likely a type 2 infarction given the fact his troponin was already elevated more likely secondary to hypotension at presentation. 2D echocardiogram personally reviewed EF 65-70% no wall motion abnormalities mild LVH moderate left atrial enlargement. (3) COVID: Code(s): U07.1 - COVID-19 Status: Acute Assessment and Plan: Patient appears to be relatively stable and or asymptomatic in this regard. He had a positive COVID antigen antigen outside hospital 05/08/2021. This still certainly could be an additional contributor to developed AFib with RVR. (4) Recurrent falls: Code(s): R29.6 - Repeated falls Status: Acute Assessment and Plan: As above. Patient is not a candidate for anticoagulation. (5) Anemia: Code(s): D64.9 - Anemia, unspecified Status: Acute Assessment and Plan: Moderate to severe anemia, stable of late although with a significant decline from April 2021 without evidence of acute bleed. Follow H&H. (6) Dementia: Code(s): F03.90 - Unspecified dementia without behavioral disturbance Status: Acute Assessment and Plan: As above. Management Per hospitalist service. (7) Altered mental status: Code(s): R41.82 - Altered mental status, unspecified Status: Acute Assessment and Plan: Per hospitalist service. Acute on chronic. History of Present Illness History of Present Illness Consult date/time: Date of Service: 05/19/21 13:48 Cardiology consultation at the request of Dr. Julien of the [facility] service for opinion regarding atrial fibrillation with rapid ventricular response and elevated troponin. Requesting physician: Elisabeth Julien MD Consult reason: atrial fibrillation and Other (Elevated troponin) Reason For Visit: Recurrent left hip dislocation Narrative: Patient is an 81-year-old male with past medical history significant for dementia, frequent falls resulting in hip fracture and subsequent re-injury requiring revision of the left hip status post reduction this hospitalization who was a resident of [place] who was sent to the emergency department for further evaluation after being found lying on the ground. Due to his dementia he was unable to provide any meaningful history in this regard presentation. This history is obtained through electronic medical record particular patient is not answering q
--- NOTE | 2021-05-19 17:19 | PM.IMPN ---
Progress Note: A&P Assessment and Plan (1) Fall: Code(s): W19.XXXA - Unspecified fall, initial encounter Status: Acute Assessment and Plan: Patient had an unwitnessed fall again today in which she dislocated his left hip prosthesis. Pt seen by orthopedics, pt to continue on PT/OT (2) Recurrent dislocation, left hip: Code(s): M24.452 - Recurrent dislocation, left hip Status: Acute Assessment and Plan: Successfully reduced. Dr. Chakraborty consulted. (3) Transient hypotension: Code(s): I95.9 - Hypotension, unspecified Status: Acute Assessment and Plan: Most likely related to dehydration IV fluid (4) Anemia: Code(s): D64.9 - Anemia, unspecified Status: Acute Assessment and Plan: Hemoglobin and hematocrit are stable and will be monitored. Workup as outpatient (5) Dementia: Code(s): F03.90 - Unspecified dementia without behavioral disturbance Status: Acute Assessment and Plan: Continue home medication including memantine, lamotrigine, haloperidol, rivastigmine, and lorazepam. (6) COVID: Code(s): U07.1 - COVID-19 Status: Acute Assessment and Plan: Reportedly tested positive at outside facility. Patient has been placed in isolation. Seems asymptomatic. not needing any oxyen (7) Acute metabolic encephalopathy: Code(s): G93.41 - Metabolic encephalopathy Status: Acute Assessment and Plan: Most likely multifactorial related to polypharmacy and dehydration and fall continue to monitor fall precaution improved Waxes and wanes (8) Atrial fibrillation with RVR: Code(s): I48.91 - Unspecified atrial fibrillation Status: Acute Assessment and Plan: Pt given iv metoprolol now on oral metoprolol and is stable no chest pain HR is ST (9) Elevated troponin: Code(s): R77.8 - Other specified abnormalities of plasma proteins Status: Acute Assessment and Plan: Continue to monitor troponin, elevated due to bout of AF Pt seen by cardiology. Subjective Date/time seen: 05/19/21 17:19 Interval history: 81-year-old male with dementia presented to the emergency department earlier today from [place] for evaluation after he was found lying on the floor. pt seen by orthopedics Pt had recurrent hip dislocation. Successfully reduced by orthopedics. Pt here for covid not on oxygen. Pt was having some chest pain this morning, trop was ordered. Pt tele was showing Af With RVR, pt seen by cardiology had iv metoprolol. Pt is presently chest pain free. Review of Systems Review of Systems: All systems reviewed & are unremarkable except as noted in HPI and below Exam Narrative: Pt is tired thin frail man Chest BL clear Abdomen nontender nondistended CVS S1 + S2 Lower extremity edema with brace Objective Data Vital Signs Vital Signs: Vital Signs - 24 hr 05/18/21 20:00 05/18/21 23:08 05/19/21 03:48 Temperature 36.6 C 37.2 C 37.1 C Pulse Rate 120 H 97 88 Respiratory Rate Blood Pressure 106/67 125/46 L 102/52 L Pulse Oximetry 90 95 96 05/19/21 12:40 05/19/21 13:28 Temperature 36.7 C Pulse Rate 119 H 120 H Respiratory Rate 22 H Blood Pressure 136/64 Pulse Oximetry 98 Intake/Output Intake/Output: Intake & Output 05/16/21 05/17/21 05/18/21 05/19/21 23:59 23:59 23:59 23:59 Intake Total 407 595 6806 1120 Balance 039 951 7769 1120 Meds/Results Medications: Active Medications Generic Name Dose Route Start Last Admin Trade Name Freq PRN Reason Stop Dose Admin Acetaminophen 650 mg 05/15/21 22:07 05/17/21 06:04 Acetaminophen 325 Mg Tablet PO 650 mg Q6H PRN Administration Mild Pain (1-3) Or Fever Benztropine Mesylate 1 mg 05/16/21 09:00 05/19/21 09:06 Benztropine Mesylate 1 Mg Tablet PO 1 mg DAILY MARGARET Administration Haloperidol 2 mg 05/15/21 23:00 05/19/21 09:06 Haloperidol 1 Mg Tab
[2021-05-19] MEDS: METOPROLOL TARTRATE 25 MG TABLET PO ×2 (18:12→21:22)
[2021-05-19] MEDS: TAMSULOSIN HCL 0.4 MG CAPSULE PO (21:22)
[2021-05-19] MEDS: ACETAMINOPHEN 325 MG TABLET 650 MG PO (23:51)
[2021-05-20] VITALS (10 sets, daily range): BP systolic 83–101; BP diastolic 44–54; PULSE 78–91; RESP 16–18; TEMP 36.9–37.6; O2SAT 90–100
[2021-05-20] MEDS: MAGNES & ALUM HYD/SIMETH/DIPHENHYD/LIDOCAINE 119 ML MOUTHWASH BY MOUTH ×6 (02:05→22:10)
[2021-05-20] MEDS: METOPROLOL TARTRATE 25 MG TABLET PO (06:30)
[2021-05-20] MEDS: SODIUM CHLORIDE 0.9% IV 1,000 ML 75 ML IV CONT (06:46)
[2021-05-20 07:00] LABS: Basophils Absolute Auto 0.1 K/mm3 (0.0-0.1); Basophils Percent Auto 0.6 % (0.2-1.2); Eosinophils Absolute Auto 0.1 K/mm3 (0-0.3); Eosinophils Percent Auto 0.9 % (0-4.4); Hematocrit 25.8 % (42.0-52.0); Hemoglobin 8.1 g/dL (14.0-18.0); Immature Granulocyte Absolute 0.09 K/mm3 (0.00-0.031); Immature Granulocyte Percent A 0.9 % (0-0.5); Lymphocytes Absolute Auto 1.21 K/mm3 (0.9-3.2); Mean Corpuscular HGB Conc 31.4 g/dl (32-36); Mean Corpuscular Hemoglobin 28.7 pg (26-34); Mean Corpuscular Volume 91.5 fl (80-100); Mean Platelet Volume 10.9 fl (7.4-10.4); Monocytes Absolute Auto 0.9 K/mm3 (0.1-0.6); Monocytes Percent Auto 9.1 % (2.6-8.5); Neutrophils Absolute Auto 7.7 K/mm3 (1.3-6.7); Neutrophils Percent Auto 76.5 % (45.5-73.1); Platelet Count Result 153 k/mm3 (150-375); Red Blood Count 2.82 M/mm3 (4.6-6.20); White Blood Count 10.1 K/mm3 (4.5-10.0)
[2021-05-20 07:12] LABS: Alanine Aminotransferase 154 U/L (4-50); Albumin Level 2.4 g/dL (3.5-5.1); Alkaline Phosphatase 154 U/L (38-126); Anion Gap 7 mmol/L (8-16); Aspartate Amino Transferase 346 U/L (17-59); Bilirubin,Total 0.4 mg/dL (0.2-1.3); Blood Urea Nitrogen 27 mg/dL (9-20); Calcium 8.2 mg/dL (8.4-10.2); Carbon Dioxide 20 mmol/L (22-30); Chloride 110 mmol/L (98-107); Estimated CRCL calculation 50 ml/min; Estimated Glomerular Filt Rate > 60; Glucose 103 mg/dL (65-110); Potassium 3.8 mmol/L (3.4-5.0); Sodium 137 mmol/L (137-145)
[2021-05-20] MEDS: SENNA/DOCUSATE SODIUM TABLET 2 TAB PO (07:58)
[2021-05-20] MEDS: MEMANTINE 5 MG TABLET PO ×2 (07:58→22:13)
[2021-05-20] MEDS: RIVASTIGMINE TARTRATE 9.5 MG PATCH 1 PATCH TRANSDERM (07:58)
[2021-05-20] MEDS: SERTRALINE HCL 50 MG TABLET PO (07:59)
[2021-05-20] MEDS: BENZTROPINE MESYLATE 1 MG TABLET PO (07:59)
[2021-05-20] MEDS: HALOPERIDOL 5 MG TABLET PO (07:59)
[2021-05-20] MEDS: CHOLECALCIFEROL 400 UNITS TABLET (VIT D) PO (07:59)
[2021-05-20] MEDS: lamoTRIgine 25 MG TABLET PO (07:59)
[2021-05-20] MEDS: cefTRIAXone 2 GM in SODIUM CHLORIDE 0.9% IV 100 ML 200 ML IVPB (08:00)
--- NOTE | 2021-05-20 09:00 | PM.IMPN ---
Progress Note: A&P Assessment and Plan (1) Fall: Code(s): W19.XXXA - Unspecified fall, initial encounter Status: Acute Assessment and Plan: Patient had an unwitnessed fall again dislocated his left hip prosthesis. Pt seen by orthopedics. pt to continue on PT/OT (2) Recurrent dislocation, left hip: Code(s): M24.452 - Recurrent dislocation, left hip Status: Acute Assessment and Plan: Successfully reduced. Dr. Chakraborty consulted. (3) Transient hypotension: Code(s): I95.9 - Hypotension, unspecified Status: Acute Assessment and Plan: Most likely related to dehydration 2 liters boluses Will get CT of chest abdomen and pelvis BP 86/44 Continue to trend Stop metoprolol (4) Anemia: Code(s): D64.9 - Anemia, unspecified Status: Acute Assessment and Plan: Hemoglobin and hematocrit are stable and will be monitored. Workup as outpatient (5) Dementia: Code(s): F03.90 - Unspecified dementia without behavioral disturbance Status: Acute Assessment and Plan: Continue home medication including memantine, lamotrigine, haloperidol, rivastigmine, and lorazepam. (6) COVID: Code(s): U07.1 - COVID-19 Status: Acute Assessment and Plan: Reportedly tested positive at outside facility. Patient has been placed in isolation. Seems asymptomatic. not needing any oxyen (7) Acute metabolic encephalopathy: Code(s): G93.41 - Metabolic encephalopathy Status: Acute Assessment and Plan: Most likely multifactorial related to polypharmacy and dehydration and fall continue to monitor fall precaution improved Waxes and wanes (8) Atrial fibrillation with RVR: Code(s): I48.91 - Unspecified atrial fibrillation Status: Acute Assessment and Plan: Pt given iv metoprolol oral metoprolol DC'd as BP is low stable no chest pain HR is ST Cards consulted (9) Elevated troponin: Code(s): R77.8 - Other specified abnormalities of plasma proteins Status: Acute Assessment and Plan: Trops are flat Probably related to AF RVR Pt seen by cardiology Time Spent With Patient Time with patient: Greater than 35 minutes Subjective Date/time seen: 05/20/21 0900 Interval history: 81-year-old male with dementia presented to the emergency department earlier today from [place] for evaluation after he was found lying on the floor. pt seen by orthopedics Pt had recurrent hip dislocation. Successfully reduced by orthopedics. Pt here for covid not on oxygen. Pt was having some chest pain this morning, trop was ordered. Pt tele was showing Af With RVR, pt seen by cardiology had iv metoprolol. Pt is presently chest pain free. Date/time 05/20/21 0900 Patient is in bed. He really doesn't complain of anything. He is also confused as well. He really is not answering many questions. He is very pale. ROS unable to be obtained due to patient's mental status Review of Systems Review of Systems: All systems reviewed & are unremarkable except as noted in HPI and below Exam Const: General: cooperative, healthy appearing, no acute distress, well developed, alert and awake Nutritional Appearance: well nourished Orientation/consciousness: patient oriented x3 Limitations: no limitations HENMT: Head: normal to inspection Ears: hearing grossly normal bilaterally General nose exam: Normal external nose present Mouth: Yes Normal oral and palatal mucosa present, Yes lip normal and Yes tongue normal Teeth and gingiva: abnormal tooth and associated gingiva and poor dentition Eyes: General: appearance normal, both eyes and all related structures Neck: Neck: normal visual inspection, full ROM, trachea midline and supple Chest: Chest palpation & inspection: normal inspection of the chest Resp: Effort & Inspection: normal respiratory effort and able to speak in complete sentences [facility]
[2021-05-20 09:07] LABS: Lactic Acid Reflex 1.4 mmol/L (0.7-2.1)
[2021-05-20 09:11] LABS: Creatine Kinase 83 U/L (55-170)
[2021-05-20 09:39] LABS: Hepatitis B Surface Antigen Negative (Negative)
--- NOTE | 2021-05-20 09:44 | PCPTNOTE ---
attempted to see pt. BP 83/46 in supine. hold standing at this time. US came to take pt for test. will re attempt later this date
[2021-05-20 09:46] LABS: HAV RESULT Negative (Negative); Hepatitis B Core IgM Result Negative (Negative)
[2021-05-20 09:56] LABS: Hepatitis C Virus Antibody Negative (Negative)
[2021-05-20] MEDS: LACTATED RINGERS 1,000 ML 999 ML IV CONT ×2 (10:55→14:12)
[2021-05-20 11:04] LABS: Basophils Absolute Auto 0.1 K/mm3 (0.0-0.1); Basophils Percent Auto 0.4 % (0.2-1.2); Eosinophils Absolute Auto 0.1 K/mm3 (0-0.3); Eosinophils Percent Auto 0.8 % (0-4.4); Hematocrit 27.1 % (42.0-52.0); Hemoglobin 8.4 g/dL (14.0-18.0); Immature Granulocyte Absolute 0.09 K/mm3 (0.00-0.031); Immature Granulocyte Percent A 0.8 % (0-0.5); Lymphocytes Absolute Auto 0.99 K/mm3 (0.9-3.2); Lymphocytes Percent Auto 8.8 % (18.3-44.2); Mean Corpuscular Hemoglobin 29.1 pg (26-34); Mean Corpuscular Volume 93.8 fl (80-100); Mean Platelet Volume 10.9 fl (7.4-10.4); Monocytes Percent Auto 8.7 % (2.6-8.5); Neutrophils Percent Auto 80.5 % (45.5-73.1); Platelet Count Result 151 k/mm3 (150-375); Red Blood Count 2.89 M/mm3 (4.6-6.20); Red Cell Distribution Width 14.1 % (11.5-14.5); White Blood Count 11.2 K/mm3 (4.5-10.0)
--- NOTE | 2021-05-20 11:24 | WPDGICN ---
Assessment and Plan Assessment and plan (1) Elevated liver enzymes: Code(s): R74.8 - Abnormal levels of other serum enzymes Status: Acute Assessment and Plan: Patient found to have elevated serum transaminases. Most noticeably over the last several days. Gallbladder ultrasound reveals unremarkable findings. Patient was admitted with hypotensive elevated that is also called cause serum troponins to be elevated. I suspect he may have a component of shock liver . Likely related to his hypotension. Would suggest conservative management following LFTs conservatively at this point. (2) Atrial fibrillation with RVR: Code(s): I48.91 - Unspecified atrial fibrillation Status: Acute (3) Recurrent falls: Code(s): R29.6 - Repeated falls Status: Acute (4) Anemia: Code(s): D64.9 - Anemia, unspecified Status: Acute Assessment and Plan: Patient has chronic anemia likely multifactorial. No evidence for significant active bleeding at this time. (5) History of left hip hemiarthroplasty: Code(s): Z96.642 - Presence of left artificial hip joint Status: Acute GI Consult Note Consult date/time: 05/20/21 11:24 HPI: Sid Ellison is a 81 year old male I am asked to see for elevated LFTs. Patient admitted the hospital 05/15/2021. After being found on the ground with hypotensive episode. He has an underlying history of dementia currently at [facility]. Patient admitted the hospital several weeks ago with a hip fracture. He is unable to add any useful history. He denies abdominal pain. Sitting in bed in eating. [facility] Past Medical History Medical History BPH (benign prostatic hyperplasia) Dementia Depression with anxiety Prostate cancer per daughter Surgical History Surgical History History of appendectomy per daughter History of left hip hemiarthroplasty With revision after fall and dislocation. Family History Family History Unknown Unknown family medical history Social History Social History Social History: Daughter: Trish is Next of Kin , per Trish PPW is pending patient signature. Nephew: Srikanth Ellison (2nd contact per Trish/Beth [facility]) Remaining social history obtained from Trish. 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 Gender identity (if verbalized by the patient): Male Spiritual care concerns: No Meds Home Medications and Allergies Home Medications Medication Instructions Recorded Confirmed Type benztropine 1 mg PO DAILY 04/23/21 05/15/21 History cholecalciferol (vitamin D3) 10 mcg PO DAILY 04/23/21 05/15/21 History [Vitamin D3] haloperidol 2 mg PO Q6H PRN 04/23/21 05/15/21 History haloperidol 5 mg PO DAILY 04/23/21 05/15/21 History lamotrigine 25 mg PO DAILY 04/23/21 05/15/21 History lorazepam 1 mg PO Q6H PRN 04/23/21 05/15/21 History memantine 5 mg PO Q12H 04/23/21 05/15/21 History rivastigmine 9.5 mg TRANSDERMAL DAILY 04/23/21 05/15/21 History sertraline 50 mg PO DAILY 04/23/21 05/15/21 History tamsulosin 0.4 mg PO HS 04/23/21 05/15/21 History aspirin [Aspir-Zehra] 325 mg PO BID #42 tablet 04/26/21 05/15/21 Rx acetaminophen [Mapap 650 mg PO Q6H PRN #30 tablet 05/05/21 05/15/21 Rx (acetaminophen)] sennosides-docusate sodium 2 tab PO BID #60 tablet 05/05/21 05/15/21 Rx [Senokot-S] hydrocodone-acetaminophen 1 tablet PO Q4H PRN #12 tablet 05/09/21 05/15/21 Rx lorazepam 1 mg PO HS 05/15/21 05/15/21 History Allergies Allergy/AdvReac Type Severity Re
[2021-05-20 11:27] LABS: Lipase 115 U/L (23-300)
--- NOTE | 2021-05-20 19:00 | PM.PNCARD ---
Progress Note: A&P Assessment and Plan (1) Atrial fibrillation with RVR: Code(s): I48.91 - Unspecified atrial fibrillation Status: Acute Assessment and Plan: New onset AFib with RVR initially symptomatic with chest pain. Has converted to sinus rhythm. Maybe have been caused by his large pulmonary embolus Patient is not a good candidate for systemic anticoagulation due to multiple recurrent falls and underlying dementia. Continue telemetry. Hold metoprolol for now; use amiodarone if recurrent a fib. (2) Elevated troponin: Code(s): R77.8 - Other specified abnormalities of plasma proteins Status: Acute Assessment and Plan: Mild troponin elevation obtained at the time of acute onset of AFib with RVR with associated complaints of chest pain, 0.115 and 0.129. No acute ischemic EKG changes. In retrospect may be related to his pulmonary emboli. (3) Multiple pulmonary emboli: Code(s): I26.99 - Other pulmonary embolism without acute cor pulmonale Status: Acute Assessment and Plan: Saddle embolus, large pulmonary embolus, with transient hypotension earlier today and recovery blood pressure. Fortunately the patient's oxygenation is good. Though not a good candidate for A/C, will need to anticoagulate in this situation. Being started on Lovenox. (4) COVID: Code(s): U07.1 - COVID-19 Status: Acute Assessment and Plan: Patient appears to be relatively stable and or asymptomatic in this regard. He had a positive COVID antigen antigen outside hospital 05/08/2021. This still certainly could be an additional contributor to developed AFib with RVR. (5) Recurrent falls: Code(s): R29.6 - Repeated falls Status: Acute Assessment and Plan: As above. Patient is not a candidate for anticoagulation. (6) Anemia: Code(s): D64.9 - Anemia, unspecified Status: Acute Assessment and Plan: Moderate to severe anemia, stable of late although with a significant decline from April 2021 without evidence of acute bleed. Follow H&H. (7) Dementia: Code(s): F03.90 - Unspecified dementia without behavioral disturbance Status: Acute Assessment and Plan: As above. Management Per hospitalist service. (8) Altered mental status: Code(s): R41.82 - Altered mental status, unspecified Status: Acute Assessment and Plan: Per hospitalist service. Acute on chronic. Subjective Date/time seen: 05/20/21 19:00 Interval history: Follow-up new onset AFib RVR associated with chest pain, elevated troponins, COVID pneumonia. History of dementia. Not anticoagulated because of recurrent falls. Chest CT 05/20/2021 showed multiple PEs. Echo from April 2021 showed normal LV function and no significant valve disease. Date of service 05/20/2021: Yesterday when he was in AFib RVR he was given some IV and p.o. metoprolol and converted to sinus rhythm. The metoprolol has been discontinued presumably due to low blood pressure. Patient unable to provide any relevant history; he has been confused and agitated at times and has been given Ativan, Haldol etc.. Blood pressure soft today, in the 80s-100/50s. Remains on room air. Elevated liver enzymes noted today. CT of the chest showed multiple PEs with a large thrombus burden today. Getting started on Lovenox. Telemetry shows sinus rhythm. There are episodes with heart rhythm appears abnormal, but on my extensive review this appears to be artifactual. Review of Systems Review of Systems: Review of systems obtained from EMR and from the patient's nurse, Stacey FATIMA unobtainable: Yes unobtainable due to mental status Cardiovascular: Cardiovascular: Denies chest pain Respiratory: Respiratory: Denies hemoptysis and Denies dyspnea Neurologic: Reports confusion Psychiatric: Psychiatric: Reports behavioral changes and Reports confusion Exam Narrative: Alert discha
[2021-05-20] MEDS: LORazepam (*CRX) 0.5 MG TABLET PO (22:05)
[2021-05-20] MEDS: TAMSULOSIN HCL 0.4 MG CAPSULE PO (22:12)
[2021-05-20] MEDS: ENOXAPARIN 80 MG/0.8 ML SYRINGE 74 MG SUB-Q (22:19)
[2021-05-21] VITALS (8 sets, daily range): BP systolic 99–125; BP diastolic 46–62; PULSE 77–90; RESP 16–18; TEMP 36.7–37.1; O2SAT 95–96
[2021-05-21 00:43] LABS: Basophils Absolute Auto 0.1 K/mm3 (0.0-0.1); Basophils Percent Auto 0.5 % (0.2-1.2); Eosinophils Absolute Auto 0.1 K/mm3 (0-0.3); Eosinophils Percent Auto 0.6 % (0-4.4); Hematocrit 25.2 % (42.0-52.0); Hemoglobin 7.9 g/dL (14.0-18.0); Immature Granulocyte Absolute 0.12 K/mm3 (0.00-0.031); Immature Granulocyte Percent A 1.1 % (0-0.5); Lymphocytes Absolute Auto 0.96 K/mm3 (0.9-3.2); Lymphocytes Percent Auto 8.7 % (18.3-44.2); Mean Corpuscular HGB Conc 31.3 g/dl (32-36); Mean Corpuscular Hemoglobin 28.7 pg (26-34); Mean Corpuscular Volume 91.6 fl (80-100); Mean Platelet Volume 11.3 fl (7.4-10.4); Monocytes Percent Auto 8.9 % (2.6-8.5); Neutrophils Absolute Auto 8.9 K/mm3 (1.3-6.7); Neutrophils Percent Auto 80.2 % (45.5-73.1); Nucleated Red Blood Cells Perc 0.2 % (0.0-0.2); Platelet Count Result 156 k/mm3 (150-375); Red Blood Count 2.75 M/mm3 (4.6-6.20); Red Cell Distribution Width 14.3 % (11.5-14.5); White Blood Count 11.1 K/mm3 (4.5-10.0)
[2021-05-21] MEDS: MAGNES & ALUM HYD/SIMETH/DIPHENHYD/LIDOCAINE 119 ML MOUTHWASH BY MOUTH ×6 (02:05→21:24)
[2021-05-21 08:34] LABS: Alanine Aminotransferase 159 U/L (4-50); Albumin Level 2.5 g/dL (3.5-5.1); Alkaline Phosphatase 179 U/L (38-126); Anion Gap 9 mmol/L (8-16); Aspartate Amino Transferase 246 U/L (17-59); Bilirubin,Total 0.5 mg/dL (0.2-1.3); Blood Urea Nitrogen 23 mg/dL (9-20); Calcium 8.2 mg/dL (8.4-10.2); Carbon Dioxide 19 mmol/L (22-30); Chloride 108 mmol/L (98-107); Estimated CRCL calculation 54 ml/min; Estimated Glomerular Filt Rate > 60; Glucose 91 mg/dL (65-110); Magnesium 2.3 mg/dL (1.6-2.3); Potassium 3.6 mmol/L (3.4-5.0); Sodium 136 mmol/L (137-145)
[2021-05-21] MEDS: cefTRIAXone 2 GM in SODIUM CHLORIDE 0.9% IV 100 ML 200 ML IVPB (09:22)
[2021-05-21] MEDS: RIVASTIGMINE TARTRATE 9.5 MG PATCH 1 PATCH TRANSDERM (09:22)
[2021-05-21] MEDS: ENOXAPARIN 80 MG/0.8 ML SYRINGE 74 MG SUB-Q ×2 (09:22→21:23)
[2021-05-21] MEDS: SENNA/DOCUSATE SODIUM TABLET 2 TAB PO (09:23)
[2021-05-21] MEDS: BENZTROPINE MESYLATE 1 MG TABLET PO (09:23)
[2021-05-21] MEDS: HALOPERIDOL 1 MG TABLET 2 MG PO (09:23)
[2021-05-21] MEDS: SERTRALINE HCL 50 MG TABLET PO (09:23)
[2021-05-21] MEDS: HALOPERIDOL 5 MG TABLET PO (09:24)
[2021-05-21] MEDS: lamoTRIgine 25 MG TABLET PO (09:24)
[2021-05-21] MEDS: MEMANTINE 5 MG TABLET PO ×2 (09:24→21:24)
[2021-05-21] MEDS: CHOLECALCIFEROL 400 UNITS TABLET (VIT D) PO (09:25)
--- NOTE | 2021-05-21 10:00 | PM.IMPN ---
Progress Note: A&P Assessment and Plan (1) Fall: Code(s): W19.XXXA - Unspecified fall, initial encounter Status: Acute Assessment and Plan: Patient had an unwitnessed fall again dislocated his left hip prosthesis. Pt seen by orthopedics. pt to continue on PT/OT (2) Recurrent dislocation, left hip: Code(s): M24.452 - Recurrent dislocation, left hip Status: Acute Assessment and Plan: Successfully reduced. Dr. Chakraborty consulted. (3) Transient hypotension: Code(s): I95.9 - Hypotension, unspecified Status: Acute Assessment and Plan: Most likely related to dehydration 2 liters boluses Will get CT of chest abdomen and pelvis BP 114/55 Continue to trend Stop metoprolol (4) Anemia: Code(s): D64.9 - Anemia, unspecified Status: Acute Assessment and Plan: H/H 7.9/25.2 Hemoglobin and hematocrit are stable and will be monitored. Anemia labs in the am (5) Dementia: Code(s): F03.90 - Unspecified dementia without behavioral disturbance Status: Acute Assessment and Plan: Continue home medication including memantine, lamotrigine, haloperidol, rivastigmine, and lorazepam. (6) COVID: Code(s): U07.1 - COVID-19 Status: Acute Assessment and Plan: Reportedly tested positive at outside facility. Patient has been placed in isolation. Seems asymptomatic. not needing any oxyen (7) Acute metabolic encephalopathy: Code(s): G93.41 - Metabolic encephalopathy Status: Acute Assessment and Plan: Seems better today Started on antibiotics for PNA Found to have PE Most likely multifactorial related to polypharmacy and dehydration and fall continue to monitor fall precaution improved Waxes and wanes (8) Atrial fibrillation with RVR: Code(s): I48.91 - Unspecified atrial fibrillation Status: Acute Assessment and Plan: Pt given iv metoprolol Found to have a PE oral metoprolol DC'd as BP is low stable no chest pain HR is ST Cards consulted (9) Elevated troponin: Code(s): R77.8 - Other specified abnormalities of plasma proteins Status: Acute Assessment and Plan: Trops are flat Probably related to AF RVR Pt seen by cardiology (10) Multiple pulmonary emboli: Code(s): I26.99 - Other pulmonary embolism without acute cor pulmonale Status: Acute Assessment and Plan: CTA showed Pulmonary embolism of the main pulmonary artery, right and left pulmonary arteries and segmental and subsegmental pulmonary arteries bilaterally, large thrombus burden. Lovenox full dose started Chest pain better today Trend labs (11) Pneumonia: Code(s): J18.9 - Pneumonia, unspecified organism Status: Acute Assessment and Plan: Ct found Left lower lobe airspace disease peripherally which may represent pneumonia or pulmonary infarction No complaints of shortness of breath Started patient on ceftriaxone and azithromycin WBC mildly elevated 11.1 Could be related to recent covid positive status Breathing treatments Time Spent With Patient Time with patient: Greater than 35 minutes Subjective Date/time seen: 05/21/21 1000 Interval history: 81-year-old male with dementia presented to the emergency department earlier today from [place] for evaluation after he was found lying on the floor. pt seen by orthopedics Pt had recurrent hip dislocation. Successfully reduced by orthopedics. Pt here for covid not on oxygen. Pt was having some chest pain this morning, trop was ordered. Pt tele was showing Af With RVR, pt seen by cardiology had iv metoprolol. Pt is presently chest pain free. Date/time 05/20/21 0900 Patient is in bed. He really doesn't complain of anything. He is also confused as well. He really is not answering many questions. He is very pale. ROS unable to be obtained due to patient'
--- NOTE | 2021-05-21 10:12 | WPDGIPROGNO ---
Progress Note: A&P Assessment and Plan (1) Elevated liver enzymes: Code(s): R74.8 - Abnormal levels of other serum enzymes Status: Acute Assessment and Plan: Elevated LFTs at time of admission felt be related to hypotension and possible shock liver . Plan to monitor LFTs conservatively at this time. (2) Multiple pulmonary emboli: Code(s): I26.99 - Other pulmonary embolism without acute cor pulmonale Status: Acute Assessment and Plan: new diagnosis of pulmonary emboli identified. Continued supportive care. Workup by primary care service. (3) Atrial fibrillation with RVR: Code(s): I48.91 - Unspecified atrial fibrillation Status: Acute (4) COVID: Code(s): U07.1 - COVID-19 Status: Acute (5) Recurrent dislocation, left hip: Code(s): M24.452 - Recurrent dislocation, left hip Status: Acute Subjective Date/time seen: 05/21/21 10:12 Patient alert and comfortable at rest. HEENT exam reveals no icterus. Lungs are clear. Abdomen is soft nontender with no organomegaly. Review of Systems Review of Systems: ROS unobtainable: Yes unobtainable due to mental status Exam Narrative: Physical exam reveals abdomen to be soft. Bowel sounds are present soft nontender with no organomegaly. Objective Data Vital Signs Vital Signs: Vital Signs - 24 hr 05/20/21 12:00 05/20/21 13:36 05/20/21 13:38 Temperature Pulse Rate 88 80 Respiratory Rate Blood Pressure 86/44 L Pulse Oximetry 05/20/21 14:00 05/20/21 16:00 05/20/21 20:00 Temperature 98.5 F Pulse Rate 79 91 85 Respiratory Rate 18 Blood Pressure 101/51 L Pulse Oximetry 100 05/20/21 21:56 05/21/21 00:00 05/21/21 04:00 Temperature 99.7 F H Pulse Rate 91 80 81 Respiratory Rate 16 Blood Pressure 88/48 L Pulse Oximetry 90 05/21/21 05:47 05/21/21 09:25 Temperature 98.4 F 98.7 F Pulse Rate 84 88 Respiratory Rate 16 18 Blood Pressure 99/52 L 114/55 L Pulse Oximetry 95 95 Intake/Output Intake/Output: Intake & Output 05/18/21 05/19/21 05/20/21 05/21/21 23:59 23:59 23:59 23:59 Intake Total 3060 2380 1510 750 Balance 3060 2380 1510 750 Meds/Results Medications: Active Medications Generic Name Dose Route Start Last Admin Trade Name Freq PRN Reason Stop Dose Admin Acetaminophen 650 mg 05/15/21 22:07 05/19/21 23:51 Acetaminophen 325 Mg Tablet PO 650 mg Q6H PRN Administration Mild Pain (1-3) Or Fever Benztropine Mesylate 1 mg 05/16/21 09:00 05/21/21 09:23 Benztropine Mesylate 1 Mg Tablet PO 1 mg DAILY MARGARET Administration Enoxaparin Sodium 74 mg 05/20/21 20:00 05/21/21 09:22 Enoxaparin 80 Mg/0.8 Ml Syringe SUB-Q 74 mg Q12H MARGARET Administration Haloperidol 2 mg 05/15/21 23:00 05/21/21 09:23 Haloperidol 1 Mg Tablet PO 2 mg Q6H PRN Administration Agitation Haloperidol 5 mg 05/16/21 09:00 05/21/21 09:24 Haloperidol 5 Mg Tablet PO 5 mg DAILY MARGARET Administration Ceftriaxone Sodium 2 gm/ 100 mls @ 200 mls/hr 05/17/21 10:45 05/21/21 09:22 Sodium Chloride IVPB 200 mls/hr QAM MARGARET Administration Sodium Chloride 1,000 mls @ 75 mls/hr 05/17/21 12:55 05/20/21 06:46 Normal Saline Iv IV CONT 75 mls/hr .[id number] MARGARET Administration Azithromycin 250 mg/ Dextrose 250 mls @ 250 mls/hr 05/20/21 19:45 05/20/21 22:05 IVPB 250 mls/hr HS MARGARET Administration Lamotrigine 25 mg 05/16/21 09:00 05/21/21 09:24 Lamotrigine 25 Mg Tablet PO 25 mg DAILY MARGARET Administration Lidocaine/Diphenhydr/Alum/Mg/Simeth 5 ml 05/18/21 17:00 05/21/21 09:23 Magnes & Alum Hyd/Simeth/Diphenhyd/Lidocaine 119 Ml Mouthwash BY MOUTH 06/17/21 16:59 5 ml Q4HR MARGARET Administration Lorazepam 0.5 mg 05/17/21 10:55 05/20/21 22:05 Lorazepam (*Crx) 0.5 Mg Tablet PO 0.5 mg Q6H PRN Administration Anxiety Memantine 5 mg 05/16/21 09:00 05/21/21 09:24 Memantine 5 Mg Table
--- NOTE | 2021-05-21 12:36 | ECG_ITS ---
Measurements Intervals [place] Rate: 86 P: 49 [place]: 133 QRS: 28 QRSD: 89 T: 32 QT: 402 QTc: 482 Interpretive Statements SINUS RHYTHM T WAVE ABNORMALITY IN ANTERIOR LEADS- CONSIDER ISCHEMIA BASELINE WANDER- II, III, AVR, AVL, AVF, V1-V6 ABNORMAL ECG Electronically Signed On 05-21-2021 17:21:04 [employer] [employer] by Jerson Priest D.O.
--- NOTE | 2021-05-21 14:35 | PCSTNOTE ---
Please refer to the Bedside Swallow Evaluation in the EMR. Please note, silent aspiration cannot be ruled out at bedside.
--- NOTE | 2021-05-21 17:07 | PM.PNCARD ---
Progress Note: A&P Assessment and Plan (1) Atrial fibrillation with RVR: Code(s): I48.91 - Unspecified atrial fibrillation Status: Acute Assessment and Plan: One episode new onset AFib with RVR initially symptomatic with chest pain. Has converted to sinus rhythm; no recurrence. Maybe have been caused by his large pulmonary embolus Patient is not a good candidate for systemic anticoagulation due to multiple recurrent falls and underlying dementia. Continue telemetry. BP soft and metoprolol held. (2) Elevated troponin: Code(s): R77.8 - Other specified abnormalities of plasma proteins Status: Acute Assessment and Plan: Mild troponin elevation obtained at the time of acute onset of AFib with RVR with associated complaints of chest pain, 0.115 and 0.129. No acute ischemic EKG changes. May be related to his pulmonary emboli. EKG with anterior T-wave inversion may also be related to his pulmonary emboli. (3) Multiple pulmonary emboli: Code(s): I26.99 - Other pulmonary embolism without acute cor pulmonale Status: Acute Assessment and Plan: Saddle embolus, large pulmonary embolus, with transient hypotension 05/20/2021 Fortunately the patient's oxygenation is good. Though not a good candidate for A/C, will need to anticoagulate in this situation. Started on Lovenox. (4) COVID: Code(s): U07.1 - COVID-19 Status: Acute Assessment and Plan: Patient appears to be relatively stable and or asymptomatic in this regard. He had a positive COVID antigen antigen outside hospital 05/08/2021. This still certainly could be he cause of his AFib with RVR. (5) Recurrent falls: Code(s): R29.6 - Repeated falls Status: Acute Assessment and Plan: Recurrent falls, admitted with his 3rd hip dislocation which was reduced earlier this admission. Ortho recommends 24/12 personal attendance to prevent the further falls, which makes him a little better candidate for anticoagulation also. (6) Anemia: Code(s): D64.9 - Anemia, unspecified Status: Acute Assessment and Plan: Moderate to severe anemia, stable of late although with a significant decline from April 2021 without evidence of acute bleed. Stable so far on full-dose Lovenox Follow H&H. (7) Dementia: Code(s): F03.90 - Unspecified dementia without behavioral disturbance Status: Acute Assessment and Plan: As above. Management Per hospitalist service. Subjective Date/time seen: 05/21/21 17:07 Interval history: Follow-up new onset AFib RVR associated with chest pain, elevated troponins, COVID pneumonia. History of dementia. Recurrent falls. Chest CT 05/20/2021 showed multiple PEs. Echo from April 2021 showed normal LV function and no significant valve disease. Date of service 05/20/2021: Yesterday when he was in AFib RVR he was given some IV and p.o. metoprolol and converted to sinus rhythm. The metoprolol has been discontinued presumably due to low blood pressure. Patient unable to provide any relevant history; he has been confused and agitated at times and has been given Ativan, Haldol etc.. Blood pressure soft today, in the 80s-100/50s. Remains on room air. Elevated liver enzymes noted today. CT of the chest showed multiple PEs with a large thrombus burden today. Getting started on Lovenox. Telemetry shows sinus rhythm. There are episodes with heart rhythm appears abnormal, but on my extensive review this appears to be artifactual. Date of service 05/21/2021: No particular problems today. Patient is very confused, I am all messed up. However no particular complaints. Patient remains on room air with good oxygenation. Vital signs have been stable, blood pressure improved compared to yesterday when he was running low at times. TEle shows o recurence of a fib. EKG showed T wave inversion anteriorly. Review of Syst
[2021-05-21] MEDS: TAMSULOSIN HCL 0.4 MG CAPSULE PO (21:25)
[2021-05-22] VITALS: BP 101/53; PULSE 85; PULSE 93; RESP 17; TEMP 36.7; O2SAT 91
[2021-05-22] MEDS: MAGNES & ALUM HYD/SIMETH/DIPHENHYD/LIDOCAINE 119 ML MOUTHWASH BY MOUTH ×6 (01:23→23:18)
[2021-05-22 04:00] VITALS: BP 111/51; PULSE 81; PULSE 82; RESP 18; TEMP 36.7; O2SAT 95
[2021-05-22] MEDS: SODIUM CHLORIDE 0.9% IV 1,000 ML 75 ML IV CONT ×2 (05:02→22:22)
--- NOTE | 2021-05-22 06:00 | ECG_ITS ---
Measurements Intervals [place] Rate: 84 P: 40 MI: 126 QRS: 31 QRSD: 93 T: 50 QT: 412 QTc: 489 Interpretive Statements SINUS RHYTHM LOW QRS VOLTAGE IN LIMB LEADS T WAVE ABNORMALITY IN ANTERIOR LEADS- CONSIDER ISCHEMIA BASELINE ARTIFACT- I, II, III, AVL, AVF, V5-V6 ABNORMAL ECG Electronically Signed On 05-22-2021 8:59:04 [employer] by Jerson Priest D.O.
[2021-05-22 06:18] LABS: Basophils Percent Auto 0.5 % (0.2-1.2); Eosinophils Absolute Auto 0.1 K/mm3 (0-0.3); Eosinophils Percent Auto 1.1 % (0-4.4); Hemoglobin 7.8 g/dL (14.0-18.0); Immature Granulocyte Absolute 0.09 K/mm3 (0.00-0.031); Immature Granulocyte Percent A 1.1 % (0-0.5); Lymphocytes Absolute Auto 0.63 K/mm3 (0.9-3.2); Lymphocytes Percent Auto 7.9 % (18.3-44.2); Mean Corpuscular HGB Conc 31.2 g/dl (32-36); Mean Corpuscular Hemoglobin 28.4 pg (26-34); Mean Corpuscular Volume 90.9 fl (80-100); Mean Platelet Volume 10.6 fl (7.4-10.4); Monocytes Absolute Auto 0.8 K/mm3 (0.1-0.6); Monocytes Percent Auto 9.5 % (2.6-8.5); Neutrophils Absolute Auto 6.3 K/mm3 (1.3-6.7); Neutrophils Percent Auto 79.9 % (45.5-73.1); Nucleated Red Blood Cells Perc 0.3 % (0.0-0.2); Platelet Count Result 172 k/mm3 (150-375); Red Blood Count 2.75 M/mm3 (4.6-6.20); Red Cell Distribution Width 14.1 % (11.5-14.5); White Blood Count 7.9 K/mm3 (4.5-10.0)
[2021-05-22 06:32] LABS: Lactate Dehydrogenase 790 U/L (313-618)
[2021-05-22 06:36] LABS: Alanine Aminotransferase 161 U/L (4-50); Albumin Level 2.3 g/dL (3.5-5.1); Alkaline Phosphatase 188 U/L (38-126); Anion Gap 5 mmol/L (8-16); Aspartate Amino Transferase 252 U/L (17-59); Bilirubin,Total 0.4 mg/dL (0.2-1.3); Blood Urea Nitrogen 14 mg/dL (9-20); Carbon Dioxide 22 mmol/L (22-30); Chloride 108 mmol/L (98-107); Estimated CRCL calculation 60 ml/min; Estimated Glomerular Filt Rate > 60; Glucose 90 mg/dL (65-110); Potassium 3.3 mmol/L (3.4-5.0); Sodium 135 mmol/L (137-145)
[2021-05-22 06:40] LABS: Iron 12 ug/dL (49-181)
[2021-05-22 06:49] LABS: Percent Iron Saturation 9 % (20-50)
[2021-05-22 07:37] LABS: Vitamin B12 > 1000.0 pg/mL (239-931)
[2021-05-22 08:00] VITALS: BP 131/55; PULSE 76; PULSE 81; RESP 16; TEMP 36.9; O2SAT 93
[2021-05-22 08:00] LABS: Transferrin < 80 mg/dL (206-381)
--- NOTE | 2021-05-22 08:20 | PM.IMPN ---
Progress Note: A&P Assessment and Plan (1) Fall: Code(s): W19.XXXA - Unspecified fall, initial encounter Status: Acute Assessment and Plan: Patient had an unwitnessed fall again dislocated his left hip prosthesis. Pt seen by orthopedics. pt to continue on PT/OT (2) Recurrent dislocation, left hip: Code(s): M24.452 - Recurrent dislocation, left hip Status: Acute Assessment and Plan: Successfully reduced. Dr. Chakraborty consulted. PT/OT (3) Transient hypotension: Code(s): I95.9 - Hypotension, unspecified Status: Acute Assessment and Plan: Most likely related to dehydration 2 liters boluses Will get CT of chest abdomen and pelvis BP 111/51 Continue to trend Stop metoprolol (4) Anemia: Code(s): D64.9 - Anemia, unspecified Status: Acute Assessment and Plan: H/H 7.8/25.0 remains stable Hemoglobin and hematocrit are stable and will be monitored. Anemia labs Iron 12, TIBC 127, % sat 9, Transferrin <80, Ferritin 1180, B12 >1000, Folate 5.0 Iron 324mg PO BID Trend H/H Transfuse as indicated (5) Dementia: Code(s): F03.90 - Unspecified dementia without behavioral disturbance Status: Acute Assessment and Plan: Continue home medication including memantine, lamotrigine, haloperidol, rivastigmine, and lorazepam. (6) COVID: Code(s): U07.1 - COVID-19 Status: Acute Assessment and Plan: Reportedly tested positive at outside facility Patient has been placed in isolation Seems asymptomatic. not needing any oxygen (7) Acute metabolic encephalopathy: Code(s): G93.41 - Metabolic encephalopathy Status: Acute Assessment and Plan: Continues to be better on exam, continue to monitor Started on antibiotics for PNA Found to have PE Most likely multifactorial related to polypharmacy and dehydration and fall fall precaution Waxes and wanes (8) Atrial fibrillation with RVR: Code(s): I48.91 - Unspecified atrial fibrillation Status: Acute Assessment and Plan: More controlled Found to have a PE oral metoprolol DC'd as BP is low stable no chest pain HR is ST Cards consulted (9) Elevated troponin: Code(s): R77.8 - Other specified abnormalities of plasma proteins Status: Acute Assessment and Plan: Trops are flat Probably related to AF RVR Pt seen by cardiology (10) Multiple pulmonary emboli: Code(s): I26.99 - Other pulmonary embolism without acute cor pulmonale Status: Acute Assessment and Plan: CTA showed Pulmonary embolism of the main pulmonary artery, right and left pulmonary arteries and segmental and subsegmental pulmonary arteries bilaterally, large thrombus burden. Lovenox full dose started Chest pain better today Trend labs (11) Pneumonia: Code(s): J18.9 - Pneumonia, unspecified organism Status: Acute Assessment and Plan: Ct found Left lower lobe airspace disease peripherally which may represent pneumonia or pulmonary infarction No complaints of shortness of breath Change to Zosyn due to prolonged QT interval WBC back to normal 7.9 Could be related to recent covid positive status Breathing treatments (12) Elevated liver enzymes: Code(s): R74.8 - Abnormal levels of other serum enzymes Status: Acute Assessment and Plan: AST/ALT elevated 252/161, alk phos 188 Trending down Continue to trend labs GI consulted thank you for recommendations Could be shock liver Hep panel negative Abdominal ultrasound: Gallbladder sludge. Gallbladder wall thickening may be secondary to interstitial edema, chronic liver disease, or chronic cholecystitis. Time Spent With Patient Time with patient: Greater than 35 minutes Subjective Date/time seen: 05/22/21 0820 Interval histor
--- NOTE | 2021-05-22 08:20 | P.PNIM_ITS ---
Progress Note: A&P Assessment and Plan (1) Fall: Code(s): W19.XXXA - Unspecified fall, initial encounter Status: Acute Assessment and Plan: * Patient had an unwitnessed fall again * dislocated his left hip prosthesis. * Pt seen by orthopedics. * pt to continue on PT/OT (2) Recurrent dislocation, left hip: Code(s): M24.452 - Recurrent dislocation, left hip Status: Acute Assessment and Plan: * Successfully reduced. Dr. Chakraborty consulted. * PT/OT (3) Transient hypotension: Code(s): I95.9 - Hypotension, unspecified Status: Acute Assessment and Plan: * Most likely related to dehydration * 2 liters boluses * Will get CT of chest abdomen and pelvis * BP 111/51 * Continue to trend * Stop metoprolol (4) Anemia: Code(s): D64.9 - Anemia, unspecified Status: Acute Assessment and Plan: * H/H 7.8/25.0 remains stable * Hemoglobin and hematocrit are stable and will be monitored. * Anemia labs Iron 12, TIBC 127, % sat 9, Transferrin <80, Ferritin 1180, B12 >1000, Folate 5.0 * Iron 324mg PO BID * Trend H/H * Transfuse as indicated (5) Dementia: Code(s): F03.90 - Unspecified dementia without behavioral disturbance Status: Acute Assessment and Plan: * Continue home medication including memantine, lamotrigine, haloperidol, rivastigmine, and lorazepam. (6) COVID: Code(s): U07.1 - COVID-19 Status: Acute Assessment and Plan: * Reportedly tested positive at outside facility * Patient has been placed in isolation * Seems asymptomatic. * not needing any oxygen (7) Acute metabolic encephalopathy: Code(s): G93.41 - Metabolic encephalopathy Status: Acute Assessment and Plan: * Continues to be better on exam, continue to monitor * Started on antibiotics for PNA * Found to have PE * Most likely multifactorial related to polypharmacy and dehydration and fall * fall precaution * Waxes and wanes (8) Atrial fibrillation with RVR: Code(s): I48.91 - Unspecified atrial fibrillation Status: Acute Assessment and Plan: * More controlled * Found to have a PE * oral metoprolol DC'd as BP is low * stable no chest pain HR is ST * Cards consulted (9) Elevated troponin: Code(s): R77.8 - Other specified abnormalities of plasma proteins Status: Acute Assessment and Plan: * Trops are flat * Probably related to AF RVR * Pt seen by cardiology (10) Multiple pulmonary emboli: Code(s): I26.99 - Other pulmonary embolism without acute cor pulmonale Status: Acute Assessment and Plan: * CTA showed Pulmonary embolism of the main pulmonary artery, right and left pulmonary arteries and segmental and subsegmental pulmonary arteries bilaterally, large thrombus burden. * Lovenox full dose started * Chest pain better today * Trend labs (11) Pneumonia: Code(s): J18.9 - Pneumonia, unspecified organism Status: Acute Assessment and Plan: * Ct found Left lower lobe airspace disease peripherally which may represent pneumonia or pulmonary infarction * No complaints of shortness of breath * Change to Zosyn due to prolonged QT interval * WBC back to normal 7.9 * Could be related to recent covid positive status * Breathing treatments
[2021-05-22] MEDS: RIVASTIGMINE TARTRATE 9.5 MG PATCH 1 PATCH TRANSDERM (08:30)
[2021-05-22] MEDS: lamoTRIgine 25 MG TABLET PO (08:31)
[2021-05-22] MEDS: SENNA/DOCUSATE SODIUM TABLET 2 TAB PO (08:31)
[2021-05-22] MEDS: SERTRALINE HCL 50 MG TABLET PO (08:31)
[2021-05-22] MEDS: BENZTROPINE MESYLATE 1 MG TABLET PO (08:31)
[2021-05-22] MEDS: MEMANTINE 5 MG TABLET PO ×2 (08:31→22:22)
[2021-05-22] MEDS: CHOLECALCIFEROL 400 UNITS TABLET (VIT D) PO (08:31)
[2021-05-22] MEDS: ENOXAPARIN 80 MG/0.8 ML SYRINGE 74 MG SUB-Q ×2 (08:31→22:22)
[2021-05-22] MEDS: HALOPERIDOL 5 MG TABLET PO (08:31)
[2021-05-22] MEDS: FERROUS SULFATE 324 MG TABLET PO ×2 (08:32→18:01)
--- NOTE | 2021-05-22 08:49 | PM.PNCARD ---
Progress Note: A&P Assessment and Plan (1) Atrial fibrillation with RVR: Code(s): I48.91 - Unspecified atrial fibrillation Status: Acute Assessment and Plan: One episode new onset AFib with RVR initially symptomatic with chest pain. Has converted to sinus rhythm; no recurrence. Maybe have been caused by his large pulmonary embolus Patient is not a good candidate for systemic anticoagulation due to multiple recurrent falls and underlying dementia. He can be taken off telemetry. (2) Elevated troponin: Code(s): R77.8 - Other specified abnormalities of plasma proteins Status: Acute Assessment and Plan: Mild troponin elevation obtained at the time of acute onset of AFib with RVR with associated complaints of chest pain, 0.115 and 0.129. No acute ischemic EKG changes. May be related to his pulmonary emboli. EKG with anterior T-wave inversion may also be related to his pulmonary emboli. (3) Multiple pulmonary emboli: Code(s): I26.99 - Other pulmonary embolism without acute cor pulmonale Status: Acute Assessment and Plan: Saddle embolus, large pulmonary embolus, with transient hypotension 05/20/2021 Fortunately the patient's oxygenation is good. Though not a good candidate for A/C, will need to anticoagulate in this situation. Started on Lovenox. (4) COVID: Code(s): U07.1 - COVID-19 Status: Acute Assessment and Plan: Patient appears to be relatively stable and or asymptomatic in this regard. He had a positive COVID antigen antigen outside hospital 05/08/2021. This still certainly could be he cause of his AFib with RVR. Stable on room air Management per primary service (5) Recurrent falls: Code(s): R29.6 - Repeated falls Status: Acute Assessment and Plan: Recurrent falls, admitted with his 3rd hip dislocation which was reduced earlier this admission. Ortho recommends 24/12 personal attendance to prevent the further falls, which makes him a little better candidate for anticoagulation also. (6) Anemia: Code(s): D64.9 - Anemia, unspecified Status: Acute Assessment and Plan: Moderate to severe anemia, stable of late although with a significant decline from April 2021 without evidence of acute bleed. Stable so far on full-dose Lovenox Follow H&H. (7) Dementia: Code(s): F03.90 - Unspecified dementia without behavioral disturbance Status: Acute Assessment and Plan: As above. Management Per hospitalist service. Subjective Date/time seen: 05/22/21 08:49 Interval history: Follow-up new onset AFib RVR associated with chest pain, elevated troponins, COVID pneumonia. History of dementia. Recurrent falls. Chest CT 05/20/2021 showed multiple PEs. Echo from April 2021 showed normal LV function and no significant valve disease. Date of service 05/20/2021: Yesterday when he was in AFib RVR he was given some IV and p.o. metoprolol and converted to sinus rhythm. The metoprolol has been discontinued presumably due to low blood pressure. Patient unable to provide any relevant history; he has been confused and agitated at times and has been given Ativan, Haldol etc.. Blood pressure soft today, in the 80s-100/50s. Remains on room air. Elevated liver enzymes noted today. CT of the chest showed multiple PEs with a large thrombus burden today. Getting started on Lovenox. Telemetry shows sinus rhythm. There are episodes with heart rhythm appears abnormal, but on my extensive review this appears to be artifactual. Date of service 05/21/2021: No particular problems today. Patient is very confused, I am all messed up. However no particular complaints. Patient remains on room air with good oxygenation. Vital signs have been stable, blood pressure improved compared to yesterday when he was running low at times. TEle shows o recurence of a fib. EKG showed T wave inversion ant
--- NOTE | 2021-05-22 11:27 | WPDGIPROGNO ---
Progress Note: A&P Assessment and Plan (1) Elevated liver enzymes: Code(s): R74.8 - Abnormal levels of other serum enzymes Status: Acute Assessment and Plan: Patient with elevated LFTs. Appears asymptomatic. Hepatitis serologies are negative. Suspect this is related to hypotensive episode associated with this fall. He also has identified with pulmonary emboli a has atrial fibrillation and recent surgery. Plan for conservative monitored but will continue to trend and monitor LFTs. Suspect resolution as is overall medical condition improves. Will follow with you. (2) Multiple pulmonary emboli: Code(s): I26.99 - Other pulmonary embolism without acute cor pulmonale Status: Acute (3) Recurrent falls: Code(s): R29.6 - Repeated falls Status: Acute (4) Atrial fibrillation with RVR: Code(s): I48.91 - Unspecified atrial fibrillation Status: Acute (5) Recurrent dislocation, left hip: Code(s): M24.452 - Recurrent dislocation, left hip Status: Acute (6) Dementia: Code(s): F03.90 - Unspecified dementia without behavioral disturbance Status: Acute Subjective Date/time seen: 05/22/21 11:27 Patient unchanged. Denies abdominal pain. Poor historian. Review of Systems Review of Systems: ROS unobtainable: Yes unobtainable due to mental status Exam Narrative: Physical exam reveals patient be comfortable at rest. Abdomen bowel sounds are present soft nontender with no organomegaly. Objective Data Vital Signs Vital Signs: Vital Signs - 24 hr 05/21/21 12:00 05/21/21 16:00 05/21/21 20:00 Temperature 98.0 F 98.5 F 98.1 F Pulse Rate 90 88 83 Respiratory Rate 18 18 18 Blood Pressure 117/62 125/55 L 103/46 L Pulse Oximetry 95 95 96 05/22/21 00:00 05/22/21 04:00 05/22/21 08:00 Temperature 98.0 F 98.0 F 98.5 F Pulse Rate 93 82 81 Respiratory Rate 17 18 16 Blood Pressure 101/53 L 111/51 L 131/55 L Pulse Oximetry 91 95 93 Intake/Output Intake/Output: Intake & Output 05/19/21 05/20/21 05/21/21 05/22/21 23:59 23:59 23:59 23:59 Intake Total 2380 2510 1375 180 Output Total 100 Balance 2380 2510 3054 180 Meds/Results Medications: Active Medications Generic Name Dose Route Start Last Admin Trade Name Freq PRN Reason Stop Dose Admin Acetaminophen 650 mg 05/15/21 22:07 05/19/21 23:51 Acetaminophen 325 Mg Tablet PO 650 mg Q6H PRN Administration Mild Pain (1-3) Or Fever Benztropine Mesylate 1 mg 05/16/21 09:00 05/22/21 08:31 Benztropine Mesylate 1 Mg Tablet PO 1 mg DAILY MARGARET Administration Enoxaparin Sodium 74 mg 05/20/21 20:00 05/22/21 08:31 Enoxaparin 80 Mg/0.8 Ml Syringe SUB-Q 74 mg Q12H MARGARET Administration Ferrous Sulfate 324 mg 05/22/21 08:00 05/22/21 08:32 Ferrous Sulfate 324 Mg Tablet PO 324 mg BIDWM MARGARET Administration Haloperidol 2 mg 05/15/21 23:00 05/21/21 09:23 Haloperidol 1 Mg Tablet PO 2 mg Q6H PRN Administration Agitation Haloperidol 5 mg 05/16/21 09:00 05/22/21 08:31 Haloperidol 5 Mg Tablet PO 5 mg DAILY MARGARET Administration Sodium Chloride 1,000 mls @ 75 mls/hr 05/17/21 12:55 05/22/21 05:02 Normal Saline Iv IV CONT 75 mls/hr .[id number] MARGARET Administration Piperacillin/Tazobactam/Dextrose 3.375 gm in 50 mls @ 100 mls/hr 05/22/21 06:35 05/22/21 08:25 Zosyn 3.375 Gm/D5w 50ml Pm IVPB 100 mls/hr Q6HR MARGARET Administration Lamotrigine 25 mg 05/16/21 09:00 05/22/21 08:31 Lamotrigine 25 Mg Tablet PO 25 mg DAILY MARGARET Administration Lidocaine/Diphenhydr/Alum/Mg/Simeth 5 ml 05/18/21 17:00 05/22/21 08:32 Magnes & Alum Hyd/Simeth/Diphenhyd/Lidocaine 119 Ml Mouthwash BY MOUTH 06/17/21 16:59 5 ml Q4HR MARGARET Administration Lorazepam 0.5 mg 05/17/21 10:55 05/20/21 22:05 Lorazepam (*Crx) 0.5 Mg Tablet PO 0.5 mg Q6H PRN Administration Anxiety Memantine 5 mg 05/16/21 09:00 05/22/21 08:31 Memant
[2021-05-22 12:00] VITALS: BP 116/48; PULSE 88; RESP 16; TEMP 36.6; O2SAT 97; BMI 10.0
[2021-05-22 16:00] VITALS: BP 131/73; PULSE 96; RESP 20; TEMP 37; O2SAT 94
--- NOTE | 2021-05-22 17:05 | PCNFU ---
Nutrition Follow-Up Complete: Inadequate oral intake related to COVID and wounds as evidenced by reported average intake of 25% and left heel pressure ulcer Goal: Meet nutritional needs Pt is moderately progressing towards goal. Pt current nutrition is heart healthy diet and dietary supplement. Last recorded weight is 74 kg. Bowel Motility: +BM 05/21 Labs Reviewed: hgb 7.8, hct 25.0, alb 2.3, Na 135, K 3.3, Cl 108, Ca 8.0, Iron 12, TIBC 127, Ferritin 1180, AST 252, ALT 161, ALP 188, LDH 790 Meds Noted: lovenox, ferrous sulfate, lamictal, senokot, vitamin D Skin: left heel pressure ulcer Additional Notes: Unable to visit with pt due to following covid precautions. Per EMR, pt is on a heart healthy diet and dietary supplement of ensure compact TID providing an additional 220kcal and 9g of protein to increase caloric intake and aid in wound healing. Spoke with nursing who reports that pt has been eating more and is drinking the ensure compact. Nursing reports that they encourage intake of ensure compact before meals, nursing agreed to continue to do this. Agree with current diet orders. Will continue to follow Monitor labs, wt, medications, and intake every 3 days
[2021-05-22 20:00] VITALS: BP 113/46; PULSE 98; RESP 20; TEMP 37.1; O2SAT 92
[2021-05-22] MEDS: TAMSULOSIN HCL 0.4 MG CAPSULE PO (22:22)
[2021-05-23] VITALS: BP 108/46; PULSE 90; RESP 14; TEMP 37; O2SAT 91
[2021-05-23] MEDS: MAGNES & ALUM HYD/SIMETH/DIPHENHYD/LIDOCAINE 119 ML MOUTHWASH BY MOUTH ×4 (02:04→22:42)
[2021-05-23 05:15] VITALS: BP 108/51; PULSE 81; RESP 14; TEMP 37; O2SAT 93
[2021-05-23 06:01] LABS: Basophils Percent Auto 0.4 % (0.2-1.2); Eosinophils Absolute Auto 0.2 K/mm3 (0-0.3); Eosinophils Percent Auto 1.8 % (0-4.4); Hematocrit 24.9 % (42.0-52.0); Hemoglobin 7.8 g/dL (14.0-18.0); Immature Granulocyte Absolute 0.09 K/mm3 (0.00-0.031); Immature Granulocyte Percent A 1.1 % (0-0.5); Lymphocytes Absolute Auto 0.88 K/mm3 (0.9-3.2); Lymphocytes Percent Auto 10.4 % (18.3-44.2); Mean Corpuscular HGB Conc 31.3 g/dl (32-36); Mean Corpuscular Hemoglobin 28.3 pg (26-34); Mean Corpuscular Volume 90.2 fl (80-100); Mean Platelet Volume 10.2 fl (7.4-10.4); Monocytes Absolute Auto 0.9 K/mm3 (0.1-0.6); Monocytes Percent Auto 10.8 % (2.6-8.5); Neutrophils Absolute Auto 6.4 K/mm3 (1.3-6.7); Neutrophils Percent Auto 75.5 % (45.5-73.1); Nucleated Red Blood Cells Perc 0.2 % (0.0-0.2); Platelet Count Result 170 k/mm3 (150-375); Red Blood Count 2.76 M/mm3 (4.6-6.20); Red Cell Distribution Width 14.3 % (11.5-14.5); White Blood Count 8.4 K/mm3 (4.5-10.0)
[2021-05-23 06:27] LABS: Alanine Aminotransferase 166 U/L (4-50); Albumin Level 2.3 g/dL (3.5-5.1); Alkaline Phosphatase 202 U/L (38-126); Anion Gap 5 mmol/L (8-16); Aspartate Amino Transferase 232 U/L (17-59); Bilirubin,Total 0.6 mg/dL (0.2-1.3); Blood Urea Nitrogen 12 mg/dL (9-20); Carbon Dioxide 21 mmol/L (22-30); Chloride 110 mmol/L (98-107); Estimated CRCL calculation 60 ml/min; Estimated Glomerular Filt Rate > 60; Glucose 112 mg/dL (65-110); Potassium 3.5 mmol/L (3.4-5.0); Sodium 136 mmol/L (137-145)
--- NOTE | 2021-05-23 08:00 | PM.IMPN ---
Progress Note: A&P Assessment and Plan (1) Fall: Code(s): W19.XXXA - Unspecified fall, initial encounter Status: Acute Assessment and Plan: Patient had an unwitnessed fall again dislocated his left hip prosthesis. Pt seen by orthopedics. pt to continue on PT/OT (2) Recurrent dislocation, left hip: Code(s): M24.452 - Recurrent dislocation, left hip Status: Acute Assessment and Plan: Successfully reduced. Dr. Chakraborty consulted. PT/OT (3) Transient hypotension: Code(s): I95.9 - Hypotension, unspecified Status: Acute Assessment and Plan: Most likely related to dehydration 2 liters boluses Will get CT of chest abdomen and pelvis BP 111/51 Continue to trend Stop metoprolol (4) Anemia: Code(s): D64.9 - Anemia, unspecified Status: Acute Assessment and Plan: H/H 7.8/24.9 remains stable Hemoglobin and hematocrit are stable and will be monitored. Anemia labs Iron 12, TIBC 127, % sat 9, Transferrin <80, Ferritin 1180, B12 >1000, Folate 5.0 Iron 324mg PO BID Trend H/H Transfuse as indicated (5) Dementia: Code(s): F03.90 - Unspecified dementia without behavioral disturbance Status: Acute Assessment and Plan: Continue home medication including memantine, lamotrigine, haloperidol, rivastigmine, and lorazepam. (6) COVID: Code(s): U07.1 - COVID-19 Status: Acute Assessment and Plan: Reportedly tested positive at outside facility Patient has been placed in isolation Seems asymptomatic. not needing any oxygen (7) Acute metabolic encephalopathy: Code(s): G93.41 - Metabolic encephalopathy Status: Acute Assessment and Plan: Continues to be better on exam, continue to monitor Started on antibiotics for PNA Found to have PE Most likely multifactorial related to polypharmacy and dehydration and fall fall precaution Waxes and wanes (8) Atrial fibrillation with RVR: Code(s): I48.91 - Unspecified atrial fibrillation Status: Acute Assessment and Plan: More controlled Found to have a PE oral metoprolol DC'd as BP is low stable no chest pain HR is ST Cards consulted (9) Elevated troponin: Code(s): R77.8 - Other specified abnormalities of plasma proteins Status: Acute Assessment and Plan: Trops are flat Probably related to AF RVR Pt seen by cardiology (10) Multiple pulmonary emboli: Code(s): I26.99 - Other pulmonary embolism without acute cor pulmonale Status: Acute Assessment and Plan: CTA showed Pulmonary embolism of the main pulmonary artery, right and left pulmonary arteries and segmental and subsegmental pulmonary arteries bilaterally, large thrombus burden. Lovenox full dose started Chest pain better today Trend labs (11) Pneumonia: Code(s): J18.9 - Pneumonia, unspecified organism Status: Acute Assessment and Plan: Ct found Left lower lobe airspace disease peripherally which may represent pneumonia or pulmonary infarction No complaints of shortness of breath Change to Zosyn due to prolonged QT interval WBC back to normal 8.4 Could be related to recent covid positive status Breathing treatments (12) Elevated liver enzymes: Code(s): R74.8 - Abnormal levels of other serum enzymes Status: Acute Assessment and Plan: AST/ALT elevated 232/166, alk phos 202 Trending down Continue to trend labs GI consulted thank you for recommendations Could be shock liver Hep panel negative Abdominal ultrasound: Gallbladder sludge. Gallbladder wall thickening may be secondary to interstitial edema, chronic liver disease, or chronic cholecystitis. Subjective Date/time seen: 05/23/21 0800 Interval history: Interval history: Date/time seen: 05/21/21 1000 Interval his
[2021-05-23] MEDS: lamoTRIgine 25 MG TABLET PO (08:42)
[2021-05-23] MEDS: SERTRALINE HCL 50 MG TABLET PO (08:42)
[2021-05-23] MEDS: SENNA/DOCUSATE SODIUM TABLET 2 TAB PO ×2 (08:42→18:04)
[2021-05-23] MEDS: MEMANTINE 5 MG TABLET PO ×2 (08:43→22:42)
[2021-05-23] MEDS: CHOLECALCIFEROL 400 UNITS TABLET (VIT D) PO (08:43)
[2021-05-23] MEDS: ENOXAPARIN 80 MG/0.8 ML SYRINGE 74 MG SUB-Q (08:43)
[2021-05-23] MEDS: HALOPERIDOL 5 MG TABLET PO (08:43)
[2021-05-23] MEDS: FERROUS SULFATE 324 MG TABLET PO ×2 (08:43→18:04)
[2021-05-23] MEDS: BENZTROPINE MESYLATE 1 MG TABLET PO (08:43)
[2021-05-23] MEDS: RIVASTIGMINE TARTRATE 9.5 MG PATCH 1 PATCH TRANSDERM (08:44)
--- NOTE | 2021-05-23 13:39 | WPDGIPROGNO ---
Progress Note: A&P Assessment and Plan (1) Elevated liver enzymes: Code(s): R74.8 - Abnormal levels of other serum enzymes Status: Acute Assessment and Plan: Elevated LFTs. Likely multifactorial. Hepatitis serologies are negative. Patient had a hypotensive event at time of presentation suggesting possible shock liver . additionally he now is being treated for a PEG new onset atrial fibrillation with elevated troponins, he has had left hip fracture with dislocation. Has had multiple falls. All this suggests that elevated LFTs are from a combination of etiologies. Would follow conservatively at this time. (2) Multiple pulmonary emboli: Code(s): I26.99 - Other pulmonary embolism without acute cor pulmonale Status: Acute (3) Recurrent falls: Code(s): R29.6 - Repeated falls Status: Acute (4) Atrial fibrillation with RVR: Code(s): I48.91 - Unspecified atrial fibrillation Status: Acute (5) Recurrent dislocation, left hip: Code(s): M24.452 - Recurrent dislocation, left hip Status: Acute Subjective Date/time seen: 05/23/21 13:39 Patient comfortable today. No change in mental status. He offers no abdominal complaints at present. Review of Systems Review of Systems: ROS unobtainable: Yes unobtainable due to mental status Exam Narrative: Physical exam reveals patient be alert. Vital signs are stable. HEENT exam reveals no icterus. Lungs are clear. Heart without murmur. Abdomen bowel sounds present soft nontender with no organomegaly. Objective Data Vital Signs Vital Signs: Vital Signs - 24 hr 05/22/21 16:00 05/22/21 20:00 05/23/21 00:00 Temperature 98.6 F 98.8 F 98.6 F Pulse Rate 96 98 90 Respiratory Rate 20 20 14 Blood Pressure 131/73 113/46 L 108/46 L Pulse Oximetry 94 92 91 05/23/21 05:15 Temperature 98.6 F Pulse Rate 81 Respiratory Rate 14 Blood Pressure 108/51 L Pulse Oximetry 93 Intake/Output Intake/Output: Intake & Output 05/20/21 05/21/21 05/22/21 05/23/21 23:59 23:59 23:59 23:59 Intake Total 2510 1375 1660 340 Output Total 100 Balance 2510 1275 1660 340 Meds/Results Medications: Active Medications Generic Name Dose Route Start Last Admin Trade Name Freq PRN Reason Stop Dose Admin Acetaminophen 650 mg 05/15/21 22:07 05/19/21 23:51 Acetaminophen 325 Mg Tablet PO 650 mg Q6H PRN Administration Mild Pain (1-3) Or Fever Benztropine Mesylate 1 mg 05/16/21 09:00 05/23/21 08:43 Benztropine Mesylate 1 Mg Tablet PO 1 mg DAILY MARGARET Administration Ferrous Sulfate 324 mg 05/22/21 08:00 05/23/21 08:43 Ferrous Sulfate 324 Mg Tablet PO 324 mg BIDWM MARGARET Administration Haloperidol 2 mg 05/15/21 23:00 05/21/21 09:23 Haloperidol 1 Mg Tablet PO 2 mg Q6H PRN Administration Agitation Haloperidol 5 mg 05/16/21 09:00 05/23/21 08:43 Haloperidol 5 Mg Tablet PO 5 mg DAILY MARGARET Administration Piperacillin/Tazobactam/Dextrose 3.375 gm in 50 mls @ 100 mls/hr 05/22/21 06:35 05/23/21 12:23 Zosyn 3.375 Gm/D5w 50ml Pm IVPB 100 mls/hr Q6HR MARGARET Administration Lamotrigine 25 mg 05/16/21 09:00 05/23/21 08:42 Lamotrigine 25 Mg Tablet PO 25 mg DAILY MARGARET Administration Lidocaine/Diphenhydr/Alum/Mg/Simeth 5 ml 05/18/21 17:00 05/23/21 12:23 Magnes & Alum Hyd/Simeth/Diphenhyd/Lidocaine 119 Ml Mouthwash BY MOUTH 06/17/21 16:59 Not Given Q4HR [facility] Lorazepam 0.5 mg 05/17/21 10:55 05/20/21 22:05 Lorazepam (*Crx) 0.5 Mg Tablet PO 0.5 mg Q6H PRN Administration Anxiety Memantine 5 mg 05/16/21 09:00 05/23/21 08:43 Memantine 5 Mg Tablet PO 5 mg Q12HR MARGARET Administration Rivaroxaban 20 mg 05/23/21 17:00 Rivaroxaban 20 Mg Tablet PO DAILY@1700 MARGARET Rivastigmine 1 patch 05/16/21 09:00 05/23/21 08:44 Rivastigmine Tartrate 9.5 Mg Patch TRANSDERM 1 patch DAILY MARGARET Administration Senna/Docusate Sodium 2 tab
[2021-05-23 14:00] VITALS: BP 114/55; PULSE 77; RESP 14; TEMP 36.3; O2SAT 97
--- NOTE | 2021-05-23 15:06 | P.DS_ITS ---
DS: Admitting Diagnosis Discharge Date date of service 05/23/2021 at 8:00 a.m. Admitting Diagnosis dislocation of the left hip, bilateral pulmonary PEs, hypotension, A fib RVR DS: Discharge Diagnosis Discharge Diagnosis (1) Fall: Code(s): W19.XXXA - Unspecified fall, initial encounter Status: Acute Assessment and Plan: * Patient had an unwitnessed fall again * dislocated his left hip prosthesis. * Pt seen by orthopedics. * pt to continue on PT/OT (2) Recurrent dislocation, left hip: Code(s): M24.452 - Recurrent dislocation, left hip Status: Acute Assessment and Plan: * Successfully reduced. Dr. Chakraborty consulted. * PT/OT (3) Transient hypotension: Code(s): I95.9 - Hypotension, unspecified Status: Acute Assessment and Plan: * Most likely related to dehydration * 2 liters boluses * Will get CT of chest abdomen and pelvis * BP 111/51 * Continue to trend * Stop metoprolol (4) Anemia: Code(s): D64.9 - Anemia, unspecified Status: Acute Assessment and Plan: * H/H 7.8/25.0 remains stable * Hemoglobin and hematocrit are stable and will be monitored. * Anemia labs Iron 12, TIBC 127, % sat 9, Transferrin <80, Ferritin 1180, B12 >1000, Folate 5.0 * Iron 324mg PO BID * Trend H/H * Transfuse as indicated (5) Dementia: Code(s): F03.90 - Unspecified dementia without behavioral disturbance Status: Acute Assessment and Plan: * Continue home medication including memantine, lamotrigine, haloperidol, rivastigmine, and lorazepam. (6) COVID: Code(s): U07.1 - COVID-19 Status: Acute Assessment and Plan: * Reportedly tested positive at outside facility * Patient has been placed in isolation * Seems asymptomatic. * not needing any oxygen (7) Acute metabolic encephalopathy: Code(s): G93.41 - Metabolic encephalopathy Status: Acute Assessment and Plan: * Continues to be better on exam, continue to monitor * Started on antibiotics for PNA * Found to have PE * Most likely multifactorial related to polypharmacy and dehydration and fall * fall precaution * Waxes and wanes (8) Atrial fibrillation with RVR: Code(s): I48.91 - Unspecified atrial fibrillation Status: Acute Assessment and Plan: * More controlled * Found to have a PE * oral metoprolol DC'd as BP is low * stable no chest pain HR is ST * Cards consulted (9) Elevated troponin: Code(s): R77.8 - Other specified abnormalities of plasma proteins Status: Acute Assessment and Plan: * Trops are flat * Probably related to AF RVR * Pt seen by cardiology (10) Multiple pulmonary emboli: Code(s): I26.99 - Other pulmonary embolism without acute cor pulmonale Status: Acute Assessment and Plan: * CTA showed Pulmonary embolism of the main pulmonary artery, right and left pulmonary arteries and segmental and subsegmental pulmonary arteries bilaterally, large thrombus burden. * Lovenox full dose started * Chest pain better today * Trend labs (11) Pneumonia: Code(s): J18.9 - Pneumonia, unspecified organism Status: Acute Assessment and Plan: * Ct found Left lower lobe airspace disease peripherally which may represent pneumonia or pulmonary infarction * No complaints
--- NOTE | 2021-05-23 15:06 | PM.DS ---
DS: Admitting Diagnosis Discharge Date date of service 05/23/2021 at 8:00 a.m. Admitting Diagnosis dislocation of the left hip, bilateral pulmonary PEs, hypotension, A fib RVR DS: Discharge Diagnosis Discharge Diagnosis (1) Fall: Code(s): W19.XXXA - Unspecified fall, initial encounter Status: Acute Assessment and Plan: Patient had an unwitnessed fall again dislocated his left hip prosthesis. Pt seen by orthopedics. pt to continue on PT/OT (2) Recurrent dislocation, left hip: Code(s): M24.452 - Recurrent dislocation, left hip Status: Acute Assessment and Plan: Successfully reduced. Dr. Chakraborty consulted. PT/OT (3) Transient hypotension: Code(s): I95.9 - Hypotension, unspecified Status: Acute Assessment and Plan: Most likely related to dehydration 2 liters boluses Will get CT of chest abdomen and pelvis BP 111/51 Continue to trend Stop metoprolol (4) Anemia: Code(s): D64.9 - Anemia, unspecified Status: Acute Assessment and Plan: H/H 7.8/25.0 remains stable Hemoglobin and hematocrit are stable and will be monitored. Anemia labs Iron 12, TIBC 127, % sat 9, Transferrin <80, Ferritin 1180, B12 >1000, Folate 5.0 Iron 324mg PO BID Trend H/H Transfuse as indicated (5) Dementia: Code(s): F03.90 - Unspecified dementia without behavioral disturbance Status: Acute Assessment and Plan: Continue home medication including memantine, lamotrigine, haloperidol, rivastigmine, and lorazepam. (6) COVID: Code(s): U07.1 - COVID-19 Status: Acute Assessment and Plan: Reportedly tested positive at outside facility Patient has been placed in isolation Seems asymptomatic. not needing any oxygen (7) Acute metabolic encephalopathy: Code(s): G93.41 - Metabolic encephalopathy Status: Acute Assessment and Plan: Continues to be better on exam, continue to monitor Started on antibiotics for PNA Found to have PE Most likely multifactorial related to polypharmacy and dehydration and fall fall precaution Waxes and wanes (8) Atrial fibrillation with RVR: Code(s): I48.91 - Unspecified atrial fibrillation Status: Acute Assessment and Plan: More controlled Found to have a PE oral metoprolol DC'd as BP is low stable no chest pain HR is ST Cards consulted (9) Elevated troponin: Code(s): R77.8 - Other specified abnormalities of plasma proteins Status: Acute Assessment and Plan: Trops are flat Probably related to AF RVR Pt seen by cardiology (10) Multiple pulmonary emboli: Code(s): I26.99 - Other pulmonary embolism without acute cor pulmonale Status: Acute Assessment and Plan: CTA showed Pulmonary embolism of the main pulmonary artery, right and left pulmonary arteries and segmental and subsegmental pulmonary arteries bilaterally, large thrombus burden. Lovenox full dose started Chest pain better today Trend labs (11) Pneumonia: Code(s): J18.9 - Pneumonia, unspecified organism Status: Acute Assessment and Plan: Ct found Left lower lobe airspace disease peripherally which may represent pneumonia or pulmonary infarction No complaints of shortness of breath Change to Zosyn due to prolonged QT interval WBC back to normal 7.9 Could be related to recent covid positive status Breathing treatments (12) Elevated liver enzymes: Code(s): R74.8 - Abnormal levels of other serum enzymes Status: Acute Assessment and Plan: AST/ALT elevated 252/161, alk phos 188 Trending down Continue to trend labs GI consulted thank you for recommendations Could be shock liver Hep panel negative Abdominal ultrasound: Gallbladder sludge. Gallbladder wall thickening may be secondary to interstitial edema,
--- NOTE | 2021-05-23 16:20 | PM.PNORT ---
Progress Note: A&P Assessment and Plan (1) Recurrent dislocation, left hip: Code(s): M24.452 - Recurrent dislocation, left hip Status: Acute Assessment and Plan: Patient is now s/p 2 dislocations of the left hip bipolar which was performed due to fracture. The second dislocation was reduced by Dr. Chakraborty in the emergency room. Patient is an extremely high fall risk. He may be WBAT with assistive device and PT/OT only. Bed alarm. Patient is now 2.5 weeks s/p first revision with open incision of the left lateral hip. Jayla removed on POD #14. Areas of incision dehiscence as noted below. Patient to begin daily dressing changes with transfer/cover dry. Continue PT/OT. WBAT. FALL RISK. Daily Dressing Changes. SCDs. Incentive Spirometry. (2) Recurrent falls: Code(s): R29.6 - Repeated falls Status: Acute Assessment and Plan: High fall risk precautions to be in place. (3) Postoperative wound dehiscence: Qualifiers: Encounter type: initial encounter Qualified Code(s): T81.31XA - Disruption of external operation (surgical) wound, not elsewhere classified, initial encounter Code(s): T81.31XA - Disruption of external operation (surgical) wound, not elsewhere classified, initial encounter Status: Acute Assessment and Plan: Pearsall removed on POD #14 from second surgery. Given multiple falls onto the left hip and recurrent dislocations with bleeding/swelling, wound has two areas of dehiscence. No active signs of infection. Moderate serosanguineous drainage. Recommend initiating silver rope to areas of dehiscence with depth at this time. Continue daily dressing changes and PRN. Patient may eventually require wound VAC if no improvement in dimensions/drainage. Subjective Subjective Date/Time Seen: 05/23/21 16:20 Interval history: No complaints. Appears comfortable. Review of Systems Review of Systems: ROS unobtainable: Yes unobtainable due to mental status Exam Const: General: comfortable and no acute distress Resp: Effort & Inspection: normal respiratory effort Cardio: Rate: regular rate Rhythm: regular rhythm GI: Inspection: non-distended GI Palp: Yes Soft to palpation and No Tenderness to palpation present (GI) Neuro: Cognition (Neuro): abnormal cognition (dementia ) Extrem: Left lower extremity: hip/thigh Details: tenderness Location: of the hip Location: laterally, swelling Location: of the hip (lateral ) and of the proximal upper leg (lateral ), abnormal ROM (limited ) and deformity Location: of the hip (internal rotation ), knee Details: normal to inspection; no tenderness and no swelling, lower leg Details: normal to inspection, ankle Details: normal to inspection and normal ROM and foot Details: normal capillary refill, toes with normal ROM and vascular exam Details: dorsalis pedis pulse present Other: Incision over the lateral aspect of the left hip with two wounds, distal and proximal. Depth of wound measures 1.5cm at both wounds. Moderate serosanguineous fluid. No purulence noted. Surrounding tissue without acute signs of infection. No erythema/no warmth. Objective Data Vital Signs Vital Signs: Vital Signs - 24 hr 05/22/21 20:00 05/23/21 00:00 05/23/21 05:15 Temperature 37.1 C 37.0 C 37.0 C Pulse Rate 98 90 81 Respiratory Rate 20 14 14 Blood Pressure 113/46 L 108/46 L 108/51 L Pulse Oximetry 92 91 93 05/23/21 14:00 Temperature 36.3 C L Pulse Rate 77 Respiratory Rate 14 Blood Pressure 114/55 L Pulse Oximetry 97 Intake/Output Intake/Output: Intake & Output 05/20/21 05/21/21 05/22/21 05/23/21 23:59 23:59 23:59 23:59 Intake Total 2510 1375 1660 1580 Output Total 100 Balance 2510 1275 1660 1580 Meds/Results Medications: Active Medications Generic Name Dose Route Start Last Admin Trade Name Freq PRN Reason Stop Dose Admin Acetaminophen 650 mg 05/15/21 22:07 05/19/21 23:51 Acetaminophen 325 Mg Tablet PO 650
[2021-05-23 16:32] LABS: EDCOVIDSCREEN Negative (Negative)
[2021-05-23] MEDS: RIVAROXABAN 20 MG TABLET PO (18:04)
[2021-05-23 22:00] VITALS: BP 108/46; PULSE 74; RESP 18; TEMP 36.1; O2SAT 95
[2021-05-23] MEDS: TAMSULOSIN HCL 0.4 MG CAPSULE PO (22:42)
--- NOTE | 2021-05-24 | ECHO_ITS ---
Patient Info Name: Sid Ellison Age: 81 years : 1940 Gender: Male Ht: 70 in Wt: 163 lbs BSA: 1.91 m2 HR: 78 bpm BP: 110 / 51 mmHg Heart Rhythm: Sinus Rhythm Technical Quality: Fair Exam Date: 05/24/2021 8:29 AM Exam Location: [facility] Pulmonary Patient Status: Inpatient Admit Date: 05/17/2021 Staff Ordering Physician: Haleigh Bishop PA-C Acetylene Torch Solderer: Elvia Grimm RDCS Attending Provider: Haleigh Bishop PA-C Referring Physician: [facility] ; Exam Type: CA echo doppler color flow Study Info Indications - large pe Complete two-dimensional, color flow and Doppler transthoracic echocardiogram is performed. Summary 1. Complete two-dimensional, color flow and Doppler transthoracic echocardiogram is performed. 2. Left ventricular chamber dimension is normal. 3. Left ventricular systolic function is normal, estimated at 50-55%. 4. Right ventricular chamber dimension is moderately enlarged. 5. Right ventricular systolic function is reduced. 6. IVC is dilated. 7. Lack of TR jet to interrogate precludes estimation of PA pressure. Left Ventricle Left ventricular chamber dimension is normal. Left ventricular systolic function is normal, estimated at 50-55%. The left ventricular diastolic function is normal. Right Ventricle Right ventricular chamber dimension is moderately enlarged. Right ventricular systolic function is reduced. Left Atria Left atrial chamber dimension is normal. Right Atria Right atrial chamber dimension is mildly enlarged. Aortic Valve The aortic valve is trileaflet. There is mild aortic valve sclerosis. Pulmonic Valve The pulmonic valve is not well visualized. Mitral Valve The mitral valve has normal leaflets. Tricuspid Valve The tricuspid valve leaflets are not well visualized. There is no tricuspid valve regurgitation. Pericardium/Pleural The pericardium appears normal. Inferior Vena Cava IVC is dilated. Aorta The aortic root size at the sinus of Valsalva is normal. Left Ventricular Outflow Tract Name Value Normal LVOT 2D LVOT Diameter 2.0 cm LVOT Doppler LVOT Peak Gradient 4 mmHg LVOT Mean Gradient 2 mmHg LVOT VTI 19 cm LVOT VTI/AV VTI Ratio 0.8 LVOT Stroke Volume 63 ml LVOT CO 4.1 l/min LVOT CI 2.1 l/min/m2 Pulmonic Valve Name Value Normal RVOT Doppler RVOT Peak Gradient 2 mmHg PV Doppler PV Peak Gradient 3 mmHg Mitral Valve Name
[2021-05-24] MEDS: MAGNES & ALUM HYD/SIMETH/DIPHENHYD/LIDOCAINE 119 ML MOUTHWASH BY MOUTH ×6 (01:41→21:31)
[2021-05-24 06:00] VITALS: BP 110/51; PULSE 66; RESP 18; TEMP 35.9; O2SAT 96
--- NOTE | 2021-05-24 08:10 | PC.NURSE ---
called [facility] and gave report to Brooke at 08:00 number called [phone]
--- NOTE | 2021-05-24 08:19 | WPDGIPROGNO ---
Progress Note: A&P Assessment and Plan (1) Elevated liver enzymes: Code(s): R74.8 - Abnormal levels of other serum enzymes Status: Acute Assessment and Plan: Elevated serum transaminases. Likely related to his multiple comorbid diseases. At this stage will continue to monitor peripherally. Intermittent liver function profile advised. No specific intervention at this time. (2) Multiple pulmonary emboli: Code(s): I26.99 - Other pulmonary embolism without acute cor pulmonale Status: Acute (3) Recurrent falls: Code(s): R29.6 - Repeated falls Status: Acute (4) Atrial fibrillation with RVR: Code(s): I48.91 - Unspecified atrial fibrillation Status: Acute (5) Elevated troponin: Code(s): R77.8 - Other specified abnormalities of plasma proteins Status: Acute (6) Recurrent dislocation, left hip: Code(s): M24.452 - Recurrent dislocation, left hip Status: Acute Subjective Date/time seen: 05/24/21 08:19 Patient unchanged. Lying in bed. Offers no abdominal complaints. Review of Systems Review of Systems: ROS unobtainable: Yes unobtainable due to mental status Exam Narrative: Physical exam reveals patient's vital signs be stable. HEENT exam reveals no icterus. Lungs are clear heart without murmur. Abdomen bowel sounds present soft nontender with no organomegaly. Objective Data Vital Signs Vital Signs: Vital Signs - 24 hr 05/23/21 14:00 05/23/21 22:00 05/24/21 06:00 Temperature 97.4 F L 97.0 F L 96.6 F L Pulse Rate 77 74 66 Respiratory Rate 14 18 18 Blood Pressure 114/55 L 108/46 L 110/51 L Pulse Oximetry 97 95 96 Intake/Output Intake/Output: Intake & Output 05/21/21 05/22/21 05/23/21 05/24/21 23:59 23:59 23:59 23:59 Intake Total 1375 1660 1900 50 Output Total 100 Balance 1275 1660 1900 50 Meds/Results Medications: Active Medications Generic Name Dose Route Start Last Admin Trade Name Freq PRN Reason Stop Dose Admin Acetaminophen 650 mg 05/15/21 22:07 05/19/21 23:51 Acetaminophen 325 Mg Tablet PO 650 mg Q6H PRN Administration Mild Pain (1-3) Or Fever Benztropine Mesylate 1 mg 05/16/21 09:00 05/23/21 08:43 Benztropine Mesylate 1 Mg Tablet PO 1 mg DAILY MARGARET Administration Ferrous Sulfate 324 mg 05/22/21 08:00 05/23/21 18:04 Ferrous Sulfate 324 Mg Tablet PO 324 mg BIDWM MARGARET Administration Haloperidol 2 mg 05/15/21 23:00 05/21/21 09:23 Haloperidol 1 Mg Tablet PO 2 mg Q6H PRN Administration Agitation Haloperidol 5 mg 05/16/21 09:00 05/23/21 08:43 Haloperidol 5 Mg Tablet PO 5 mg DAILY MARGARET Administration Piperacillin/Tazobactam/Dextrose 3.375 gm in 50 mls @ 100 mls/hr 05/22/21 06:35 05/24/21 06:19 Zosyn 3.375 Gm/D5w 50ml Pm IVPB 100 mls/hr Q6HR MARGARET Administration Lamotrigine 25 mg 05/16/21 09:00 05/23/21 08:42 Lamotrigine 25 Mg Tablet PO 25 mg DAILY MARGARET Administration Lidocaine/Diphenhydr/Alum/Mg/Simeth 5 ml 05/18/21 17:00 05/24/21 06:18 Magnes & Alum Hyd/Simeth/Diphenhyd/Lidocaine 119 Ml Mouthwash BY MOUTH 06/17/21 16:59 5 ml Q4HR MARGARET Administration Lorazepam 0.5 mg 05/17/21 10:55 05/20/21 22:05 Lorazepam (*Crx) 0.5 Mg Tablet PO 0.5 mg Q6H PRN Administration Anxiety Memantine 5 mg 05/16/21 09:00 05/23/21 22:42 Memantine 5 Mg Tablet PO 5 mg Q12HR MARGARET Administration Rivaroxaban 20 mg 05/23/21 17:00 05/23/21 18:04 Rivaroxaban 20 Mg Tablet PO 20 mg DAILY@1700 MARGARET Administration Rivastigmine 1 patch 05/16/21 09:00 05/23/21 08:44 Rivastigmine Tartrate 9.5 Mg Patch TRANSDERM 1 patch DAILY MARGARET Administration Senna/Docusate Sodium 2 tab 05/16/21 09:00 05/23/21 18:04 Senna/Docusate Sodium Tablet PO 2 tab BID MARGARET Administration Sertraline HCl 50 mg 05/16/21 09:00 05/23/21 08:42 Sertraline Hcl 50 Mg Tablet PO 50 mg DAILY MARGARET Administration Silver
[2021-05-24 08:33] LABS: Hematocrit 28.6 % (42.0-52.0); Hemoglobin 8.8 g/dL (14.0-18.0); Mean Corpuscular HGB Conc 30.8 g/dl (32-36); Mean Corpuscular Hemoglobin 28.6 pg (26-34); Mean Corpuscular Volume 92.9 fl (80-100); Platelet Count Result 187 k/mm3 (150-375); Red Blood Count 3.08 M/mm3 (4.6-6.20); Red Cell Distribution Width 14.4 % (11.5-14.5); White Blood Count 7.5 K/mm3 (4.5-10.0)
[2021-05-24 09:11] LABS: Alanine Aminotransferase 143 U/L (4-50); Albumin Level 2.5 g/dL (3.5-5.1); Alkaline Phosphatase 195 U/L (38-126); Aspartate Amino Transferase 149 U/L (17-59); Bilirubin,Total 0.7 mg/dL (0.2-1.3)
[2021-05-24 09:13] LABS: Anion Gap 6 mmol/L (8-16); Blood Urea Nitrogen 9 mg/dL (9-20); Calcium 8.2 mg/dL (8.4-10.2); Carbon Dioxide 25 mmol/L (22-30); Chloride 109 mmol/L (98-107); Estimated CRCL calculation 60 ml/min; Estimated Glomerular Filt Rate > 60; Glucose 98 mg/dL (65-110); Potassium 3.1 mmol/L (3.4-5.0); Sodium 140 mmol/L (137-145)
[2021-05-24 09:26] LABS: NT Pro B Type Natriuretic Pept 3350 pg/mL (5-100)
[2021-05-24] MEDS: HALOPERIDOL 5 MG TABLET PO (10:14)
[2021-05-24] MEDS: FERROUS SULFATE 324 MG TABLET PO ×2 (10:14→17:37)
[2021-05-24] MEDS: BENZTROPINE MESYLATE 1 MG TABLET PO (10:14)
[2021-05-24] MEDS: SENNA/DOCUSATE SODIUM TABLET 2 TAB PO ×2 (10:15→17:37)
[2021-05-24] MEDS: SERTRALINE HCL 50 MG TABLET PO (10:15)
[2021-05-24] MEDS: RIVASTIGMINE TARTRATE 9.5 MG PATCH 1 PATCH TRANSDERM (10:15)
[2021-05-24] MEDS: CHOLECALCIFEROL 400 UNITS TABLET (VIT D) PO (10:15)
[2021-05-24] MEDS: lamoTRIgine 25 MG TABLET PO (10:16)
[2021-05-24] MEDS: MEMANTINE 5 MG TABLET PO ×2 (10:16→21:30)
--- NOTE | 2021-05-24 13:09 | PM.DS ---
DS: Summary Hospital Course Hospital Course: DOS 05/26/21 Patient needs repeat LFTs in 1 week. Last AST was 110 and ALT was 102 and alk-phos was 168. Bilirubin normal. Please be sure these are monitored until normalized. They are improving by the day. Please monitor for right upper quadrant pain. If he starts to have any pain to the right upper quadrant he may need further evaluation of his gallbladder since ultrasound shows sludge with wall thickening. No signs of acute cholecystitis at this time. White blood cell count normal and afebrile since 05/19. Wound dehiscence and discharge Patient discharged in guarded condition Time Spent with Patient Time attestation: Total time spent providing and/or coordinating discharge services: DS: Data Data Completed and Pending Labs on day of discharge: Labs from last 24 hours 05/24/21 05/24/21 05/24/21 08:16 08:16 08:16 WBC 7.5 RBC 3.08 L Hgb 8.8 L Hct 28.6 L MCV 92.9 MCH 28.6 MCHC 30.8 L RDW 14.4 Plt Count 187 MPV 10.0 Sodium 140 Potassium 3.1 L Chloride 109 H Carbon Dioxide 25 Anion Gap 6 L BUN 9 Creatinine 0.90 Estim Creat Clear Calc 60 Estimated GFR > 60 Glucose 98 Calcium 8.2 L Total Bilirubin 0.7 Direct Bilirubin 0.0 AST 149 H ALT 143 H Alkaline Phosphatase 195 H Troponin I 0.050 H* NT-Pro-B Natriuret Pep 3350 H Total Protein 5.0 L Albumin 2.5 L SARS-CoV-2 IgG/IgM Ag?Rapid 05/23/21 16:09 WBC RBC Hgb Hct MCV MCH MCHC RDW Plt Count MPV Sodium Potassium Chloride Carbon Dioxide Anion Gap BUN Creatinine Estim Creat Clear Calc Estimated GFR Glucose Calcium Total Bilirubin Direct Bilirubin AST ALT Alkaline Phosphatase Troponin I NT-Pro-B Natriuret Pep Total Protein Albumin SARS-CoV-2 IgG/IgM Ag?Rapid Negative Preliminary micro results at discharge 05/20/21 08:44 Blood Culture - Preliminary Blood 05/20/21 08:44 Blood Culture - Preliminary Blood Discharge Plan Discharge Attending physician on discharge: Nara Marquez Consulting providers: Per Chakraborty ; Don Scruggs ; Jim Hall Discharging Clinician: David Vaca Patient Disposition: SNF Activity: may shower, no driving and follow weight bearing status Diet: heart healthy Wound Care Instructions: follow printed instructions Discharge Instructions: Orthopedic Recommendations Dr. Per Chakraborty [phone] HIGH FALL RISK. Bed Alarm/Extra supervision. Continue hip abduction splint and knee immobilizer for 6 weeks. After that, okay to be weight bearing as tolerated. Per ortho, he needs to have a hip xray after transport to ensure it did not dislocate again He needs to be monitored by an orthopedist. He can either come back to Dr. Vega or find an orthopedist closer to the facility. Contact our office for questions/concerns until new orthopedic follow up can be established at new facility. Dressing to be changed daily. Apply silver rope to wound depths, leave enough tail to be able to locate rope when changing dressing, then apply transfer to left lateral hip and cover with ABD. If no improvement in drainage, may consider wound VAC. Hospitalist instructions take all medications as prescribed even if feeling better eat a well-balanced meal continue to take antibiotics in the next 5 days. strict bleeding precautions should be taken especially since patient is a high fall risk. Bleeding precautions consisted of shaving with an electric razor, fall prevention, head protection, injury prevention. follow-up with your primary care provider 1-2 weeks stay well hydrated continue work with PT and OT to build your strength get home if you should experience any chest pain, shortness of breath, fevers greater than 100.4, or any other worrisome symptoms report back to the ED or follow-up with
[2021-05-24] MEDS: POTASSIUM CHLORIDE 20 MEQ PACKET (FOR LIQUID) 40 MEQ PO (13:17)
[2021-05-24 14:00] VITALS: BP 116/62; PULSE 85; RESP 16; TEMP 36.6; O2SAT 95
[2021-05-24] MEDS: RIVAROXABAN 20 MG TABLET PO (17:38)
[2021-05-24] MEDS: TAMSULOSIN HCL 0.4 MG CAPSULE PO (21:30)
[2021-05-24] MEDS: LORazepam (*CRX) 0.5 MG TABLET PO (21:30)
[2021-05-24 22:00] VITALS: BP 100/42; PULSE 80; RESP 18; TEMP 36; O2SAT 94
[2021-05-24] MEDS: ACETAMINOPHEN 325 MG TABLET 650 MG PO (22:30)
[2021-05-25] VITALS (11 sets, daily range): BP systolic 93–135; BP diastolic 41–70; PULSE 72–131; RESP 18–36; TEMP 36–36.9; O2SAT 90–100
[2021-05-25] MEDS: MAGNES & ALUM HYD/SIMETH/DIPHENHYD/LIDOCAINE 119 ML MOUTHWASH BY MOUTH ×5 (01:26→23:27)
--- NOTE | 2021-05-25 08:31 | PM.IMPN ---
Progress Note: A&P Assessment and Plan (1) Multiple pulmonary emboli: Code(s): I26.99 - Other pulmonary embolism without acute cor pulmonale Status: Acute Assessment and Plan: CTA showed Pulmonary embolism of the main pulmonary artery, right and left pulmonary arteries and segmental and subsegmental pulmonary arteries bilaterally, large thrombus burden. -he was placed on Lovenox and transitioned to Xarelto. I noticed 05/25 that this was not the PE dose, will adjust with discharge. -his troponins were elevated likely due to large clot burden and he went into AFib. Echo shows decreased right ventricular function but no signs of significant right heart strain. Trop has improved. -Cardiology onboard -likely due to recent sx (2) Fall: Code(s): W19.XXXA - Unspecified fall, initial encounter Status: Acute Assessment and Plan: He had a fall at the [facility] and was found to have a dislocated left hip on 05/15/21. This was reduced and post op xray shows improvement -continue fall precautions -continue PT and OT (3) Recurrent dislocation, left hip: Code(s): M24.452 - Recurrent dislocation, left hip Status: Acute Assessment and Plan: Noted to be dislocated again on 05/20 CT with no mention by ortho. Looks rotated one xam -check xray -Appreciate ortho recommendations, will contact them. (4) Transient hypotension: Code(s): I95.9 - Hypotension, unspecified Status: Acute Assessment and Plan: Noted to be hypotensive 05/19-05/21 -Most likely multifactorial due to dehydration, bp meds, and infx -pt has also been treated for possible PNA or wound infection with zosyn (febrile on 05/19 as well during this). Blood cultures were drawn and have no growth to date. No wound cultures taken. No further fevers since 05/19. Continue zosyn for now. No need for staph coverage at this time since he has been afebrile and better since then. -improved with tx of fluids and abx -bp meds held (5) Anemia: Code(s): D64.9 - Anemia, unspecified Status: Acute Assessment and Plan: Chronic and stable, last hgb 8.8 -no signs of bleeding -Anemia labs Iron 12, TIBC 127, % sat 9, Transferrin <80, Ferritin 1180, B12 >1000, Folate 5.0 -iron started (6) Dementia: Code(s): F03.90 - Unspecified dementia without behavioral disturbance Status: Acute Assessment and Plan: Continue home medication including memantine, lamotrigine, haloperidol, rivastigmine, and lorazepam. (7) COVID: Code(s): U07.1 - COVID-19 Status: Acute Assessment and Plan: Reportedly tested positive 05/08/21. He is not requiring o2. No need for isolation. (8) Acute metabolic encephalopathy: Code(s): G93.41 - Metabolic encephalopathy Status: Acute Assessment and Plan: Improved with above (9) Atrial fibrillation with RVR: Code(s): I48.91 - Unspecified atrial fibrillation Status: Acute Assessment and Plan: Likely due to large PE -cardiology consulted - HR controlled, no longer needing metoprolol (last given 05/20 and stopped due to hypotension) - continue Xarelto (10) Elevated troponin: Code(s): R77.8 - Other specified abnormalities of plasma proteins Status: Acute Assessment and Plan: Likely due to new afib rvr and PE -echo 2. Left ventricular chamber dimension is normal. 3. Left ventricular systolic function is normal, estimated at 50-55%. 4. Right ventricular chamber dimension is moderately enlarged. 5. Right ventricular systolic function is reduced. 6. IVC is dilated. 7. Lack of TR jet to interrogate precludes estimation of PA pressure. (11) Pneumonia: Code(s): J18.9 - Pneumonia, unspecified organism Status: Acute Assessment and Plan: Could be COVID or post-viral PNA -he was started on zosyn and improved with this. No staph coverage
[2021-05-25] MEDS: HALOPERIDOL 5 MG TABLET PO (10:25)
[2021-05-25] MEDS: CHOLECALCIFEROL 400 UNITS TABLET (VIT D) PO (10:25)
[2021-05-25] MEDS: SERTRALINE HCL 50 MG TABLET PO (10:25)
[2021-05-25] MEDS: lamoTRIgine 25 MG TABLET PO (10:25)
[2021-05-25] MEDS: FERROUS SULFATE 324 MG TABLET PO ×2 (10:26→18:27)
[2021-05-25] MEDS: RIVASTIGMINE TARTRATE 9.5 MG PATCH 1 PATCH TRANSDERM (10:26)
[2021-05-25] MEDS: BENZTROPINE MESYLATE 1 MG TABLET PO (10:26)
[2021-05-25] MEDS: MEMANTINE 5 MG TABLET PO ×2 (10:26→21:56)
[2021-05-25] MEDS: SENNA/DOCUSATE SODIUM TABLET 2 TAB PO ×2 (10:26→18:27)
[2021-05-25 11:12] LABS: Hematocrit 31.7 % (42.0-52.0); Hemoglobin 9.9 g/dL (14.0-18.0)
[2021-05-25 11:25] LABS: Alanine Aminotransferase 136 U/L (4-50); Alkaline Phosphatase 215 U/L (38-126); Anion Gap 3 mmol/L (8-16); Aspartate Amino Transferase 136 U/L (17-59); Bilirubin,Total 0.6 mg/dL (0.2-1.3); Blood Urea Nitrogen 8 mg/dL (9-20); Calcium 8.8 mg/dL (8.4-10.2); Carbon Dioxide 28 mmol/L (22-30); Chloride 105 mmol/L (98-107); Estimated CRCL calculation 60 ml/min; Estimated Glomerular Filt Rate > 60; Glucose 94 mg/dL (65-110); Magnesium 2.1 mg/dL (1.6-2.3); Potassium 3.9 mmol/L (3.4-5.0); Sodium 136 mmol/L (137-145)
--- NOTE | 2021-05-25 12:03 | PC.NURSE ---
Called Dr. Chakraborty's office late morning to notify or PA that patient's hip is shorted and internally rotated, flat on the bed. Office stated that MD & PA are out of the office for the holidays. I asked if Dr. Harris could be notified. Office stated to call Lola's cell phone. Attempted to call and had no answer. I notified hospitalist about the situation. NEPTALI Ricardo ordered a STAT LT hip XR. Results show that hip is dislocated. Spoke with hospitalist again about results. I called Dr. Chakraborty's office again with hip XR results. Office stated to call Lola again. I spoke with her about the patient's current situation. PA stated she would call Dr. Chakraborty and get back to me. Hospitalist updated.
--- NOTE | 2021-05-25 13:28 | PC.NURSE ---
Patient to OR per bed.
--- NOTE | 2021-05-25 13:40 | WPDANESEPPF ---
Anes - Initial Pre Proc Eval Procedure: Operation Date: 05/25/21 01:30 Proposed Procedures p Closed Reduction Any Ortho(Left) - Alberto Harris MD Date/Time: 05/25/21 13:40 Surgeon: Haleigh Bishop PA-C Pre Op Diagnosis: Recurrent left hip dislocation Patient Data Age: 81 Gender: M Height: 1.83 m Weight: 74 kg Last Vital Signs Temp 36.0 C L 05/25/21 06:00 Pulse 72 05/25/21 06:00 Resp 18 05/25/21 06:00 BP 116/58 L 05/25/21 06:00 Pulse Ox 97 05/25/21 06:00 Allergies Allergy/AdvReac Type Severity Reaction Status Date / Time No Known Allergies Allergy Verified 05/15/21 18:47 Home Medications Medication Instructions Recorded Confirmed Type benztropine 1 mg PO DAILY 04/23/21 05/15/21 History cholecalciferol (vitamin D3) 10 mcg PO DAILY 04/23/21 05/15/21 History [Vitamin D3] haloperidol 2 mg PO Q6H PRN 04/23/21 05/15/21 History haloperidol 5 mg PO DAILY 04/23/21 05/15/21 History lamotrigine 25 mg PO DAILY 04/23/21 05/15/21 History memantine 5 mg PO Q12H 04/23/21 05/15/21 History rivastigmine 9.5 mg TRANSDERMAL DAILY 04/23/21 05/15/21 History sertraline 50 mg PO DAILY 04/23/21 05/15/21 History tamsulosin 0.4 mg PO HS 04/23/21 05/15/21 History acetaminophen [Mapap 650 mg PO Q6H PRN #30 tablet 05/05/21 05/15/21 Rx (acetaminophen)] sennosides-docusate sodium 2 tab PO BID #60 tablet 05/05/21 05/15/21 Rx [Senokot-S] amoxicillin-pot clavulanate 1 tablet PO Q12H #20 tablet 05/23/21 Rx ferrous sulfate 324 mg PO BIDWM #60 tablet 05/23/21 Rx silver-hydrocolloid dressing 1 ea TOPICAL DAILY #10 ea 05/23/21 Rx [Aquacel-Ag Advantage] hydrocodone-acetaminophen 1 tablet PO Q6H PRN #20 tablet 05/24/21 Rx lorazepam 1 mg PO Q6H PRN #20 tablet 05/24/21 Rx aspirin 81 mg PO DAILY #30 cap 05/25/21 Rx rivaroxaban [Xarelto] 15 mg PO BID 21 Days #42 tablet 05/25/21 Rx rivaroxaban [Xarelto] 20 mg PO DAILY #30 tablet 05/25/21 Rx Laboratory Tests 05/25/21 05/25/21 05/25/21 11:00 11:00 11:00 Hgb 9.9 g/dL L g/dL (14.0-18.0) Hct 31.7 % L % (42.0-52.0) Sodium 136 mmol/L L mmol/L (137-145) Potassium 3.9 mmol/L mmol/L (3.4-5.0) Chloride 105 mmol/L mmol/L (98-107) Carbon Dioxide 28 mmol/L mmol/L (22-30) Anion Gap 3 mmol/L L mmol/L (8-16) BUN 8 mg/dL L mg/dL (9-20) Creatinine 0.90 mg/dL mg/dL (0.7-1.3) Estim Creat Clear Calc 60 ml/min ml/min Estimated GFR > 60 (59 - ) Glucose 94 mg/dL mg/dL (65-110) Calcium 8.8 mg/dL mg/dL (8.4-10.2) Magnesium 2.1 mg/dL mg/dL (1.6-2.3) Total Bilirubin 0.6 mg/dL mg/dL (0.2-1.3) Direct Bilirubin 0.0 mg/dL mg/dL (0-0.3) AST 136 U/L H U/L (17-59) ALT 136 U/L H U/L (4-50) Alkaline Phosphatase 215 U/L H U/L (38-126) Total Protein 6.0 g/dL L g/dL (6.3-8.2) Albumin 3.0 g/dL L g/dL (3.5-5.1) Patient hx anesthesia problems: none Family hx anesthesia problems: none Results Review: All pre-operative results and documents have been reviewed as part of the pre-operative evaluation. [facility] Past Medical History Medical History BPH (benign prostatic hyperplasia) Dementia Depression with anxiety Postoperative wound dehiscence Prostate cancer per daughter Surgical History Surgical History History of appendectomy per daughter History of left hip hemiarthroplasty With revision after fall and dislocation. Family History Family History Unknown Unknown family medical history Social History Social History Social History: Daughter: Trish is Next of Kin , per Trish PPW is pending patient signa
[2021-05-25] MEDS: LACTATED RINGERS 1,000 ML 30 ML IV CONT (13:44)
--- NOTE | 2021-05-25 13:47 | SUR.PREOP ---
[id number]- Spoke with patient's daughter and received phone consent. Radha also spoke with pt daughter. All questions answered.
--- NOTE | 2021-05-25 14:35 | W.PM.PROC2 ---
Procedure Note - Detailed Date of Procedure 05/25/21 Pre-op Diagnosis Recurrent left hip dislocation Post-op Diagnosis same Procedure Performed closed reduction lt hip bipolar Surgeon Alberto Harris MD Anesthesia MAC Indications Lt hip bipolar dislocation. Family desires reduction Description of Procedure Informed consent, conscious sedation by anesthesia team. closed reduction performed left hip. Reduction felt. Post red xrays confirmed. Estimated Blood Loss 0 Urine Output 100 Drains No Packing Yes Pathology none sent Complications None Condition stable Disposition floor
--- NOTE | 2021-05-25 15:20 | PCNFU ---
Nutrition Follow-Up Complete: Inadequate oral intake related to COVID and wounds as evidenced by reported average intake of 25% and left heel pressure ulcer Goal: Meet nutritional needs Pt. is progressing towards goal. No new goal at this time. Pt current nutrition is a heart healthy diet. Last recorded weight is 74 kg. Recommend re-weighing pt. prior to discharge. Bowel Motility: + BM 05/23/2021 Labs Reviewed: Hgb 9.4, Hct 31.7, Alb 3.0, Na 136, BUN 8 Meds Noted: Cogentin, Ferrous Sulfate, Lorazepam, Xarelto, Zoloft, Vitamin D, Flomax Skin: Left heel pressure ulcer Additional Notes: Pt. is receiving ensure compact TID providing an additional 220 calories and 9 grams of protein to help increase oral intake and prevent weight loss. When pt. does not refuse meals he eats on average 10% of meals. Closely monitor intake and appetite. Recommend appetite stimulant to increase oral intake. Monitor labs, wt, medications, and intake every 3 days
--- NOTE | 2021-05-25 15:45 | PM.PNORT ---
Progress Note: A&P Assessment and Plan (1) Recurrent dislocation, left hip: Code(s): M24.452 - Recurrent dislocation, left hip Status: Acute Assessment and Plan: Discussed with family. Options include observation, closed reduction, open reduction, revision hip, girdlestone hip. Pt on xarelto and with large PE. At significant risk for intraop and postop complications. Unable to proceed with revision surgery at this ntime due to anticoag. At high risk for postop complications, might require higher level acuity hospital for ICU coverage. Family desires closed reduction and transfer to care facility in [place]. Discussed with anesthesia svcs. They have agreed to rec room procedure with conscious sedation. Discussed nonoperative and operative treatment options with the family. Risks and benefits of each as well as alternatives were reviewed. All of the family's questions were answered. The risks of surgery reviewed including but not limited to: Neurovascular damage, wound complication, infection, blood clot, pulmonary embolus, stroke, myocardial infarction, and anesthetic risks up to and including . Continued pain and possible dysfunction were explained. Specific risks of the procedure including later recurrence of deformity. No guarantees were offered. If complications occur, the family understands the need for further treatment, possible further surgery. Family verbalizes understanding and wishes to proceed. PLAN:Closed reduction left hip Subjective Subjective Date/Time Seen: 05/25/21 13:45 Principal diagnosis: LT hip bipolar dislocation Interval history: Notified of recurrent lt hip dislocation on ct scan. Verified by plain radsiographs. No new complaints by patient. No new pain. Not sure of events that lead to current status. Exam Const: General: comfortable and no acute distress Resp: Effort & Inspection: normal respiratory effort Cardio: Rate: regular rate Rhythm: regular rhythm GI: Inspection: non-distended GI Palp: Yes Soft to palpation and No Tenderness to palpation present (GI) Neuro: Cognition (Neuro): abnormal cognition (dementia ) Extrem: Left lower extremity: hip/thigh Details: tenderness Location: of the hip Location: laterally, swelling Location: of the hip (lateral ) and of the proximal upper leg (lateral ), abnormal ROM (limited ) and deformity Location: of the hip (internal rotation ), knee Details: normal to inspection; no tenderness and no swelling, lower leg Details: normal to inspection, ankle Details: normal to inspection and normal ROM and foot Details: normal capillary refill, toes with normal ROM and vascular exam Details: dorsalis pedis pulse present Other: Incision over the lateral aspect of the left hip with two wounds, distal and proximal. Depth of wound measures 1.5cm at both wounds. Moderate serosanguineous fluid. No purulence noted. Surrounding tissue without acute signs of infection. No erythema/no warmth. LT leg flexed and adducted at hip. Shortened compared to opposite leg. Palp dp pulse Objective Data Vital Signs Vital Signs: Vital Signs - 24 hr 05/24/21 22:00 05/25/21 06:00 05/25/21 13:45 Temperature 96.8 F L 96.8 F L 97.5 F L Pulse Rate 80 72 79 Respiratory Rate 18 18 23 H Blood Pressure 100/42 L 116/58 L 101/43 L Pulse Oximetry 94 97 100 05/25/21 14:33 05/25/21 14:48 05/25/21 15:03 Temperature 98.5 F Pulse Rate 131 H 124 H 115 H Respiratory Rate 29 H 34 H 36 H Blood Pressure 135/61 130/65 116/57 L Pulse Oximetry 95 93 90 05/25/21 15:18 05/25/21 15:30 05/25/21 15:40 Temperature Pulse Rate 103 H 103 H Respiratory Rate 33 H 28 H Blood Pressure 112/64 115/54 L Pulse Oximetry 93 94 92 Intake/Output Intake/Output: Intake & Output 05/22/21 05/23/21 05/24/21 05/25/21 23:59 23:59 23:59 23:59 Intake Total 1660 1900 440 200 Output Total 200 Balance 1660 1900 440 0 Meds/Results Medications: Active Medications Generic Name Dose Route S
--- NOTE | 2021-05-25 15:55 | WPDHPUPDATE1 ---
History and Physical Update Update Date/Time: 05/25/21 13:55 History and Physical has been reviewed, including an updated exam of the patient. There are NO changes in the patient's condition. Risks, benefits, and alternatives have been discussed and questions answered. Patient agrees to proceed with procedure.
--- NOTE | 2021-05-25 17:03 | PM.IMPN ---
Progress Note: A&P Assessment and Plan (1) Multiple pulmonary emboli: Code(s): I26.99 - Other pulmonary embolism without acute cor pulmonale Status: Acute Assessment and Plan: CTA showed Pulmonary embolism of the main pulmonary artery, right and left pulmonary arteries and segmental and subsegmental pulmonary arteries bilaterally, large thrombus burden. -he was placed on Lovenox and transitioned to Xarelto. I noticed that this was not the PE dose, will adjust. -his troponins were elevated likely due to large clot burden and he went into AFib. Echo shows decreased right ventricular function but no signs of significant right heart strain. Trop has improved. -Cardiology onboard -likely due to recent sx (2) Fall: Code(s): W19.XXXA - Unspecified fall, initial encounter Status: Acute Assessment and Plan: He had a fall at the [place] and was found to have a dislocated left hip on 05/15/21. This was reduced in the ER and again 05/25/21 -continue fall precautions (3) Recurrent dislocation, left hip: Code(s): M24.452 - Recurrent dislocation, left hip Status: Acute Assessment and Plan: Noted to be dislocated again on 05/20 CT and confirmed to xray today -It was reduced again 05/25 and appears to be aligned. Continue abduction splint and knee imbolizer. Spoke with Dr. Yanes who recommends doing this x 6w and then going to weight baring as tolerated. (4) Transient hypotension: Code(s): I95.9 - Hypotension, unspecified Status: Acute Assessment and Plan: Noted to be hypotensive 05/19-05/21 -Most likely multifactorial due to dehydration, bp meds, and infx -pt has also been treated for possible PNA and wound infection with zosyn (febrile on 05/19 as well during this). Blood cultures were drawn and have no growth to date. No wound cultures taken. No further fevers since 05/19. Continue zosyn for now. No need for staph coverage at this time since he has been afebrile and better since then. -improved with tx of fluids and abx -bp meds held (5) Anemia: Code(s): D64.9 - Anemia, unspecified Status: Acute Assessment and Plan: Chronic and stable, last hgb 9.9 -no signs of bleeding -Anemia labs Iron 12, TIBC 127, % sat 9, Transferrin <80, Ferritin 1180, B12 >1000, Folate 5.0 -iron started (6) Dementia: Code(s): F03.90 - Unspecified dementia without behavioral disturbance Status: Acute Assessment and Plan: Continue home medication including memantine, lamotrigine, haloperidol, rivastigmine, and lorazepam. (7) COVID: Code(s): U07.1 - COVID-19 Status: Acute Assessment and Plan: Reportedly tested positive 05/08/21. He is not requiring o2. No need for isolation. (8) Acute metabolic encephalopathy: Code(s): G93.41 - Metabolic encephalopathy Status: Acute Assessment and Plan: Improved with above (9) Atrial fibrillation with RVR: Code(s): I48.91 - Unspecified atrial fibrillation Status: Acute Assessment and Plan: Likely due to large PE -cardiology consulted - HR controlled, no longer needing metoprolol (last given 05/20 and stopped due to hypotension) - continue Xarelto (dose adjusted) (10) Elevated troponin: Code(s): R77.8 - Other specified abnormalities of plasma proteins Status: Acute Assessment and Plan: Likely due to new afib rvr and PE -echo 2. Left ventricular chamber dimension is normal. 3. Left ventricular systolic function is normal, estimated at 50-55%. 4. Right ventricular chamber dimension is moderately enlarged. 5. Right ventricular systolic function is reduced. 6. IVC is dilated. 7. Lack of TR jet to interrogate precludes estimation of PA pressure. (11) Pneumonia: Code(s): J18.9 - Pneumonia, unspecified organism Status: Acute Assessment and Plan: Could be COVID o
[2021-05-25] MEDS: ACETAMINOPHEN 325 MG TABLET 650 MG PO (18:31)
[2021-05-25] MEDS: RIVAROXABAN 15 MG TABLET PO (18:34)
[2021-05-25] MEDS: TAMSULOSIN HCL 0.4 MG CAPSULE PO (21:56)
[2021-05-26] MEDS: MAGNES & ALUM HYD/SIMETH/DIPHENHYD/LIDOCAINE 119 ML MOUTHWASH BY MOUTH ×5 (05:25→21:41)
[2021-05-26 06:00] VITALS: BP 100/49; PULSE 66; RESP 18; TEMP 36.1; O2SAT 100
[2021-05-26 06:57] LABS: Hematocrit 29.6 % (42.0-52.0); Hemoglobin 9.2 g/dL (14.0-18.0); Mean Corpuscular HGB Conc 31.1 g/dl (32-36); Mean Corpuscular Hemoglobin 28.8 pg (26-34); Mean Corpuscular Volume 92.8 fl (80-100); Mean Platelet Volume 9.8 fl (7.4-10.4); Platelet Count Result 191 k/mm3 (150-375); Red Blood Count 3.19 M/mm3 (4.6-6.20); Red Cell Distribution Width 14.6 % (11.5-14.5)
[2021-05-26 07:03] LABS: Alanine Aminotransferase 102 U/L (4-50); Albumin Level 2.6 g/dL (3.5-5.1); Alkaline Phosphatase 168 U/L (38-126); Anion Gap 3 mmol/L (8-16); Aspartate Amino Transferase 110 U/L (17-59); Bilirubin,Total 0.7 mg/dL (0.2-1.3); Blood Urea Nitrogen 10 mg/dL (9-20); Calcium 8.4 mg/dL (8.4-10.2); Carbon Dioxide 28 mmol/L (22-30); Chloride 106 mmol/L (98-107); Estimated CRCL calculation 54 ml/min; Estimated Glomerular Filt Rate > 60; Glucose 99 mg/dL (65-110); Potassium 3.6 mmol/L (3.4-5.0); Sodium 137 mmol/L (137-145)
[2021-05-26] MEDS: SODIUM CHLORIDE 0.9% IV 250 ML 100 ML IV CONT (07:39)
--- NOTE | 2021-05-26 07:49 | PCPTNOTE ---
PT will hold treatment due to change in medical status and procedure performed in P.M. on 05/25/2021. Will await new orders.
--- NOTE | 2021-05-26 07:59 | PCOTNOTE ---
OT will hold treatment due to change in medical status and procedure in PM on 05/25/2021. Awaiting new orders
[2021-05-26] MEDS: SENNA/DOCUSATE SODIUM TABLET 2 TAB PO ×2 (09:04→16:52)
[2021-05-26] MEDS: CHOLECALCIFEROL 400 UNITS TABLET (VIT D) PO (09:05)
[2021-05-26] MEDS: FERROUS SULFATE 324 MG TABLET PO ×2 (09:05→16:52)
[2021-05-26] MEDS: MEMANTINE 5 MG TABLET PO ×2 (09:05→22:26)
[2021-05-26] MEDS: SERTRALINE HCL 50 MG TABLET PO (09:05)
[2021-05-26] MEDS: lamoTRIgine 25 MG TABLET PO (09:05)
[2021-05-26] MEDS: HALOPERIDOL 5 MG TABLET PO (09:06)
[2021-05-26] MEDS: BENZTROPINE MESYLATE 1 MG TABLET PO (09:06)
[2021-05-26] MEDS: RIVAROXABAN 15 MG TABLET PO ×2 (09:07→16:53)
[2021-05-26] MEDS: RIVASTIGMINE TARTRATE 9.5 MG PATCH 1 PATCH TRANSDERM (09:07)
[2021-05-26 09:53] VITALS: O2SAT 90
--- NOTE | 2021-05-26 10:14 | PM.IMPN ---
Progress Note: A&P Assessment and Plan (1) Discharge planning issues: Code(s): Z02.9 - Encounter for administrative examinations, unspecified Status: Acute Assessment and Plan: Per care coordination, pt unable to discharge until saturday -I updated daughter today and answered all her questions. She understands the high mortality rate with his recent events. He also appears to be failure to thrive and we are going to try and get him to eat a little more. Will give a small amount of fluids to see how he does. (2) Multiple pulmonary emboli: Code(s): I26.99 - Other pulmonary embolism without acute cor pulmonale Status: Acute Assessment and Plan: CTA showed Pulmonary embolism of the main pulmonary artery, right and left pulmonary arteries and segmental and subsegmental pulmonary arteries bilaterally, large thrombus burden. Likely due to left leg dvt noted clinically. -he was placed on Lovenox and transitioned to Xarelto. Now on PE/DVT dose. -his troponins were elevated likely due to large clot burden and he went into AFib. Echo shows decreased right ventricular function but no signs of significant right heart strain. Trop has improved. -Cardiology onboard -likely due to recent sx (3) Fall: Code(s): W19.XXXA - Unspecified fall, initial encounter Status: Acute Assessment and Plan: He had a fall at the [facility] and was found to have a dislocated left hip on 05/15/21. This was reduced in the ER and again 05/25/21 -continue fall precautions (4) Recurrent dislocation, left hip: Code(s): M24.452 - Recurrent dislocation, left hip Status: Acute Assessment and Plan: Noted to be dislocated again on 05/20 CT and confirmed to xray 05/25/21 -It was reduced again 05/25 and appears to be aligned. Continue abduction splint and knee imbolizer. Spoke with Dr. Yanes who recommends doing this x 6w and then going to weight baring as tolerated. (5) Transient hypotension: Code(s): I95.9 - Hypotension, unspecified Status: Acute Assessment and Plan: Noted to be hypotensive 05/19-05/21 -Most likely multifactorial due to dehydration, bp meds, and infx -pt has also been treated for possible PNA and wound infection with zosyn (febrile on 05/19 as well during this). Blood cultures were drawn and have no growth to date. No wound cultures taken. No further fevers since 05/19. Will transition from zosyn to augmentin. No need for staph coverage at this time since he has been afebrile and better since then. -improved with tx of fluids and abx -bp meds held (6) Anemia: Code(s): D64.9 - Anemia, unspecified Status: Acute Assessment and Plan: Chronic and stable, last hgb 9.2 -no signs of bleeding -Anemia labs Iron 12, TIBC 127, % sat 9, Transferrin <80, Ferritin 1180, B12 >1000, Folate 5.0 -iron started (7) Dementia: Code(s): F03.90 - Unspecified dementia without behavioral disturbance Status: Acute Assessment and Plan: Continue home medication including memantine, lamotrigine, haloperidol, rivastigmine, and lorazepam. (8) COVID: Code(s): U07.1 - COVID-19 Status: Acute Assessment and Plan: Reportedly tested positive 05/08/21. He is not requiring o2. No need for isolation. (9) Acute metabolic encephalopathy: Code(s): G93.41 - Metabolic encephalopathy Status: Acute Assessment and Plan: At baseline according to daughter (10) Atrial fibrillation with RVR: Code(s): I48.91 - Unspecified atrial fibrillation Status: Acute Assessment and Plan: Likely due to large PE -cardiology consulted - HR controlled, no longer needing metoprolol (last given 05/20 and stopped due to hypotension) - continue Xarelto (dose adjusted) (11) Elevated troponin: Code(s): R77.8 - Other specified abnormalities of plasma proteins Status: Acute
[2021-05-26 14:51] VITALS: BP 97/57; PULSE 89; RESP 16; TEMP 36.9; O2SAT 100
[2021-05-26] MEDS: SACCHAROMYCES BOULARDII 250 MG CAPSULE PO (16:54)
[2021-05-26 20:45] VITALS: PULSE 89; RESP 16; O2SAT 100
[2021-05-26] MEDS: TAMSULOSIN HCL 0.4 MG CAPSULE PO (21:42)
[2021-05-26] MEDS: AMOXICILLIN/CLAVULANATE K 875-125 MG TAB 1 TABLET PO (21:43)
[2021-05-26 22:00] VITALS: BP 98/57; PULSE 83; RESP 16; TEMP 36.7; O2SAT 100
[2021-05-27] MEDS: MAGNES & ALUM HYD/SIMETH/DIPHENHYD/LIDOCAINE 119 ML MOUTHWASH BY MOUTH ×6 (02:04→20:58)
[2021-05-27 06:00] VITALS: BP 98/57; PULSE 84; RESP 16; TEMP 36.6; O2SAT 100
--- NOTE | 2021-05-27 08:12 | PM.IMPN ---
Progress Note: A&P Assessment and Plan (1) Discharge planning issues: Code(s): Z02.9 - Encounter for administrative examinations, unspecified Status: Acute Assessment and Plan: Per care coordination, pt unable to discharge until saturday -I updated daughter 05/26 and answered all her questions. She understands the high mortality rate with his recent events. He also appears to be failure to thrive and we are going to try and get him to eat a little more. IV fluids started. (2) Multiple pulmonary emboli: Code(s): I26.99 - Other pulmonary embolism without acute cor pulmonale Status: Acute Assessment and Plan: CTA showed Pulmonary embolism of the main pulmonary artery, right and left pulmonary arteries and segmental and subsegmental pulmonary arteries bilaterally, large thrombus burden. Likely due to left leg dvt noted clinically. -he was placed on Lovenox and transitioned to Xarelto. Now on PE/DVT dose. -his troponins were elevated likely due to large clot burden and he went into AFib. Echo shows decreased right ventricular function but no signs of significant right heart strain. Trop has improved. -Cardiology onboard -likely due to recent sx (3) Fall: Code(s): W19.XXXA - Unspecified fall, initial encounter Status: Acute Assessment and Plan: He had a fall at the [facility] and was found to have a dislocated left hip on 05/15/21. This was reduced in the ER and again 05/25/21 after spontaneous displacement -continue fall precautions (4) Recurrent dislocation, left hip: Code(s): M24.452 - Recurrent dislocation, left hip Status: Acute Assessment and Plan: Noted to be dislocated again on 05/20 CT and confirmed to xray 05/25/21 -It was reduced again 05/25 and appears to be aligned. Continue abduction splint and knee imbolizer. Spoke with Dr. Yanes who recommends doing this x 6w and then going to weight baring as tolerated. -I have spoken to [employer] II BLOCKER about turning q2 as safely as we can to avoid pressure wounds. Preventative mepilex will be ordered (5) Transient hypotension: Code(s): I95.9 - Hypotension, unspecified Status: Acute Assessment and Plan: Noted to be hypotensive 05/19-05/21 and has been running lower the last day -Most likely multifactorial due to dehydration, bp meds, and infx -pt has also been treated for possible PNA and wound infection with zosyn (febrile on 05/19 as well during this). Blood cultures were drawn and have no growth to date. No wound cultures taken. No further fevers since 05/19. continue oral augmentin. No need for staph coverage at this time since he has been afebrile and better since then. -bp meds held -Pt looks dry on exam, will start IV fluids and monitor for fluid overload (6) Anemia: Code(s): D64.9 - Anemia, unspecified Status: Acute Assessment and Plan: Chronic and stable, last hgb 9.2 yesterday -no signs of bleeding -Anemia labs Iron 12, TIBC 127, % sat 9, Transferrin <80, Ferritin 1180, B12 >1000, Folate 5.0 -Continue protonix and iron. (7) Dementia: Code(s): F03.90 - Unspecified dementia without behavioral disturbance Status: Acute Assessment and Plan: Continue home medication including memantine, lamotrigine, haloperidol, rivastigmine, and lorazepam. (8) COVID: Code(s): U07.1 - COVID-19 Status: Acute Assessment and Plan: Reportedly tested positive 05/08/21. He is not requiring o2. No need for isolation. (9) Acute metabolic encephalopathy: Code(s): G93.41 - Metabolic encephalopathy Status: Acute Assessment and Plan: At baseline according to daughter (10) Atrial fibrillation with RVR: Code(s): I48.91 - Unspecified atrial fibrillation Status: Acute Assessment and Plan: Likely due to large PE -cardiology consulted - HR controlled, no longer needing metoprolol (last give
[2021-05-27] MEDS: LACTATED RINGERS 1,000 ML 75 ML IV CONT ×2 (08:50→23:26)
[2021-05-27] MEDS: SACCHAROMYCES BOULARDII 250 MG CAPSULE PO ×2 (10:01→16:37)
[2021-05-27] MEDS: RIVASTIGMINE TARTRATE 9.5 MG PATCH 1 PATCH TRANSDERM (10:01)
[2021-05-27] MEDS: CHOLECALCIFEROL 400 UNITS TABLET (VIT D) PO (10:01)
[2021-05-27] MEDS: SERTRALINE HCL 50 MG TABLET PO (10:01)
[2021-05-27] MEDS: SENNA/DOCUSATE SODIUM TABLET 2 TAB PO ×2 (10:01→16:37)
[2021-05-27] MEDS: RIVAROXABAN 15 MG TABLET PO ×2 (10:02→16:37)
[2021-05-27] MEDS: lamoTRIgine 25 MG TABLET PO (10:02)
[2021-05-27] MEDS: BENZTROPINE MESYLATE 1 MG TABLET PO (10:02)
[2021-05-27] MEDS: MEMANTINE 5 MG TABLET PO ×2 (10:02→20:58)
[2021-05-27] MEDS: FERROUS SULFATE 324 MG TABLET PO ×2 (10:02→16:37)
[2021-05-27] MEDS: HALOPERIDOL 5 MG TABLET PO (10:02)
[2021-05-27] MEDS: AMOXICILLIN/CLAVULANATE K 875-125 MG TAB 1 TABLET PO ×2 (10:02→20:58)
[2021-05-27] MEDS: PANTOPRAZOLE SOD SESQUIHYDRATE 20 MG TAB PO (13:04)
[2021-05-27 14:00] VITALS: BP 97/62; PULSE 82; RESP 14; TEMP 36.7; O2SAT 99
[2021-05-27] MEDS: ACETAMINOPHEN 325 MG TABLET 650 MG PO (16:36)
[2021-05-27 20:00] VITALS: PULSE 78; RESP 17; O2SAT 97
[2021-05-27 20:29] VITALS: BP 100/52; PULSE 78; RESP 17; TEMP 36.6; O2SAT 97
[2021-05-27] MEDS: TAMSULOSIN HCL 0.4 MG CAPSULE PO (20:58)
[2021-05-27] MEDS: LORazepam (*CRX) 0.5 MG TABLET PO (23:34)
[2021-05-28] MEDS: MAGNES & ALUM HYD/SIMETH/DIPHENHYD/LIDOCAINE 119 ML MOUTHWASH BY MOUTH ×6 (01:49→21:13)
[2021-05-28 05:40] VITALS: BP 110/57; PULSE 71; RESP 16; TEMP 36.7; O2SAT 92
[2021-05-28 06:42] LABS: Alanine Aminotransferase 65 U/L (4-50); Albumin Level 2.3 g/dL (3.5-5.1); Alkaline Phosphatase 125 U/L (38-126); Anion Gap -1 mmol/L (8-16); Aspartate Amino Transferase 65 U/L (17-59); Bilirubin,Total 0.3 mg/dL (0.2-1.3); Blood Urea Nitrogen 7 mg/dL (9-20); Carbon Dioxide 29 mmol/L (22-30); Chloride 107 mmol/L (98-107); Estimated CRCL calculation 67 ml/min; Estimated Glomerular Filt Rate > 60; Glucose 84 mg/dL (65-110); Potassium 3.3 mmol/L (3.4-5.0); Sodium 135 mmol/L (137-145)
[2021-05-28] MEDS: POTASSIUM CHLORIDE 20 MEQ PACKET (FOR LIQUID) 40 MEQ PO (09:31)
[2021-05-28] MEDS: BENZTROPINE MESYLATE 1 MG TABLET PO (09:32)
[2021-05-28] MEDS: CHOLECALCIFEROL 400 UNITS TABLET (VIT D) PO (09:33)
[2021-05-28] MEDS: HALOPERIDOL 5 MG TABLET PO (09:33)
[2021-05-28] MEDS: SENNA/DOCUSATE SODIUM TABLET 2 TAB PO ×2 (09:33→16:51)
[2021-05-28] MEDS: SERTRALINE HCL 50 MG TABLET PO (09:33)
[2021-05-28] MEDS: PANTOPRAZOLE SOD SESQUIHYDRATE 20 MG TAB PO (09:33)
[2021-05-28] MEDS: lamoTRIgine 25 MG TABLET PO (09:34)
[2021-05-28] MEDS: SACCHAROMYCES BOULARDII 250 MG CAPSULE PO ×2 (09:34→16:51)
[2021-05-28] MEDS: RIVASTIGMINE TARTRATE 9.5 MG PATCH 1 PATCH TRANSDERM (09:34)
[2021-05-28] MEDS: MEMANTINE 5 MG TABLET PO ×2 (09:34→21:12)
[2021-05-28] MEDS: FERROUS SULFATE 324 MG TABLET PO ×2 (09:34→16:51)
[2021-05-28] MEDS: AMOXICILLIN/CLAVULANATE K 875-125 MG TAB 1 TABLET PO ×2 (09:34→21:12)
[2021-05-28] MEDS: RIVAROXABAN 15 MG TABLET PO ×2 (09:35→16:51)
--- NOTE | 2021-05-28 11:52 | PM.IMPN ---
Progress Note: A&P Assessment and Plan (1) Discharge planning issues: Code(s): Z02.9 - Encounter for administrative examinations, unspecified Status: Acute Assessment and Plan: Per care coordination, pt unable to discharge until saturday -I updated daughter 05/26 and answered all her questions. She understands the high mortality rate with his recent events. He also appears to be failure to thrive and we are going to try and get him to eat a little more. IV fluids started. (2) Multiple pulmonary emboli: Code(s): I26.99 - Other pulmonary embolism without acute cor pulmonale Status: Acute Assessment and Plan: CTA showed Pulmonary embolism of the main pulmonary artery, right and left pulmonary arteries and segmental and subsegmental pulmonary arteries bilaterally, large thrombus burden. Likely due to left leg dvt noted clinically. -he was placed on Lovenox and transitioned to Xarelto. Now on PE/DVT dose. -his troponins were elevated likely due to large clot burden and he went into AFib. Echo shows decreased right ventricular function but no signs of significant right heart strain. Trop has improved. -Cardiology onboard -likely due to recent sx (3) Fall: Code(s): W19.XXXA - Unspecified fall, initial encounter Status: Acute Assessment and Plan: He had a fall at the [facility] and was found to have a dislocated left hip on 05/15/21. This was reduced in the ER and again 05/25/21 after spontaneous displacement -continue fall precautions (4) Recurrent dislocation, left hip: Code(s): M24.452 - Recurrent dislocation, left hip Status: Acute Assessment and Plan: Noted to be dislocated again on 05/20 CT and confirmed to xray 05/25/21 -It was reduced again 05/25 and appears to be aligned. Continue abduction splint and knee imbolizer. Spoke with Dr. Yanes who recommends doing this x 6w and then going to weight baring as tolerated. -I have spoken to [employer]PER[employer] about turning q2 as safely as we can to avoid pressure wounds. Preventative mepilex has been ordered as well. (5) Transient hypotension: Code(s): I95.9 - Hypotension, unspecified Status: Acute Assessment and Plan: Noted to be hypotensive 05/19-05/21 and has been running lower the last day -Most likely multifactorial due to dehydration, bp meds, and infx -pt has also been treated for possible PNA and wound infection with zosyn (febrile on 05/19 as well during this). Blood cultures were drawn and have no growth. No wound cultures taken. No further fevers since 05/19. continue oral Augmentin. No need for staph coverage at this time since he has been afebrile and better since then. -bp meds held -Continue IV fluids another day, he is looking better but still could use more hydration. (6) Anemia: Code(s): D64.9 - Anemia, unspecified Status: Acute Assessment and Plan: Chronic and stable -recheck with tomorrows labs -no signs of bleeding -Anemia labs Iron 12, TIBC 127, % sat 9, Transferrin <80, Ferritin 1180, B12 >1000, Folate 5.0 -Continue protonix and iron. (7) Dementia: Code(s): F03.90 - Unspecified dementia without behavioral disturbance Status: Acute Assessment and Plan: Continue home medication including memantine, lamotrigine, haloperidol, rivastigmine, and lorazepam. (8) COVID: Code(s): U07.1 - COVID-19 Status: Acute Assessment and Plan: Reportedly tested positive 05/08/21. He is not requiring o2. No need for isolation. (9) Acute metabolic encephalopathy: Code(s): G93.41 - Metabolic encephalopathy Status: Acute Assessment and Plan: At baseline according to daughter (10) Atrial fibrillation with RVR: Code(s): I48.91 - Unspecified atrial fibrillation Status: Acute Assessment and Plan: Likely due to large PE -cardiology consulted - HR controlled, no longer needin
[2021-05-28] MEDS: LACTATED RINGERS 1,000 ML 75 ML IV CONT (12:08)
[2021-05-28 13:23] VITALS: BP 114/63; PULSE 75; RESP 14; TEMP 36.8; O2SAT 93
[2021-05-28] MEDS: ACETAMINOPHEN 325 MG TABLET 650 MG PO ×2 (13:33→18:56)
[2021-05-28] MEDS: LORazepam (*CRX) 0.5 MG TABLET PO (18:57)
[2021-05-28 20:00] VITALS: PULSE 76; RESP 17; O2SAT 94
[2021-05-28 20:15] VITALS: BP 102/44; PULSE 76; RESP 17; TEMP 36.4; O2SAT 94
[2021-05-28] MEDS: TAMSULOSIN HCL 0.4 MG CAPSULE PO (21:12)
[2021-05-29 05:05] VITALS: BP 109/53; PULSE 76; RESP 18; TEMP 36.4; O2SAT 95
[2021-05-29] MEDS: LACTATED RINGERS 1,000 ML 75 ML IV CONT (05:24)
[2021-05-29 07:01] LABS: Hematocrit 25.4 % (42.0-52.0); Hemoglobin 7.8 g/dL (14.0-18.0); Mean Corpuscular HGB Conc 30.7 g/dl (32-36); Mean Platelet Volume 9.4 fl (7.4-10.4); Platelet Count Result 246 k/mm3 (150-375); Red Blood Count 2.79 M/mm3 (4.6-6.20); Red Cell Distribution Width 14.6 % (11.5-14.5); White Blood Count 8.2 K/mm3 (4.5-10.0)
[2021-05-29 07:12] LABS: Anion Gap -1 mmol/L (8-16); Blood Urea Nitrogen 6 mg/dL (9-20); Calcium 8.2 mg/dL (8.4-10.2); Carbon Dioxide 26 mmol/L (22-30); Chloride 108 mmol/L (98-107); Estimated CRCL calculation 67 ml/min; Estimated Glomerular Filt Rate > 60; Glucose 91 mg/dL (65-110); Magnesium 2.2 mg/dL (1.6-2.3); Potassium 3.7 mmol/L (3.4-5.0); Sodium 133 mmol/L (137-145)
[2021-05-29] MEDS: SERTRALINE HCL 50 MG TABLET PO (09:28)
[2021-05-29] MEDS: PANTOPRAZOLE SOD SESQUIHYDRATE 20 MG TAB PO (09:28)
[2021-05-29] MEDS: HALOPERIDOL 5 MG TABLET PO (09:28)
[2021-05-29] MEDS: BENZTROPINE MESYLATE 1 MG TABLET PO (09:28)
[2021-05-29] MEDS: FERROUS SULFATE 324 MG TABLET PO (09:28)
[2021-05-29] MEDS: lamoTRIgine 25 MG TABLET PO (09:28)
[2021-05-29] MEDS: CHOLECALCIFEROL 400 UNITS TABLET (VIT D) PO (09:28)
[2021-05-29] MEDS: MEMANTINE 5 MG TABLET PO (09:29)
[2021-05-29] MEDS: RIVAROXABAN 15 MG TABLET PO (09:29)
[2021-05-29] MEDS: SENNA/DOCUSATE SODIUM TABLET 2 TAB PO (09:29)
[2021-05-29] MEDS: SACCHAROMYCES BOULARDII 250 MG CAPSULE PO (09:29)
[2021-05-29] MEDS: RIVASTIGMINE TARTRATE 9.5 MG PATCH 1 PATCH TRANSDERM (09:30)
[2021-05-29] MEDS: MAGNES & ALUM HYD/SIMETH/DIPHENHYD/LIDOCAINE 119 ML MOUTHWASH BY MOUTH ×2 (09:31→12:52)
--- NOTE | 2021-05-29 09:57 | PM.PNORT ---
Progress Note: A&P Assessment and Plan (1) Recurrent dislocation, left hip: Code(s): M24.452 - Recurrent dislocation, left hip Status: Acute Assessment and Plan: POD #4: Closed reduction in the OR Patient is now s/p 3 hip dislocations of left hip bipolar. Most recent relocation successful with knee immobilizer and adductor pillow. Still with wound on the lateral aspect of the left hip. Daily dressing changes reinforced with nursing. Patient to continue knee immobilizer and adductor brace x6 weeks. Waffle boots for heel protection. PT to begin following 6 week period to allow healing and prevent recurrent dislocation. Patient is being transferred to a SNF in [place] to be closer to his family. Orthopedic follow up will need to be arrange in new location. (2) Postoperative wound dehiscence: Qualifiers: Encounter type: initial encounter Qualified Code(s): T81.31XA - Disruption of external operation (surgical) wound, not elsewhere classified, initial encounter Code(s): T81.31XA - Disruption of external operation (surgical) wound, not elsewhere classified, initial encounter Status: Acute Assessment and Plan: Continue daily dressing changes. Aquacel AG rope to be packed INTO the depths of the two wounds on the lateral hip. Cover with transfer, gauze and ABDs. Change daily and as needed with increased drainage. Subjective Subjective Date/Time Seen: 05/29/21 0900 Interval history: 4 days s/p 3rd reduction of the left hip bipolar in the operating room No new complaints. Appears comfortable. Confused to situation. Review of Systems Review of Systems: All systems reviewed & are unremarkable except as noted in HPI and below Exam Const: General: comfortable and no acute distress Resp: Effort & Inspection: normal respiratory effort Cardio: Rate: regular rate Rhythm: regular rhythm GI: Inspection: non-distended GI Palp: Yes Soft to palpation and No Tenderness to palpation present (GI) Neuro: Cognition (Neuro): abnormal cognition (dementia ) Extrem: Left lower extremity: hip/thigh Details: tenderness Location: of the hip Location: laterally, swelling Location: of the hip (lateral ) and of the proximal upper leg (lateral ), abnormal ROM (limited ) and deformity Location: of the hip (internal rotation ), knee (knee immobilzer in place- adjusted ) Details: normal to inspection; no tenderness and no swelling, lower leg Details: normal to inspection, ankle Details: normal to inspection and normal ROM and foot Details: normal capillary refill, toes with normal ROM and vascular exam Details: dorsalis pedis pulse present Other: Incision over the lateral aspect of the left hip with two wounds, distal and proximal. Depth of wound measures 1.5cm at both wounds. Moderate serosanguineous fluid. No purulence noted. Surrounding tissue without acute signs of infection. No erythema/no warmth. Left leg out to length, equal with the right side. Knee immobilizer in place. Palp dp pulse Objective Data Vital Signs Vital Signs: Vital Signs - 24 hr 05/28/21 13:23 05/28/21 20:00 05/28/21 20:15 Temperature 36.8 C 36.4 C L Pulse Rate 75 76 76 Respiratory Rate 14 17 17 Blood Pressure 114/63 102/44 L Pulse Oximetry 93 94 94 05/29/21 05:05 Temperature 36.4 C Pulse Rate 76 Respiratory Rate 18 Blood Pressure 109/53 L Pulse Oximetry 95 Intake/Output Intake/Output: Intake & Output 05/26/21 05/27/21 05/28/21 05/29/21 23:59 23:59 23:59 23:59 Intake Total 1180 2120 2390 1100 Output Total 100 250 Balance 1180 2020 2140 1100 Meds/Results Medications: Active Medications Generic Name Dose Route Start Last Admin Trade Name Freq PRN Reason Stop Dose Admin Acetaminophen 650 mg 05/15/21 22:07 05/28/21 18:56 Acetaminophen 325 Mg Tablet PO 650 mg Q6H PRN Administration Mild Pain (1-3) Or Fever Benztropine Mesylate 1 mg 05/16/21 09:00 05/29/21 09:28 Benztropine Mesylate 1 Mg
--- NOTE | 2021-05-29 11:25 | PCNFU ---
Nutrition Follow-Up Complete: Goal: Inadequate oral intake related to COVID and wounds as evidenced by reported average intake of 25% and left heel pressure ulcer Pt. progressing towards goal. No new goal at this time. Pt current nutrition is a regular diet. Last recorded weight is 74 kg. Recommend re-weighing pt. prior to discharge. Bowel Motility: + BM 05/28/2021 Labs Reviewed: Hgb 7.8, Hct 25.4, Na 133, BUN 6 Meds Noted: Cogentin, Protonix, Xarelto, Florastor, Zoloft, Vitamin D, Flomax Skin:Left heel pressure ulcer. Additional Notes: Patient is receiving ensure compact TID providing him with an additional 220 calories and 9 grams of protein to prevent weight loss as well as increase oral intake. Pt. is planning to discharge today, 05/29/2021. FTT is present per progress note. Daughter is aware of current situation. Encouraging as much oral intake as possible. Monitor labs, wt, medications, and intake every 3 days
[2021-05-29] MEDS: ACETAMINOPHEN 325 MG TABLET 650 MG PO (12:51)
--- NOTE | 2021-05-29 15:55 | PM.DS ---
DS: Admitting Diagnosis Discharge Date 05/29/21 Admitting Diagnosis 05/29/21 DS: Discharge Diagnosis Discharge Diagnosis (1) Multiple pulmonary emboli: Code(s): I26.99 - Other pulmonary embolism without acute cor pulmonale Status: Acute Assessment and Plan: CTA showed Pulmonary embolism of the main pulmonary artery, right and left pulmonary arteries and segmental and subsegmental pulmonary arteries bilaterally, large thrombus burden. Likely due to left leg dvt noted clinically. -he was placed on Lovenox and transitioned to Xarelto. -his troponins were elevated likely due to large clot burden and he went into AFib. Echo shows decreased right ventricular function but no signs of significant right heart strain. Trop has improved. -facility to monitor for signs of blood loss and recheck h and h in one week (2) Fall: Code(s): W19.XXXA - Unspecified fall, initial encounter Status: Acute Assessment and Plan: He had a fall at the [facility] and was found to have a dislocated left hip on 05/15/21. This was reduced in the ER and again 05/25/21 after spontaneous displacement -continue fall precautions at [facility] (3) Recurrent dislocation, left hip: Code(s): M24.452 - Recurrent dislocation, left hip Status: Acute Assessment and Plan: Noted to be dislocated again on 05/20 CT and confirmed to xray 05/25/21 -It was reduced again 05/25 and appears to be aligned. Continue abduction splint and knee imbolizer. Spoke with Dr. Yanes who recommends doing this x 6w and then going to weight baring as tolerated. (4) Transient hypotension: Code(s): I95.9 - Hypotension, unspecified Status: Acute Assessment and Plan: Noted to be hypotensive 05/19-05/21 and has been running lower the last day -Most likely multifactorial due to dehydration, bp meds, and infx -pt has also been treated for possible PNA and wound infection with zosyn (febrile on 05/19 as well during this). Blood cultures were drawn and have no growth. No wound cultures taken. No further fevers since 05/19. continue oral Augmentin. No need for staph coverage at this time since he has been afebrile and better since then. (5) Anemia: Code(s): D64.9 - Anemia, unspecified Status: Acute Assessment and Plan: Chronic and stable -recheck with tomorrows labs -no signs of bleeding -Anemia labs Iron 12, TIBC 127, % sat 9, Transferrin <80, Ferritin 1180, B12 >1000, Folate 5.0 -Continue protonix (6) Dementia: Code(s): F03.90 - Unspecified dementia without behavioral disturbance Status: Acute Assessment and Plan: Continue home medication including memantine, lamotrigine, haloperidol, rivastigmine, and lorazepam. (7) COVID: Code(s): U07.1 - COVID-19 Status: Acute Assessment and Plan: Reportedly tested positive 05/08/21. He is not requiring o2. No need for isolation. (8) Acute metabolic encephalopathy: Code(s): G93.41 - Metabolic encephalopathy Status: Acute Assessment and Plan: At baseline according to daughter (9) Atrial fibrillation with RVR: Code(s): I48.91 - Unspecified atrial fibrillation Status: Acute Assessment and Plan: Likely due to large PE -cardiology consulted during stay - HR controlled, no longer needing metoprolol (last given 05/20 and stopped due to hypotension) - continue Xarelto (10) Elevated troponin: Code(s): R77.8 - Other specified abnormalities of plasma proteins Status: Acute Assessment and Plan: Likely due to new afib rvr and PE -echo 2. Left ventricular chamber dimension is normal. 3. Left ventricular systolic function is normal, estimated at 50-55%. 4. Right ventricular chamber dimension is moderately enlarged. 5. Right ventricular systolic function is reduced. 6. IVC is dilated. 7. Lack of TR jet to interrogate precludes estimat
== END 2021-05-29 14:15 | DRG 559 ==
LOC: ANHED 15:12 → ANH3MEDSUR 17:39
PROVIDERS: Internal Medicine; Internal Medicine Cardiovascular Disease; Nurse Practitioner; Orthopaedic Surgery; Physician Assistant; Admitting Provider Internal Medicine; Emergency Provider Emergency Medicine; Visit Provider Physician Assistant
PROC: 0SWSXJZ Revision of Synthetic Substitute in Left Hip Joint, Femoral Surface, External Approach (ICD-10-PCS; principal; 2021-05-25 01:30)
DX: T84.021A Dislocation of internal left hip prosthesis, initial encounter (principal); I26.99 Other pulmonary embolism without acute cor pulmonale; G93.41 Metabolic encephalopathy; I21.A1 Myocardial infarction type 2; J18.9 Pneumonia, unspecified organism; J15.9 Unspecified bacterial pneumonia; K72.00 Acute and subacute hepatic failure without coma; J96.01 Acute respiratory failure with hypoxia; T81.31XA Disruption of external operation (surgical) wound, not elsewhere classified, initial encounter; I82.4Z2 Acute embolism and thrombosis of unspecified deep veins of left distal lower extremity; U09.9 Post COVID-19 condition, unspecified; W19.XXXA Unspecified fall, initial encounter; E86.0 Dehydration; I48.91 Unspecified atrial fibrillation; T42.75XA Adverse effect of unspecified antiepileptic and sedative-hypnotic drugs, initial encounter; T48.205A Adverse effect of unspecified drugs acting on muscles, initial encounter; I95.89 Other hypotension; F03.90 Unspecified dementia, unspecified severity, without behavioral disturbance, psychotic disturbance, mood disturbance, and anxiety; Z20.822 Contact with and (suspected) exposure to COVID-19; D64.9 Anemia, unspecified; N40.0 Benign prostatic hyperplasia without lower urinary tract symptoms; F41.8 Other specified anxiety disorders; R29.6 Repeated falls; Z90.49 Acquired absence of other specified parts of digestive tract; R62.7 Adult failure to thrive; Z68.22 Body mass index [BMI] 22.0-22.9, adult
CPT/HCPCS: 27266; 36415; 71045; 71260; 72170; 73501; 73502; 74177; 76705; 80048; 80053; 80074; 80076; 81001; 82248; 82550; 82607; 82728; 82746; 83540; 83550; 83605; 83615; 83690; 83735; 83880; 84443; 84466; 84484; 85014; 85018; 85025; 85027; 85610; 86140; 87040; 87426; 92610; 93005; 93306; 97110; 97162; 97166; 97530; 97535; 99285; A9270; C9803; G0378; G0379; J0330; J0456; J0696; J1650; J2543; J2704; J7030; J7040; J7050; J7060; J7120; Q9967